=== PATIENT | male | born 1960 | race Caucasian/White ===

== ENCOUNTER → 2017-07-24 16:02 | Outpatient (CLI) | payer OTHER, SELFPAY ==
--- NOTE | 2017-07-24 16:33 | MRI_ITS ---
STUDY: MRI BRAIN WITH AND WITHOUT CONTRAST REASON FOR EXAM: Male, 57 years old. MS, follow-up. TECHNIQUE: Standardized multiplanar fat and water weighted pulse sequences were obtained. 9 ml of Gadavist contrast material was administered intravenously for the contrast portion of the examination. COMPARISON: 14 October 2011 FINDINGS: Normal size of the ventricles and extra-axial spaces for the patient's age. Previously seen prominent right posterior centrum semiovale ovale white matter lesion is decreased in size previously measuring 2 cm in diameter and now measuring approximately 1.1 cm in diameter. There is a new white matter lesion within the central right centrum semiovale measuring 0.8 x 1.1 cm as seen on series 7 image 18. The right posterior occipital periventricular white matter lesion is similar in size measuring 1.6 x 0.7 cm. Postcontrast imaging demonstrates no evidence of enhancing lesion. Small right frontal periventricular white matter lesion is also noted. Normal bilateral basal ganglia. Normal thalami. There is no extra-axial fluid accumulation. Normal flow voids within the major intracranial circulation suggesting patency by spin echo criteria. Normal venous enhancement. There is no enhancing intra-axial or extra-axial abnormality. Normal sella turcica, pituitary gland, infundibular stalk, optic chiasm and hypothalamus. Normal tectal plate and pineal gland. Normal midbrain, simeon and medulla. Normal cerebellum. Normal basal cisterns. Normal bilateral temporal bones. Normal bilateral internal auditory canals. No demonstrated orbital abnormality, within the constraints of a routine brain study. Normal visualized paranasal sinuses. Normal calvarium and skull base. Normal visualized soft tissue structures. Normal visualized upper cervical spine. MRI/Brain W/WO Contrast IMPRESSION: 1. Compared to 2011 there is a new right mid centrum semiovale ovale white matter lesions with decreased size of right posterior periventricular lesion. Stable apparent size of the right posterior occipital region lesion with no evidence of active enhancement. Otherwise no evidence of acute intracranial bleed, mass or ischemia. Electronically Signed: Enoc Youngblood DO at 20:31 EDT , Service support ,
== END ==
PROVIDERS: Family Provider Family Medicine; PCP Family Medicine; Visit Provider Internal Medicine
DX: G35 Multiple sclerosis (principal)
CPT/HCPCS: 70553; A9585

== ENCOUNTER 2017-10-06 18:17 | Emergency (ER) | payer OTHER, SELFPAY ==
--- NOTE | 2017-10-06 18:17 | DT_ITS ---
This patient was seen during an EMR downtime October 01, 2017 - October 08, 2017. This patient may have a combination of paper and electronic documentation or all paper documentation. All documentation is viewable within the e-chart portion of [facility] for each patient visit.
[2017-10-09 06:36] LABS: Bacteria 0 SEEN /hpf (None Seen); Mucous, Urine 0 SEEN /hpf (<or=2+); Squamous Epithelial Cells - UA 0 SEEN /hpf (0-5); White Blood Cells 0 SEEN /hpf (0-5)
[2017-10-09 06:59] LABS: Color, Urine Yellow (Yellow); Glucose, Dipstick NEGATIVE (Normal); Ketone-Dipstick Negative (Negative); Leukocyte Esterase-Dipstick Negative /ul (Negative); Nitrite-Dipstick Negative (Negative); Occult Blood-Urine 250 /ul (Negative); Protein-Dipstick 15 mg/dl (Negative); Red Blood Cells-Urine 0-5 SEEN /hpf (0-5); Specific Gravity, Urine 1.005 (1.002-1.030); Urine Bilirubin Dipstick Negative (Negative); Urine Clarity Clear (Clear); Urine Urobilinogen Normal (Normal); Urine pH 6.5 (5.0 - 8.0)
[2017-10-09 19:50] LABS: BUN 19 mg/dL (7-18); BUN/Creat Ratio 18.6 RATIO (10-20); Creatinine, Serum 1.02 mg/dL (0.70-1.30); EST Glomerular Filtration Rate 81 mL/min (>60); Est Glom Filt Rate - Afr Amer 98 mL/min (>60); Glucose 99 mg/dL (74-106)
[2017-10-09 19:51] LABS: Albumin, Serum 4.1 g/dL (3.2-5.0); Globulin 3.3 g/dL (2.2-4.2); Protein, Total 7.4 g/dL (6.4-8.2)
[2017-10-09 19:52] LABS: AST(SGOT) 22 U/L (15-37); Alanine Aminotransfer ALT/SGPT 27 U/L (16-61); Alkaline Phosphatase 88 U/L (45-117); Anion Gap 8 (5-15); Bilirubin, Direct 0.08 mg/dL (0.00-0.30); CPK Total, Creatine Kinase 175 U/L (39-308); Calcium,Total 8.6 mg/dL (8.5-10.1); Chloride 104 mmol/L (98-107); Potassium 3.7 mmol/L (3.5-5.1); Sodium Level 140 mmol/L (136-145)
[2017-10-09 21:02] LABS: Hematocrit 41.3 % (40-54); Hemoglobin 14.4 g/dl (13.0-16.5); Mean Corp Hgb Conc 34.9 g/gl (32-36); Mean Corpuscular Hgb 30.8 pg (27.0-32.0); Mean Corpuscular Volume 88.2 fL (80-94); Mean Platelet Vol. 10.3 fl (6.2-12.0); Neutrophil % 58.9 % (47-70); POSITIVE COUNT NO; POSITIVE DIFFERENTIAL NO; POSITIVE MORPHOLOGY NO; Platelet Count 179 K/mm3 (150-450); RBC Distribution Width CV 39.7 % (11.6-14.6); RBC Distribution Width SD 12.4 fl (35.1-43.9); Red Blood Count 4.68 M/mm3 (4.6-6.2); White Blood Count 6.7 K/mm3 (4.4-11.0)
[2017-10-09 21:03] LABS: Absolute Lymphocyte Count 1.78 X10^3/ul (0.83-4.51); Basophil# 0.05 X10^3/uL; Basophil% 0.7 % (0-1); Eosinophil# 0.36 X10^3/uL; Eosinophils% 5.4 % (0-5); Lymphocyte # 1.78 X10^3/ul (4.0); Lymphocyte % 26.5 % (19-41); Monocyte# 0.53 X10^3/uL; Monocyte% 7.9 % (0-10); Neutrophil # 3.96 X10^3/uL (2.7-7.7)
== END 2017-10-06 20:23 | disposition home or self-care (01) ==
LOC: ED 10-07 15:27
PROVIDERS: Emergency Provider Emergency Medicine; Family Provider Family Medicine; PCP Family Medicine
DX: R31.9 Hematuria, unspecified (principal); M62.82 Rhabdomyolysis
CPT/HCPCS: 36415; 80048; 80076; 81001; 82550; 85025; 96360; 96361; 99283; J7030; A4216

== ENCOUNTER → 2017-10-24 09:45 | Outpatient (CLI) | payer OTHER, SELFPAY ==
[2017-10-24 12:19] LABS: Anion Gap 9 (5-15); BUN 16 mg/dL (7-18); BUN/Creat Ratio 17.2 RATIO (10-20); Calcium,Total 9.1 mg/dL (8.5-10.1); Chloride 105 mmol/L (98-107); Creatinine, Serum 0.93 mg/dL (0.70-1.30); EST Glomerular Filtration Rate 90 mL/min (>60); Est Glom Filt Rate - Afr Amer 109 mL/min (>60); Glucose 102 mg/dL (74-106); Potassium 4.2 mmol/L (3.5-5.1); Sodium Level 141 mmol/L (136-145)
== END ==
PROVIDERS: Family Provider Family Medicine; PCP Family Medicine; Visit Provider Family Medicine
DX: E11.9 Type 2 diabetes mellitus without complications (principal)
CPT/HCPCS: 36415; 80048

== ENCOUNTER 2017-12-14 10:26 | Emergency (ER) | payer OTHER, SELFPAY ==
--- NOTE | 2017-12-14 10:38 | ED.RN ---
pt brought into triage room. this rn began to ask pt information. pt statesi was here awhile back when computers were down. this rn states ok and continues to search pt in computer. pt then starts yelling at this rn stating the physicians are not in my network so insurance did not pat my bill. this is bullshit. i want you to find me a dr in network to see me this am. this nurse explained that the physicians currently working in the ed department would be the ones to assess him. pt then becomes very angry calling this rn stupid and stating that this is fucking ridiculous. this rn offered a recharger or for the application architect manager to come discuss with pt. pt then screams at rn you are a fucking idiot i don't want anything. police and security aware as well as application architect manager
== END 2017-12-14 11:20 | disposition left against medical advice (07) ==
LOC: ED 11:12
PROVIDERS: Emergency Provider Emergency Medicine; Family Provider Family Medicine; PCP Family Medicine
DX: R69 Illness, unspecified (principal); Z53.21 Procedure and treatment not carried out due to patient leaving prior to being seen by health care provider

== ENCOUNTER → 2017-12-14 15:53 | Outpatient (CLI) | payer OTHER, SELFPAY | PROVIDERS: Family Provider Family Medicine; PCP Family Medicine; Visit Provider Family Medicine | DX: S42.035A Nondisplaced fracture of lateral end of left clavicle, initial encounter for closed fracture (principal); V19.9XXA Pedal cyclist (driver) (passenger) injured in unspecified traffic accident, initial encounter; Y93.9 Activity, unspecified; Y92.9 Unspecified place or not applicable | CPT/HCPCS: 73000 ==

== ENCOUNTER 2018-02-02 07:42 | Emergency (ER) | payer OTHER, SELFPAY ==
[2018-02-02 07:43] VITALS: BP 170/90; PULSE 66; RESP 16; TEMP 36.7; O2SAT 98; BMI 30.9
--- NOTE | 2018-02-02 07:57 | CT_ITS ---
STUDY: CT ABDOMEN AND PELVIS WITHOUT CONTRAST REASON FOR EXAM: Male, 57 years old. Back pain, dark urine with history of rhabdo. RADIATION DOSAGE (If Supplied By Facility): CTDIvol = ( 14.68 ) mGy, DLP = ( 788.33 ) mGycm TECHNIQUE: Transaxial images were obtained from the dome of the diaphragm to the symphysis pubis without oral contrast, and without intravenous contrast. Sagittal and coronal images were reconstructed. Individualized dose optimization techniques were used for this CT. COMPARISON: None. FINDINGS: Left lower lobe focal granulomas present. The visualized portions of the heart are within normal limits. Normal liver. Normal gallbladder and extrahepatic biliary system. Normal spleen. Normal pancreas. Normal bilateral adrenal glands. There is demonstrated mild right renal enlargement, perinephric stranding with moderate hydronephrosis. There is a demonstrated proximal ureteral stone is seen on series 2 image 93 measuring 6 mm. Normal left kidney. Normal visualized stomach. Normal small intestine. Normal colon. The appendix is visualized and appears normal. Normal abdominal aorta. Normal inferior vena cava. Normal retroperitoneum. Normal urinary bladder. There are prostatic calcifications. There is a bilateral inguinal hernia containing adipose tissue. Normal osseous structures. CT/Abdomen/Pelvis without Cont IMPRESSION: 1. Proximal ureteral 6 mm stone with moderate hydronephrosis and mild obstructive nephropathy. Otherwise no evidence of acute intra-abdominal process. Electronically Signed: Enoc Youngblood DO at 8:42 EDT , Service support ,
--- NOTE | 2018-02-02 08:00 | ED.VISSUMM ---
- ER Visit Summary Date of Service: 02/02/18 Chief Complaint: [] Dark urine, right flank pain, history of rhabdomyolysis, kidney stones hypertension diabetes History of Present Illness: The patient is a 57 M [] that history, patient reports yesterday he cycled 18 miles which is not unusual for him he noticed he drinks very little water and has had dark urine since, he has had a history of rhabdomyolysis, he presents for evaluation he also complains of right flank pain prior history of kidney stones. He also has hypertension diabetes he is on metformin hydrochlorothiazide. In general his health has been very good he indicates he believes he just simply did not drink enough water with his cycling activities and this caused the dark urine, he has been drinking as much water as he can since he noticed the dark urine and it has not gone away and he presents for evaluation, prior history of kidney stones that resolved spontaneously was not seen by urology his blood sugars normally run 130 Review of systems otherwise negative he has no other complaints Physical Examination: [] Pressure is 170/80 he is resting comforting the bed head neck chest unremarkable lungs clear heart tones normal the abdomen soft nontender no rebound guarding organomegaly he does have a vague pain to the right flank that radiates to his right middle quadrant but there is no rebound guarding organomegaly he states he is concerned he may have developed a kidney stone with all the above or this may be related to his cycling activity, his upper lower extremities unremarkable without cyanosis clubbing or edema, his skin is normal neurologically is awake alert moving all 4 answering questions appropriately Test Results: [] Emergency Department Course and Treatment: [] Given all of his complains, evaluations pursued screening labs CT IV fluids The patient's labs are generally unremarkable his CK is around 200, please see those reports, his CT flank shows a 6 mm kidney stone right please see that report on reevaluation he is resting in the bed feels better I explained all the test results to him he is comfortable discharge home, he understands he did see urology, Dr. Downs , he will avoid exertional activity make sure he hydrates himself, I have cautioned him about the concept of rhabdomyolysis metformin interactions acidosis etc. he will talk to his physicians about the metformin his blood sugar, and return for any change in symptoms and again he is feeling better and is comfortable with discharge home understands the management plan and agrees, he will obtain the complete fluid bolus prior to discharge Treatment Plan: [] Disposition: [] Home stable Impression: [] Right flank pain related to right sided ureteral stone see report, concern for rhabdomyolysis, diabetes This note was generated with [employer] dictation software. It may contain incorrect words, spelling, and punctuation that were not noted in review of the chart prior to signing ED Disposition - Plan for ED Patient: Chief Complaint: General Illness Referrals: Jayla Rajput MD [Primary Care Provider] -
[2018-02-02 08:08] LABS: Mucous, Urine 0 SEEN /hpf (<or=2+); Squamous Epithelial Cells - UA 0 SEEN /hpf (0-5)
[2018-02-02 08:12] LABS: Color, Urine Yellow (Yellow); Glucose, Dipstick Normal (Normal); Ketone-Dipstick Negative (Negative); Leukocyte Esterase-Dipstick Negative /ul (Negative); Nitrite-Dipstick Negative (Negative); Occult Blood-Urine 250 /ul (Negative); Protein-Dipstick 15 mg/dl (Negative); Urine Bilirubin Dipstick Negative (Negative); Urine Clarity Clear (Clear); Urine Urobilinogen Normal (Normal)
[2018-02-02] MEDS: Ondansetron 4 MG/2 ML Vial IV (08:16)
[2018-02-02] MEDS: 0.9% Normal Saline 1,000 ML 1000 ML IV ×2 (08:16→08:57)
[2018-02-02 08:29] LABS: Absolute Lymphocyte Count 2.17 X10^3/ul (0.83-4.51); Absolute Neutrophil Count 4.3 X10^3/uL (2.0-7.7); Basophil# 0.04 X10^3/uL; Basophil% 0.6 % (0-1); Eosinophil# 0.23 X10^3/uL; Eosinophils% 3.3 % (0-5); Hematocrit 40.8 % (40-54); Hemoglobin 14.3 g/dl (13.0-16.5); Lymphocyte # 2.17 X10^3/ul (4.0); Lymphocyte % 30.7 % (19-41); Mean Corpuscular Hgb 30.3 pg (27.0-32.0); Mean Corpuscular Volume 86.4 fL (80-94); Mean Platelet Vol. 9.9 fl (6.2-12.0); Monocyte# 0.34 X10^3/uL; Monocyte% 4.8 % (0-10); Neutrophil # 4.26 X10^3/uL (2.7-7.7); Neutrophil % 60.2 % (47-70); Platelet Count 158 K/mm3 (150-450); RBC Distribution Width CV 12.7 % (11.6-14.6); RBC Distribution Width SD 40.3 fl (35.1-43.9); Red Blood Count 4.72 M/mm3 (4.6-6.2); White Blood Count 7.1 K/mm3 (4.4-11.0)
[2018-02-02 08:30] LABS: POSITIVE COUNT NO; POSITIVE DIFFERENTIAL NO; POSITIVE MORPHOLOGY NO
[2018-02-02 08:37] LABS: AST(SGOT) 19 U/L (15-37); Alanine Aminotransfer ALT/SGPT 27 U/L (16-61); Albumin, Serum 3.9 g/dL (3.2-5.0); Alkaline Phosphatase 81 U/L (45-117); Anion Gap 10 (5-15); BUN 19 mg/dL (7-18); Bilirubin, Direct 0.14 mg/dL (0.00-0.30); Calcium,Total 9.1 mg/dL (8.5-10.1); Chloride 100 mmol/L (98-107); EST Glomerular Filtration Rate 82 mL/min (>60); Est Glom Filt Rate - Afr Amer 100 mL/min (>60); Estimated Creatinine Clearance 94.33 ml/min; Globulin 3.5 g/dL (2.2-4.2); Glucose 108 mg/dL (74-106); Lipase 197 U/L (73-393); Protein, Total 7.4 g/dL (6.4-8.2); Sodium Level 135 mmol/L (136-145)
[2018-02-02 08:42] LABS: CPK Total, Creatine Kinase 215 U/L (39-308)
[2018-02-02 08:56] LABS: Bacteria 1+ /hpf (None Seen); Red Blood Cells-Urine 0-5 SEEN /hpf (0-5); Triple Phosphate Crystals Ur 1+ /hpf (<or=1+); Uric Acid Crystals Ur 1+ /hpf (<or=1+); White Blood Cells 0-5 SEEN /hpf (0-5)
[2018-02-02] MEDS: proMETHazine 25 MG/ML Syringe 12.5 MG IV (08:57)
--- NOTE | 2018-02-02 09:38 | ED.DEP ---
ED Disposition - Plan for ED Patient: Chief Complaint: General Illness Instructions: ED Rhabdomyolysis, ED Stone Renal W Colic Prescriptions: Hydrocodone Bitart/Apap 5-325 [[place] 5MG-325MG] 1 tab PO Q4H PRN PRN 2 Days #10 tab PRN Reason: Pain Tamsulosin HCl [Flomax] 0.4 mg PO DAILY #7 cap Naproxen [Naprosyn] 500 mg PO BID #14 tab Referrals: Jayla Rajput MD [Primary Care Provider] - Rodri Moore MD [STAFF PHYSICIAN] -
--- NOTE | 2018-02-02 09:41 | DCINST.ED_ITS ---
ED Disposition - Plan for ED Patient: Chief Complaint: General Illness Instructions: ED Rhabdomyolysis, ED Stone Renal W Colic Prescriptions: Hydrocodone Bitart/Apap 5-325 [[place] 5MG-325MG] 1 tab PO Q4H PRN PRN 2 Days #10 tab PRN Reason: Pain Tamsulosin HCl [Flomax] 0.4 mg PO DAILY #7 cap Naproxen [Naprosyn] 500 mg PO BID #14 tab Referrals: Jayla Rajput MD [Primary Care Provider] - Rodri Moore MD [STAFF PHYSICIAN] -
[2018-02-02 09:59] VITALS: BP 164/87; PULSE 60; RESP 18; O2SAT 97
== END 2018-02-02 10:00 | disposition home or self-care (01) ==
PROVIDERS: Emergency Provider Emergency Medicine; Family Provider Family Medicine; PCP Family Medicine
DX: N20.1 Calculus of ureter (principal); E11.9 Type 2 diabetes mellitus without complications; I10 Essential (primary) hypertension; Z87.442 Personal history of urinary calculi; Z79.84 Long term (current) use of oral hypoglycemic drugs; Z79.899 Other long term (current) drug therapy; Z87.39 Personal history of other diseases of the musculoskeletal system and connective tissue
CPT/HCPCS: 74176; 80048; 80076; 81001; 82550; 83690; 85025; 96361; 96374; 96375; 99283; J7030; J2405

== ENCOUNTER → 2018-04-29 09:48 | Outpatient (CLI) | payer OTHER, SELFPAY ==
[2018-04-29 12:57] LABS: Microalbumin,Random Urine 6.7 mg/L (NO RANGE EST.); Microalbumin:Creatinine Ratio 7.7 mg/g CRE (<30 mg/g CRE)
[2018-04-29 13:02] LABS: AST(SGOT) 21 U/L (15-37); Alanine Aminotransfer ALT/SGPT 33 U/L (16-61); Albumin, Serum 4.3 g/dL (3.2-5.0); Alkaline Phosphatase 68 U/L (45-117); Anion Gap 12 (5-15); BUN 16 mg/dL (7-18); BUN/Creat Ratio 16.9 RATIO (10-20); Bilirubin, Direct 0.17 mg/dL (0.00-0.30); Calcium,Total 9.2 mg/dL (8.5-10.1); Chloride 100 mmol/L (98-107); Cholesterol 233 mg/dL (200); Creatinine, Serum 0.95 mg/dL (0.70-1.30); EST Glomerular Filtration Rate 88 mL/min (>60); Est Glom Filt Rate - Afr Amer 106 mL/min (>60); Globulin 3.2 g/dL (2.2-4.2); Glucose 99 mg/dL (74-106); High Density Lipoprotein 37 mg/dL; Potassium 3.9 mmol/L (3.5-5.1); Protein, Total 7.5 g/dL (6.4-8.2); Sodium Level 139 mmol/L (136-145); Triglycerides 498 mg/dL
== END ==
PROVIDERS: Family Provider Family Medicine; PCP Family Medicine; Visit Provider Family Medicine
DX: E11.9 Type 2 diabetes mellitus without complications (principal)
CPT/HCPCS: 36415; 80048; 80061; 80076; 82043; 82570

== ENCOUNTER → 2018-10-22 10:26 | Outpatient (CLI) | payer OTHER, SELFPAY ==
[2018-10-22 12:56] LABS: Hemoglobin A1c 5.2 % (4.2-6.3)
[2018-10-22 12:59] LABS: AST(SGOT) 16 U/L (15-37); Alanine Aminotransfer ALT/SGPT 24 U/L (16-61); Anion Gap 5 (5-15); BUN 19 mg/dL (7-18); BUN/Creat Ratio 20.2 RATIO (10-20); Calcium,Total 9.6 mg/dL (8.5-10.1); Chloride 102 mmol/L (98-107); Cholesterol 216 mg/dL (200); Creatinine, Serum 0.94 mg/dL (0.70-1.30); EST Glomerular Filtration Rate 88 mL/min (>60); Est Glom Filt Rate - Afr Amer 106 mL/min (>60); Glucose 104 mg/dL (74-106); High Density Lipoprotein 38 mg/dL; Potassium 3.9 mmol/L (3.5-5.1); Sodium Level 136 mmol/L (136-145); Triglycerides 327 mg/dL; Very Low Density Lipoprotein 65 mg/dL (5-40)
== END ==
PROVIDERS: Family Provider Family Medicine; PCP Family Medicine; Visit Provider Family Medicine
DX: E78.5 Hyperlipidemia, unspecified (principal); E11.9 Type 2 diabetes mellitus without complications
CPT/HCPCS: 36415; 80048; 80061; 83036; 84450; 84460

== ENCOUNTER → 2019-02-07 10:29 | Outpatient (CLI) | payer OTHER, SELFPAY ==
--- NOTE | 2019-02-07 10:49 | EKG12_ITS ---
Test Reason : PREOP Blood Pressure : / mmHG Vent. Rate : 061 BPM Atrial Rate : 061 BPM P-R Int : 186 ms QRS Dur : 126 ms QT Int : 422 ms P-R-T Axes : 055 025 047 degrees QTc Int : 424 ms Normal sinus rhythm Non-specific intra-ventricular conduction block Inferior infarct , age undetermined Abnormal ECG Confirmed by CHERRY MACHUCA, SARAH BETH ([id number]), content editor HIEN GARIBAY ([id number]) on 02/12/2019 9:38:48 A M Referred By: Octaviano Mosher Confirmed By:JOSE CAREY MD
[2019-02-07 11:34] LABS: Hematocrit 42.6 % (40-54); Hemoglobin 14.9 g/dL (13.0-16.5); Mean Corpuscular Hgb 30.2 pg (27.0-32.0); Mean Corpuscular Volume 86.4 fL (80-94); Mean Platelet Vol. 10.4 fl (6.2-12.0); Platelet Count 167 K/mm3 (150-450); RBC Distribution Width CV 12.5 % (11.6-14.6); RBC Distribution Width SD 39.4 fl (35.1-43.9); Red Blood Count 4.93 M/mm3 (4.6-6.2)
[2019-02-07 11:57] LABS: Anion Gap 9 (5-15); BUN 20 mg/dL (7-18); BUN/Creat Ratio 18.9 RATIO (10-20); Calcium,Total 8.7 mg/dL (8.5-10.1); Chloride 109 mmol/L (98-107); Creatinine, Serum 1.06 mg/dL (0.70-1.30); EST Glomerular Filtration Rate 77 mL/min (>60); Est Glom Filt Rate - Afr Amer 93 mL/min (>60); Glucose 101 mg/dL (74-106); Sodium Level 144 mmol/L (136-145)
== END ==
PROVIDERS: Family Provider Family Medicine; PCP Family Medicine; Referring Provider Orthopaedic Surgery; Visit Provider Orthopaedic Surgery
DX: Z01.818 Encounter for other preprocedural examination (principal); Z01.810 Encounter for preprocedural cardiovascular examination
CPT/HCPCS: 36415; 80048; 85027; 93005

== ENCOUNTER → 2019-04-15 09:39 | Outpatient (CLI) | payer OTHER, SELFPAY ==
[2019-04-15 12:47] LABS: Anion Gap 8 (5-15); BUN 17 mg/dL (7-18); BUN/Creat Ratio 14.9 RATIO (10-20); Calcium,Total 9.5 mg/dL (8.5-10.1); Chloride 105 mmol/L (98-107); Creatinine, Serum 1.14 mg/dL (0.70-1.30); EST Glomerular Filtration Rate 70 mL/min (>60); Est Glom Filt Rate - Afr Amer 85 mL/min (>60); Glucose 102 mg/dL (74-106); Potassium 4.3 mmol/L (3.5-5.1); Sodium Level 139 mmol/L (136-145)
== END ==
PROVIDERS: Family Provider Family Medicine; PCP Family Medicine; Referring Provider Family Medicine; Visit Provider Family Medicine
DX: E11.9 Type 2 diabetes mellitus without complications (principal)
CPT/HCPCS: 36415; 80048

== ENCOUNTER → 2019-10-21 10:16 | Outpatient (CLI) | payer OTHER, SELFPAY ==
[2019-10-21 13:05] LABS: Anion Gap 8 (5-15); BUN 18 mg/dL (7-18); BUN/Creat Ratio 20.4 RATIO (10-20); Calcium,Total 9.4 mg/dL (8.5-10.1); Chloride 105 mmol/L (98-107); Creatinine, Serum 0.88 mg/dL (0.70-1.30); EST Glomerular Filtration Rate 94 mL/min (>60); Est Glom Filt Rate - Afr Amer 114 mL/min (>60); Glucose 105 mg/dL (74-106); Potassium 3.8 mmol/L (3.5-5.1); Sodium Level 139 mmol/L (136-145)
[2019-10-21 13:13] LABS: Hemoglobin A1c 5.1 % (3.8-5.6)
== END ==
PROVIDERS: PCP Family Medicine; Referring Provider Family Medicine; Visit Provider Family Medicine
DX: E11.9 Type 2 diabetes mellitus without complications (principal)
CPT/HCPCS: 36415; 80048; 83036

== ENCOUNTER → 2020-04-07 10:23 | Outpatient (CLI) | payer OTHER, SELFPAY ==
[2020-04-07 12:24] LABS: Absolute Lymphocyte Count 2.36 X10^3/uL (0.83-4.51); Absolute Neutrophil Count 3.1 X10^3/uL (2.0-7.7); Basophil# 0.09 X10^3/uL; Basophil% 1.4 % (0-1); Eosinophil# 0.34 X10^3/uL; Eosinophils% 5.3 % (0-5); Hematocrit 46.1 % (40-54); Hemoglobin 16.1 g/dL (13.0-16.5); Lymphocyte # 2.36 X10^3/ul (4.0); Lymphocyte % 36.9 % (19-41); Mean Corp Hgb Conc 34.9 g/dL (32-36); Mean Corpuscular Hgb 30.1 pg (27.0-32.0); Mean Corpuscular Volume 86.3 fL (80-94); Mean Platelet Vol. 10.5 fl (6.2-12.0); Monocyte# 0.42 X10^3/uL; Monocyte% 6.6 % (0-10); NRBC Flagged by Analyzer 0 % (0-5); Neutrophil # 3.13 X10^3/uL (2.7-7.7); Platelet Count 193 K/mm3 (150-450); RBC Distribution Width CV 12.4 % (11.6-14.6); RBC Distribution Width SD 38.8 fl (35.1-43.9); Red Blood Count 5.34 M/mm3 (4.6-6.2); White Blood Count 6.4 K/mm3 (4.4-11.0)
[2020-04-07 12:42] LABS: ALB/GLOB Ratio 1.2 RATIO (0.9-2.4); AST(SGOT) 22 U/L (15-37); Alanine Aminotransfer ALT/SGPT 50 U/L (16-61); Albumin, Serum 4.3 g/dL (3.2-5.0); Alkaline Phosphatase 71 U/L (45-117); Anion Gap 6 (5-15); BUN 19 mg/dL (7-18); BUN/Creat Ratio 19.2 RATIO (10-20); Calcium,Total 9.3 mg/dL (8.5-10.1); Chloride 105 mmol/L (98-107); Creatinine, Serum 0.99 mg/dL (0.70-1.30); EST Glomerular Filtration Rate 82 mL/min (>60); Est Glom Filt Rate - Afr Amer 100 mL/min (>60); Globulin 3.7 g/dL (2.2-4.2); Glucose 105 mg/dL (74-106); Potassium 3.6 mmol/L (3.5-5.1); Sodium Level 138 mmol/L (136-145)
[2020-04-10 06:07] LABS: HEPATITIS B SURFACE AG Negative (Negative); Hepatitis A AB, Total Negative (Negative); Hepatitis A IgM Antibody Negative (Negative); Hepatitis B Core AB IgM Negative (Negative); Hepatitis B Core Ab Total Negative (Negative); Hepatitis C Ab <0.1 s/co ratio (0.0-0.9); Immunoglobulin A 284 mg/dL (90-386); Immunoglobulin G 970 mg/dL (603-1613); QNTFERON TB Mitogen Value > 10.00 IU/mL (.); QNTFERON TB Nil Value 0.08 IU/mL (.); QNTFERON TB1+ Ag Value 0.06 IU/mL (.); QNTFERON TB2+ Ag Value 0.06 IU/mL (.)
[2020-04-10 15:38] LABS: Hep B Surface Antibodies Non Reactive (.); Immunoglobulin M 66 mg/dL (20-172); QNTIFERON TB Positive Criteria Negative (Negative)
== END ==
PROVIDERS: PCP Family Medicine; Referring Provider Family Medicine
DX: G35 Multiple sclerosis (principal)
CPT/HCPCS: 36415; 80053; 82784; 85025; 86480; 86704; 86705; 86706; 86708; 86709; 86803; 87340

== ENCOUNTER → 2020-09-22 08:51 | Outpatient (CLI) | payer OTHER, SELFPAY ==
[2020-09-22 09:56] LABS: Absolute Neutrophil Count 2.8 X10^3/uL (2.0-7.7); Basophil# 0.08 X10^3/uL; Basophil% 1.4 % (0-1); Eosinophil# 0.32 X10^3/uL; Eosinophils% 5.5 % (0-5); Hematocrit 44.9 % (40-54); Hemoglobin 15.5 g/dL (13.0-16.5); Lymphocyte % 36.3 % (19-41); Mean Corp Hgb Conc 34.5 g/dL (32-36); Mean Corpuscular Hgb 30.8 pg (27.0-32.0); Mean Corpuscular Volume 89.1 fL (80-94); Mean Platelet Vol. 10.5 fl (6.2-12.0); Monocyte# 0.42 X10^3/uL; Monocyte% 7.3 % (0-10); NRBC Flagged by Analyzer 0 % (0-5); Neutrophil # 2.83 X10^3/uL (2.7-7.7); Neutrophil % 48.8 % (47-70); Platelet Count 178 K/mm3 (150-450); RBC Distribution Width CV 12.4 % (11.6-14.6); RBC Distribution Width SD 40.6 fl (35.1-43.9); Red Blood Count 5.04 M/mm3 (4.6-6.2); White Blood Count 5.8 K/mm3 (4.4-11.0)
[2020-09-22 10:17] LABS: ALB/GLOB Ratio 1.2 RATIO (0.9-2.4); AST(SGOT) 26 U/L (15-37); Alanine Aminotransfer ALT/SGPT 43 U/L (16-61); Albumin, Serum 4.1 g/dL (3.2-5.0); Alkaline Phosphatase 80 U/L (45-117); Anion Gap 5 (5-15); BUN 17 mg/dL (7-18); BUN/Creat Ratio 18.1 RATIO (10-20); Calcium,Total 9.1 mg/dL (8.5-10.1); Chloride 108 mmol/L (98-107); Creatinine, Serum 0.94 mg/dL (0.70-1.30); EST Glomerular Filtration Rate 88 mL/min (>60); Est Glom Filt Rate - Afr Amer 106 mL/min (>60); Globulin 3.4 g/dL (2.2-4.2); Glucose 117 mg/dL (74-106); Protein, Total 7.5 g/dL (6.4-8.2); Sodium Level 140 mmol/L (136-145)
[2020-09-23 05:07] LABS: Immunoglobulin A 256 mg/dL (90-386); Immunoglobulin G 771 mg/dL (603-1613)
[2020-09-23 16:47] LABS: Immunoglobulin M 46 mg/dL (20-172)
== END ==
PROVIDERS: PCP Family Medicine; Referring Provider Family Medicine
DX: Z79.899 Other long term (current) drug therapy (principal)
CPT/HCPCS: 36415; 80053; 82784; 85025

== ENCOUNTER → 2020-12-09 09:56 | Outpatient (CLI) | payer OTHER, SELFPAY ==
--- NOTE | 2020-12-09 10:02 | MRI_ITS ---
STUDY: MRI BRAIN WITH AND WITHOUT CONTRAST REASON FOR EXAM: Male, 60 years old. MS f/u TECHNIQUE: Standardized multiplanar fat and water weighted pulse sequences were obtained. IV 20cc dotarem was administered for the contrast portion of the examination. COMPARISON: None. FINDINGS: Normal size of the ventricles and extra-axial spaces for the patient''s age. There is no change in the hyperintensities of the periventricular and pericallosal white matter consistent with known pneumonia and disease (multiple sclerosis). No contrast enhancing plaque. There is no evidence for recent intracranial ischemia or other cause of cytotoxic edema on diffusion weighted imaging (DWI). Normal bilateral basal ganglia. Normal thalami. There is no extra-axial fluid accumulation. Normal flow voids within the major intracranial circulation suggesting patency by spin echo criteria. Normal venous enhancement. There is no enhancing intra-axial or extra-axial abnormality. Normal sella turcica, pituitary gland, infundibular stalk, optic chiasm and hypothalamus. Normal tectal plate and pineal gland. Normal midbrain, simeon and medulla. Normal cerebellum. Normal basal cisterns. Normal bilateral temporal bones. Normal bilateral internal auditory canals. No demonstrated orbital abnormality, within the constraints of a routine brain study. Small mucous retention cyst of the left maxillary sinus consistent with chronic sinusitis. Normal calvarium and skull base. Normal visualized soft tissue structures. Normal visualized upper cervical spine. MRI/Brain W/WO Contrast IMPRESSION: No change from 07/24/2017. Electronically Signed: Phi Alexander MD at 13:30 EDT Tel , Service support ,
[2020-12-09 10:41] LABS: Absolute Lymphocyte Count 1.94 X10^3/uL (0.83-4.51); Absolute Neutrophil Count 2.7 X10^3/uL (2.0-7.7); Basophil# 0.08 X10^3/uL; Basophil% 1.5 % (0-1); Eosinophil# 0.25 X10^3/uL; Eosinophils% 4.6 % (0-5); Hematocrit 44.4 % (40-54); Hemoglobin 15.5 g/dL (13.0-16.5); Lymphocyte # 1.94 X10^3/ul (0.83-4.51); Lymphocyte % 35.8 % (19-41); Mean Corp Hgb Conc 34.9 g/dL (32-36); Mean Corpuscular Hgb 30.6 pg (27.0-32.0); Mean Corpuscular Volume 87.7 fL (80-94); Mean Platelet Vol. 10.2 fl (6.2-12.0); Monocyte# 0.43 X10^3/uL; Monocyte% 7.9 % (0-10); NRBC Flagged by Analyzer 0 % (0-5); Neutrophil # 2.69 X10^3/uL (2.7-7.7); Neutrophil % 49.6 % (47-70); Platelet Count 196 K/mm3 (150-450); RBC Distribution Width CV 12.2 % (11.6-14.6); RBC Distribution Width SD 39.2 fl (35.1-43.9); Red Blood Count 5.06 M/mm3 (4.6-6.2); White Blood Count 5.4 K/mm3 (4.4-11.0)
[2020-12-09 10:55] LABS: ALB/GLOB Ratio 1.3 RATIO (0.9-2.4); AST(SGOT) 24 U/L (15-37); Alanine Aminotransfer ALT/SGPT 36 U/L (16-61); Albumin, Serum 4.3 g/dL (3.2-5.0); Alkaline Phosphatase 75 U/L (45-117); Anion Gap 3 (5-15); BUN 19 mg/dL (7-18); BUN/Creat Ratio 20.8 RATIO (10-20); Chloride 104 mmol/L (98-107); Creatinine, Serum 0.91 mg/dL (0.70-1.30); EST Glomerular Filtration Rate 90 mL/min (>60); Est Glom Filt Rate - Afr Amer 109 mL/min (>60); Globulin 3.4 g/dL (2.2-4.2); Glucose 102 mg/dL (74-106); Potassium 4.4 mmol/L (3.5-5.1); Protein, Total 7.7 g/dL (6.4-8.2); Sodium Level 138 mmol/L (136-145)
[2020-12-10 08:08] LABS: Immunoglobulin A 247 mg/dL (90-386); Immunoglobulin G 817 mg/dL (603-1613)
[2020-12-10 11:50] LABS: Immunoglobulin M 39 mg/dL (20-172)
== END ==
PROVIDERS: PCP Family Medicine
DX: G35 Multiple sclerosis (principal); Z79.899 Other long term (current) drug therapy
CPT/HCPCS: 36415; 70553; 80053; 82784; 85025; A9575

== ENCOUNTER → 2021-08-23 | Outpatient (CLI) | payer OTHER, SELFPAY ==
[2021-08-23 12:09] LABS: Absolute Lymphocyte Count 2.52 X10^3/uL (0.83-4.51); Absolute Neutrophil Count 2.7 X10^3/uL (2.0-7.7); Basophil# 0.08 X10^3/uL; Basophil% 1.3 % (0-1); Eosinophil# 0.34 X10^3/uL; Eosinophils% 5.5 % (0-5); Hematocrit 43.7 % (40-54); Hemoglobin 15.4 g/dL (13.0-16.5); Lymphocyte # 2.52 X10^3/ul (0.83-4.51); Mean Corp Hgb Conc 35.2 g/dL (32-36); Mean Corpuscular Hgb 30.2 pg (27.0-32.0); Mean Corpuscular Volume 85.7 fL (80-94); Mean Platelet Vol. 10.2 fl (6.2-12.0); Monocyte# 0.44 X10^3/uL; Monocyte% 7.2 % (0-10); NRBC Flagged by Analyzer 0 % (0-5); Neutrophil # 2.73 X10^3/uL (2.7-7.7); Neutrophil % 44.3 % (47-70); Platelet Count 215 K/mm3 (150-450); RBC Distribution Width CV 12.5 % (11.6-14.6); RBC Distribution Width SD 38.8 fl (35.1-43.9); White Blood Count 6.2 K/mm3 (4.4-11.0)
[2021-08-23 12:23] LABS: ALB/GLOB Ratio 1.3 RATIO (0.9-2.4); AST(SGOT) 21 U/L (15-37); Alanine Aminotransfer ALT/SGPT 43 U/L (16-61); Albumin, Serum 4.4 g/dL (3.2-5.0); Alkaline Phosphatase 77 U/L (45-117); Anion Gap 7 (5-15); BUN 16 mg/dL (7-18); BUN/Creat Ratio 16.6 RATIO (10-20); Calcium,Total 9.4 mg/dL (8.5-10.1); Chloride 108 mmol/L (98-107); Creatinine, Serum 0.96 mg/dL (0.70-1.30); EST Glomerular Filtration Rate 85 mL/min (>60); Est Glom Filt Rate - Afr Amer 103 mL/min (>60); Globulin 3.4 g/dL (2.2-4.2); Glucose 110 mg/dL (74-106); Potassium 4.1 mmol/L (3.5-5.1); Protein, Total 7.8 g/dL (6.4-8.2); Sodium Level 139 mmol/L (136-145)
[2021-08-24 05:07] LABS: Immunoglobulin A 273 mg/dL (90-386); Immunoglobulin G 906 mg/dL (603-1613)
[2021-08-24 10:41] LABS: Immunoglobulin M 34 mg/dL (20-172)
== END | disposition home or self-care (01) ==
LOC: MFPLAB 10:44
PROVIDERS: PCP Family Medicine; Referring Provider Family Medicine
DX: Z79.899 Other long term (current) drug therapy (principal)
CPT/HCPCS: 36415; 80053; 82784; 85025

== ENCOUNTER → 2021-12-26 | Outpatient (CLI) | payer OTHER, SELFPAY ==
[2021-12-26 15:06] LABS: Absolute Lymphocyte Count 2.23 X10^3/uL (0.83-4.51); Absolute Neutrophil Count 4.8 X10^3/uL (2.0-7.7); Basophil# 0.09 X10^3/uL; Basophil% 1.1 % (0-1); Eosinophil# 0.31 X10^3/uL; Eosinophils% 3.8 % (0-5); Hematocrit 41.6 % (40-54); Hemoglobin 14.5 g/dL (13.0-16.5); Lymphocyte # 2.23 X10^3/ul (0.83-4.51); Lymphocyte % 27.5 % (19-41); Mean Corp Hgb Conc 34.9 g/dL (32-36); Mean Corpuscular Hgb 30.3 pg (27.0-32.0); Mean Platelet Vol. 10.5 fl (6.2-12.0); Monocyte# 0.64 X10^3/uL; Monocyte% 7.9 % (0-10); NRBC Flagged by Analyzer 0 % (0-5); Neutrophil # 4.78 X10^3/uL (2.7-7.7); Neutrophil % 58.8 % (47-70); Platelet Count 202 K/mm3 (150-450); RBC Distribution Width CV 12.3 % (11.6-14.6); RBC Distribution Width SD 39.3 fl (35.1-43.9); Red Blood Count 4.78 M/mm3 (4.6-6.2); White Blood Count 8.1 K/mm3 (4.4-11.0)
[2021-12-26 15:40] LABS: ALB/GLOB Ratio 1.4 RATIO (0.9-2.4); AST(SGOT) 30 U/L (15-37); Alanine Aminotransfer ALT/SGPT 45 U/L (16-61); Albumin, Serum 4.2 g/dL (3.2-5.0); Alkaline Phosphatase 72 U/L (45-117); Anion Gap 4 (5-15); BUN 18 mg/dL (7-18); BUN/Creat Ratio 18.8 RATIO (10-20); Calcium,Total 9.3 mg/dL (8.5-10.1); Chloride 109 mmol/L (98-107); Creatinine, Serum 0.96 mg/dL (0.70-1.30); EST Glomerular Filtration Rate 85 mL/min (>60); Est Glom Filt Rate - Afr Amer 103 mL/min (>60); Glucose 93 mg/dL (74-106); Potassium 3.9 mmol/L (3.5-5.1); Protein, Total 7.2 g/dL (6.4-8.2); Sodium Level 142 mmol/L (136-145)
[2021-12-30 06:07] LABS: Immunoglobulin A 217 mg/dL (90-386); Immunoglobulin G 782 mg/dL (603-1613); Immunoglobulin M 30 mg/dL (20-172)
[2022-01-01 14:17] LABS: Immunoglobulin D Quant 1.49 mg/dL (<14.11)
== END | disposition home or self-care (01) ==
LOC: MFPLAB 13:46
PROVIDERS: Internal Medicine; PCP Family Medicine; Visit Provider Family Medicine
DX: Z79.899 Other long term (current) drug therapy (principal)
CPT/HCPCS: 36415; 80053; 82784; 85025; 86334

== ENCOUNTER → 2022-08-28 | Outpatient (CLI) | payer OTHER, SELFPAY ==
[2022-08-28 12:18] LABS: Absolute Lymphocyte Count 2.01 X10^3/uL (0.83-4.51); Absolute Neutrophil Count 2.9 X10^3/uL (2.0-7.7); Basophil# 0.09 X10^3/uL; Basophil% 1.6 % (0-1); Eosinophil# 0.27 X10^3/uL; Eosinophils% 4.7 % (0-5); Hematocrit 45.3 % (40-54); Hemoglobin 15.7 g/dL (13.0-16.5); Lymphocyte # 2.01 X10^3/ul (0.83-4.51); Lymphocyte % 35.3 % (19-41); Mean Corp Hgb Conc 34.7 g/dL (32-36); Mean Corpuscular Hgb 29.8 pg (27.0-32.0); Mean Corpuscular Volume 86.1 fL (80-94); Mean Platelet Vol. 10.3 fl (6.2-12.0); Monocyte# 0.37 X10^3/uL; Monocyte% 6.5 % (0-10); NRBC Flagged by Analyzer 0 % (0-5); Neutrophil % 50.8 % (47-70); Platelet Count 213 K/mm3 (150-450); RBC Distribution Width CV 12.3 % (11.6-14.6); RBC Distribution Width SD 38.6 fl (35.1-43.9); Red Blood Count 5.26 M/mm3 (4.6-6.2); White Blood Count 5.7 K/mm3 (4.4-11.0)
[2022-08-28 13:07] LABS: ALB/GLOB Ratio 1.2 RATIO (0.9-2.4); AST(SGOT) 22 U/L (15-37); Alanine Aminotransfer ALT/SGPT 33 U/L (16-61); Albumin, Serum 4.3 g/dL (3.2-5.0); Alkaline Phosphatase 71 U/L (45-117); Anion Gap 7 (5-15); BUN 18 mg/dL (7-18); BUN/Creat Ratio 18.6 RATIO (10-20); Calcium,Total 9.8 mg/dL (8.5-10.1); Chloride 103 mmol/L (98-107); Cholesterol 204 mg/dL (200); Creatinine, Serum 0.97 mg/dL (0.70-1.30); EST Glomerular Filtration Rate 84 mL/min (>60); Est Glom Filt Rate - Afr Amer 102 mL/min (>60); Globulin 3.5 g/dL (2.2-4.2); Glucose 114 mg/dL (74-106); High Density Lipoprotein 33 mg/dL; Potassium 3.9 mmol/L (3.5-5.1); Protein, Total 7.8 g/dL (6.4-8.2); Sodium Level 137 mmol/L (136-145); Triglycerides 440 mg/dL
[2022-08-29 05:07] LABS: Immunoglobulin A 235 mg/dL (90-386); Immunoglobulin G 808 mg/dL (603-1613); Immunoglobulin M 36 mg/dL (20-172)
== END | disposition home or self-care (01) ==
LOC: MFPLAB 10:27
PROVIDERS: PCP Family Medicine; Visit Provider Family Medicine
DX: Z79.899 Other long term (current) drug therapy (principal)
CPT/HCPCS: 36415; 80053; 80061; 82784; 84153; 85025; G0103

== ENCOUNTER → 2022-12-25 | Outpatient (CLI) | payer OTHER, SELFPAY ==
--- NOTE | 2022-12-25 10:00 | CT_ITS ---
STUDY: CT ABDOMEN AND PELVIS WITHOUT CONTRAST REASON FOR EXAM: Male, 62 years old. STONE PROTOCOL RADIATION DOSAGE (If Supplied By Facility): CTDIvol = ( 14.98 ) mGy, DLP = ( 804.79 ) mGycm TECHNIQUE: Transaxial images were obtained from the dome of the diaphragm to the symphysis pubis without oral contrast, and without intravenous contrast. Sagittal and coronal images were reconstructed. Individualized dose optimization techniques were used for this CT. COMPARISON: Comparison is made with prior study February 02, 2018. FINDINGS: The visualized lung bases are unremarkable. Coronary artery calcification. Normal liver. Normal gallbladder and extrahepatic biliary system. Normal spleen. Normal pancreas. Normal bilateral adrenal glands. Mild degree of right hydronephrosis and right hydroureter due to a 8 mm calculus in the midportion of the right ureter. 6 mm nonobstructive calculus in the posterior lower pole calyx of the left kidney. Normal visualized stomach. Normal small intestine. There are scattered colonic diverticula consistent with diverticulosis. The appendix is visualized and appears normal. There is scattered atherosclerotic calcification of the abdominal aorta, without a demonstrated aneurysm. Normal inferior vena cava. Normal retroperitoneum. Normal urinary bladder. There are prostatic calcifications. Small bilateral inguinal hernias containing fat. There are mild degenerative changes of the visualized lumbar spine. CT/Abdomen/Pelvis without Cont IMPRESSION: Mild right hydronephrosis and hydroureter due to a 8 mm calculus in the midportion of the right ureter. Nonobstructive calculus in the lower pole calyx of the left kidney. Electronically Signed: Antonio Chavez MD at 10:22 EDT ,
== END | disposition home or self-care (01) ==
LOC: CT 09:50
PROVIDERS: PCP Family Medicine; Referring Provider Family Medicine; Visit Provider Family Medicine
DX: R31.9 Hematuria, unspecified (principal)
CPT/HCPCS: 74176

== ENCOUNTER → 2023-01-09 | Outpatient (CLI) | payer OTHER, SELFPAY ==
--- NOTE | 2023-01-09 12:30 | RAD_ITS ---
EXAM: XR ABDOMEN, 1 VIEW CLINICAL INDICATION: KIDNEY STONE TECHNIQUE: Frontal supine view of the abdomen/pelvis. COMPARISON: No relevant prior studies available. FINDINGS: LOWER THORAX: No acute pathology. GASTROINTESTINAL TRACT: Unremarkable. Non-obstructive. No bowel or stomach distention. ORGANS: Unremarkable as visualized. No organomegaly. No abnormal calcifications. BONES/JOINTS: No acute pathology. SOFT TISSUES: No acute pathology. RAD/Abdomen Single View IMPRESSION: Non-obstructive bowel gas pattern. Electronically Signed: Mich Vásquez MD at 18:13 EDT ,
[2023-01-18 13:29] LABS: Source Not Provided
== END | disposition home or self-care (01) ==
PROVIDERS: PCP Family Medicine; Referring Provider Urology; Visit Provider Urology
DX: N20.1 Calculus of ureter (principal); Z87.442 Personal history of urinary calculi
CPT/HCPCS: 74018; 82360

== ENCOUNTER → 2023-04-19 | Outpatient (CLI) | payer OTHER, SELFPAY ==
[2023-04-19 12:47] LABS: Absolute Lymphocyte Count 1.68 X10^3/uL (0.83-4.51); Absolute Neutrophil Count 2.6 X10^3/uL (2.0-7.7); Basophil# 0.08 X10^3/uL; Basophil% 1.6 % (0-1); Eosinophil# 0.16 X10^3/uL; Eosinophils% 3.2 % (0-5); Hematocrit 45.3 % (40-54); Hemoglobin 15.5 g/dL (13.0-16.5); Lymphocyte # 1.68 X10^3/ul (0.83-4.51); Lymphocyte % 33.8 % (19-41); Mean Corp Hgb Conc 34.2 g/dL (32-36); Mean Corpuscular Hgb 29.9 pg (27.0-32.0); Mean Corpuscular Volume 87.5 fL (80-94); Mean Platelet Vol. 10.3 fl (6.2-12.0); Monocyte# 0.36 X10^3/uL; Monocyte% 7.2 % (0-10); NRBC Flagged by Analyzer 0 % (0-5); Neutrophil # 2.64 X10^3/uL (2.7-7.7); Neutrophil % 53.2 % (47-70); Platelet Count 209 K/mm3 (150-450); RBC Distribution Width CV 12.3 % (11.6-14.6); RBC Distribution Width SD 39.2 fl (35.1-43.9); Red Blood Count 5.18 M/mm3 (4.6-6.2)
[2023-04-19 13:23] LABS: ALB/GLOB Ratio 1.5 RATIO (0.9-2.4); AST(SGOT) 30 U/L (15-37); Alanine Aminotransfer ALT/SGPT 39 U/L (16-61); Albumin, Serum 4.5 g/dL (3.2-5.0); Alkaline Phosphatase 70 U/L (45-117); Anion Gap 4 (5-15); BUN 18 mg/dL (7-18); BUN/Creat Ratio 16.8 RATIO (10-20); Calcium,Total 9.1 mg/dL (8.5-10.1); Chloride 111 mmol/L (98-107); Creatinine, Serum 1.07 mg/dL (0.70-1.30); EST Glomerular Filtration Rate 75 mL/min (>60); Est Glom Filt Rate - Afr Amer 90 mL/min (>60); Globulin 3.1 g/dL (2.2-4.2); Glucose 115 mg/dL (74-106); Potassium 4.2 mmol/L (3.5-5.1); Protein, Total 7.6 g/dL (6.4-8.2); Sodium Level 141 mmol/L (136-145)
[2023-04-25 05:07] LABS: Immunoglobulin A 248 mg/dL (61-437); Immunoglobulin E 21 IU/mL (6-495); Immunoglobulin G 809 mg/dL (603-1613); Immunoglobulin M 32 mg/dL (20-172)
== END | disposition home or self-care (01) ==
LOC: MFPLAB 10:39
PROVIDERS: PCP Family Medicine; Visit Provider Internal Medicine
DX: Z79.899 Other long term (current) drug therapy (principal)
CPT/HCPCS: 36415; 80053; 82784; 82785; 85025

== ENCOUNTER → 2023-09-04 | Outpatient (CLI) | payer OTHER, SELFPAY ==
[2023-09-04 12:41] LABS: Absolute Lymphocyte Count 2.03 X10^3/uL (0.83-4.51); Absolute Neutrophil Count 2.3 X10^3/uL (2.0-7.7); Basophil# 0.07 X10^3/uL; Basophil% 1.4 % (0-1); Eosinophil# 0.24 X10^3/uL; Eosinophils% 4.7 % (0-5); Hematocrit 44.3 % (40-54); Hemoglobin 15.3 g/dL (13.0-16.5); Lymphocyte # 2.03 X10^3/ul (0.83-4.51); Lymphocyte % 39.9 % (19-41); Mean Corp Hgb Conc 34.5 g/dL (32-36); Mean Corpuscular Hgb 29.7 pg (27.0-32.0); Mean Platelet Vol. 10.3 fl (6.2-12.0); Monocyte# 0.42 X10^3/uL; Monocyte% 8.3 % (0-10); NRBC Flagged by Analyzer 0 % (0-5); Neutrophil % 45.1 % (47-70); Platelet Count 223 K/mm3 (150-450); RBC Distribution Width CV 12.1 % (11.6-14.6); RBC Distribution Width SD 38.2 fl (35.1-43.9); Red Blood Count 5.15 M/mm3 (4.6-6.2); White Blood Count 5.1 K/mm3 (4.4-11.0)
[2023-09-04 13:02] LABS: Protein, Urine (Random) 8.9 mg/dL (<11.9); Protein:Creat Ratio 67 mg/g CRE (0-200)
[2023-09-04 13:07] LABS: Hemoglobin A1c 5.4 % (3.8-5.6)
[2023-09-04 13:10] LABS: ALB/GLOB Ratio 1.3 RATIO (0.9-2.4); AST(SGOT) 24 U/L (15-37); Alanine Aminotransfer ALT/SGPT 36 U/L (16-61); Albumin, Serum 4.3 g/dL (3.2-5.0); Alkaline Phosphatase 72 U/L (45-117); Anion Gap 6 (5-15); BUN 15 mg/dL (7-18); BUN/Creat Ratio 15.4 RATIO (10-20); Calcium,Total 9.4 mg/dL (8.5-10.1); Chloride 105 mmol/L (98-107); Cholesterol 190 mg/dL (200); Creatinine, Serum 0.98 mg/dL (0.70-1.30); EST Glomerular Filtration Rate 83 mL/min (>60); Est Glom Filt Rate - Afr Amer 100 mL/min (>60); Globulin 3.2 g/dL (2.2-4.2); Glucose 114 mg/dL (74-106); High Density Lipoprotein 36 mg/dL; PSA,Total - Annual Screen 1.23 ng/mL (0.00-4.00); Potassium 3.9 mmol/L (3.5-5.1); Protein, Total 7.5 g/dL (6.4-8.2); Sodium Level 137 mmol/L (136-145); Triglycerides 284 mg/dL; Very Low Density Lipoprotein 57 mg/dL (5-40)
[2023-09-09 16:07] LABS: Immunoglobulin A 215 mg/dL (61-437); Immunoglobulin E 19 IU/mL (6-495); Immunoglobulin G 871 mg/dL (603-1613); Immunoglobulin M 29 mg/dL (20-172)
== END | disposition home or self-care (01) ==
LOC: MFPLAB 10:16
PROVIDERS: PCP Family Medicine; Visit Provider Family Medicine
DX: E11.59 Type 2 diabetes mellitus with other circulatory complications (principal); E11.69 Type 2 diabetes mellitus with other specified complication; Z12.5 Encounter for screening for malignant neoplasm of prostate; Z79.899 Other long term (current) drug therapy
CPT/HCPCS: 36415; 80053; 80061; 82570; 82784; 82785; 83036; 84153; 84156; 85025; G0103

== ENCOUNTER → 2024-02-19 | Outpatient (CLI) | payer OTHER, SELFPAY ==
[2024-02-19 12:24] LABS: Hematocrit 45.4 % (40-54); Hemoglobin 15.7 g/dL (13.0-16.5); Mean Corp Hgb Conc 34.6 g/dL (32-36); Mean Corpuscular Hgb 29.7 pg (27.0-32.0); Mean Corpuscular Volume 85.8 fL (80-94); Mean Platelet Vol. 10.5 fl (6.2-12.0); Platelet Count 205 K/mm3 (150-450); RBC Distribution Width CV 12.5 % (11.6-14.6); RBC Distribution Width SD 38.9 fl (35.1-43.9); Red Blood Count 5.29 M/mm3 (4.6-6.2); White Blood Count 7.1 K/mm3 (4.4-11.0)
[2024-02-19 12:33] LABS: ALB/GLOB Ratio 1.2 RATIO (0.9-2.4); AST(SGOT) 27 U/L (15-37); Alanine Aminotransfer ALT/SGPT 35 U/L (16-61); Albumin, Serum 4.3 g/dL (3.2-5.0); Alkaline Phosphatase 76 U/L (45-117); Anion Gap 5 (5-15); BUN 16 mg/dL (7-18); BUN/Creat Ratio 14.2 RATIO (10-20); Calcium,Total 9.6 mg/dL (8.5-10.1); Chloride 105 mmol/L (98-107); Creatinine, Serum 1.13 mg/dL (0.70-1.30); EST Glomerular Filtration Rate 70 mL/min (>60); Est Glom Filt Rate - Afr Amer 85 mL/min (>60); Globulin 3.5 g/dL (2.2-4.2); Glucose 115 mg/dL (74-106); Potassium 4.1 mmol/L (3.5-5.1); Protein, Total 7.8 g/dL (6.4-8.2); Sodium Level 138 mmol/L (136-145)
[2024-02-19 12:36] LABS: Cholesterol 218 mg/dL (200); High Density Lipoprotein 40 mg/dL; Triglycerides 293 mg/dL; Very Low Density Lipoprotein 59 mg/dL (5-40)
[2024-02-19 12:43] LABS: Protein, Urine (Random) 10.3 mg/dL (<11.9); Protein:Creat Ratio 56 mg/g CRE (0-200)
[2024-02-20 08:13] LABS: Immunoglobulin M 26 mg/dL (20-172)
[2024-02-25 01:06] LABS: Immunoglobulin A 219 mg/dL (61-437); Immunoglobulin E 20 IU/mL (6-495); Immunoglobulin G 821 mg/dL (603-1613)
== END | disposition home or self-care (01) ==
PROVIDERS: PCP Family Medicine; Referring Provider Nurse Practitioner Gerontology; Visit Provider Nurse Practitioner Gerontology
DX: Z79.899 Other long term (current) drug therapy (principal)
CPT/HCPCS: 36415; 80053; 80061; 82570; 82784; 82785; 84156; 85027

== ENCOUNTER → 2024-03-03 | Outpatient (CLI) | payer OTHER, SELFPAY ==
[2024-03-03 12:41] LABS: Absolute Lymphocyte Count 2.65 X10^3/uL (0.83-4.51); Absolute Neutrophil Count 3.3 X10^3/uL (2.0-7.7); Basophil# 0.12 X10^3/uL; Basophil% 1.7 % (0-1); Eosinophil# 0.36 X10^3/uL; Eosinophils% 5.2 % (0-5); Hematocrit 45.5 % (40-54); Hemoglobin 16.2 g/dL (13.0-16.5); Lymphocyte # 2.65 X10^3/ul (0.83-4.51); Lymphocyte % 38.2 % (19-41); Mean Corp Hgb Conc 35.6 g/dL (32-36); Mean Corpuscular Hgb 30.5 pg (27.0-32.0); Mean Corpuscular Volume 85.7 fL (80-94); Mean Platelet Vol. 10.3 fl (6.2-12.0); Monocyte% 7.2 % (0-10); NRBC Flagged by Analyzer 0 % (0-5); Neutrophil # 3.25 X10^3/uL (2.7-7.7); Neutrophil % 46.8 % (47-70); Platelet Count 217 K/mm3 (150-450); RBC Distribution Width CV 12.7 % (11.6-14.6); RBC Distribution Width SD 39.3 fl (35.1-43.9); Red Blood Count 5.31 M/mm3 (4.6-6.2); White Blood Count 6.9 K/mm3 (4.4-11.0)
== END | disposition home or self-care (01) ==
LOC: MFPLAB 09:50
PROVIDERS: PCP Family Medicine; Visit Provider Nurse Practitioner Gerontology
DX: Z79.899 Other long term (current) drug therapy (principal)
CPT/HCPCS: 36415; 85025

== ENCOUNTER → 2024-09-05 | Outpatient (CLI) | payer OTHER, SELFPAY ==
[2024-09-05 16:57] LABS: PSA,Total - Annual Screen 1.15 ng/mL (0.02-4.00)
== END | disposition home or self-care (01) ==
LOC: MFPLAB 10:31
DX: Z12.5 Encounter for screening for malignant neoplasm of prostate (principal)
CPT/HCPCS: 36415; 84153; G0103

== ENCOUNTER → 2024-10-06 | Outpatient (CLI) | payer OTHER, SELFPAY ==
[2024-10-06 15:21] LABS: Absolute Lymphocyte Count 1.91 X10^3/uL (0.83-4.51); Absolute Neutrophil Count 5.9 X10^3/uL (2.0-7.7); Basophil% 1.2 % (0-1); Eosinophil# 0.09 X10^3/uL; Eosinophils% 1.1 % (0-5); Hematocrit 45.5 % (40-54); Lymphocyte # 1.91 X10^3/ul (0.83-4.51); Lymphocyte % 22.5 % (19-41); Mean Corp Hgb Conc 35.2 g/dL (32-36); Mean Corpuscular Hgb 30.5 pg (27.0-32.0); Mean Corpuscular Volume 86.8 fL (80-94); Mean Platelet Vol. 10.1 fl (6.2-12.0); Monocyte# 0.38 X10^3/uL; Monocyte% 4.5 % (0-10); NRBC Flagged by Analyzer 0 % (0-5); Neutrophil # 5.94 X10^3/uL (2.7-7.7); Platelet Count 217 K/mm3 (150-450); RBC Distribution Width CV 12.3 % (11.6-14.6); Red Blood Count 5.24 M/mm3 (4.6-6.2); White Blood Count 8.5 K/mm3 (4.4-11.0)
[2024-10-06 15:56] LABS: ALB/GLOB Ratio 1.9 RATIO (0.9-2.4); AST(SGOT) 25 U/L (<=37); Alanine Aminotransfer ALT/SGPT 20 U/L (<=46); Albumin, Serum 4.8 g/dL (3.4-4.8); Alkaline Phosphatase 68 U/L (40-129); Anion Gap 14 (5-15); BUN 18 mg/dL (4-19); Carbon Dioxide 22.8 mmol/L (21.0-32.0); Chloride 101 mmol/L (98-108); Creatinine, Serum 1.19 mg/dL (0.70-1.20); EST Glomerular Filtration Rate 69 (>60); Globulin 2.6 g/dL (2.2-4.2); Glucose 117 mg/dL (70-99); Potassium 4.3 mmol/L (3.3-5.1); Protein, Total 7.4 g/dL (5.9-8.4); Sodium Level 138 mmol/L (133-145)
[2024-10-08 05:07] LABS: Immunoglobulin G 792 mg/dL (603-1613)
== END | disposition home or self-care (01) ==
LOC: MFPLAB 13:45
PROVIDERS: Visit Provider Nurse Practitioner Gerontology
DX: G35 Multiple sclerosis (principal); Z79.899 Other long term (current) drug therapy
CPT/HCPCS: 36415; 80053; 82784; 85025

== ENCOUNTER 2024-10-26 18:21 | Emergency (ER) | payer OTHER, SELFPAY ==
[2024-10-26 18:22] VITALS: BP 170/90; PULSE 57; RESP 16; TEMP 35.7; O2SAT 98; BMI 26.2
--- NOTE | 2024-10-26 18:47 | EX.ED.GENINJ ---
HPI <REYMUNDO Wolfe - Last Filed: 10/26/24 19:31> History of Present Illness Chief Complaint: Laceration Narrative Narrative: 64-year-old maleis at a local cabin camping and used a serrated kitchen knife to cut food when it lacerated his left thumb. Bleeding is controlled with pressure. He thinks it might need a couple stitches. No weakness numbness or tingling. Last tetanus unknown. PFSH <REYMUNDO Wolfe - Last Filed: 10/26/24 19:31> [facility] Medical History (Updated 10/26/24 @ 19:[address] Leonides Dominguez, DO) Multiple sclerosis Home Medications ?Medication ?Instructions ?Recorded ?Last Taken ?Type citalopram 10 mg tablet 10 mg PO DAILY 02/02/18 Unknown History glatiramer 40 mg/mL subcutaneous 40 mg subcut QWEEK 02/02/18 Unknown History syringe (Copaxone) hydrochlorothiazide 25 mg tablet 25 mg PO DAILY 02/02/18 Unknown History metformin 500 mg 24 hr 500 mg PO BID 02/02/18 Unknown History tablet,extended release (gastric retention) naproxen 500 mg tablet 500 mg PO BID #14 tabs 02/02/18 Unknown Rx tamsulosin 0.4 mg capsule 0.4 mg PO DAILY #7 caps 02/02/18 Unknown Rx Allergy/AdvReac Type Severity Reaction Status Date / Time Penicillins Allergy Rash Verified 10/26/24 18:22 Social History (System 07/23/17 @ 09:30 by Pito Zhang) Smoking Status: Never smoker ROS <REYMUNDO Wolfe - Last Filed: 10/26/24 19:31> ROS ED ROS Narrative Neuro: Negative for motor/sensory dysfunction. Skin: Positive for laceration. Musc: Negative for joint pain. EXAM <REYMUNDO Wolfe - Last Filed: 10/26/24 19:31> Physical Exam Narrative Exam Narrative: CONST: Patient sitting in no acute distress. EYES: Normal inspection. SKIN: 1 cm superficial flap laceration on pad of left thumb with slow active bleeding. No joint involvement. EXTREMITIES: Full range of motion of left hand and digits. 2+ radial pulse and brisk cap refill. Normal motor and sensory function in median radial and ulnar distributions. NEURO: Alert and answering questions appropriately. PSYCH: Normal affect. Const Vital Signs: 10/26/24 18:22 10/26/24 19:18 Temperature 96.3 F L 97.5 F L Temperature Source Temporal Pulse Rate 57 L 58 L Respiratory Rate 16 18 Blood Pressure 170/90 H 148/78 H Blood Pressure Mean 116 101 Pulse Ox 98 93 Oxygen Delivery Method Room Air <Dr. Leonides Dominguez, - Last Filed: 10/26/24 19:19> Physical Exam Const Vital Signs: 10/26/24 18:22 10/26/24 19:18 Temperature 96.3 F L 97.5 F L Temperature Source Temporal Pulse Rate 57 L 58 L Respiratory Rate 16 18 Blood Pressure 170/90 H 148/78 H Blood Pressure Mean 116 101 Pulse Ox 98 93 Oxygen Delivery Method Room Air [facility] <REYMUNDO Wolfe - Last Filed: 10/26/24 19:31> [facility] Narrative Medical decision making narrative: 64-year-old male presents with a 1 cm laceration on his left thumb from a kitchen knife. It is a superficial flap laceration with slow active bleeding. He has full range of motion and is neurovascularly intact. Is not deep and does not require x-rays. See procedure note?I placed 3 simple interrupted sutures. He refused a tetanus update. He was given wound care instructions and discharged in stable condition. <Dr. Leonides Dominguez, DO - Last Filed: 10/26/24 19:19> [facility] Treatment and Re-Evaluation Narrative: I have personally performed a face to face assessment of the patient and have reviewed the CORRINE Note. I performed a substantive portion of the visit including all aspects of the following. My maloney findings include: History: Patient presents with left thumb laceration that occurred today. Patient was using a knife to cut potatoes when it slipped and cut his left thumb. Patient is right-hand dominant. Patient states the bleeding stopped after several minutes of pressure. Patient denies any paresthesias or weakness. Patient is unsure of his last tetanus. Exam: Vital signs are stable except for an elevated blood pressure 170/90. Patient is afebrile. Patient is in no acute distress. Skin is warm and dry. There is a 1 cm curvilinear laceration over the palmar aspect of the distal phalanx of the left thumb. There is minimal bleeding. There is no bony crepitance or step-off. There is good range of motion of the MP and IP joints of the left thumb. Sensation was intact to light touch in all digits. Capillary refill was less than 2 seconds in all digits. Medical Decision Making: Patient refused tetanus booster. The wound was cleaned and irrigated with copious amounts of normal saline. The wound was closed by the CORRINE under my supervision. Patient tolerated procedure well. Patient was instructed to keep the wound clean and dry. Patient was instructed to follow-up with his primary care physician in 5 to 7 days. Patient was instructed to return if worse in any way. Patient understood and was agreeable with the plan. All questions were answered. Discharge Plan Triage Chief Complaint: Laceration ED Midlevel Provider: Madeleine Nichols ED Provider: Leonides Dominguez Dx/Rx/DC Orders Clinical Impression: Laceration of left thumb, Hypertension Instructions: ED Laceration Extremity Prescriptions: No Action citalopram 10 MG tablet 10 mg PO DAILY Patient Comments: TK 1 T PO QD hydrochlorothiazide 25 MG tablet 25 mg PO DAILY metformin 500 MG tablet,ER delon.retention 24 hr 500 mg PO BID glatiramer [Copaxone] 40 MG/ML syringe 40 mg subcut QWEEK Patient Comments: INJECT 1 ML SUBCUTANEOUSLY THREE TIMES WEEKLY Rx Instructions: three times a week tamsulosin 0.4 MG capsule 0.4 mg PO DAILY Qty: 7 0RF naproxen 500 MG tablet 500 mg PO BID Qty: 14 0RF Primary Care Provider: Mihir Lyon NP Referrals: Mihir Lyon NP, [employer] SET UP OPERATOR-C [Primary Care Provider] - Activity Restrictions/Additional Instructions: Clean with soap and water and pat dry. Stitches need removed in 7 days. Please be seen immediately if you develop signs of infection like significant redness, swelling, pus, increased pain or fever. Print Language: Greek Disposition Disposition: Home, Self Care Discharge Date/Time: 10/26/24 19:20
--- OUTSIDE RECORDS SUMMARY | 2024-10-26 19:14 | XMS RPT_ITS | CCD ---
Author Organization [facility] Care Team Providers Care Loan Review Officer Name Role Phone Kodyorrow COLLEGE ARCHIVIST-C, Mihir Primary Care Provider Kodyorrow COLLEGE ARCHIVIST-C, Mihir Attending Provider [phone] McMorrow COLLEGE ARCHIVIST-C, Mihir Referring Provider NATHANK COLLEGE ARCHIVIST-C, FILIBERTO Attending Provider FILIBERTO RUIZ Attending Unavailable Kodyorrow COLLEGE ARCHIVISTMihir Primary Care Unavailable Jayla Rajput Primary Care Unavailable FILIBERTO RUIZ Referring Unavailable FILIBERTO RUIZ Attending Unavailable Kodyorrow COLLEGE ARCHIVISTMihir Primary Care Unavailable Provider, Ed Physician Attending Unavailab Jayla Way Primary Care Unavailable FILIBERTO RUIZ Attending Unavailable Kodyorrow Mihir NAM Referring Unavailable Kodyorrow Mihir NAM Attending Unavailable Kodyorrow Mihir NAM Primary Care Unavailable Allergies Allergy Classification Reported Allergen(s) Allergy Type Date of Onset Reaction(s) Facility (8 sources) Penicillins; Translations: [Penicillins] Allergy to substance 02-02-2018 [facility] Medications Current Medications Medication Drug Class(es) Dates Sig (Normalized) Sig (Original) citalopram 10 mg oral tablet (7 sources) Serotonin Reuptake Inhibitor Start: 8 take 1 tablet by mouth once daily Citalopram 10 MG tablet Active 10 mg PO DAILY February 02, 2018 12:00am 1 ml glatiramer acetate 40 mg/ml prefilled syringe (7 sources) Start: 8 Glatiramer (Copaxone) 40 MG/ML syringe Active 40 mg SC EVERY WEEK February 02, 2018 12:00am three times a week hydroCHLOROthiazide 25 mg oral tablet (7 sources) Thiazide Diuretic Start: 8 take 1 tablet by mouth once daily Hydrochlorothiazide 25 MG tablet Active 25 mg PO DAILY February 02, 2018 12:00am modified 24 hr metFORMIN hydrochloride 500 mg extended release oral tablet (7 sources) Biguanide Start: 8 take 1 tablet by mouth twice daily Metformin 500 MG tablet,ER delon.retention 24 hr Active 500 mg PO TWICE A DAY February 02, 2018 12:00am naproxen 500 mg oral tablet (7 sources) Nonsteroidal Anti-inflammator y Drug Start: 8 take 1 tablet by mouth twice daily Naproxen 500 MG tablet Active 500 mg PO TWICE A DAY February 02, 2018 12:00am tamsulosin hydrochloride 0.4 mg oral capsule (7 sources) alpha-Adrenergic Catalina Start: 8 take 1 capsule by mouth once daily Tamsulosin 0.4 MG capsule Active 0.4 mg PO DAILY February 02, 2018 12:00am Completed/Discontinued Medications Medication Drug Class(es) Dates Sig (Normalized) Sig (Original) acetaminophen 325 mg / HYDROcodone bitartrate 5 mg oral tablet (7 sources) Opioid Agonist Start: 02-02-2018 End: 02-04-2018 Hydrocodone-Acetami nophen 1 TABLET tablet Discontinued 1 {tbl} PO EVERY 4 HOURS NEEDED as needed for Pain 10 February 02, 2018 12:00am February 03, 2018 12:00am February 04, 2018 12:12am Start: 02-02-2018 End: 02-04-2018 take 1 tablet by mouth every four hours as needed Hydrocodone-Acetaminophen Discontinued 1 TABLET PO EVERY 4 HOURS NEEDED 10 February 01, 2018 11:00pm February 03, 2018 11:12pm Problems Active Problems Problem Classification Problem Date Documented Date Episodic/Chronic Esophageal disorders (7 sources) Gastroesophageal reflux disease; Translations: [Gastro-esophageal reflux disease without esophagitis] 04-01-2013 Chronic Essential hypertension (7 sources) Hypertensive disorder; Translations: [Essential (primary) hypertension] 04-01-2013 Chronic Multiple sclerosis (1 source) Multiple sclerosis; Translations: [Multiple sclerosis] Onset: 10-09-2024 Chronic Other nervous system disorders (7 sources) Numbness; Translations: [Anesthesia of skin] 04-01-2013 Episodic Other screening for suspected conditions (not mental disorders or infectious disease) (1 source) Encounter for screening for malignant neoplasm of prostate; Translations: [Encounter for screening for malignant neoplasm of prostate] Onset: 09-10-2024 Episodic Past or Other Problems Problem Classification Problem Date Documented Da te Episodic/Chronic Other aftercare (1 source) Other chcf (current) drug therapy; Translations: [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, [address] Absolute lymphocyte countOrd ered By: FILIBERTO RUIZ on 10-06-2024 Lymphocytes Auto (Unsp spec) [#/Vol] 1.91 10*3/uL 0.83-4.51 [facility] Absolute neutrophil countOrd ered By: FILIBERTO RUIZ on 10-06-2024 Neutrophils (Bld) [#/Vol] 5.9 10*3/uL 2.0-7.7 [facility] Anion gap in Serum or Plasma Ordered By: FILIBERTO RUIZ on 10-06-2024 Anion gap [Moles/Vol] 14 mmol/L 5-15 [facility] Automated lymphocyte count a s percentage of total leukocytesOrdered By: FILIBERTO RUIZ on 10-06-2024 Lymphocytes/100 WBC Auto (Unsp spec) 22.5 % 19-41 [facility] BUN/creatinine ratioOrdered By: FILIBERTO RUIZ on 10-06-2024 Urea nitrogen/Creatinine [Mass ratio] 15.0 mg/mg 10-20 [facility] Basophil percentageOrdered B y: FILIBERTO RUIZ on 10-06-2024 Basophils/100 WBC (Bld) 1.2 % High 0-1 [facility] Bilirubin, totalOrdered By: FILIBERTO RUIZ on 10-06-2024 Bilirubin [Mass/Vol] 1.00 mg/dL 0.00-1.30 [facility] CBC W/Diff, Automatedon 06-0 9-2025 Absolute Lymph 1.91 X10 3/uL Normal 0.83-4.51 [facility] Comment on above: Performed By: #### L 100.0100, L500.4050, L3200.1300 #### [facility] [address] [place], [address] Absolute Neut 5.9 X10 3/uL Normal 2.0-7.7 [facility] Comment on above: Performed By: #### L 100.0100, L500.4050, L3200.1300 #### [facility] [address] [place], [address] Basophils/100 WBC (Bld) 1.2 % High 0-1 [facility] Comment on above: Performed By: #### L 100.0100, L500.4050, L3200.1300 #### [facility] [address] [place], [address] Eosinophils/100 WBC (Bld) 1.1 % Normal 0-5 [facility] Comment on above: Performed By: #### L 100.0100, L500.4050, L3200.1300 #### [facility] [address] [place], [address] Erythrocyte distribution width (RBC) [Ratio] 12.3 % Normal 11.6-14.6 [facility] Comment on above: Performed By: #### L 100.0100, L500.4050, L3200.1300 #### [facility] [address] [place], [address] Hematocrit (Bld) [Volume fraction] 45.5 % Normal 40-54 [facility] Comment on above: Performed By: #### L 100.0100, L500.4050, L3200.1300 #### [facility] [address] [place], [address] Hemoglobin (Bld) [Mass/Vol] 16.0 g/dL Normal 13.0-16.5 [facility] Comment on above: Performed By: #### L 100.0100, L500.4050, L3200.1300 #### [facility] [address] [place], [address] IG% 0.700 Normal 0.0-0.9 [facility] Comment on above: Result Comment: IG% - Immature Granulocytes (promyelocytes, myelocytes and metamyelocytes) > 1% indicates that a LEFT SHIFT is Present. Performed By: #### L 100.0100, L500.4050, L3200.1300 #### [facility] [address] [place], [address] Lymphocytes/100 WBC (Bld) 22.5 % Normal 19-41 [facility] Comment on above: Performed By: #### L 100.0100, L500.4050, L3200.1300 #### [facility] [address] [place], [address] MCH (RBC) [Entitic mass] 30.5 pg Normal 27.0-32.0 [facility] Comment on above: Performed By: #### L 100.0100, L500.4050, L3200.1300 #### [facility] [address] [place], [address] MCHC (RBC) [Mass/Vol] 35.2 g/dL Normal 32-36 [facility] Comment on above: Performed By: #### L 100.0100, L500.4050, L3200.1300 #### [facility] [address] [place], [address] MCV (RBC) [Entitic vol] 86.8 fL Normal 80-94 [facility] Comment on above: Performed By: #### L 100.0100, L500.4050, L3200.1300 #### [facility] [address] [place], [address] Monocytes/100 WBC (Bld) 4.5 % Normal 0-10 [facility] Comment on above: Performed By: #### L 100.0100, L500.4050, L3200.1300 #### [facility] [address] [place], [address] Neutrophils/100 WBC (Bld) 70.0 % Normal 47-70 [facility] Comment on above: Performed By: #### L 100.0100, L500.4050, L3200.1300 #### [facility] [address] [place], [address] Nucleated RBC (Bld) [#/Vol] 0 10*3/uL Normal 0-5 [facility] Comment on above: Performed By: #### L 100.0100, L500.4050, L3200.1300 #### [facility] [address] [place], [address] Platelet mean volume (Bld) [Entitic vol] 10.1 fL Normal 6.2-12.0 [facility] Comment on above: Performed By: #### L 100.0100, L500.4050, L3200.1300 #### [facility] [address] [place], [address] Platelets (Bld) [#/Vol] 217 10*3/uL Normal 150-450 [facility] Comment on above: Performed By: #### L 100.0100, L500.4050, L3200.1300 #### [facility] [address] [place], [address] RBC (Bld) [#/Vol] 5.24 10*6/uL Normal 4.6-6.2 [facility] Comment on above: Performed By: #### L 100.0100, L500.4050, L3200.1300 #### [facility] [address] [place], [address] RDW SD 39.0 fl Normal 35.1-43.9 [facility] Comment on above: Performed By: #### L 100.0100, L500.4050, L3200.1300 #### [facility] [address] [place], [address] WBC (Bld) [#/Vol] 8.5 10*3/uL Normal 4.4-11.0 [facility] Comment on above: Performed By: #### L 100.0100, L500.4050, L3200.1300 #### [facility] [address] [place], [address] Carbon dioxide, total [Moles /volume] in Central venous bloodOrdered By: FILIBERTO RUIZ on 10-06-2024 CO2 [Moles/Vol] 22.8 mmol/L 21.0-32.0 [facility] Chloride assayOrdered By: LYNN RUIZ on 10-06-2024 Chloride [Moles/Vol] 101 mmol/L 98-108 [facility] Comprehensive Metabolic Prof ilon 10-06-2024 Albumin [Mass/Vol] 4.8 g/dL Normal 3.4-4.8 [facility] Comment on above: Performed By: #### L 100.0100, L500.4050, L3200.1300 #### [facility] [address] [place], [address] Albumin/Globulin [Mass ratio] 1.9 {ratio} Normal 0.9-2.4 [facility] Comment on above: Performed By: #### L 100.0100, L500.4050, L3200.1300 #### [facility] [address] [place], [address] ALK PHOS 68 U/L Normal 40-129 [facility] Comment on above: Performed By: #### L 100.0100, L500.4050, L3200.1300 #### [facility] [address] [place], [address] ALT [Catalytic activity/Vol] 20 U/L Normal <=46 [facility] Comment on above: Performed By: #### L 100.0100, L500.4050, L3200.1300 #### [facility] [address] [place], [address] AST [Catalytic activity/Vol] 25 U/L Normal <=37 [facility] Comment on above: Performed By: #### L 100.0100, L500.4050, L3200.1300 #### [facility] [address] [place], [address] Bilirubin [Mass/Vol] 1.00 mg/dL Normal 0.00-1.30 [facility] Comment on above: Performed By: #### L 100.0100, L500.4050, L3200.1300 #### [facility] [address] [place], [address] BUN/CRE 15.0 RATIO Normal 10-20 [facility] Comment on above: Performed By: #### L 100.0100, L500.4050, L3200.1300 #### [facility] [address] [place], [address] Calcium [Mass/Vol] 10.0 mg/dL Normal 7.6-11.0 [facility] Comment on above: Performed By: #### L 100.0100, L500.4050, L3200.1300 #### [facility] [address] [place], [address] Chloride [Moles/Vol] 101 mmol/L Normal 98-108 [facility] Comment on above: Performed By: #### L 100.0100, L500.4050, L3200.1300 #### [facility] [address] [place], [address] CO2 [Moles/Vol] 22.8 mmol/L Normal 21.0-32.0 [facility] Comment on above: Performed By: #### L 100.0100, L500.4050, L3200.1300 #### [facility] [address] [place], [address] Creatinine [Mass/Vol] 1.19 mg/dL Normal 0.70-1.20 [facility] Comment on above: Performed By: #### L 100.0100, L500.4050, L3200.1300 #### [facility] [address] [place], [address] GAP 14 Normal 5-15 [facility] Comment on above: Performed By: #### L 100.0100, L500.4050, L3200.1300 #### [facility] [address] [place], [address] GFR/1.73 sq M.predicted among non-blacks MDRD (S/P/Bld) [Vol rate/Area] 69 mL/min/{1.73_m2} Normal >60 [facility] Comment on above: Result Comment: mL/m in/1.73m2 CKD-EPI Creatinine Equation (2020) Performed By: #### L 100.0100, L500.4050, L3200.1300 #### [facility] [address] [place], [address] Globulin (S) [Mass/Vol] 2.6 g/dL Normal 2.2-4.2 [facility] Comment on above: Performed By: #### L 100.0100, L500.4050, L3200.1300 #### [facility] [address] [place], [address] Glucose [Mass/Vol] 117 mg/dL High 70-99 [facility] Comment on above: Performed By: #### L 100.0100, L500.4050, L3200.1300 #### [facility] [address] [place], [address] Potassium [Moles/Vol] 4.3 mmol/L Normal 3.3-5.1 [facility] Comment on above: Performed By: #### L 100.0100, L500.4050, L3200.1300 #### [facility] [address] [place], [address] Sodium [Moles/Vol] 138 mmol/L Normal 133-145 [facility] Comment on above: Performed By: #### L 100.0100, L500.4050, L3200.1300 #### [facility] [address] [place], [address] T PROT 7.4 g/dL Normal 5.9-8.4 [facility] Comment on above: Performed By: #### L 100.0100, L500.4050, L3200.1300 #### [facility] [address] [place], [address] Urea nitrogen [Mass/Vol] 18 mg/dL Normal 4-19 [facility] Comment on above: Performed By: #### L 100.0100, L500.4050, L3200.1300 #### [facility] [address] [place], [address] Eosinophil percentageOrdered By: FILIBERTO RUIZ on 10-06-2024 Eosinophils/100 WBC (Bld) 1.1 % 0-5 [facility] Erythrocyte distribution wid th ratioOrdered By: FILIBERTO RUIZ on 10-06-2024 Erythrocyte distribution width (RBC) [Ratio] 12.3 % 11.6-14.6 [facility] Erythrocyte distribution wid th standard deviationOrdered By: FILIBERTO RUIZ on 10-06-2024 Erythrocyte distribution width (RBC) [Ratio] 39.0 fl 35.1-43.9 [facility] Glomerular filtration rate ( GFR) estimation/1.73 sq m using serum, plasma, or whole bOrdered By: FILIBERTO RUIZ on 10-06-2024 GFR/1.73 sq M.predicted among non-blacks MDRD (S/P/Bld) [Vol rate/Area] 69 mL/min/{1.73_m2} >60 [facility] Comment on above: mL/min/1.73m2 CKD-EP I Creatinine Equation (2020) Hematocrit Auto (Bld) [Volum e fraction]Ordered By: FILIBERTO RUIZ on 10-06-2024 Hematocrit (Bld) [Volume fraction] 45.5 % 40-54 [facility] Hemoglobin measurementOrdere d By: FILIBERTO RUIZ on 10-06-2024 Hemoglobin (Bld) [Mass/Vol] 16.0 g/dL 13.0-16.5 [facility] Immature granulocytes/100 WB C Auto (Bld)Ordered By: FILIBERTO RUIZ on 10-06-2024 Immature granulocytes/100 WBC (Bld) 0.700 % 0.0-0.9 [facility] Comment on above: IG% - Immature Granu locytes (promyelocytes, myelocytes and metamyelocytes) > 1% indicates that a LEFT SHIFT is Present. Laboratory - Chemistry and C hemistry - challengeOrdered By: FILIBERTO RUIZ on 10-06-2024 AST [Catalytic activity/Vol] 25 U/L <38 [facility] MCV (mean corpuscular volume ) determinationOrdered By: FILIBERTO RUIZ on 10-06-2024 MCV (RBC) [Entitic vol] 86.8 fL 80-94 [facility] Mean corpuscular hemoglobin (MCH) determinationOrdered By: FILIBERTO RUIZ on 10-06-2024 MCH (RBC) [Entitic mass] 30.5 pg 27.0-32.0 [facility] Mean corpuscular hemoglobin concentration (MCHC) determinationOrdered By: FILIBERTO RUIZ 10-06-2024 MCHC (RBC) [Mass/Vol] 35.2 g/dL 32-36 [facility] Mean platelet volume determi nationOrdered By: FILIBERTO RUIZ on 10-06-2024 Platelet mean volume (Bld) [Entitic vol] 10.1 fL 6.2-12.0 [facility] Monocyte percentageOrdered B y: FILIBERTO RUIZ on 10-06-2024 Monocytes/100 WBC (Bld) 4.5 % 0-10 [facility] Neutrophil percentageOrdered By: FILIBERTO RUIZ on 10-06-2024 Neutrophils/100 WBC (Bld) 70.0 % 47-70 [facility] Nucleated red blood cell per centageOrdered By: FILIBERTO RUIZ on 10-06-2024 Nucleated RBC/100 WBC (Bld) [Ratio] 0 % 0-5 [facility] Platelet countOrdered By: LYNN RUIZ on 10-06-2024 Platelets (Bld) [#/Vol] 217 10*3/uL 150-450 [facility] Potassium measurement (mass/ volume)Ordered By: FILIBERTO RUIZ on 10-06-2024 Potassium (Unsp spec) [Mass/Vol] 4.3 mmol/L 3.3-5.1 [facility] RBC Auto (Bld) [#/Vol]Ordere d By: FILIBERTO RUIZ on 10-06-2024 RBC (Bld) [#/Vol] 5.24 10*6/uL 4.6-6.2 [facility] Serum creatinine measurement (mass/volume)Ordered By: FILIBERTO RUIZ on 10-06-2024 Creatinine [Mass/Vol] 1.19 mg/dL 0.70-1.20 [facility] Serum globulin measurementOr dered By: FILIBERTO RUIZ on 10-06-2024 Globulin (S) [Mass/Vol] 2.6 g/dL 2.2-4.2 [facility] Serum glucose measurement (m ass/volume)Ordered By: FILIBERTO RUIZ on 10-06-2024 Glucose [Mass/Vol] 117 mg/dL High 70-99 [facility] Serum or plasma IgG measurem ent (mass/volume)Ordered By: FILIBERTO RUIZ on 10-06-2024 IgG [Mass/Vol] 792 mg/dL 603-1613 [facility] Comment on above: Performed at: [facility] [address] [id number] Director: Ben Wray PhD, Phone: [phone] Serum or plasma alanine anderson otransferase (ALT) measurementOrdered By: FILIBERTO RUIZ on 10-06-2024 ALT [Catalytic activity/Vol] 20 U/L <47 [facility] Serum or plasma albumin segundo urement (mass/volume)Ordered By: FILIBERTO RUIZ on 10-06-2024 Albumin [Mass/Vol] 4.8 g/dL 3.4-4.8 [facility] Serum or plasma albumin/glob ulin mass ratioOrdered By: FILIBERTO RUIZ on 10-06-2024 Albumin/Globulin [Mass ratio] 1.9 {ratio} 0.9-2.4 [facility] Serum or plasma alkaline skylar sphatase measurementOrdered By: FILIBERTO RUIZ on 10-06-2024 ALP [Catalytic activity/Vol] 68 U/L 40-129 [facility] Serum or plasma calcium segundo urement (mass/volume)Ordered By: FILIBERTO RUIZ on 10-06-2024 Calcium [Mass/Vol] 10.0 mg/dL 7.6-11.0 [facility] Serum or plasma urea nitroge n measurement (mass/volume)Ordered By: FILIBERTO RUIZ on 10-06-2024 Urea nitrogen [Mass/Vol] 18 mg/dL 4-19 [facility] Sodium levelOrdered By: FANNY RUIZ on 10-06-2024 Sodium [Moles/Vol] 138 mmol/L 133-145 [facility] Total proteinOrdered By: ARCHIE RUIZ on 10-06-2024 Protein [Mass/Vol] 7.4 g/dL 5.9-8.4 [facility] White blood cell (WBC) count Ordered By: FILIBERTO RUIZ on 10-06-2024 WBC (Bld) [#/Vol] 8.5 10*3/uL 4.4-11.0 [facility] PSA,Total - Annual Screenon 09-05-2024 PSA,TOT SCREEN 1.15 ng/mL Normal 0.02-4.00 [facility] Comment on above: Order Comment: Order Date: 09/05/24Order Info: [id number] - PSA Result Comment: This test was performed using the [facility] [employer] tPSA method. Measured values of a patient??sample can vary depending on the testing procedure used. PSA values determined on patient samples by different testing procedures cannot be used interchangeably. If there is a change in PSA assays while monitoring therapy, sequential testing should be performed to confirm baseline values. Performed By: #### L 3200.1400, L100.0500, L3200.1300, L3200.1500, L3200.1600, L500.4050 #### [facility] [address] [place], [address] CBC W/Diff, Automatedon 11-0 4-2024 Absolute Lymph 2.65 X10 3/uL Normal 0.83-4.51 [facility] Comment on above: Performed By: #### L 100.0100 #### [facility] [address] [place], [address] Absolute Neut 3.3 X10 3/uL Normal 2.0-7.7 [facility] Comment on above: Performed By: #### L 100.0100 #### [facility] [facility] [address] [place], [address] Basophils/100 WBC (Bld) 1.7 % High 0-1 [facility] Comment on above: Performed By: #### L 100.0100 #### [facility] [address] [place], [address] Eosinophils/100 WBC (Bld) 5.2 % High 0-5 [facility] Comment on above: Performed By: #### L 100.0100 #### [facility] [address] [place], [address] Erythrocyte distribution width (RBC) [Ratio] 12.7 % Normal 11.6-14.6 [facility] Comment on above: Performed By: #### L 100.0100 #### [facility] [address] [place], [address] Hematocrit (Bld) [Volume fraction] 45.5 % Normal 40-54 [facility] Comment on above: Performed By: #### L 100.0100 #### [facility] [address] [place], [address] Hemoglobin (Bld) [Mass/Vol] 16.2 g/dL Normal 13.0-16.5 [facility] Comment on above: Performed By: #### L 100.0100 #### [facility] [address] [place], [address] IG% 0.900 Normal 0.0-0.9 [facility] Comment on above: Result Comment: IG% - Immature Granulocytes (promyelocytes, myelocytes and metamyelocytes) > 1% indicates that a LEFT SHIFT is Present. Performed By: #### L 100.0100 #### [facility] [address] [place], [address] Lymphocytes/100 WBC (Bld) 38.2 % Normal 19-41 [facility] Comment on above: Performed By: #### L 100.0100 #### [facility] [address] [place], [address] MCH (RBC) [Entitic mass] 30.5 pg Normal 27.0-32.0 [facility] Comment on above: Performed By: #### L 100.0100 #### [facility] [address] [place], [address] MCHC (RBC) [Mass/Vol] 35.6 g/dL Normal 32-36 [facility] Comment on above: Performed By: #### L 100.0100 #### [facility] [address] [place], [address] MCV (RBC) [Entitic vol] 85.7 fL Normal 80-94 [facility] Comment on above: Performed By: #### L 100.0100 #### [facility] [address] [place], [address] Monocytes/100 WBC (Bld) 7.2 % Normal 0-10 [facility] Comment on above: Performed By: #### L 100.0100 #### [facility] [address] [place], [address] Neutrophils/100 WBC (Bld) 46.8 % Low 47-70 [facility] Comment on above: Performed By: #### L 100.0100 #### [facility] [address] [place], [address] Nucleated RBC (Bld) [#/Vol] 0 10*3/uL Normal 0-5 [facility] Comment on above: Performed By: #### L 100.0100 #### [facility] [address] [place], [address] Platelet mean volume (Bld) [Entitic vol] 10.3 fL Normal 6.2-12.0 [facility] Comment on above: Performed By: #### L 100.0100 #### [facility] [address] [place], [address] Platelets (Bld) [#/Vol] 217 10*3/uL Normal 150-450 [facility] Comment on above: Performed By: #### L 100.0100 #### [facility] [address] [place], [address] RBC (Bld) [#/Vol] 5.31 10*6/uL Normal 4.6-6.2 [facility] Comment on above: Performed By: #### L 100.0100 #### [facility] [address] [place], [address] RDW SD 39.3 fl Normal 35.1-43.9 [facility] Comment on above: Performed By: #### L 100.0100 #### [facility] [address] [place], [address] WBC (Bld) [#/Vol] 6.9 10*3/uL Normal 4.4-11.0 [facility] Comment on above: Performed By: #### L 100.0100 #### [facility] [address] [place], [address] Immunoglobulin Aon 4 IMMUNOGLOB A QN 219 mg/dL Normal 61-437 [facility] Comment on above: Order Comment: N Performed By: #### L 3200.1400, L100.0500, L3200.1300, L3200.1500, L3200.1600, L500.4050 #### [facility] [address] [place], [address] Immunoglobulin Maged 4 IMMUNOGLOB E QN 20 IU/mL Normal 6-495 [facility] Comment on above: Order Comment: N Performed By: #### L 3200.1400, L100.0500, L3200.1300, L3200.1500, L3200.1600, L500.4050 #### [facility] [address] [place], [place], [address] (871) Immunoglobulin Montrell 4 IMMUNOGLOB G QN 821 mg/dL Normal 603-1613 [facility] Comment on above: Order Comment: N Performed By: #### L 3200.1400, L100.0500, L3200.1300, L3200.1500, L3200.1600, L500.4050 #### [facility] [address] [place], [place], [id number] (162) Immunoglobulin Mon 4 IMMUNOGLOB M QN 26 mg/dL Normal 20-172 [facility] Comment on above: Order Comment: N Result Comment: Resu lt confirmed on concentration. Performed at: - [facility] [id number] [employer]: Ben Wray PhD, Phone: [phone] Performed By: #### L 3200.1400, L100.0500, L3200.1300, L3200.1500, L3200.1600, L500.4050 #### [facility] [address] [place], [place], [id number] CBC-Complete Blood Cnt No Di ffon 02-19-2024 Erythrocyte distribution width (RBC) [Ratio] 12.5 % Normal 11.6-14.6 [facility] Comment on above: Performed By: #### L 3200.1400, L100.0500, L3200.1300, L3200.1500, L3200.1600, L500.4050 #### [facility] [address] [place], [address] Hematocrit (Bld) [Volume fraction] 45.4 % Normal 40-54 [facility] Comment on above: Performed By: #### L 3200.1400, L100.0500, L3200.1300, L3200.1500, L3200.1600, L500.4050 #### [facility] [address] [place], [address] Hemoglobin (Bld) [Mass/Vol] 15.7 g/dL Normal 13.0-16.5 [facility] Comment on above: Performed By: #### L 3200.1400, L100.0500, L3200.1300, L3200.1500, L3200.1600, L500.4050 #### [facility] [address] [place], [address] MCH (RBC) [Entitic mass] 29.7 pg Normal 27.0-32.0 [facility] Comment on above: Performed By: #### L 3200.1400, L100.0500, L3200.1300, L3200.1500, L3200.1600, L500.4050 #### [facility] [address] [place], [address] MCHC (RBC) [Mass/Vol] 34.6 g/dL Normal 32-36 [facility] Comment on above: Performed By: #### L 3200.1400, L100.0500, L3200.1300, L3200.1500, L3200.1600, L500.4050 #### [facility] [address] [place], [address] MCV (RBC) [Entitic vol] 85.8 fL Normal 80-94 [facility] Comment on above: Performed By: #### L 3200.1400, L100.0500, L3200.1300, L3200.1500, L3200.1600, L500.4050 #### [facility] [address] [place], [address] Platelet mean volume (Bld) [Entitic vol] 10.5 fL Normal 6.2-12.0 [facility] Comment on above: Performed By: #### L 3200.1400, L100.0500, L3200.1300, L3200.1500, L3200.1600, L500.4050 #### [facility] [address] [place], [address] Platelets (Bld) [#/Vol] 205 10*3/uL Normal 150-450 [facility] Comment on above: Performed By: #### L 3200.1400, L100.0500, L3200.1300, L3200.1500, L3200.1600, L500.4050 #### [facility] [address] [place], [address] RBC (Bld) [#/Vol] 5.29 10*6/uL Normal 4.6-6.2 [facility] Comment on above: Performed By: #### L 3200.1400, L100.0500, L3200.1300, L3200.1500, L3200.1600, L500.4050 #### [facility] [address] [place], [address] RDW SD 38.9 fl Normal 35.1-43.9 [facility] Comment on above: Performed By: #### L 3200.1400, L100.0500, L3200.1300, L3200.1500, L3200.1600, L500.4050 #### [facility] [address] [place], [address] WBC (Bld) [#/Vol] 7.1 10*3/uL Normal 4.4-11.0 [facility] Comment on above: Performed By: #### L 3200.1400, L100.0500, L3200.1300, L3200.1500, L3200.1600, L500.4050 #### [facility] [address] [place], [address] Comprehensive Metabolic Prof ilon 02-19-2024 Albumin [Mass/Vol] 4.3 g/dL Normal 3.2-5.0 [facility] Comment on above: Performed By: #### L 3200.1400, L100.0500, L3200.1300, L3200.1500, L3200.1600, L500.4050 #### [facility] [address] [place], [address] Albumin/Globulin [Mass ratio] 1.2 {ratio} Normal 0.9-2.4 [facility] Comment on above: Performed By: #### L 3200.1400, L100.0500, L3200.1300, L3200.1500, L3200.1600, L500.4050 #### [facility] [address] [place], [address] ALK P 76 U/L Normal 45-117 [facility] Comment on above: Performed By: #### L 3200.1400, L100.0500, L3200.1300, L3200.1500, L3200.1600, L500.4050 #### [facility] [address] [place], [address] ALT [Catalytic activity/Vol] 35 U/L Normal 16-61 [facility] Comment on above: Performed By: #### L 3200.1400, L100.0500, L3200.1300, L3200.1500, L3200.1600, L500.4050 #### [facility] [address] [place], [address] AST [Catalytic activity/Vol] 27 U/L Normal 15-37 [facility] Comment on above: Performed By: #### L 3200.1400, L100.0500, L3200.1300, L3200.1500, L3200.1600, L500.4050 #### [facility] [address] [place], [address] Bilirubin [Mass/Vol] 0.90 mg/dL Normal 0.20-1.00 [facility] Comment on above: Result Comment: For patients on eltrombopag therapy, use of Dimension [place] TBIL is not recommended. Performed By: #### L 3200.1400, L100.0500, L3200.1300, L3200.1500, L3200.1600, L500.4050 #### [facility] [address] [place], [address] BUN/CRE 14.2 RATIO Normal 10-20 [facility] Comment on above: Performed By: #### L 3200.1400, L100.0500, L3200.1300, L3200.1500, L3200.1600, L500.4050 #### [facility] [address] [place], [address] CA,Total 9.6 mg/dL Normal 8.5-10.1 [facility] Comment on above: Performed By: #### L 3200.1400, L100.0500, L3200.1300, L3200.1500, L3200.1600, L500.4050 #### [facility] [address] [place], [address] Chloride [Moles/Vol] 105 mmol/L Normal 98-107 [facility] Comment on above: Performed By: #### L 3200.1400, L100.0500, L3200.1300, L3200.1500, L3200.1600, L500.4050 #### [facility] [address] [place], [address] CO2 [Moles/Vol] 29.0 mmol/L Normal 21.0-32.0 [facility] Comment on above: Performed By: #### L 3200.1400, L100.0500, L3200.1300, L3200.1500, L3200.1600, L500.4050 #### [facility] [address] [place], [address] Creatinine [Mass/Vol] 1.13 mg/dL Normal 0.70-1.30 [facility] Comment on above: Result Comment: The validity of the calculated GFR GFRAA in patients over 70 years has not been determined. Clinical correlation is essential. Performed By: #### L 3200.1400, L100.0500, L3200.1300, L3200.1500, L3200.1600, L500.4050 #### [facility] [address] [place], [address] EST GFR - AA 85 mL/min Normal >60 [facility] Comment on above: Result Comment: Afri can English GFR Calc Performed By: #### L 3200.1400, L100.0500, L3200.1300, L3200.1500, L3200.1600, L500.4050 #### [facility] [address] [place], [place], [id number] GAP 5 Normal 5-15 [facility] Comment on above: Performed By: #### L 3200.1400, L100.0500, L3200.1300, L3200.1500, L3200.1600, L500.4050 #### [facility] [address] [place], [place], [id number] [phone] GFR/1.73 sq M.predicted among non-blacks MDRD (S/P/Bld) [Vol rate/Area] 70 mL/min/{1.73_m2} Normal >60 [facility] Comment on above: Result Comment: Non- GFR Calc Performed By: #### L 3200.1400, L100.0500, L3200.1300, L3200.1500, L3200.1600, L500.4050 #### [facility] [address] [place], [address] Globulin (S) [Mass/Vol] 3.5 g/dL Normal 2.2-4.2 [facility] Comment on above: Performed By: #### L 3200.1400, L100.0500, L3200.1300, L3200.1500, L3200.1600, L500.4050 #### [facility] [address] [place], [address] Glucose [Mass/Vol] 115 mg/dL High 74-106 [facility] Comment on above: Result Comment: Fast ing Glucose result from 100 to 125 mg/dL suggests IMPAIRED HOMEOSTASIS per A.D.A. criteria. Performed By: #### L 3200.1400, L100.0500, L3200.1300, L3200.1500, L3200.1600, L500.4050 #### [facility] [address] [place], [address] Potassium [Moles/Vol] 4.1 mmol/L Normal 3.5-5.1 [facility] Comment on above: Performed By: #### L 3200.1400, L100.0500, L3200.1300, L3200.1500, L3200.1600, L500.4050 #### [facility] [address] [place], [address] Sodium [Moles/Vol] 138 mmol/L Normal 136-145 [facility] Comment on above: Performed By: #### L 3200.1400, L100.0500, L3200.1300, L3200.1500, L3200.1600, L500.4050 #### [facility] [address] [place], [address] T PROT 7.8 g/dL Normal 6.4-8.2 [facility] Comment on above: Performed By: #### L 3200.1400, L100.0500, L3200.1300, L3200.1500, L3200.1600, L500.4050 #### [facility] [address] [place], [address] Urea nitrogen [Mass/Vol] 16 mg/dL Normal 7-18 [facility] Comment on above: Performed By: #### L 3200.1400, L100.0500, L3200.1300, L3200.1500, L3200.1600, L500.4050 #### [facility] [address] [place], [address] Lipid Profileon 02-19-2024 Cholesterol [Mass/Vol] 218 mg/dL High 200 [facility] Comment on above: Order Comment: Order Date: 09/04/23 Order Info: [id number] - LIPID Result Comment: <200 mg/dL Desirable 200-240 mg/dL Borderline >240 mg/dL High Risk Performed By: #### L 500.4100 #### [facility] [address] [place], [address] Cholesterol in HDL [Mass/Vol] 40 mg/dL Normal [facility] Comment on above: Order Comment: Order Date: 09/04/23 Order Info: [id number] - LIPID Result Comment: The drugs N-Acetylcysteine and Metamizole may falsely depress this assay. Reference Range HDL <40 mg/dL Low HDL Cholesterol HDL >or= 60 mg/dL High HDL Cholesterol Performed By: #### L 500.4100 #### [facility] [address] [place], [address] Cholesterol in LDL [Mass/Vol] 119 mg/dL Normal 0-130 [facility] Comment on above: Order Comment: Order Date: 09/04/23 Order Info: [id number] - LIPID Performed By: #### L 500.4100 #### [facility] [address] [place], [address] Cholesterol in VLDL [Mass/Vol] 59 mg/dL High 5-40 [facility] Comment on above: Order Comment: Order Date: 09/04/23 Order Info: [id number] - LIPID Performed By: #### L 500.4100 #### [facility] [address] [place], [address] Triglyceride [Mass/Vol] 293 mg/dL High [facility] Comment on above: Order Comment: Order Date: 09/04/23 Order Info: [id number] - LIPID Result Comment: The drugs N-Acetylcysteine and Metamizole may falsely depress this assay. Serum Triglycerides Reference Interval Normal <150 mg/dL Borderline high 150 - 199 mg/dL High 200 - 499 mg/dL Very High > or = 500 mg/dL Performed By: #### L 500.4100 #### [facility] [address] [place], [address] Protein+Creatinine Ratio,Uri neon 02-19-2024 PROT:CRE RATIO 56 mg/g CRE Normal 0-200 [facility] Comment on above: Performed By: #### L 3200.1400, L100.0500, L3200.1300, L3200.1500, L3200.1600, L500.4050 #### [facility] [address] [place], [address] Protein (U) [Mass/Vol] 10.3 mg/dL Normal <11.9 [facility] Comment on above: Performed By: #### L 3200.1400, L100.0500, L3200.1300, L3200.1500, L3200.1600, L500.4050 #### [facility] [address] [place], [address] UR CREAT 184.00 mg/dL Normal NO RANGE EST. [facility] Comment on above: Performed By: #### L 3200.1400, L100.0500, L3200.1300, L3200.1500, L3200.1600, L500.4050 #### [facility] [address] [place], [address] Absolute lymphocyte countOrd ered By: Asad Hastings on 04-19-2023 Lymphocytes Auto (Unsp spec) [#/Vol] 1.68 10*3/uL 0.83-4.51 [facility] Basophil percentageOrdered B y: Asad Hastings on 04-19-2023 Basophils/100 WBC (Bld) 1.6 % 0-1 [facility] Bilirubin [Mass/Vol] 0.90 mg/dL 0.20-1.00 [facility] Comment on above: For patients on eltr ombopag therapy, use of Dimension [place] TBIL is not recommended. Chloride [Moles/Vol] 111 mmol/L 98-107 [facility] Eosinophils/100 WBC (Bld) 3.2 % 0-5 [facility] Glucose [Mass/Vol] 115 mg/dL 74-106 [facility] Comment on above: Fasting Glucose resu lt from 100 to 125 mg/dL suggests IMPAIRED HOMEOSTASIS per A.D.A. criteria. Neutrophils (Bld) [#/Vol] 2.6 10*3/uL 2.0-7.7 [facility] Neutrophils/100 WBC (Bld) 53.2 % 47-70 [facility] Potassium [Moles/Vol] 4.2 mmol/L 3.5-5.1 [facility] Protein [Mass/Vol] 7.6 g/dL 6.4-8.2 [facility] Sodium [Moles/Vol] 141 mmol/L 136-145 [facility] WBC (Bld) [#/Vol] 5.0 10*3/uL 4.4-11.0 [facility] Blood erythrocytes count (nu mber/volume)Ordered By: Asad Hastings on 04-19-2023 RBC (Bld) [#/Vol] 5.18 10*6/uL 4.6-6.2 [facility] Blood hemoglobin measurement (mass/volume)Ordered By: Asad Hastings on 04-19-2023 Hemoglobin (Bld) [Mass/Vol] 15.5 g/dL 13.0-16.5 [facility] Blood lymphocytes/100 leukoc ytesOrdered By: Asad Hastings on 04-19-2023 Lymphocytes/100 WBC (Bld) 33.8 % 19-41 [facility] Blood monocytes/100 leukocyt esOrdered By: Asad Hastings on 04-19-2023 Monocytes/100 WBC (Bld) 7.2 % 0-10 [facility] Blood platelet mean volumeOr dered By: Asad Hastings on 04-19-2023 Platelet mean volume (Bld) [Entitic vol] 10.3 fL 6.2-12.0 [facility] Determination of erythrocyte mean corpuscular volume (MCV)Ordered By: Asad Hastings on 04-19-2023 MCV (RBC) [Entitic vol] 87.5 fL 80-94 [facility] Hematocrit Auto (Bld) [Volum e fraction]Ordered By: Asad Hastings on 04-19-2023 Hematocrit (Bld) [Volume fraction] 45.3 % 40-54 [facility] - Chemistry and C hemistry - challengeOrdered By: [facility] on 04-19-2023 ALP [Catalytic activity/Vol] 70 U/L 45-117 [facility] ALT [Catalytic activity/Vol] 39 U/L 16-61 [facility] CO2 [Moles/Vol] 26.0 mmol/L 21.0-32.0 [facility] Globulin (S) [Mass/Vol] 3.1 g/dL 2.2-4.2 [facility] Urea nitrogen/Creatinine [Mass ratio] 16.8 mg/mg 10-20 [facility] - Hematology and Cell countsOrdered By: Asad Hastings on 04-19-2023 Erythrocyte distribution width (RBC) [Entitic vol] 39.2 fL 35.1-43.9 [facility] Erythrocyte distribution width (RBC) [Ratio] 12.3 % 11.6-14.6 [facility] Immature granulocytes/100 WBC (Bld) 1.000 % 0.0-0.9 [facility] Comment on above: IG% - Immature Granu locytes (promyelocytes, myelocytes and metamyelocytes) > 1% indicates that a LEFT SHIFT is Present. MCH (RBC) [Entitic mass] 29.9 pg 27.0-32.0 [facility] Nucleated RBC/100 WBC (Bld) [Ratio] 0 % 0-5 [facility] Auto (RBC) [Mass/Vol]Or dered By: Asad Hastings on 04-19-2023 MCHC (RBC) [Mass/Vol] 34.2 g/dL 32-36 [facility] No Panel InformationOrdered By: Asad Hastings on 04-19-2023 Estimated GFR (MDRD) Amer 90 mL/min >60 [facility] Comment on above: GFR Calc Estimated GFR (MDRD) Non-Af Amer 75 mL/min >60 [facility] Comment on above: Non- GFR Calc Immunoglobulin E 21 IU/mL 6-495 [facility] Comment on above: Performed at: [facility] [employer] [id number] Director: Ben Wray PhD, Phone: [phone] at: - [facility] [address] [id number] Director: Wei Rogers MD, Phone: [phone] Platelets bldOrdered By: Frida Hastings on 04-19-2023 Platelets (Bld) [#/Vol] 209 10*3/uL 150-450 [facility] Serum or plasma IgA measurem ent (mass/volume)Ordered By: Asad Hastings on 04-19-2023 IgA [Mass/Vol] 248 mg/dL 61-437 [facility] Serum or plasma IgG measurem ent (mass/volume)Ordered By: Asad Hastings on 04-19-2023 IgG [Mass/Vol] 809 mg/dL [id number] [facility] Serum or plasma IgM measurem ent (mass/volume)Ordered By: Asad Hastings on 04-19-2023 IgM [Mass/Vol] 32 mg/dL 20-172 [facility] Serum or plasma albumin segundo urement (mass/volume)Ordered By: Asad Hastings on 04-19-2023 Albumin [Mass/Vol] 4.5 g/dL 3.2-5.0 [facility] Serum or plasma albumin/glob ulin mass ratioOrdered By: Asad Hastings on 04-19-2023 Albumin/Globulin [Mass ratio] 1.5 {ratio} 0.9-2.4 [facility] Serum or plasma calcium segundo urement (mass/volume)Ordered By: Asad Hastings on 04-19-2023 Calcium [Mass/Vol] 9.1 mg/dL 8.5-10.1 [facility] Serum or plasma creatinine m easurement (mass/volume)Ordered By: Asad Hastings on 04-19-2023 Creatinine [Mass/Vol] 1.07 mg/dL 0.70-1.30 [facility] Comment on above: The validity of the calculated GFR & GFRAA in patients over 70 years has not been determined. Clinical correlation is essential. Serum or plasma urea nitroge n measurement (mass/volume)Ordered By: Asad Hastings on 04-19-2023 Urea nitrogen [Mass/Vol] 18 mg/dL 7-18 [facility] Thin prep Papanicolaou smear with manual screeningOrdered By: [facility] on 04-19-2023 Thin prep Papanicolaou smear with manual screening 30 U/L 15-37 [facility] Thin prep Papanicolaou smear with manual screening 4 5-15 [facility] Color of specimen determinat ionOrdered By: Rodri Moore on 01-09-2023 Color (Unsp spec) Barnes [facility] Laboratory - Miscellaneous t estsOrdered By: Rodri Moore on 01-09-2023 Service comment (Unsp spec) [Interp] See comment [facility] Comment on above: Physician questions regarding Calculi Analysis [facility]Ki[facility] HospitalCorp at: [phone]. Calculi report will follow via computer, mail or courierdelivery. Measurement of weight of sto neOrdered By: Rodri Moore on 01-09-2023 Weight (Stone) 155 mg [facility] No Panel InformationOrdered By: Rodri Moore on 01-09-2023 Stone Analysis (T) See comment [facility] Comment on above: Percentage (Represen ts the % composition) Stone Calcium Oxalate Monohydrate 10 % [facility] Stone Calcium Phosphate 90 % [facility] Origin of StoneOrdered By: Nathanael Moore on 01-09-2023 Origin Nom (Stone) Not Provided [facility] Size of stoneOrdered By: Momo Moore on 01-09-2023 Size (Stone) [Entitic vol] 9x6 mm [facility] Comment on above: Single piece receive d Thin prep Papanicolaou smear with manual screeningOrdered By: Rodri Moore on 01-09-2023 Thin prep Papanicolaou smear with manual screening See comment [facility] Comment on above: Photograph will foll ow under a separate cover Absolute lymphocyte counton 12-26-2021 Lymphocytes Auto (Unsp spec) [#/Vol] 2.23 10*3/uL 0.83-4.51 [facility] Work Phone: Basophil percentageon 2021 Basophils/100 WBC (Bld) 1.1 % 0-1 [facility] Work Phone: [phone] Bilirubin [Mass/Vol] 0.80 mg/dL 0.20-1.00 [facility] Work Phone: [phone] Comment on above: For patients on eltr ombopag therapy, use of Dim[place] TBIL is not recommended. Chloride [Moles/Vol] 109 mmol/L 98-107 [facility] Work Phone: [phone] Eosinophils/100 WBC (Bld) 3.8 % 0-5 [facility] Work Phone: Glucose [Mass/Vol] 93 mg/dL 74-106 [facility] Work Phone: [phone] Neutrophils (Bld) [#/Vol] 4.8 10*3/uL 2.0-7.7 [facility] Work Phone: Neutrophils/100 WBC (Bld) 58.8 % 47-70 [facility] Work Phone: Potassium [Moles/Vol] 3.9 mmol/L 3.5-5.1 [facility] Work Phone: Protein [Mass/Vol] 7.2 g/dL 6.4-8.2 [facility] Work Phone: Sodium [Moles/Vol] 142 mmol/L 136-145 [facility] Work Phone: WBC (Bld) [#/Vol] 8.1 10*3/uL 4.4-11.0 [facility] Work Phone: Blood erythrocytes count (nu mber/volume)on 12-26-2021 RBC (Bld) [#/Vol] 4.78 10*6/uL 4.6-6.2 [facility] Phone: Blood hemoglobin measurement (mass/volume)on 12-26-2021 Hemoglobin (Bld) [Mass/Vol] 14.5 g/dL 13.0-16.5 [facility] Work Phone: Blood lymphocytes/100 leukoc yteson 12-26-2021 Lymphocytes/100 WBC (Bld) 27.5 % 19-41 [facility] Work Phone: Blood monocytes/100 leukocyt eson 12-26-2021 Monocytes/100 WBC (Bld) 7.9 % 0-10 [facility] Work Phone: Blood platelet mean volumeon 12-26-2021 Platelet mean volume (Bld) [Entitic vol] 10.5 fL 6.2-12.0 [facility] Work Phone: Determination of erythrocyte mean corpuscular volume (MCV)on 12-26-2021 MCV (RBC) [Entitic vol] 87.0 fL 80-94 [facility] Work Phone: Hematocrit Auto (Bld) [Volum e fraction]on 12-26-2021 Hematocrit (Bld) [Volume fraction] 41.6 % 40-54 [facility] Work Phone: Laboratory - Chemistry and C hemistry - challengeon 12-26-2021 ALP [Catalytic activity/Vol] 72 U/L 45-117 [facility] Work Phone: ALT [Catalytic activity/Vol] 45 U/L 16-61 [facility] Work Phone: CO2 [Moles/Vol] 29.0 mmol/L 21.0-32.0 [facility] Work Phone: Globulin (S) [Mass/Vol] 3.0 g/dL 2.2-4.2 [facility] Work Phone: Urea nitrogen/Creatinine [Mass ratio] 18.8 mg/mg 10-20 [facility] Work Phone: Laboratory - Hematology and Cell countson 12-26-2021 Erythrocyte distribution width (RBC) [Entitic vol] 39.3 fL 35.1-43.9 [facility] Work Phone: Erythrocyte distribution width (RBC) [Ratio] 12.3 % 11.6-14.6 [facility] Work Phone: Immature granulocytes/100 WBC (Bld) 0.900 % 0.0-0.9 [facility] Work Phone: Comment on above: IG% - Immature Granu locytes (promyelocytes, myelocytes and metamyelocytes) > 1% indicates that a LEFT SHIFT is Present. MCH (RBC) [Entitic mass] 30.3 pg 27.0-32.0 [facility] Work Phone: Nucleated RBC/100 WBC (Bld) [Ratio] 0 % 0-5 [facility] Work Phone: MCHC Auto (RBC) [Mass/Vol]on 12-26-2021 MCHC (RBC) [Mass/Vol] 34.9 g/dL 32-36 [facility] Work Phone: No Panel Informationon 12-26 Estimated GFR (MDRD) Amer 103 mL/min >60 [facility] Work Phone: Comment on above: GFR Calc Estimated GFR (MDRD) Non-Af Amer 85 mL/min >60 [facility] Work Phone: Comment on above: Non- GFR Calc Platelets bldon 12-26-2021 Platelets (Bld) [#/Vol] 202 10*3/uL 150-450 [facility] Work Phone: Serum or plasma albumin segundo urement (mass/volume)on 12-26-2021 Albumin [Mass/Vol] 4.2 g/dL 3.2-5.0 [facility] Work Phone: Serum or plasma albumin/glob ulin mass ratioon 12-26-2021 Albumin/Globulin [Mass ratio] 1.4 {ratio} 0.9-2.4 [facility] Work Phone: Serum or plasma calcium segundo urement (mass/volume)on 12-26-2021 Calcium [Mass/Vol] 9.3 mg/dL 8.5-10.1 [facility] Work Phone: Serum or plasma creatinine m easurement (mass/volume)on 12-26-2021 Creatinine [Mass/Vol] 0.96 mg/dL 0.70-1.30 [facility] Work Phone: Comment on above: The validity of the calculated GFR & GFRAA in patients over 70 years has not been determined. Clinical correlation is essential. Serum or plasma urea nitroge n measurement (mass/volume)on 12-26-2021 Urea nitrogen [Mass/Vol] 18 mg/dL 7-18 [facility] Work Phone: Thin prep Papanicolaou smear with manual screeningon 12-26-2021 Thin prep Papanicolaou smear with manual screening 30 U/L 15-37 [facility] Work Phone: Thin prep Papanicolaou smear with manual screening 4 5-15 [facility] Work Phone: Absolute lymphocyte counton 08-23-2021 Lymphocytes Auto (Unsp spec) [#/Vol] 2.52 10*3/uL 0.83-4.51 [facility] Work Phone: Basophil percentageon 2021 Basophils/100 WBC (Bld) 1.3 % 0-1 [facility] Work Phone: Bilirubin [Mass/Vol] 0.90 mg/dL 0.20-1.00 [facility] Work Phone: Comment on above: For patients on eltr ombopag therapy, use of [place] TBIL is not recommended. Chloride [Moles/Vol] 108 mmol/L 98-107 [facility] Work Phone: Eosinophils/100 WBC (Bld) 5.5 % 0-5 [facility] Work Phone: Glucose [Mass/Vol] 110 mg/dL 74-106 [facility] Work Phone: [phone] Comment on above: Fasting Glucose resu lt from 100 to 125 mg/dL suggests IMPAIRED HOMEOSTASIS per A.D.A. criteria. Neutrophils (Bld) [#/Vol] 2.7 10*3/uL 2.0-7.7 [facility] Work Phone: Neutrophils/100 WBC (Bld) 44.3 % 47-70 [facility] Work Phone: Potassium [Moles/Vol] 4.1 mmol/L 3.5-5.1 [facility] Work Phone: Protein [Mass/Vol] 7.8 g/dL 6.4-8.2 [facility] Work Phone: Sodium [Moles/Vol] 139 mmol/L 136-145 [facility] Work Phone: WBC (Bld) [#/Vol] 6.2 10*3/uL 4.4-11.0 [facility] Work Phone: Blood erythrocytes count (nu mber/volume)on 08-23-2021 RBC (Bld) [#/Vol] 5.10 10*6/uL 4.6-6.2 [facility] Work Phone: Blood hemoglobin measurement (mass/volume)on 08-23-2021 Hemoglobin (Bld) [Mass/Vol] 15.4 g/dL 13.0-16.5 [facility] Work Phone: Blood lymphocytes/100 leukoc yteson 08-23-2021 Lymphocytes/100 WBC (Bld) 41.0 % 19-41 [facility] Work Phone: Blood monocytes/100 leukocyt eson 08-23-2021 Monocytes/100 WBC (Bld) 7.2 % 0-10 [facility] Work Phone: Blood platelet mean volumeon 08-23-2021 Platelet mean volume (Bld) [Entitic vol] 10.2 fL 6.2-12.0 [facility] Work Phone: Determination of erythrocyte mean corpuscular volume (MCV)on 08-23-2021 MCV (RBC) [Entitic vol] 85.7 fL 80-94 [facility] Work Phone: Hematocrit Auto (Bld) [Volum e fraction]on 08-23-2021 Hematocrit (Bld) [Volume fraction] 43.7 % 40-54 [facility] Work Phone: Laboratory - Chemistry and C hemistry - challengeon 08-23-2021 ALP [Catalytic activity/Vol] 77 U/L 45-117 [facility] Work Phone: ALT [Catalytic activity/Vol] 43 U/L 16-61 [facility] Work Phone: CO2 [Moles/Vol] 24.0 mmol/L 21.0-32.0 [facility] Work Phone: Globulin (S) [Mass/Vol] 3.4 g/dL 2.2-4.2 [facility] Work Phone: Urea nitrogen/Creatinine [Mass ratio] 16.6 mg/mg 10-20 [facility] Work Phone: Laboratory - Hematology and Cell countson 08-23-2021 Erythrocyte distribution width (RBC) [Entitic vol] 38.8 fL 35.1-43.9 [facility] Work Phone: Erythrocyte distribution width (RBC) [Ratio] 12.5 % 11.6-14.6 [facility] Work Phone: Immature granulocytes/100 WBC (Bld) 0.700 % 0.0-0.9 [facility] Work Phone: Comment on above: IG% - Immature Granu locytes (promyelocytes, myelocytes and metamyelocytes) > 1% indicates that a LEFT SHIFT is Present. MCH (RBC) [Entitic mass] 30.2 pg 27.0-32.0 [facility] Work Phone: Nucleated RBC/100 WBC (Bld) [Ratio] 0 % 0-5 [facility] Work Phone: MCHC Auto (RBC) [Mass/Vol]on 08-23-2021 MCHC (RBC) [Mass/Vol] 35.2 g/dL 32-36 [facility] Work Phone: No Panel Informationon 08-23 Estimated GFR (MDRD) Amer 103 mL/min >60 [facility] Work Phone: Comment on above: GFR Calc Estimated GFR (MDRD) Non-Af Amer 85 mL/min >60 [facility] Work Phone: Comment on above: Non- GFR Calc Platelets bldon 08-23-2021 Platelets (Bld) [#/Vol] 215 10*3/uL 150-450 [facility] Work Phone: Serum or plasma IgA measurem ent (mass/volume)on 08-23-2021 IgA [Mass/Vol] 273 mg/dL [facility] Work Phone: Serum or plasma IgG measurem ent (mass/volume)on 08-23-2021 IgG [Mass/Vol] 906 mg/dL [facility] Work Phone: Serum or plasma IgM measurem ent (mass/volume)on 08-23-2021 IgM [Mass/Vol] 34 mg/dL [facility] Work Phone: Comment on above: Performed at: [address], [place], [place] [id number] Director: Ben Wray PhD, Phone: [phone] Serum or plasma albumin segundo urement (mass/volume)on 08-23-2021 Albumin [Mass/Vol] 4.4 g/dL 3.2-5.0 [facility] Work Phone: Serum or plasma albumin/glob ulin mass ratioon 08-23-2021 Albumin/Globulin [Mass ratio] 1.3 {ratio} 0.9-2.4 [facility] Work Phone: Serum or plasma calcium segundo urement (mass/volume)on 08-23-2021 Calcium [Mass/Vol] 9.4 mg/dL 8.5-10.1 [facility] Work Phone: Serum or plasma creatinine m easurement (mass/volume)on 08-23-2021 Creatinine [Mass/Vol] 0.96 mg/dL 0.70-1.30 [facility] Work Phone: Comment on above: The validity of the calculated GFR & GFRAA in patients over 70 years has not been determined. Clinical correlation is essential. Serum or plasma urea nitroge n measurement (mass/volume)on 08-23-2021 Urea nitrogen [Mass/Vol] 16 mg/dL 7-18 [facility] Work Phone: Thin prep Papanicolaou smear with manual screeningon 08-23-2021 Thin prep Papanicolaou smear with manual screening 21 U/L 15-37 [facility] Work Phone: Thin prep Papanicolaou smear with manual screening 7 5-15 [facility] Work Phone: Encounters Encounter Date Encounter Type Care Provider Facility Start: 10-26-2024 ambulatory [facility] COLLEGE ARCHIVIST Facil ity:[facility] Start: 10-06-2024 End: 10-06-2024 [facility] COLLEGE ARCHIVIST-C Work Phone: [facility] Work Phone: Start: 10-06-2024 End: 10-06-2024 Patient encounter procedure FILIBERTO RUIZ COLLEGE ARCHIVIST-C -Laboratory [facility] Start: 10-06-2024 End: 10-06-2024 ambulatory FILIBERTO RUIZ Facility:[facility] Start: 09-05-2024 End: 09-05-2024 ambulatory Mihir Lyon COLLEGE ARCHIVIST-C Work Phone: [facility] Work Phone: Start: 09-05-2024 End: 09-05-2024 Patient encounter procedure Mihir Lyon COLLEGE ARCHIVIST-C -Laboratory, [facility] Start: 09-05-2024 End: 09-05-2024 ambulatory Mihir Lyno COLLEGE ARCHIVIST Facility:[facility] Start: 03-03-2024 End: 03-03-2024 ambulatory Jayla S Jolliff Facility:[facility] Start: 02-19-2024 End: 02-19-2024 ambulatory [facility] S Jolliff Facility:[facility] Start: 04-19-2023 End: 04-19-2023 ambulatory [facility] Work Phone: Start: 04-19-2023 End: 04-19-2023 [facility] Start: 01-09-2023 End: 01-09-2023 ambulatory [facility] Work Phone: Start: 01-09-2023 End: 01-09-2023 Patient encounter procedure [facility]-Laboratory Work Phone: Start: 12-25-2022 End: 12-25-2022 ambulatory [facility] Work Phone: Start: 12-25-2022 End: 12-25-2022 Patient encounter procedure [facility] Scan, [facility] Work Phone: Start: 12-26-2021 End: 12-26-2021 ambulatory [facility] Work Phone: Start: 12-26-2021 End: 12-26-2021 Patient encounter [facility] Start: 08-23-2021 End: 08-23-2021 Patient encounter procedure [facility]-Laboratory, [facility] Procedures Date Procedure Procedure Detail Performing Clinician Start: 09-05-2024 Prostate specific an tigen measurement Mihir McMorrow COLLEGE ARCHIVIST-C Work Phone: Comment on above: This test was perfor med using the [employer] tPSA method. Measured values of a patient sample can vary depending on the testing procedure used. PSA values determined on patient samples by different testing procedures cannot be used interchangeably. If there is a change in PSA assays while monitoring therapy, sequential testing should be performed to confirm baseline values. Start: 01-09-2023 Diagnostic radiograp hy of abdomen Start: 12-25-2022 CT of abdomen and pe lvis without contrast Plan of Treatment Date Care Activity Detail Author Start: 12-26-2021 Serum immunofixation [facility] Work Phone: Calculus analysis [facility] IgA [Mass/volume] in Serum or Plasma [facility] Work Phone: IgD [Mass/volume] in Serum [facility] Work Phone: IgG [Mass/volume] in Serum or Plasma [facility] Work Phone: IgM [Mass/volume] in Serum or Plasma [facility] Work Phone: Measurement of weight of calculus [facility] Origin of [facility] Specimen color determination [facility] Payers Date Payer Category Payer Self-pay [id number] 2024 Unknown [id number] Self-pay SELF PAY INSURANCE [id number] Unknown [id number] Unknown [id number] [id number] [id number] Unknown [id number] [id number] [id number] Unknown [id number] [id number] [id number] Unknown [id number] [id number] [id number] Unknown [id number] [id number] [id number] Social History Date Type Detail Facility Start: 02-02-2018 End: 02-02-2018 Tobacco smoking status NHIS Unknown if ever smoked [facility] Start: 09-22-2020 Occasional [facility] Start: 09-22-2020 Non-smoker [facility] Start: 1960 Sex Assigned At Male [facility] Start: 02-02-2018 Tobacco smoking stat us NHIS Never smoked tobacco (finding) [facility] Evaluation note Note Date & Type Note Facility Evaluation note No assessment information availa ble [facility] Work Phone: Reason for referral (narrative) Note Date & Type Note Facility Reason for referral (narrative) No reason for referral information available [facility] Work Phone: Advance Directives No Advanced Directives Records Found Advance Directive Response Recorded Date/ Time Living Will No February 02 7:45am Power of Radiation Protection Technician No February 02 7:45am Advance Directive Response Recorded Date/ Time Living Will No February 02 8 6:45am Power of Radiation Protection Technician No February 02 018 6:45am Chief Complaint and Reason for Visit Chief Complaint STAT HEMATURIA Summary Purpose Family History No Family History Records Found Additional Source Comments Goals (unrecognized section and content) Goals may be documented in a n alternate sectionGoals may be documented in an alternate sectionGoals may be documented in an alternate sectionGoals may be documented in an alternate sectionGoals may be documented in an alternate sectionGoals may be documented in an alternate sectionGoals may be documented in an alternate section Care Teams (unrecognized sec tion and content) Team Status: Active Member Role Status Dates Dr. Jayla Rajput MD Family Provider Active Dr. Jayla Rajput MD Primary Care Provider Active Team Status: Inactive Member Role Status Dates Dr. Jayla Rajput MD Primary Care Prov ider, Attending Provider, Referring Provider Active Team Status: Inactive Member Role Status Dates Dr. Jayla Rajput MD Primary Care Provider Active Dr. Rodri Moore MD Attending Provider, Referr ing Provider Active Team Status: Inactive Member Role Status Dates Dr. Jayla Rajput MD Primary Care Provider Active Dr. Carlo Hastings MD Attending Provider Active Team Status: Active Member Role Status Dates Dr. Jayla Rajput MD Family Provider Active Mihir Lyon COLLEGE ARCHIVIST, [employer]LEGE ARCHIVIST-C Primary Care Provider Active Team Status: Inactive Member Role Status Dates Mihir Lyon COLLEGE ARCHIVIST, COLLEGE ARCHIVIST-C Primary Care Provider Active Start: September 05, 2024 End: September 05, 2024 Mihir Lyon COLLEGE ARCHIVIST, COLLEGE ARCHIVIST-C Attending Provider Active Start: September 05, 2024 End: September 05, 2024 Mihir Lyon COLLEGE ARCHIVIST, COLLEGE ARCHIVIST-C Referring Provider Active Start: September 05, 2024 End: September 05, 2024 Team Status: Inactive Member Role Status Dates Mihir Lyon COLLEGE ARCHIVIST, COLLEGE ARCHIVIST-C Primary Care Provider Active Start: October 06, 2024 End: October 06, 2024 FILIBERTO RUIZ NP-C Attending Provider Active Sta rt: October 06, 2024 End: October 06, 2024 (unrecognized sect ion and content) No Status Records Found INFORMATION SOURCE (unrecogn ized section and content) DATE CREATED AUTHOR 10/26/2024 [facility] FOR RECORDS PERTAINING TO PATIENTS WHO ARE OR HAVE BEEN ENROLLED IN A CHEMICAL DEPENDENCY/SUBSTANCEABUSE PROGRAM, SOME INFORMATION MAY BE OMITTED. This clinical summary was aggregated from multiple sources. Caution should be exercised in using it in the provision of clinical care. This summary normalizes information from multiple sources, and as a consequence, information in this document may materially change the coding, format and clinical context of patient data. In addition, data may be omitted in some cases. CLINICAL DECISIONS SHOULD BE BASED ON THE PRIMARY CLINICAL RECORDS. [employer] provides no warranty or guarantee of the accuracy or completeness of information in this document.
--- NOTE | 2024-10-26 19:15 | CM.ED ---
Social Work Date of referral: 10/26/24 Reason for referral: Advanced Care Directives (ACD's) not on file. Referred by: Social Work Identification Patient provided consent to Social Work visit. [employer] asked patient to bring in a copy of his ACD's either at next visit or the next time patient is near the hospital and can drop off which patient stated he would do. No other needs identified at this time. Nata Reyes, DIGITAL DEVELOPER, MARINE FARMER
[2024-10-26 19:18] VITALS: BP 148/78; PULSE 58; RESP 18; TEMP 36.4; O2SAT 93
== END 2024-10-26 19:20 | disposition home or self-care (01) ==
LOC: ED 19:12
PROVIDERS: Emergency Provider Emergency Medicine; Visit Provider Emergency Medicine
DX: S61.012A Laceration without foreign body of left thumb without damage to nail, initial encounter (principal); G35 Multiple sclerosis; I10 Essential (primary) hypertension; X58.XXXA Exposure to other specified factors, initial encounter
CPT/HCPCS: 12001; 99284

== ENCOUNTER → 2024-12-30 | Outpatient (CLI) | payer OTHER, SELFPAY ==
--- NOTE | 2024-12-30 12:49 | MRI_ITS ---
PROCEDURE: SPINE CERVICAL W/WO CONTRAST 12/30/2024 REASON FOR EXAM: MS TECHNIQUE: Procedure Code: [id number] Modality: MR Procedure: SPINE CERVICAL W/WO CONTRAST Multiplanar and multisequence images were obtained with intravenous gadolinium- based contrast administration. CONTRAST: Jamia scan VOLUME: 20 mL FINDINGS: Normal cervical vertebral body height and alignment. There is no Chiari deformity. No demyelination seen on sagittal T2 weighted images. Please note that axial volumetric images are not as accurate in assessing demyelination as fast spin echo T2 weighted images. However the sagittal T2 weighted images and inversion recovery images demonstrate no definite demyelination, compression or syrinx. The neural foramina is patent. There are no areas of pathologic enhancement. Minimal annular bulging at C5-6 and C6-7. MRI/Spine Cervical W/WO Contrast IMPRESSION: No visible demyelination or pathologic enhancement Reading Location: [facility] [id number]
--- NOTE | 2024-12-30 13:00 | MRI_ITS ---
PROCEDURE: BRAIN W/WO CONTRAST 12/30/2024 REASON FOR EXAM: MS TECHNIQUE: Procedure Code: [id number] Modality: MR Procedure: BRAIN W/WO CONTRAST Multiplanar and multisequence images were obtained. CONTRAST: Clariscan VOLUME: 20 mL COMPARISON: MRI brain with and without contrast, 12/09/2020. FINDINGS: There are multiple ovoid foci of abnormal periventricular white matter signal in the right cerebral hemisphere. These are nonspecific but are consistent with demyelinating disease. There is no evidence of involvement of the brainstem, visualized portion of the cervical spinal cord or the optic nerves. There is no significant change compared with the prior exam. There are no foci of abnormal intracranial contrast enhancement. There is a normal sulcal pattern and gyral configuration. There is no evidence of acute intracranial hemorrhage or infarction. The blood-white differentiation is well preserved. There is no evidence of restricted diffusion. The ventricles and basilar cisterns are normal. There are normal flow voids demonstrated in the recognized intracranial vessels. The cerebellum and brainstem are unremarkable. The cerebellar pontine angles are normal. The craniovertebral junction is normal. The sella and suprasellar regions are normal. The orbits and retro-orbital regions are unremarkable. There is left carlie bullosa. There is nasal septal deviation to the right. There is mucosal thickening of the ethmoidal air cells and frontal sinuses, bilaterally. There is a mucous retention cyst in the left maxillary sinus. The mastoid air cells are clear. There is normal bone marrow signal in the skull base and calvarium. MRI/Brain W/WO Contrast IMPRESSION: 1. Findings consistent with multiple sclerosis, not significantly changed. 2. There are no foci of abnormal intracranial contrast enhancement. 3. Other findings as noted. Reading Location: [id number]
--- OUTSIDE RECORDS SUMMARY | 2024-12-30 21:49 | XMS RPT_ITS | CCD ---
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 Leonides Dominguez DO Emergency Provider [phone] FILIBERTO RUIZ Attending Unavailable FILIBERTO RUIZ Referring Unavailable Jayla Rajput Primary Care Unavailable FILIBERTO RUIZ Attending Unavailable McMorrow [employer], Mihir Primary Care Unavailable Leonides Dominguez Attending Unavailable McMorrow [employer], Mihir Primary Care Unavailable McMorrow [employer]ER, Mihir Attending Unavailable Kodyorrow [employer]ERMihir Referring Unavailable McMorrow [employer], Mihir Primary Care Unavailable FILIBERTO RUIZ Attending Unavailable Jayla Rajput Primary Care Unavailable Allergies Allergy Classification Reported Allergen(s) Allergy Type Date of Onset Reaction(s) Facility (9 sources) Penicillins; Translations: [Penicillins] Allergy to substance 02-02-2018 [facility] Medications Current Medications Medication Drug Class(es) Dates Sig (Normalized) Sig (Original) citalopram 10 mg oral tablet (8 sources) Serotonin Reuptake Inhibitor Start: 8 take 1 tablet by mouth once daily Citalopram 10 MG tablet Active 10 mg PO DAILY February 02, 2018 12:00am 1 ml glatiramer acetate 40 mg/ml prefilled syringe (8 sources) Start: 8 Glatiramer (Copaxone) 40 MG/ML syringe Active 40 mg SC EVERY WEEK February 02, 2018 12:00am three times a week hydroCHLOROthiazide 25 mg oral tablet (8 sources) Thiazide Diuretic Start: 8 take 1 tablet by mouth once daily Hydrochlorothiazide 25 MG tablet Active 25 mg PO DAILY February 02, 2018 12:00am modified 24 hr metFORMIN hydrochloride 500 mg extended release oral tablet (8 sources) Biguanide Start: 8 take 1 tablet by mouth twice daily Metformin 500 MG tablet,ER delon.retention 24 hr Active 500 mg PO TWICE A DAY February 02, 2018 12:00am naproxen 500 mg oral tablet (8 sources) Nonsteroidal Anti-inflammator y Drug Start: 8 take 1 tablet by mouth twice daily Naproxen 500 MG tablet Active 500 mg PO TWICE A DAY 14 February 02, 2018 12:00am tamsulosin hydrochloride 0.4 mg oral capsule (8 sources) alpha-Adrenergic Catalina Start: 8 take 1 capsule by mouth once daily Tamsulosin 0.4 MG capsule Active 0.4 mg PO DAILY 7 0 February 02, 2018 12:00am Completed/Discontinued Medications Medication Drug Class(es) Dates Sig (Normalized) Sig (Original) acetaminophen 325 mg / HYDROcodone bitartrate 5 mg oral tablet (8 sources) Opioid Agonist Start: 02-02-2018 End: 02-04-2018 Hydrocodone-Acetami nophen 1 TABLET tablet Discontinued 1 {tbl} PO EVERY 4 HOURS NEEDED as needed for Pain 10 2 February 02, 2018 12:00am February 03, 2018 12:00am February 04, 2018 12:12am Pain, unspecified Start: 02-02-2018 End: 02-04-2018 take 1 tablet by mouth every four hours as needed Hydrocodone-Acetaminophen Discontinued 1 TABLET PO EVERY 4 HOURS NEEDED 10 February 01, 2018 11:00pm February 03, 2018 11:12pm Problems Active Problems Problem Classification Problem Date Documented Date Episodic/Chronic Esophageal disorders (8 sources) Gastroesophageal reflux disease; Translations: [Gastro-esophageal reflux disease without esophagitis] 04-01-2013 Chronic Essential hypertension (8 sources) Hypertensive disorder; Translations: [Essential (primary) hypertension] 04-01-2013 Chronic Multiple sclerosis (1 source) Multiple sclerosis; Translations: [Multiple sclerosis] Onset: 10-09-2024 Chronic Open wounds of extremities (2 sources) Laceration of left thumb; Translations: [Laceration without foreign body of left thumb without damage to nail, initial encounter] Onset: 10-29-2024 10-26-2024 Episodic Other nervous system disorders (8 sources) Numbness; Translations: [Anesthesia of skin] 04-01-2013 Episodic Other screening for suspected conditions (not mental disorders or infectious disease) (1 source) Encounter for screening for malignant neoplasm of prostate; Translations: [Encounter for screening for malignant neoplasm of prostate] Onset: 09-10-2024 Episodic Past or Other Problems Problem Classification Problem Date Documented Da te Episodic/Chronic Other aftercare (1 source) 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; Translations: [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] Onset: 03-24-2024 Episodic Results Test Name Value Interpretation Reference Range Facility Emergency Department Summary on 10-26-2024 Emergency Department Summary [facility] Medical Records Department [address] [place] [address] Emergency Department Summary 10/26/24 MR#: [id number] Acct: [id number] Name: ART WRIGHT Rep #: [id number] : 1960 64 From: Madeleine DWYER PCP: Mihir Lyon NP [employer] Status:DEP ER Location: ED HPI History of Present Illness Chief Complaint: Laceration Narrative Narrative: 64-year-old maleis at a local cabin camping and used a serrated kitchen knife to cut food when it lacerated his left thumb. Bleeding is controlled with pressure. He thinks it might need a couple stitches. No weakness numbness or tingling. Last tetanus unknown. [facility] Medical History (Updated 10/26/24 @ 19:[address] Leonides Dominguez, DO) Multiple sclerosis Home Medications ???Medication ???Instructions ???Recorded ???Last Taken ???Type citalopram 10 mg tablet 10 mg PO DAILY 02/02/18 Unknown Hi story glatiramer 40 mg/mL subcutaneous 40 mg subcut QWEEK 02/02/18 Unknow n History syringe (Copaxone) hydrochlorothiazide 25 mg tablet 25 mg PO DAILY 02/02/18 Unknown Hi story metformin 500 mg 24 hr 500 mg PO BID 02/02/18 Unknown His tory tablet,extended release (gastric retention) naproxen 500 mg tablet 500 mg PO BID #14 tabs 02/02/18 Un known Rx tamsulosin 0.4 mg capsule 0.4 mg PO DAILY #7 caps 02/02/18 U nknown Rx Allergy/AdvReac Type Severity Reaction Status Date / Time Penicillins Allergy Rash Verified 10/26/24 18:22 Social History (System 07/23/17 @ 09:30 by Pito Zhang) Smoking Status: Never smoker ROS ROS ED ROS Narrative Neuro: Negative for motor/sensory dysfunction. Skin: Positive for laceration. Musc: Negative for joint pain. EXAM Physical Exam Narrative Exam Narrative: CONST: Patient sitting in no acute distress. EYES: Normal inspection. SKIN: 1 cm superficial flap laceration on pad of left thumb with slow active bleeding. No joint involvement. EXTREMITIES: Full range of motion of left hand and digits. 2+ radial pulse and brisk cap refill. Normal motor and sensory function in median radial and ulnar distributions. NEURO: Alert and answering questions appropriately. PSYCH: Normal affect. Const Vital Signs: 10/26/24 18:22 10/26/24 19:18 Temperature 96.3 F L 97.5 F L Temperature Source Temporal Pulse Rate 57 L 58 L Respiratory Rate 16 18 Blood Pressure 170/90 H 148/78 H Blood Pressure Mean 116 101 Pulse Ox 98 93 Oxygen Delivery Method Room Air Physical Exam Const Vital Signs: 10/26/24 18:22 10/26/24 19:18 Temperature 96.3 F L 97.5 F L Temperature Source Temporal Pulse Rate 57 L 58 L Respiratory Rate 16 18 Blood Pressure 170/90 H 148/78 H Blood Pressure Mean 116 101 Pulse Ox 98 93 Oxygen Delivery Method Room Air MDM MDM MDM Narrative Medical decision making narrative: 64-year-old male presents with a 1 cm laceration on his left thumb from a kitchen knife. It is a superficial flap laceration with slow active bleeding. He has full range of motion and is neurovascularly intact. Is not deep and does not require x-rays. See procedure note???I placed 3 simple interrupted sutures. He refused a tetanus update. He was given wound care instructions and discharged in stable condition. [facility] Treatment and Re-Evaluation Narrative: I have personally performed a face to face assessment of the patient and have reviewed the CORRINE Note. I performed a substantive portion of the visit including all aspects of the following. My maloney findings include: History: Patient presents with left thumb laceration that occurred today. Patient was using a knife to cut potatoes when it slipped and cut his left thumb. Patient is right-hand dominant. Patient states the bleeding stopped after several minutes of pressure. Patient denies any paresthesias or weakness. Patient is unsure of his last tetanus. Exam: Vital signs are stable except for an elevated blood pressure 170/90. Patient is afebrile. Patient is in no acute distress. Skin is warm and dry. There is a 1 cm curvilinear laceration over the palmar aspect of the distal phalanx of the left thumb. There is minimal bleeding. There is no bony crepitance or step-off. There is good range of motion of the MP and IP joints of the left thumb. Sensation was intact to light touch in all digits. Capillary refill was less than 2 seconds in all digits. Medical Decision Making: Patient refused tetanus booster. The wound was cleaned and irrigated with copious amounts of normal saline. The wound was closed by the CORRINE under my supervision. Patient tolerated procedure well. Patient was instructed to keep the wound clean and dry. Patient was instructed to follow-up with his primary care physician in 5 to 7 days. Patient was instruc (more content not included)... Normal [facility] Immunoglobulin Montrell 5 IMMUNOGLOB G QN 792 mg/dL Normal 603-1613 [facility] Comment on above: Result Comment: Perf ormed at: CB - [facility] [address] [id number] Per Diem Interpreter: Ben Wray PhD, Phone: [phone] Performed By: #### L 3200.1400, L100.0500, L3200.1300, L3200.1500, L3200.1600, L500.4050 #### [facility] [address] [place] [address]. [place], [address] Absolute lymphocyte countOrd ered By: FILIBERTO RUIZ on 10-06-2024 Lymphocytes Auto (Unsp spec) [#/Vol] 1.91 10*3/uL 0.83-4.51 [facility] Absolute neutrophil countOrd ered By: FILIBERTO RUIZ on 10-06-2024 Neutrophils (Bld) [#/Vol] 5.9 10*3/uL 2.0-7.7 [facility] Anion gap in Serum or Plasma Ordered By: FILIBERTO RUIZ on 10-06-2024 Anion gap [Moles/Vol] 14 mmol/L 5-15 [facility] Automated lymphocyte count a s percentage of total leukocytesOrdered By: FILIBERTO RUIZ on 10-06-2024 Lymphocytes/100 WBC Auto (Unsp spec) 22.5 % 19- [facility] BUN/creatinine ratioOrdered By: FILIBERTO EVANSMinerva on 10-06-2024 Urea nitrogen/Creatinine [Mass ratio] 15.0 mg/mg 10-20 [facility] Basophil percentageOrdered B y: FILIBERTO JOSEPH on 10-06-2024 Basophils/100 WBC (Bld) 1.2 % High 0-1 [facility] Bilirubin, totalOrdered By: FILIBERTO JOSEPH on 10-06-2024 Bilirubin [Mass/Vol] 1.00 mg/dL 0.00-1.30 [facility] CBC W/Diff, Automatedon Absolute Lymph 1.91 X10 3/uL Normal 0.83-4.51 [facility] Comment on above: Performed By: #### L 100.0100, L500.4050, L3200.1300 #### [facility] [address] [place], [address] Absolute Neut 5.9 X10 3/uL Normal 2.0-7.7 [facility] Comment on above: Performed By: #### L 100.0100, L500.4050, L3200.1300 #### [facility] [address] [place], [address] Basophils/100 WBC (Bld) 1.2 % High 0-1 [facility] Comment on above: Performed By: #### L 100.0100, L500.4050, L3200.1300 #### [facility] [address] [place], [address] Eosinophils/100 WBC (Bld) 1.1 % Normal 0-5 [facility] Comment on above: Performed By: #### L 100.0100, L500.4050, L3200.1300 #### [facility] [address] [place], [address] Erythrocyte distribution width (RBC) [Ratio] 12.3 % Normal 11.6-14.6 [facility] Comment on above: Performed By: #### L 100.0100, L500.4050, L3200.1300 #### [facility] [address], [address] Hematocrit (Bld) [Volume fraction] 45.5 % Normal 40-54 [facility] Comment on above: Performed By: #### L 100.0100, L500.4050, L3200.1300 #### [facility] [address] [place], [address] Hemoglobin (Bld) [Mass/Vol] 16.0 g/dL Normal 13.0-16.5 [facility] Comment on above: Performed By: #### L 100.0100, L500.4050, L3200.1300 #### [facility] [address] [place], [address] IG% 0.700 Normal 0.0-0.9 [facility] Comment on above: Result Comment: IG% - Immature Granulocytes (promyelocytes, myelocytes and metamyelocytes) > 1% indicates that a LEFT SHIFT is Present. Performed By: #### L 100.0100, L500.4050, L3200.1300 #### [facility] [address] [place], [address] Lymphocytes/100 WBC (Bld) 22.5 % Normal 19-41 [facility] Comment on above: Performed By: #### L 100.0100, L500.4050, L3200.1300 #### [facility] [address] [place], [address] MCH (RBC) [Entitic mass] 30.5 pg Normal 27.0-32.0 [facility] Comment on above: Performed By: #### L 100.0100, L500.4050, L3200.1300 #### [facility] [address] [place], [address] MCHC (RBC) [Mass/Vol] 35.2 g/dL Normal 32-36 [facility] Comment on above: Performed By: #### L 100.0100, L500.4050, L3200.1300 #### [facility] [address] [place], [address] MCV (RBC) [Entitic vol] 86.8 fL Normal 80-94 [facility] Comment on above: Performed By: #### L 100.0100, L500.4050, L3200.1300 #### [facility] [address] [place], [address] Monocytes/100 WBC (Bld) 4.5 % Normal 0-10 [facility] Comment on above: Performed By: #### L 100.0100, L500.4050, L3200.1300 #### [facility] [address] [place], [address] Neutrophils/100 WBC (Bld) 70.0 % Normal 47-70 [facility] Comment on above: Performed By: #### L 100.0100, L500.4050, L3200.1300 #### [facility] [address] [place], [address] Nucleated RBC (Bld) [#/Vol] 0 10*3/uL Normal 0-5 [facility] Comment on above: Performed By: #### L 100.0100, L500.4050, L3200.1300 #### [facility] [address] [place], [address] Platelet mean volume (Bld) [Entitic vol] 10.1 fL Normal 6.2-12.0 [facility] Comment on above: Performed By: #### L 100.0100, L500.4050, L3200.1300 #### [facility] [address] [place], [address] Platelets (Bld) [#/Vol] 217 10*3/uL Normal 150-450 [facility] Comment on above: Performed By: #### L 100.0100, L500.4050, L3200.1300 #### [facility] [address] [place], [address] RBC (Bld) [#/Vol] 5.24 10*6/uL Normal 4.6-6.2 [facility] Comment on above: Performed By: #### L 100.0100, L500.4050, L3200.1300 #### [facility] [address] [place], [address] RDW SD 39.0 fl Normal 35.1-43.9 [facility] Comment on above: Performed By: #### L 100.0100, L500.4050, L3200.1300 #### [facility] [address] [place], [address] WBC (Bld) [#/Vol] 8.5 10*3/uL Normal 4.4-11.0 [facility] Comment on above: Performed By: #### L 100.0100, L500.4050, L3200.1300 #### [facility] [address] [place], [address] Carbon dioxide, total [Moles /volume] in Central venous bloodOrdered By: FILIBERTO RUIZ on 10-06-2024 CO2 [Moles/Vol] 22.8 mmol/L 21.0-32.0 [facility] Chloride assayOrdered By: LYNN RUIZ on 10-06-2024 Chloride [Moles/Vol] 101 mmol/L 98-108 [facility] Comprehensive Metabolic Prof ilon 10-06-2024 Albumin [Mass/Vol] 4.8 g/dL Normal 3.4-4.8 [facility] Comment on above: Performed By: #### L 3200.1400, L100.0500, L3200.1300, L3200.1500, L3200.1600, L500.4050 #### [facility] [address] [place], [address] Albumin/Globulin [Mass ratio] 1.9 {ratio} Normal 0.9-2.4 [facility] Comment on above: Performed By: #### L 3200.1400, L100.0500, L3200.1300, L3200.1500, L3200.1600, L500.4050 #### [facility] [address] [place], [address] ALK PHOS 68 U/L Normal 40-129 [facility] Comment on above: Performed By: #### L 3200.1400, L100.0500, L3200.1300, L3200.1500, L3200.1600, L500.4050 #### [facility] [address] [place], [address] ALT [Catalytic activity/Vol] 20 U/L Normal <=46 [facility] Comment on above: Performed By: #### L 3200.1400, L100.0500, L3200.1300, L3200.1500, L3200.1600, L500.4050 #### [facility] [address] [place], [address] AST [Catalytic activity/Vol] 25 U/L Normal <=37 [facility] Comment on above: Performed By: #### L 3200.1400, L100.0500, L3200.1300, L3200.1500, L3200.1600, L500.4050 #### [facility] [address] [place], [address] Bilirubin [Mass/Vol] 1.00 mg/dL Normal 0.00-1.30 [facility] Comment on above: Performed By: #### L 3200.1400, L100.0500, L3200.1300, L3200.1500, L3200.1600, L500.4050 #### [facility] [address] [place], [address] BUN/CRE 15.0 RATIO Normal 10-20 [facility] Comment on above: Performed By: #### L 3200.1400, L100.0500, L3200.1300, L3200.1500, L3200.1600, L500.4050 #### [facility] [address] [place], [address] Calcium [Mass/Vol] 10.0 mg/dL Normal 7.6-11.0 [facility] Comment on above: Performed By: #### L 3200.1400, L100.0500, L3200.1300, L3200.1500, L3200.1600, L500.4050 #### [facility] [address] [place], [address] Chloride [Moles/Vol] 101 mmol/L Normal 98-108 [facility] Comment on above: Performed By: #### L 3200.1400, L100.0500, L3200.1300, L3200.1500, L3200.1600, L500.4050 #### [facility] [address] [place], [address] CO2 [Moles/Vol] 22.8 mmol/L Normal 21.0-32.0 [facility] Comment on above: Performed By: #### L 3200.1400, L100.0500, L3200.1300, L3200.1500, L3200.1600, L500.4050 #### [facility] [address] [place], [address] Creatinine [Mass/Vol] 1.19 mg/dL Normal 0.70-1.20 [facility] Comment on above: Performed By: #### L 3200.1400, L100.0500, L3200.1300, L3200.1500, L3200.1600, L500.4050 #### [facility] [address] [place], [address] GAP 14 Normal 5-15 [facility] Comment on above: Performed By: #### L 3200.1400, L100.0500, L3200.1300, L3200.1500, L3200.1600, L500.4050 #### [facility] [address] [place], [address] GFR/1.73 sq M.predicted among non-blacks MDRD (S/P/Bld) [Vol rate/Area] 69 mL/min/{1.73_m2} Normal >60 [facility] Comment on above: Result Comment: mL/m in/1.73m2 CKD-EPI Creatinine Equation (2020) Performed By: #### L 3200.1400, L100.0500, L3200.1300, L3200.1500, L3200.1600, L500.4050 #### [facility] [address] [place], [address] Globulin (S) [Mass/Vol] 2.6 g/dL Normal 2.2-4.2 [facility] Comment on above: Performed By: #### L 3200.1400, L100.0500, L3200.1300, L3200.1500, L3200.1600, L500.4050 #### [facility] [address] [place], [address] Glucose [Mass/Vol] 117 mg/dL High 70-99 [facility] Comment on above: Performed By: #### L 3200.1400, L100.0500, L3200.1300, L3200.1500, L3200.1600, L500.4050 #### [facility] [address] [place], [address] Potassium [Moles/Vol] 4.3 mmol/L Normal 3.3-5.1 [facility] Comment on above: Performed By: #### L 3200.1400, L100.0500, L3200.1300, L3200.1500, L3200.1600, L500.4050 #### [facility] [address] [place], [address] Sodium [Moles/Vol] 138 mmol/L Normal 133-145 [facility] Comment on above: Performed By: #### L 3200.1400, L100.0500, L3200.1300, L3200.1500, L3200.1600, L500.4050 #### [facility] [address] [place], [address] T PROT 7.4 g/dL Normal 5.9-8.4 [facility] Comment on above: Performed By: #### L 3200.1400, L100.0500, L3200.1300, L3200.1500, L3200.1600, L500.4050 #### [facility] [address] [place], [address] Urea nitrogen [Mass/Vol] 18 mg/dL Normal 4-19 [facility] Comment on above: Performed By: #### L 3200.1400, L100.0500, L3200.1300, L3200.1500, L3200.1600, L500.4050 #### [facility] [address] [place], [address] Eosinophil percentageOrdered By: FILIBERTO RUIZ on 10-06-2024 Eosinophils/100 WBC (Bld) 1.1 % 0-5 [facility] Erythrocyte distribution wid th ratioOrdered By: FILIBERTO RUIZ on 10-06-2024 Erythrocyte distribution width (RBC) [Ratio] 12.3 % 11.6-14.6 [facility] Erythrocyte distribution wid th standard deviationOrdered By: FILIBERTO RUIZ on 10-06-2024 Erythrocyte distribution width (RBC) [Ratio] 39.0 fl 35.1-43.9 [facility] Glomerular filtration rate ( GFR) estimation/1.73 sq m using serum, plasma, or whole bOrdered By: FILIBERTO RUIZ on 10-06-2024 GFR/1.73 sq M.predicted among non-blacks MDRD (S/P/Bld) [Vol rate/Area] 69 mL/min/{1.73_m2} >60 [facility] Comment on above: mL/min/1.73m2 CKD-EP I Creatinine Equation (2020) Hematocrit Auto (Bld) [Volum e fraction]Ordered By: FILIBERTO RUIZ on 10-06-2024 Hematocrit (Bld) [Volume fraction] 45.5 % 40-54 [facility] Hemoglobin measurementOrdere d By: FILIBERTO RUIZ on 10-06-2024 Hemoglobin (Bld) [Mass/Vol] 16.0 g/dL 13.0-16.5 [facility] Immature granulocytes/100 WB C Auto (Bld)Ordered By: FILIBERTO RUIZ on 10-06-2024 Immature granulocytes/100 WBC (Bld) 0.700 % 0.0-0.9 [facility] Comment on above: IG% - Immature Granu locytes (promyelocytes, myelocytes and metamyelocytes) > 1% indicates that a LEFT SHIFT is Present. Laboratory - Chemistry and C hemistry - challengeOrdered By: FILIBERTO RUIZ on 10-06-2024 AST [Catalytic activity/Vol] 25 U/L <38 [facility] MCV (mean corpuscular volume ) determinationOrdered By: FILIBERTO RUIZ on 10-06-2024 MCV (RBC) [Entitic vol] 86.8 fL 80-94 [facility] Mean corpuscular hemoglobin (MCH) determinationOrdered By: FILIBERTO RUIZ on 10-06-2024 MCH (RBC) [Entitic mass] 30.5 pg 27.0-32.0 [facility] Mean corpuscular hemoglobin concentration (MCHC) determinationOrdered By: FILIBERTO RUIZ on 10-06-2024 MCHC (RBC) [Mass/Vol] 35.2 g/dL 32-36 [facility] Mean platelet volume determi nationOrdered By: FILIBERTO RUIZ on 10-06-2024 Platelet mean volume (Bld) [Entitic vol] 10.1 fL 6.2-12.0 [facility] Monocyte percentageOrdered B y: FILIBERTO RUIZ on 10-06-2024 Monocytes/100 WBC (Bld) 4.5 % 0-10 [facility] Neutrophil percentageOrdered By: FILIBERTO RUIZ on 10-06-2024 Neutrophils/100 WBC (Bld) 70.0 % 47-70 [facility] Nucleated red blood cell per centageOrdered By: FILIBERTO RUIZ on 10-06-2024 Nucleated RBC/100 WBC (Bld) [Ratio] 0 % 0-5 [facility] Platelet countOrdered By: LYNN RUIZ on 10-06-2024 Platelets (Bld) [#/Vol] 217 10*3/uL 150-450 [facility] Potassium measurement (mass/ volume)Ordered By: FILIBERTO RUIZ on 10-06-2024 Potassium (Unsp spec) [Mass/Vol] 4.3 mmol/L 3.3-5.1 [facility] RBC Auto (Bld) [#/Vol]Ordere d By: FILIBERTO RUIZ on 10-06-2024 RBC (Bld) [#/Vol] 5.24 10*6/uL 4.6-6.2 [facility] Serum creatinine measurement (mass/volume)Ordered By: FILIBERTO RUIZ on 10-06-2024 Creatinine [Mass/Vol] 1.19 mg/dL 0.70-1.20 [facility] Serum globulin measurementOr dered By: FILIBERTO RUIZ on 10-06-2024 Globulin (S) [Mass/Vol] 2.6 g/dL 2.2-4.2 [facility] Serum glucose measurement (m ass/volume)Ordered By: FILIBERTO RUIZ on 10-06-2024 Glucose [Mass/Vol] 117 mg/dL High 70-99 [facility] Serum or plasma IgG measurem ent (mass/volume)Ordered By: FILIBERTO RUIZ on 10-06-2024 IgG [Mass/Vol] 792 mg/dL 603-1613 [facility] Comment on above: Performed at: [address] [id number] Director: Ben Wray PhD, Phone: [phone] Serum or plasma alanine anderson otransferase (ALT) measurementOrdered By: FILIBERTO RUIZ on 10-06-2024 ALT [Catalytic activity/Vol] 20 U/L <47 [facility] Serum or plasma albumin segundo urement (mass/volume)Ordered By: FILIBERTO JOSEPH on 10-06-2024 Albumin [Mass/Vol] 4.8 g/dL 3.4-4.8 [facility] Serum or plasma albumin/glob ulin mass ratioOrdered By: FILIBERTOKESHAV RUIZ on 10-06-2024 Albumin/Globulin [Mass ratio] 1.9 {ratio} 0.9-2.4 [facility] Serum or plasma alkaline skylar sphatase measurementOrdered By: FILIBERTOKESHAV RUIZ on 10-06-2024 ALP [Catalytic activity/Vol] 68 U/L 40-129 [facility] Serum or plasma calcium segundo urement (mass/volume)Ordered By: FILIBERTO RUIZ on 10-06-2024 Calcium [Mass/Vol] 10.0 mg/dL 7.6-11.0 [facility] Serum or plasma urea nitroge n measurement (mass/volume)Ordered By: FILIBERTO RUIZ on 10-06-2024 Urea nitrogen [Mass/Vol] 18 mg/dL 4-19 [facility] Sodium levelOrdered By: FANNY RUIZ on 10-06-2024 Sodium [Moles/Vol] 138 mmol/L 133-145 [facility] Total proteinOrdered By: ARCHIE RUIZ on 10-06-2024 Protein [Mass/Vol] 7.4 g/dL 5.9-8.4 [facility] White blood cell (WBC) count Ordered By: FILIBERTOKESHAV RUIZ on 10-06-2024 WBC (Bld) [#/Vol] 8.5 10*3/uL 4.4-11.0 [facility] PSA,Total - Annual Screenon 09-05-2024 PSA,TOT SCREEN 1.15 ng/mL Normal 0.02-4.00 [facility] Comment on above: Order Comment: Order Date: [...] 3200.1400, L100.0500, L3200.1300, L3200.1500, L3200.1600, L500.4050 #### [facility] [address] [place], [address] CBC W/Diff, Automatedon 11-0 -2023 Absolute Lymph 2.65 X10 3/uL Normal 0.83-4.51 [facility] Comment on above: Performed By: #### L 100.0100 #### [facility] [address] [place], [address] Absolute Neut 3.3 X10 3/uL Normal 2.0-7.7 [facility] Comment on above: Performed By: #### L 100.0100 #### [facility] [address] [place], [address] Basophils/100 WBC (Bld) 1.7 % High 0-1 [facility] Comment on above: Performed By: #### L 100.0100 #### [facility] [address] [place], [address] Eosinophils/100 WBC (Bld) 5.2 % High 0-5 [facility] Comment on above: Performed By: #### L 100.0100 #### [facility] [address] [place], [address] Erythrocyte distribution width (RBC) [Ratio] 12.7 % Normal 11.6-14.6 [facility] Comment on above: Performed By: #### L 100.0100 #### [facility] [address] [place], [address] Hematocrit (Bld) [Volume fraction] 45.5 % Normal 40-54 [facility] Comment on above: Performed By: #### L 100.0100 #### [facility] [address] [place], [address] Hemoglobin (Bld) [Mass/Vol] 16.2 g/dL Normal 13.0-16.5 [facility] Comment on above: Performed By: #### L 100.0100 #### [facility] [address] [place], [address] IG% 0.900 Normal 0.0-0.9 [facility] Comment on above: Result Comment: IG% - Immature Granulocytes (promyelocytes, myelocytes and metamyelocytes) > 1% indicates that a LEFT SHIFT is Present. Performed By: #### L 100.0100 #### [facility] [address] [place], [address] Lymphocytes/100 WBC (Bld) 38.2 % Normal 19-41 [facility] Comment on above: Performed By: #### L 100.0100 #### [facility] [address] [place], [address] MCH (RBC) [Entitic mass] 30.5 pg Normal 27.0-32.0 [facility] Comment on above: Performed By: #### L 100.0100 #### [facility] [address] [place], [address] MCHC (RBC) [Mass/Vol] 35.6 g/dL Normal 32-36 [facility] Comment on above: Performed By: #### L 100.0100 #### [facility] [address] [place], [address] MCV (RBC) [Entitic vol] 85.7 fL Normal 80-94 [facility] Comment on above: Performed By: #### L 100.0100 #### [facility] [address] [place], [address] Monocytes/100 WBC (Bld) 7.2 % Normal 0-10 [facility] Comment on above: Performed By: #### L 100.0100 #### [facility] [address] [place], [address] Neutrophils/100 WBC (Bld) 46.8 % Low 47-70 [facility] Comment on above: Performed By: #### L 100.0100 #### [facility] [address] [place], [address] Nucleated RBC (Bld) [#/Vol] 0 10*3/uL Normal 0-5 [facility] Comment on above: Performed By: #### L 100.0100 #### [facility] [address] [place], [address] Platelet mean volume (Bld) [Entitic vol] 10.3 fL Normal 6.2-12.0 [facility] Comment on above: Performed By: #### L 100.0100 #### [facility] [address] [place], [address] Platelets (Bld) [#/Vol] 217 10*3/uL Normal 150-450 [facility] Comment on above: Performed By: #### L 100.0100 #### [facility] [address] [place], [address] RBC (Bld) [#/Vol] 5.31 10*6/uL Normal 4.6-6.2 [facility] Comment on above: Performed By: #### L 100.0100 #### [facility] [address] [place], [address] RDW SD 39.3 fl Normal 35.1-43.9 [facility] Comment on above: Performed By: #### L 100.0100 #### [facility] [address] [place], [address] WBC (Bld) [#/Vol] 6.9 10*3/uL Normal 4.4-11.0 [facility] Comment on above: Performed By: #### L 100.0100 #### [facility] [address] [place], [address] Immunoglobulin Aon 4 IMMUNOGLOB A QN 219 mg/dL Normal 61-437 [facility] Comment on above: Order Comment: N Performed By: #### L 3200.1400, L100.0500, L3200.1300, L3200.1500, L3200.1600, L500.4050 #### [facility] [address] [place], [address] Immunoglobulin Maged 4 IMMUNOGLOB E QN 20 IU/mL Normal 6-495 [facility] Comment on above: Order Comment: N Performed By: #### L 3200.1400, L100.0500, L3200.1300, L3200.1500, L3200.1600, L500.4050 #### [facility] [address] [place], [address] Immunoglobulin Montrell 4 IMMUNOGLOB G QN 821 mg/dL Normal 603-1613 [facility] Comment on above: Order Comment: N Performed By: #### L 3200.1400, L100.0500, L3200.1300, L3200.1500, L3200.1600, L500.4050 #### [facility] [address] [place], [address] Immunoglobulin Mon 4 IMMUNOGLOB M QN 26 mg/dL Normal 20-172 [facility] Comment on above: Order Comment: N Result Comment: Resu lt confirmed on concentration. Performed at: - [facility] [address] [id number] Per Diem Interpreter: Ben Wray PhD, Phone: [phone] Performed By: #### L 3200.1400, L100.0500, L3200.1300, L3200.1500, L3200.1600, L500.4050 #### [facility] [address] [place], [address] CBC-Complete Blood Cnt No Di ffon 02-19-2024 Erythrocyte distribution width (RBC) [Ratio] 12.5 % Normal 11.6-14.6 [facility] Comment on above: Performed By: #### L 3200.1400, L100.0500, L3200.1300, L3200.1500, L3200.1600, L500.4050 #### [facility] [address] [place], [address] Hematocrit (Bld) [Volume fraction] 45.4 % Normal 40-54 [facility] Comment on above: Performed By: #### L 3200.1400, L100.0500, L3200.1300, L3200.1500, L3200.1600, L500.4050 #### [facility] [address] [place], [address] Hemoglobin (Bld) [Mass/Vol] 15.7 g/dL Normal 13.0-16.5 [facility] Comment on above: Performed By: #### L 3200.1400, L100.0500, L3200.1300, L3200.1500, L3200.1600, L500.4050 #### [facility] [address] [place], [address] MCH (RBC) [Entitic mass] 29.7 pg Normal 27.0-32.0 [facility] Comment on above: Performed By: #### L 3200.1400, L100.0500, L3200.1300, L3200.1500, L3200.1600, L500.4050 #### [facility] [address] [place], [address] MCHC (RBC) [Mass/Vol] 34.6 g/dL Normal 32-36 [facility] Comment on above: Performed By: #### L 3200.1400, L100.0500, L3200.1300, L3200.1500, L3200.1600, L500.4050 #### [facility] [address] [place], [address] MCV (RBC) [Entitic vol] 85.8 fL Normal 80-94 [facility] Comment on above: Performed By: #### L 3200.1400, L100.0500, L3200.1300, L3200.1500, L3200.1600, L500.4050 #### [facility] [address] [place], [address] Platelet mean volume (Bld) [Entitic vol] 10.5 fL Normal 6.2-12.0 [facility] Comment on above: Performed By: #### L 3200.1400, L100.0500, L3200.1300, L3200.1500, L3200.1600, L500.4050 #### [facility] [address] [place], [address] Platelets (Bld) [#/Vol] 205 10*3/uL Normal 150-450 [facility] Comment on above: Performed By: #### L 3200.1400, L100.0500, L3200.1300, L3200.1500, L3200.1600, L500.4050 #### [facility] [address] [place], [address] RBC (Bld) [#/Vol] 5.29 10*6/uL Normal 4.6-6.2 [facility] Comment on above: Performed By: #### L 3200.1400, L100.0500, L3200.1300, L3200.1500, L3200.1600, L500.4050 #### [facility] [address] [place], [address] RDW SD 38.9 fl Normal 35.1-43.9 [facility] Comment on above: Performed By: #### L 3200.1400, L100.0500, L3200.1300, L3200.1500, L3200.1600, L500.4050 #### [facility] [address] [place], [address] WBC (Bld) [#/Vol] 7.1 10*3/uL Normal 4.4-11.0 [facility] Comment on above: Performed By: #### L 3200.1400, L100.0500, L3200.1300, L3200.1500, L3200.1600, L500.4050 #### [facility] [address] [place], [address] Comprehensive Metabolic Prof ilon 02-19-2024 Albumin [Mass/Vol] 4.3 g/dL Normal 3.2-5.0 [facility] Comment on above: Performed By: #### L 3200.1400, L100.0500, L3200.1300, L3200.1500, L3200.1600, L500.4050 #### [facility] [address] [place], [address] Albumin/Globulin [Mass ratio] 1.2 {ratio} Normal 0.9-2.4 [facility] Comment on above: Performed By: #### L 3200.1400, L100.0500, L3200.1300, L3200.1500, L3200.1600, L500.4050 #### [facility] [address] [place], [address] ALK P 76 U/L Normal 45-117 [facility] Comment on above: Performed By: #### L 3200.1400, L100.0500, L3200.1300, L3200.1500, L3200.1600, L500.4050 #### [facility] [address] [place], [address] ALT [Catalytic activity/Vol] 35 U/L Normal 16-61 [facility] Comment on above: Performed By: #### L 3200.1400, L100.0500, L3200.1300, L3200.1500, L3200.1600, L500.4050 #### [facility] [address] [place], [address] AST [Catalytic activity/Vol] 27 U/L Normal 15-37 [facility] Comment on above: Performed By: #### L 3200.1400, L100.0500, L3200.1300, L3200.1500, L3200.1600, L500.4050 #### [facility] [address] [place], [address] Bilirubin [Mass/Vol] 0.90 mg/dL Normal 0.20-1.00 [facility] Comment on above: Result Comment: For patients on eltrombopag therapy, use of Dimension [place] TBIL is not recommended. Performed By: #### L 3200.1400, L100.0500, L3200.1300, L3200.1500, L3200.1600, L500.4050 #### [facility] [address] [place], [address] BUN/CRE 14.2 RATIO Normal 10-20 [facility] Comment on above: Performed By: #### L 3200.1400, L100.0500, L3200.1300, L3200.1500, L3200.1600, L500.4050 #### [facility] [address] [place], [address] CA,Total 9.6 mg/dL Normal 8.5-10.1 [facility] Comment on above: Performed By: #### L 3200.1400, L100.0500, L3200.1300, L3200.1500, L3200.1600, L500.4050 #### [facility] [address] [place], [address] Chloride [Moles/Vol] 105 mmol/L Normal 98-107 [facility] Comment on above: Performed By: #### L 3200.1400, L100.0500, L3200.1300, L3200.1500, L3200.1600, L500.4050 #### [facility] [address] [place], [address] CO2 [Moles/Vol] 29.0 mmol/L Normal 21.0-32.0 [facility] Comment on above: Performed By: #### L 3200.1400, L100.0500, L3200.1300, L3200.1500, L3200.1600, L500.4050 #### [facility] [address] [place], [place], [address] Creatinine [Mass/Vol] 1.13 mg/dL Normal 0.70-1.30 [facility] Comment on above: Result Comment: The validity of the calculated GFR GFRAA in patients over 70 years has not been determined. Clinical correlation is essential. Performed By: #### L 3200.1400, L100.0500, L3200.1300, L3200.1500, L3200.1600, L500.4050 #### [facility] [address] [place], [address] EST GFR - AA 85 mL/min Normal >60 [facility] Comment on above: Result Comment: Afri can [place] GFR Calc Performed By: #### L 3200.1400, L100.0500, L3200.1300, L3200.1500, L3200.1600, L500.4050 #### [facility] [address] [place], [address] GAP 5 Normal 5-15 [facility] Comment on above: Performed By: #### L 3200.1400, L100.0500, L3200.1300, L3200.1500, L3200.1600, L500.4050 #### [facility] [address] [place], [address] GFR/1.73 sq M.predicted among non-blacks MDRD (S/P/Bld) [Vol rate/Area] 70 mL/min/{1.73_m2} Normal >60 [facility] Comment on above: Result Comment: Non- GFR Calc Performed By: #### L 3200.1400, L100.0500, L3200.1300, L3200.1500, L3200.1600, L500.4050 #### [facility] [address] [place], [address] Globulin (S) [Mass/Vol] 3.5 g/dL Normal 2.2-4.2 [facility] Comment on above: Performed By: #### L 3200.1400, L100.0500, L3200.1300, L3200.1500, L3200.1600, L500.4050 #### [facility] [address] [place], [address] Glucose [Mass/Vol] 115 mg/dL High 74-106 [facility] Comment on above: Result Comment: Fast ing Glucose result from 100 to 125 mg/dL suggests IMPAIRED HOMEOSTASIS per A.D.A. criteria. Performed By: #### L 3200.1400, L100.0500, L3200.1300, L3200.1500, L3200.1600, L500.4050 #### [facility] [address] [place], [address] Potassium [Moles/Vol] 4.1 mmol/L Normal 3.5-5.1 [facility] Comment on above: Performed By: #### L 3200.1400, L100.0500, L3200.1300, L3200.1500, L3200.1600, L500.4050 #### [facility] [address] [place], [address] Sodium [Moles/Vol] 138 mmol/L Normal 136-145 [facility] Comment on above: Performed By: #### L 3200.1400, L100.0500, L3200.1300, L3200.1500, L3200.1600, L500.4050 #### [facility] [address] [place], [address] T PROT 7.8 g/dL Normal 6.4-8.2 [facility] Comment on above: Performed By: #### L 3200.1400, L100.0500, L3200.1300, L3200.1500, L3200.1600, L500.4050 #### [facility] [address] [place], [address] Urea nitrogen [Mass/Vol] 16 mg/dL Normal 7-18 [facility] Comment on above: Performed By: #### L 3200.1400, L100.0500, L3200.1300, L3200.1500, L3200.1600, L500.4050 #### [facility] [address] [place], [address] Lipid Profileon 02-19-2024 Cholesterol [Mass/Vol] 218 mg/dL High 200 [facility] Comment on above: Order Comment: Order Date: 09/04/23Order Info: [id number] - LIPID Result Comment: <200 mg/dL Desirable 200-240 mg/dL Borderline >240 mg/dL High Risk Performed By: #### L 3200.1400, L100.0500, L3200.1300, L3200.1500, L3200.1600, L500.4050 #### [facility] [address] [place], [address] Cholesterol in HDL [Mass/Vol] 40 mg/dL Normal [facility] Comment on above: Order Comment: Order Date: 09/04/23Order Info: [id number] - LIPID Result Comment: The drugs N-Acetylcysteine and Metamizole may falsely depress this assay. Reference Range HDL <40 mg/dL Low HDL Cholesterol HDL >or= 60 mg/dL High HDL Cholesterol Performed By: #### L 3200.1400, L100.0500, L3200.1300, L3200.1500, L3200.1600, L500.4050 #### [facility] [address] [place], [address] Cholesterol in LDL [Mass/Vol] 119 mg/dL Normal 0-130 [facility] Comment on above: Order Comment: Order Date: 09/04/23Order Info: [id number] - LIPID Performed By: #### L 3200.1400, L100.0500, L3200.1300, L3200.1500, L3200.1600, L500.4050 #### [facility] [address] [place], [address] Cholesterol in VLDL [Mass/Vol] 59 mg/dL High 5-40 [facility] Comment on above: Order Comment: Order Date: 09/04/23Order Info: [id number] - LIPID Performed By: #### L 3200.1400, L100.0500, L3200.1300, L3200.1500, L3200.1600, L500.4050 #### [facility] [address] [place], [address] Triglyceride [Mass/Vol] 293 mg/dL High [facility] Comment on above: Order Comment: Order Date: 09/04/23Order Info: [id number] - LIPID Result Comment: The drugs N-Acetylcysteine and Metamizole may falsely depress this assay. Serum Triglycerides Reference Interval Normal <150 mg/dL Borderline high 150 - 199 mg/dL High 200 - 499 mg/dL Very High > or = 500 mg/dL Performed By: #### L 3200.1400, L100.0500, L3200.1300, L3200.1500, L3200.1600, L500.4050 #### [facility] [address] [place], [address] Protein+Creatinine Ratio,Uri neon 02-19-2024 PROT:CRE RATIO 56 mg/g CRE Normal 0-200 [facility] Comment on above: Performed By: #### L 501.0900 #### [facility] [address] [place], [address] Protein (U) [Mass/Vol] 10.3 mg/dL Normal <11.9 [facility] Comment on above: Performed By: #### L 501.0900 #### [facility] [address] [place], [address] UR CREAT 184.00 mg/dL Normal NO RANGE EST. [facility] Comment on above: Performed By: #### L 501.0900 #### [facility] [address] [place], [address] Absolute lymphocyte countOrd ered By: Asad Hastings on 04-19-2023 Lymphocytes Auto (Unsp spec) [#/Vol] 1.68 10*3/uL 0.83-4.51 [facility] Basophil percentageOrdered B y: Asad Hastings on 04-19-2023 Basophils/100 WBC (Bld) 1.6 % 0-1 [facility] Bilirubin [Mass/Vol] 0.90 mg/dL 0.20-1.00 [facility] Comment on above: For patients on eltr ombopag therapy, use of Dimension [place] TBIL is not recommended. Chloride [Moles/Vol] 111 mmol/L 98-107 [facility] Eosinophils/100 WBC (Bld) 3.2 % 0-5 [facility] Glucose [Mass/Vol] 115 mg/dL 74-106 [facility] Comment on above: Fasting Glucose resu lt from 100 to 125 mg/dL suggests IMPAIRED HOMEOSTASIS per A.D.A. criteria. Neutrophils (Bld) [#/Vol] 2.6 10*3/uL 2.0-7.7 [facility] Neutrophils/100 WBC (Bld) 53.2 % 47-70 [facility] Potassium [Moles/Vol] 4.2 mmol/L 3.5-5.1 [facility] Protein [Mass/Vol] 7.6 g/dL 6.4-8.2 [facility] Sodium [Moles/Vol] 141 mmol/L 136-145 [facility] WBC (Bld) [#/Vol] 5.0 10*3/uL 4.4-11.0 [facility] Blood erythrocytes count (nu mber/volume)Ordered By: Asad Hastings on 04-19-2023 RBC (Bld) [#/Vol] 5.18 10*6/uL 4.6-6.2 [facility] Blood hemoglobin measurement (mass/volume)Ordered By: Asad Hastings on 04-19-2023 Hemoglobin (Bld) [Mass/Vol] 15.5 g/dL 13.0-16.5 [facility] Blood lymphocytes/100 leukoc ytesOrdered By: Asad Hastings on 04-19-2023 Lymphocytes/100 WBC (Bld) 33.8 % 19-41 [facility] Blood monocytes/100 leukocyt esOrdered By: Asad Hastings on 04-19-2023 Monocytes/100 WBC (Bld) 7.2 % 0-10 [facility] Blood platelet mean volumeOr dered By: Asad Hastings on 04-19-2023 Platelet mean volume (Bld) [Entitic vol] 10.3 fL 6.2-12.0 [facility] Determination of erythrocyte mean corpuscular volume (MCV)Ordered By: Asad Hastings on 04-19-2023 MCV (RBC) [Entitic vol] 87.5 fL 80-94 [facility] Hematocrit Auto (Bld) [Volum e fraction]Ordered By: [facility] on 04-19-2023 Hematocrit (Bld) [Volume fraction] 45.3 % 40-54 [facility] - Chemistry and C hemistry - challengeOrdered By: [facility] on 04-19-2023 ALP [Catalytic activity/Vol] 70 U/L 45-117 [facility] ALT [Catalytic activity/Vol] 39 U/L 16-61 [facility] CO2 [Moles/Vol] 26.0 mmol/L 21.0-32.0 [facility] Globulin (S) [Mass/Vol] 3.1 g/dL 2.2-4.2 [facility] Urea nitrogen/Creatinine [Mass ratio] 16.8 mg/mg 10-20 [facility] - Hematology and Cell countsOrdered By: [facility] on 04-19-2023 Erythrocyte distribution width (RBC) [Entitic vol] 39.2 fL 35.1-43.9 [facility] Erythrocyte distribution width (RBC) [Ratio] 12.3 % 11.6-14.6 [facility] Immature granulocytes/100 WBC (Bld) 1.000 % 0.0-0.9 [facility] Comment on above: IG% - Immature Granu locytes (promyelocytes, myelocytes and metamyelocytes) > 1% indicates that a LEFT SHIFT is Present. MCH (RBC) [Entitic mass] 29.9 pg 27.0-32.0 [facility] Nucleated RBC/100 WBC (Bld) [Ratio] 0 % 0-5 [facility] Auto (RBC) [Mass/Vol]Or dered By: Asad Hastings on 04-19-2023 MCHC (RBC) [Mass/Vol] 34.2 g/dL 32-36 [facility] No Panel InformationOrdered By: Asad Hastings on 04-19-2023 Estimated GFR (MDRD) Amer 90 mL/min >60 [facility] Comment on above: GFR Calc Estimated GFR (MDRD) Non-Af Amer 75 mL/min >60 [facility] Comment on above: Non- GFR Calc Immunoglobulin E 21 IU/mL 6-495 [facility] Comment on above: Performed at: Unified Office [address] [id number] Director: Ben Wray PhD, Phone: [phone] at: [facility] Lab[address] [id number] Director: Wei Rogers MD, Phone: [phone] Platelets bldOrdered By: Frida Hastings on 04-19-2023 Platelets (Bld) [#/Vol] 209 10*3/uL 150-450 [facility] Serum or plasma IgA measurem ent (mass/volume)Ordered By: Asad Hastings on 04-19-2023 IgA [Mass/Vol] 248 mg/dL 61-437 [facility] Serum or plasma IgG measurem ent (mass/volume)Ordered By: Asad Hastings on 04-19-2023 IgG [Mass/Vol] 809 mg/dL [phone] [facility] Serum or plasma IgM measurem ent (mass/volume)Ordered By: Asad Hastings on 04-19-2023 IgM [Mass/Vol] 32 mg/dL 20-172 [facility] Serum or plasma albumin segundo urement (mass/volume)Ordered By: Asad Hastings on 04-19-2023 Albumin [Mass/Vol] 4.5 g/dL 3.2-5.0 [facility] Serum or plasma albumin/glob ulin mass ratioOrdered By: Asad Hastings on 04-19-2023 Albumin/Globulin [Mass ratio] 1.5 {ratio} 0.9-2.4 [facility] Serum or plasma calcium segundo urement (mass/volume)Ordered By: Asad Hastings on 04-19-2023 Calcium [Mass/Vol] 9.1 mg/dL 8.5-10.1 [facility] Serum or plasma creatinine m easurement (mass/volume)Ordered By: Asad Hastings on 04-19-2023 Creatinine [Mass/Vol] 1.07 mg/dL 0.70-1.30 [facility] Comment on above: The validity of the calculated GFR & GFRAA in patients over 70 years has not been determined. Clinical correlation is essential. Serum or plasma urea nitroge n measurement (mass/volume)Ordered By: Asad Hastings on 04-19-2023 Urea nitrogen [Mass/Vol] 18 mg/dL 7-18 [facility] Thin prep Papanicolaou smear with manual screeningOrdered By: Asad Hastings on 04-19-2023 Thin prep Papanicolaou smear with manual screening 30 U/L 15-37 [facility] Thin prep Papanicolaou smear with manual screening 4 5-15 [facility] Color of specimen determinat ionOrdered By: Rodri Moore on 01-09-2023 Color (Unsp spec) Barnes [facility] Laboratory - Miscellaneous t estsOrdered By: Rodri Moore on 01-09-2023 Service comment (Unsp spec) [Interp] See comment [facility] Comment on above: Physician questions regarding Calculi Analysis contactLabCorp at: [phone]. Calculi report will follow via computer, mail or courierdelivery. Measurement of weight of sto neOrdered By: Rodri Moore on 01-09-2023 Weight (Stone) 155 mg [facility] No Panel InformationOrdered By: Rodri Moore on 01-09-2023 Stone Analysis (T) See comment [facility] Comment on above: Percentage (Represen ts the % composition) Stone Calcium Oxalate Monohydrate 10 % [facility] Stone Calcium Phosphate 90 % [facility] Origin of StoneOrdered By: Nathanael Moore on 01-09-2023 Origin Nom (Stone) Not Provided [facility] Size of stoneOrdered By: Momo Moore on 01-09-2023 Size (Stone) [Entitic vol] 9x6 mm [facility] Comment on above: Single piece receive d Thin prep Papanicolaou smear with manual screeningOrdered By: Rodri Moore on 01-09-2023 Thin prep Papanicolaou smear with manual screening See comment [facility] Comment on above: Photograph will foll ow under a separate cover Absolute lymphocyte counton 12-26-2021 Lymphocytes Auto (Unsp spec) [#/Vol] 2.23 10*3/uL 0.83-4.51 [facility] Work Phone: [phone] Basophil percentageon 2021 Basophils/100 WBC (Bld) 1.1 % 0-1 [facility] Work Phone: [phone] Bilirubin [Mass/Vol] 0.80 mg/dL 0.20-1.00 [facility] Work Phone: [phone] Comment on above: For patients on eltr ombopag therapy, use of Dimension [place] TBIL is not recommended. Chloride [Moles/Vol] 109 mmol/L 98-107 [facility] Work Phone: [phone] Eosinophils/100 WBC (Bld) 3.8 % 0-5 [facility] Work Phone: [phone] Glucose [Mass/Vol] 93 mg/dL 74-106 [facility] Work Phone: Neutrophils (Bld) [#/Vol] 4.8 10*3/uL 2.0-7.7 [facility] Work Phone: Neutrophils/100 WBC (Bld) 58.8 % 47-70 [facility] Work Phone: [phone] Potassium [Moles/Vol] 3.9 mmol/L 3.5-5.1 [facility] Work Phone: [phone] Protein [Mass/Vol] 7.2 g/dL 6.4-8.2 [facility] Work Phone: Sodium [Moles/Vol] 142 mmol/L 136-145 [facility] Work Phone: WBC (Bld) [#/Vol] 8.1 10*3/uL 4.4-11.0 [facility] Work Phone: Blood erythrocytes count (nu mber/volume)on 12-26-2021 RBC (Bld) [#/Vol] 4.78 10*6/uL 4.6-6.2 [facility] Work Phone: Blood hemoglobin measurement (mass/volume)on 12-26-2021 Hemoglobin (Bld) [Mass/Vol] 14.5 g/dL 13.0-16.5 [facility] Work Phone: Blood lymphocytes/100 leukoc yteson 12-26-2021 Lymphocytes/100 WBC (Bld) 27.5 % 19-41 [facility] Work Phone: Blood monocytes/100 leukocyt eson 12-26-2021 Monocytes/100 WBC (Bld) 7.9 % 0-10 [facility] Work Phone: Blood platelet mean volumeon 12-26-2021 Platelet mean volume (Bld) [Entitic vol] 10.5 fL 6.2-12.0 [facility] Work Phone: Determination of erythrocyte mean corpuscular volume (MCV)on 12-26-2021 MCV (RBC) [Entitic vol] 87.0 fL 80-94 [facility] Work Phone: Hematocrit Auto (Bld) [Volum e fraction]on 12-26-2021 Hematocrit (Bld) [Volume fraction] 41.6 % 40-54 [facility] Work Phone: Laboratory - Chemistry and C hemistry - challengeon 12-26-2021 ALP [Catalytic activity/Vol] 72 U/L 45-117 [facility] Work Phone: ALT [Catalytic activity/Vol] 45 U/L 16-61 [facility] Work Phone: CO2 [Moles/Vol] 29.0 mmol/L 21.0-32.0 [facility] Work Phone: Globulin (S) [Mass/Vol] 3.0 g/dL 2.2-4.2 [facility] Work Phone: Urea nitrogen/Creatinine [Mass ratio] 18.8 mg/mg 10-20 [facility] Work Phone: Laboratory - Hematology and Cell countson 12-26-2021 Erythrocyte distribution width (RBC) [Entitic vol] 39.3 fL 35.1-43.9 [facility] Work Phone: Erythrocyte distribution width (RBC) [Ratio] 12.3 % 11.6-14.6 [facility] Work Phone: Immature granulocytes/100 WBC (Bld) 0.900 % 0.0-0.9 [facility] Work Phone: Comment on above: IG% - Immature Granu locytes (promyelocytes, myelocytes and metamyelocytes) > 1% indicates that a LEFT SHIFT is Present. MCH (RBC) [Entitic mass] 30.3 pg 27.0-32.0 [facility] Work Phone: Nucleated RBC/100 WBC (Bld) [Ratio] 0 % 0-5 [facility] Work Phone: MCHC Auto (RBC) [Mass/Vol]on 12-26-2021 MCHC (RBC) [Mass/Vol] 34.9 g/dL 32-36 [facility] Work Phone: No Panel Informationon 12-26 Estimated GFR (MDRD) Amer 103 mL/min >60 [facility] Work Phone: Comment on above: GFR Calc Estimated GFR (MDRD) Non-Af Amer 85 mL/min >60 [facility] Work Phone: Comment on above: Non- GFR Calc Platelets bldon 12-26-2021 Platelets (Bld) [#/Vol] 202 10*3/uL 150-450 [facility] Work Phone: Serum or plasma albumin segundo urement (mass/volume)on 12-26-2021 Albumin [Mass/Vol] 4.2 g/dL 3.2-5.0 [facility] Work Phone: Serum or plasma albumin/glob ulin mass ratioon 12-26-2021 Albumin/Globulin [Mass ratio] 1.4 {ratio} 0.9-2.4 [facility] Work Phone: Serum or plasma calcium segundo urement (mass/volume)on 12-26-2021 Calcium [Mass/Vol] 9.3 mg/dL 8.5-10.1 [facility] Work Phone: Serum or plasma creatinine m easurement (mass/volume)on 12-26-2021 Creatinine [Mass/Vol] 0.96 mg/dL 0.70-1.30 [facility] Work Phone: Comment on above: The validity of the calculated GFR & GFRAA in patients over 70 years has not been determined. Clinical correlation is essential. Serum or plasma urea nitroge n measurement (mass/volume)on 12-26-2021 Urea nitrogen [Mass/Vol] 18 mg/dL 7-18 [facility] Work Phone: Thin prep Papanicolaou smear with manual screeningon 12-26-2021 Thin prep Papanicolaou smear with manual screening 30 U/L 15-37 [facility] Work Phone: Thin prep Papanicolaou smear with manual screening 4 5-15 [facility] Work Phone: Absolute lymphocyte counton 08-23-2021 Lymphocytes Auto (Unsp spec) [#/Vol] 2.52 10*3/uL 0.83-4.51 [facility] Work Phone: Basophil percentageon 04-26- 2022 Basophils/100 WBC (Bld) 1.3 % 0-1 [facility] Work Phone: Bilirubin [Mass/Vol] 0.90 mg/dL 0.20-1.00 [facility] Work Phone: [phone] Comment on above: For patients on eltr ombopag therapy, use of Dimension [place] TBIL is not recommended. Chloride [Moles/Vol] 108 mmol/L 98-107 [facility] Work Phone: Eosinophils/100 WBC (Bld) 5.5 % 0-5 [facility] Work Phone: Glucose [Mass/Vol] 110 mg/dL 74-106 [facility] Work Phone: Comment on above: Fasting Glucose resu lt from 100 to 125 mg/dL suggests IMPAIRED HOMEOSTASIS per A.D.A. criteria. Neutrophils (Bld) [#/Vol] 2.7 10*3/uL 2.0-7.7 [facility] Work Phone: Neutrophils/100 WBC (Bld) 44.3 % 47-70 [facility] Work Phone: Potassium [Moles/Vol] 4.1 mmol/L 3.5-5.1 [facility] Work Phone: Protein [Mass/Vol] 7.8 g/dL 6.4-8.2 [facility] Work Phone: Sodium [Moles/Vol] 139 mmol/L 136-145 [facility] Work Phone: WBC (Bld) [#/Vol] 6.2 10*3/uL 4.4-11.0 [facility] Work Phone: Blood erythrocytes count (nu mber/volume)on 08-23-2021 RBC (Bld) [#/Vol] 5.10 10*6/uL 4.6-6.2 [facility] Work Phone: Blood hemoglobin measurement (mass/volume)on 08-23-2021 Hemoglobin (Bld) [Mass/Vol] 15.4 g/dL 13.0-16.5 [facility] Work Phone: Blood lymphocytes/100 leukoc yteson 08-23-2021 Lymphocytes/100 WBC (Bld) 41.0 % 19-41 [facility] Work Phone: Blood monocytes/100 leukocyt eson 08-23-2021 Monocytes/100 WBC (Bld) 7.2 % 0-10 [facility] Work Phone: Blood platelet mean volumeon 08-23-2021 Platelet mean volume (Bld) [Entitic vol] 10.2 fL 6.2-12.0 [facility] Work Phone: Determination of erythrocyte mean corpuscular volume (MCV)on 08-23-2021 MCV (RBC) [Entitic vol] 85.7 fL 80-94 [facility] Work Phone: Hematocrit Auto (Bld) [Volum e fraction]on 08-23-2021 Hematocrit (Bld) [Volume fraction] 43.7 % 40-54 [facility] Work Phone: Laboratory - Chemistry and C hemistry - challengeon 08-23-2021 ALP [Catalytic activity/Vol] 77 U/L 45-117 [facility] Work Phone: ALT [Catalytic activity/Vol] 43 U/L 16-61 [facility] Work Phone: CO2 [Moles/Vol] 24.0 mmol/L 21.0-32.0 [facility] Work Phone: Globulin (S) [Mass/Vol] 3.4 g/dL 2.2-4.2 [facility] Work Phone: Urea nitrogen/Creatinine [Mass ratio] 16.6 mg/mg 10-20 [facility] Work Phone: Laboratory - Hematology and Cell countson 08-23-2021 Erythrocyte distribution width (RBC) [Entitic vol] 38.8 fL 35.1-43.9 [facility] Work Phone: Erythrocyte distribution width (RBC) [Ratio] 12.5 % 11.6-14.6 [facility] Work Phone: Immature granulocytes/100 WBC (Bld) 0.700 % 0.0-0.9 [facility] Work Phone: Comment on above: IG% - Immature Granu locytes (promyelocytes, myelocytes and metamyelocytes) > 1% indicates that a LEFT SHIFT is Present. MCH (RBC) [Entitic mass] 30.2 pg 27.0-32.0 [facility] Work Phone: Nucleated RBC/100 WBC (Bld) [Ratio] 0 % 0-5 [facility] Work Phone: MCHC Auto (RBC) [Mass/Vol]on 08-23-2021 MCHC (RBC) [Mass/Vol] 35.2 g/dL 32-36 [facility] Work Phone: No Panel Informationon 08-23 Estimated GFR (MDRD) Amer 103 mL/min >60 [facility] Work Phone: Comment on above: GFR Calc Estimated GFR (MDRD) Non-Af Amer 85 mL/min >60 [facility] Work Phone: Comment on above: Non- GFR Calc Platelets bldon 08-23-2021 Platelets (Bld) [#/Vol] 215 10*3/uL 150-450 [facility] Work Phone: Serum or plasma IgA measurem ent (mass/volume)on 08-23-2021 IgA [Mass/Vol] 273 mg/dL [facility] Work Phone: Serum or plasma IgG measurem ent (mass/volume)on 08-23-2021 IgG [Mass/Vol] 906 mg/dL [facility] Work Phone: Serum or plasma IgM measurem ent (mass/volume)on 08-23-2021 IgM [Mass/Vol] 34 mg/dL [facility] Work Phone: Comment on above: Performed at: [address] [id number] Director: Ben Wray PhD, Phone: [phone] Serum or plasma albumin segundo urement (mass/volume)on 08-23-2021 Albumin [Mass/Vol] 4.4 g/dL 3.2-5.0 [facility] Work Phone: Serum or plasma albumin/glob ulin mass ratioon 08-23-2021 Albumin/Globulin [Mass ratio] 1.3 {ratio} 0.9-2.4 [facility] Work Phone: Serum or plasma calcium segundo urement (mass/volume)on 08-23-2021 Calcium [Mass/Vol] 9.4 mg/dL 8.5-10.1 [facility] Work Phone: Serum or plasma creatinine m easurement (mass/volume)on 08-23-2021 Creatinine [Mass/Vol] 0.96 mg/dL 0.70-1.30 [facility] Work Phone: Comment on above: The validity of the calculated GFR & GFRAA in patients over 70 years has not been determined. Clinical correlation is essential. Serum or plasma urea nitroge n measurement (mass/volume)on 08-23-2021 Urea nitrogen [Mass/Vol] 16 mg/dL 7-18 [facility] Work Phone: Thin prep Papanicolaou smear with manual screeningon 08-23-2021 Thin prep Papanicolaou smear with manual screening 21 U/L 15-37 [facility] Work Phone: Thin prep Papanicolaou smear with manual screening 7 5-15 [facility] Work Phone: Vital Signs Date Time Vital Sign Value Performing Clinician Aishai nichole 10-26-2024 19:18-0400 Body temperature 97.5 [degF] [facility] [employer] Work Phone: [facility] 10-26-2024 19:18-0400 Diastolic blood pressure 78 mm[Hg] Mihir [facility] [employer] Work Phone: [facility] 10-26-2024 19:18-0400 Heart rate 58 /min Mihir [facility] [employer] Work Phone: [facility] 10-26-2024 19:18-0400 Respiratory rate 18 /min Mihir [facility] [employer] Work Phone: [facility] 10-26-2024 19:18-0400 SaO2% (BldA) [Mass fraction] 93 % Mihir [facility] [employer] Work Phone: [facility] 10-26-2024 19:18-0400 Systolic blood pressure 148 mm[Hg] Mihir [facility] [employer] Work Phone: [facility] 10-26-2024 18:22-0400 Body height 185.42 cm Mihir [facility] [employer] Work Phone: [facility] 10-26-2024 18:22-0400 Body mass index (BMI) [Ratio] 26.2 kg/m2 Mihir [facility] [employer] Work Phone: [facility] 10-26-2024 18:22-0400 Body weight 89.94 kg Mihir [facility] [employer] Work Phone: [facility] Encounters Encounter Date Encounter Type Care Provider Facility Start: 10-26-2024 End: 10-26-2024 [facility] department [facility] [employer] Work Phone: -Emergency Department Work Phone: Start: 10-06-2024 End: 10-06-2024 [facility] [employer] Work Phone: [facility] Work Phone: Start: 10-06-2024 End: 10-06-2024 Patient encounter procedure FILIBERTO RUIZ [employer] -Laboratory [facility] Start: 10-06-2024 End: 10-06-2024 ambulatory FILIBERTO RUIZ Facility:[facility] Start: 09-05-2024 End: 09-05-2024 ambulatory Mihir Lyon [employer] Work Phone: [facility] Work Phone: Start: 09-05-2024 End: 09-05-2024 Patient encounter procedure Mihir Lyon [employer] -[facility] Start: 09-05-2024 End: 09-05-2024 ambulatory Mihir Lyon [employer] Facility:[facility] Start: 03-03-2024 End: 03-03-2024 [facility] Start: 02-19-2024 End: 02-19-2024 ambulatory [facility] Facility:[facility] Start: 04-19-2023 End: 04-19-2023 ambulatory [facility] Work Phone: Start: 04-19-2023 End: 04-19-2023 Patient encounter procedure [facility] Start: 01-09-2023 End: 01-09-2023 ambulatory [facility] Work Phone: Start: 01-09-2023 End: 01-09-2023 Patient encounter procedure [facility]-Laboratory Work Phone: Start: 12-25-2022 End: 12-25-2022 ambulatory [facility] Work Phone: Start: 12-25-2022 End: 12-25-2022 Patient encounter procedure [facility]-Cat Scan, [facility] Work Phone: Start: 12-26-2021 End: 12-26-2021 ambulatory [facility] Work Phone: Start: 12-26-2021 End: 12-26-2021 Patient encounter procedure [facility] Start: 08-23-2021 End: 08-23-2021 [facility] Procedures Date Procedure Procedure Detail Performing Clinician Start: 09-05-2024 Prostate specific an tigen measurement Mihir [facility] [employer] Work Phone: Comment on above: This test [...] Treatment Date Care Activity Detail Author Start: 10-26-2024 [facility] Start: 12-26-2021 Serum immunofixation [facility] Work Phone: Calculus analysis [facility] IgA [Mass/volume] in Serum or Plasma [facility] Work Phone: IgD [Mass/volume] in Serum [facility] Work Phone: IgG [Mass/volume] in Serum or Plasma [facility] Work Phone: IgM [Mass/volume] in Serum or Plasma [facility] Work Phone: Measurement of weigh t of calculus [facility] Origin of Stone [facility] Patient Education ED Laceration Extremity [facility] Work Phone: Specimen color determination [facility] Payers Date Payer Category Payer Self-pay [id number] 2024 Unknown [id number] Self-pay [id number] Unknown [id number] Unknown 2070 [id number] Unknown [id number] Unknown [id number] [id number] [id number] Unknown [id number] [id number] [id number] Unknown [id number] [id number] [id number] Social History Date Type Detail Facility Start: 02-02-2018 End: 02-02-2018 Tobacco smoking status NHIS Unknown if ever smoked [facility] Start: 09-22-2020 Occasional [facility] Start: 09-22-2020 Non-smoker [facility] Start: 1960 Sex Assigned At Male [facility] Start: 02-02-2018 End: 10-26-2024 Tobacco smoking status NHIS Never smoked tobacco (finding) [facility] Evaluation note Note Date & Type Note Facility Evaluation note No assessment information availa ble [facility] Work Phone: Hospital Discharge instructions Note Date & Type Note Facility Hospital Discharge instructions Additional Instructions Clean with soap and water and pat dry. Stitches need removed in 7 days. Please be seen immediately if you develop signs of infection like significant redness, swelling, pus, increased pain or fever. [facility] Work Phone: Reason for referral (narrative) Note Date & Type Note Facility Reason for referral (narrative) No reason for referral information available [facility] Work Phone: Advance Directives No Advanced Directives Records Found Advance Directive Response Recorded Date/ Time Living Will No February 02 7:45am Power of Consultant Teacher No February 02 7:45am Advance Directive Response Recorded Date/ Time Living Will No February 02 6:45am Power of Consultant Teacher No February 02 018 6:45am Advance Directive Response Recorded Date/ Time Do you have a Healthcare Power of Consultant Teacher? Yes October 26, 2024 6:43pm Chief Complaint and Reason for Visit Chief Complaint STAT HEMATURIA Chief Complaint Admit Date LACERATION October 26, 2024 6:21 pm Summary Purpose Family History No Family History [...] Rajput MD Family Provider Active Mihir Lyon [employer], [employer] Primary Care Provider Active Team Status: Inactive Member Role Status Dates Mihir Lyon [employer], [employer] Primary Care Provider Active Start: September 05, 2024 End: September 05, 2024 Mihir Lyon NP, [employer] Attending Provider Active Start: September 05, 2024 End: September 05, 2024 Mihir Lyon [employer], [employer] Referring Provider Active Start: September 05, 2024 End: September 05, 2024 Team Status: Inactive Member Role Status Dates Mihir Lyon [employer], [employer] Primary Care Provider Active Start: October 06, 2024 End: October 06, 2024 FILIBERTO RUIZ NP-C Attending Provider Active Sta rt: October 06, 2024 End: October 06, 2024 Team Status: Active Member Role/Relationship Status Dates Mihir Lyon [employer], [employer] Primary Care Provider Active Team Status: Inactive Member Role/Relationship Status Dates Mihir Lyon [employer], [employer] Primary Care Provider Active Start: September 05, 2024 End: September 05, 2024 Mihir Lyon [employer], [employer] Attending Provider Active Start: September 05, 2024 End: September 05, 2024 Mihir Lyon [employer], [employer] Referring Provider Active Start: September 05, 2024 End: September 05, 2024 Team Status: Inactive Member Role/Relationship Status Dates Mihir [facility] [employer], [employer] Primary Care Provider Active Start: October 06, 2024 End: October 06, 2024 FILIBERTO RUIZ NP-Laina Attending Provider Active Sta rt: October 06, 2024 End: October 06, 2024 Team Status: Inactive Member Role/Relationship Status Dates Mihir [facility] [employer], [employer] Primary Care Provider Active Start: October 26, 2024 End: October 26, 2024 Dr. Leonides Dominguez , DO Emergency Provider Active Start: October 26, 2024 End: October 26, 2024 (unrecognized sect ion and content) No Status Records Found INFORMATION SOURCE (unrecogn ized section and content) DATE CREATED AUTHOR 10/31/2024 [facility] FOR RECORDS PERTAINING TO PATIENTS WHO ARE [...] BE BASED ON THE PRIMARY CLINICAL RECORDS. [employer] provides no warranty or guarantee of the accuracy or completeness of information in this document.
== END | disposition home or self-care (01) ==
LOC: OPMRI 12:24
PROVIDERS: Referring Provider Nurse Practitioner Gerontology; Visit Provider Nurse Practitioner Gerontology
DX: G35 Multiple sclerosis (principal)
CPT/HCPCS: 70553; 72156; A9575

== ENCOUNTER 2025-01-17 17:56 | Observation (INO) | payer OTHER, SELFPAY ==
[2025-01-17] VITALS (8 sets, daily range): BP systolic 152–179; BP diastolic 70–90; PULSE 58–90; RESP 16–19; TEMP 36.6–37.1; O2SAT 95–100; BMI 31.6; BMI 29.5
--- NOTE | 2025-01-17 18:18 | CT_ITS ---
PROCEDURE: STROKE CTA HEAD AND NECK W/CON; STROKE CT BRAIN/HEAD WITHOUT CONT 01/17/2025 REASON FOR EXAM: NEURO DEFICIT, ACUTE, STROKE SUSPECTED TECHNIQUE: Procedure Code: CTCTA.ST.HN; CTBR.ST Modality: CT Procedure: STROKE CTA HEAD AND NECK W/CON; STROKE BRAIN/HEAD WITHOUT CONT Multiplanar Sagittal and Coronal images were obtained. 3D post processing was performed. CONTRAST: Isovue 370 VOLUME: 92 mL One or more dose reduction techniques were used (e.g., Automated exposure control, adjustment of the mA and/or kV according to patient size, use of iterative reconstruction technique). RADIATION DOSE SUMMARY: DLP: 1646.22 mGycm COMPARISON: MRI brain and cervical spine 12/30/2024. FINDINGS: CTA HEAD: Patent intracranial arterial vasculature. No large vessel occlusion, flow- limiting stenosis, saccular aneurysm, or vascular malformation identified. origin of the left posterior cerebral artery, with no visible connection to the basilar artery, anatomic variant. Dural venous sinuses appear patent. CTA NECK: Left vertebral artery originates directly from the aortic arch. Bilateral cervical carotid and codominant vertebral arteries are patent, normal in course and caliber. No aneurysm or dissection. Mild atherosclerotic plaque at the carotid artery bifurcations, with no significant luminal narrowing on the right, and minimal left than 50% luminal narrowing of the proximal left ICA. NONCONTRAST CT HEAD: No acute intracranial hemorrhage, extra-axial collection, mass effect or evidence of acute infarct. Small patchy foci of hypoattenuation in the supratentorial periventricular white matter, more pronounced on the right, with a configuration compatible with demyelinating disease such as multiple sclerosis, which is better demonstrated on prior MRI. Grossly unremarkable orbits. Intact skull base and calvarium. Well-aerated paranasal sinuses and mastoid air cells. CT/STROKE Brain/Head without Cont IMPRESSION: 1. No evidence of acute intracranial pathology. 2. Widely patent intracranial and cervical arterial vasculature. 3. Small patchy foci of hypoattenuation in the supratentorial periventricular w eduar matter, related to known history of multiple sclerosis, better seen on prior MRI. Reading Location: [facility]
--- NOTE | 2025-01-17 18:18 | EKG12_ITS ---
Test Reason : DYSRHYTHMIA Blood Pressure : */* mmHG Vent. Rate : 60 BPM Atrial Rate : 60 BPM P-R Int : 186 ms QRS Dur : 124 ms QT Int : 410 ms P-R-T Axes : 61 35 39 degrees QTcB Int : 410 ms Normal sinus rhythm Possible Inferior infarct (cited on or before 07-Feb-2019) Abnormal ECG Confirmed by YOANDY MACHUCA, YOSEPH ([id number]), map editor NIRMAL MARK ([id number]) on 01/19/2025 8:28:56 AM Referred By: Confirmed By: YOSEPH PITT MD
--- NOTE | 2025-01-17 18:19 | CT_ITS ---
PROCEDURE: STROKE CTA HEAD AND NECK W/CON; STROKE CT BRAIN/HEAD WITHOUT CONT 01/17/2025 REASON FOR EXAM: NEURO DEFICIT, ACUTE, STROKE SUSPECTED TECHNIQUE: Procedure Code: CTCTA.ST.HN; CTBR.ST Modality: CT Procedure: STROKE CTA HEAD AND NECK W/CON; STROKE BRAIN/HEAD WITHOUT CONT Multiplanar Sagittal and Coronal images were obtained. 3D post processing was performed. CONTRAST: Isovue 370 VOLUME: 92 mL One or more dose reduction techniques were used (e.g., Automated exposure control, adjustment of the mA and/or kV according to patient size, use of iterative reconstruction technique). RADIATION DOSE SUMMARY: DLP: 1646.22 mGycm COMPARISON: MRI brain and cervical spine 12/30/2024. FINDINGS: CTA HEAD: Patent intracranial arterial vasculature. No large vessel occlusion, flow- limiting stenosis, saccular aneurysm, or vascular malformation identified. origin of the left posterior cerebral artery, with no visible connection to the basilar artery, anatomic variant. Dural venous sinuses appear patent. CTA NECK: Left vertebral artery originates directly from the aortic arch. Bilateral cervical carotid and codominant vertebral arteries are patent, normal in course and caliber. No aneurysm or dissection. Mild atherosclerotic plaque at the carotid artery bifurcations, with no significant luminal narrowing on the right, and minimal left than 50% luminal narrowing of the proximal left ICA. NONCONTRAST CT HEAD: No acute intracranial hemorrhage, extra-axial collection, mass effect or evidence of acute infarct. Small patchy foci of hypoattenuation in the supratentorial periventricular white matter, more pronounced on the right, with a configuration compatible with demyelinating disease such as multiple sclerosis, which is better demonstrated on prior MRI. Grossly unremarkable orbits. Intact skull base and calvarium. Well-aerated paranasal sinuses and mastoid air cells. CT/STROKE CTA Head AND Neck W/Con IMPRESSION: 1. No evidence of acute intracranial pathology. 2. Widely patent intracranial and cervical arterial vasculature. 3. Small patchy foci of hypoattenuation in the supratentorial periventricular w eduar matter, related to known history of multiple sclerosis, better seen on prior MRI. Reading Location: [facility]
[2025-01-17 18:27] LABS: Hematocrit 40.6 % (40-54); Hemoglobin 14.6 g/dL (13.0-16.5); Immature Granulocytes Count 0.060 X10^3/uL (0.0-0.0); Mean Corp Hgb Conc 36.0 g/dL (32-36); Mean Corpuscular Volume 88.1 fL (80-94); Mean Platelet Vol. 9.8 fl (6.2-12.0); NRBC Flagged by Analyzer 0 % (0-5); Platelet Count 226 K/mm3 (150-450); RBC Distribution Width CV 12.0 % (11.6-14.6); RBC Distribution Width SD 38.7 fl (35.1-43.9); Red Blood Count 4.61 M/mm3 (4.6-6.2); White Blood Count 7.8 K/mm3 (4.4-11.0)
[2025-01-17 18:31] LABS: Prothrombin Time (Protime)PT. 13.6 SECONDS (11.7-14.9)
[2025-01-17 18:32] LABS: Partial Thromboplast Time 22.8 Seconds (24.1-36.2)
[2025-01-17 18:40] LABS: Anion Gap 13 (5-15); BUN 20 mg/dL (4-19); BUN/Creat Ratio 18.5 RATIO (10-20); Calcium,Total 9.3 mg/dL (7.6-11.0); Carbon Dioxide 25.9 mmol/L (21.0-32.0); Chloride 98 mmol/L (98-108); Estimated Creatinine Clearance 93.39 ml/min (50-250); Glucose 145 mg/dL (70-99); Potassium 4.2 mmol/L (3.3-5.1); Troponin T High Sensitivity 9 ng/L (<=22)
--- OUTSIDE RECORDS SUMMARY | 2025-01-17 18:54 | XMS RPT_ITS | CCD ---
Author Organization [facility] Care Team Providers Care Terrazzo Finisher Name Role Phone McMorrow [employer], Mihir Primary Care Provider [phone] McMorrow [employer], Mihir Attending Provider [phone] McMorrow [employer], Mihir Referring Provider JUNK [employer], FILIBERTO Attending Provider Dr. Leonides Dominguez DO Emergency Provider FILIBERTO RUIZ Attending Unavailable Jayla Rajput Primary Care Unavailable McMorrow [employer], Mihir Primary Care Unavailable McMorrow [employer], Mihir Attending Unavailable McMorrow [employer], Mihir Referring Unavailable JUNK, FILIBERTO Attending Unavailable McMorrow [employer], Mihir Primary Care Unavailable JUNK, FILIBERTO Attending Unavailable NATHANK, FILIBERTO Referring Unavailable McMorrow [employer], Mihir Primary Care Unavailable Leonides Dominguez Attending Unavailable McMorrow [employer], Mihir Primary Care Unavailable JUNK, FILIBERTO Attending Unavailable JUNK, FILIBERTO Referring Unavailable Jayla Rajput Primary Care Unavailable Allergies Allergy Classification Reported Allergen(s) Allergy Type Date of Onset Reaction(s) Facility (9 sources) Penicillins; Translations: [Penicillins] Allergy to substance 02-02-2018 [facility] Medications Current Medications Medication Drug Class(es) [...] source) Multiple sclerosis; Translations: [Multiple sclerosis] Onset: 01-16-2025 Chronic Open wounds of extremities (2 sources) Laceration of left thumb; Translations: [Laceration without foreign body of left thumb without damage to nail, initial encounter] Onset: 10-29-2024 10-26-2024 Episodic Other nervous system disorders (8 sources) Numbness; Translations: [Anesthesia of skin] 04-01-2013 Episodic Past or Other Problems Problem Classification Problem Date Documented Da te Episodic/Chronic Other aftercare (1 source) Other care home (current) drug therapy; Translations: [Other care home (current) drug therapy] Onset: 03-24-2024 Episodic Other screening for suspected conditions (not mental disorders or infectious disease) (1 source) Encounter for screening for malignant neoplasm of prostate; Translations: [Encounter for screening for malignant neoplasm of prostate] Onset: 09-10-2024 Episodic Results Test Name Value Interpretation Reference Range Facility Brain W/WO Contraston 2024 Brain W/WO Contrast [facility] Imaging Services [address] [place], [place] [id number] Brain W/WO Contrast MR#: [id number] Acct: [id number] Name: ART WRIGHT Rep #: [id number] : 1960 M 64 From: Titi Amezcua MD PCP: Mihir Lyon NP [employer] Status: REG CLI Study: Brain W/WO Contrast Date of Exam: 12/30/24 Exam# [id number] Ordering Dr: FILIBERTO RUIZ [employer] PROCEDURE: BRAIN W/WO CONTRAST 12/30/2024 REASON FOR EXAM: MS TECHNIQUE: Procedure Code: MRIBRWW Modality: MR Procedure: BRAIN W/WO CONTRAST Multiplanar and multisequence images were obtained. CONTRAST: Clariscan VOLUME: 20 mL COMPARISON: MRI brain with and without contrast, 12/09/2020. FINDINGS: There are multiple ovoid foci of abnormal periventricular white matter signal in the right cerebral hemisphere. These are nonspecific but are consistent with demyelinating disease. There is no evidence of involvement of the brainstem, visualized portion of the cervical spinal cord or the optic nerves. There is no significant change compared with the prior exam. There are no foci of abnormal intracranial contrast enhancement. There is a normal sulcal pattern and gyral configuration. There is no evidence of acute intracranial hemorrhage or infarction. The blood-white differentiation is well preserved. There is no evidence of restricted diffusion. The ventricles and basilar cisterns are normal. There are normal flow voids demonstrated in the recognized intracranial vessels. The cerebellum and brainstem are unremarkable. The cerebellar pontine angles are normal. The craniovertebral junction is normal. The sella and suprasellar regions are normal. The orbits and retro-orbital regions are unremarkable. There is left carlie bullosa. There is nasal septal deviation to the right. There is mucosal thickening of the ethmoidal air cells and frontal sinuses, bilaterally. There is a mucous retention cyst in the left maxillary sinus. The mastoid air cells are clear. There is normal bone marrow signal in the skull base and calvarium. MRI/Brain W/WO Contrast IMPRESSION: 1. Findings consistent with multiple sclerosis, not significantly changed. 2. There are no foci of abnormal intracranial contrast enhancement. 3. Other findings as noted. Reading Location: [id number] CC: Mihir NAM NP-Laina Lyon; FILIBERTO RUIZ Jewish [employer] Professor: Signed Normal [facility] Spine Cervical W/WO Contrast on 12-30-2024 Spine Cervical W/WO Contrast [facility] Imaging Services [address] [place] [id number] Spine Cervical W/WO Contrast MR#: [id number] Acct: [id number] Name: ART WRIGHT Rep #: [id number] : 1960 M 64 From: Geovani Mackenzie MD PCP: Mihir Lyon NP Status: REG CLI Study: Spine Cervical W/WO Contrast Date of Exam: Exam# [id number] Ordering Dr: FILIBERTO RUIZ PROCEDURE: SPINE CERVICAL W/WO CONTRAST 12/30/2024 REASON FOR EXAM: MS TECHNIQUE: Procedure Code: MRISPCWW Modality: MR Procedure: SPINE CERVICAL W/WO CONTRAST Multiplanar and multisequence images were obtained with intravenous gadolinium-based contrast administration. CONTRAST: Jamia scan VOLUME: 20 mL FINDINGS: Normal cervical vertebral body height and alignment. There is no Chiari deformity. No demyelination seen on sagittal T2 weighted images. Please note that axial volumetric images are not as accurate in assessing demyelination as fast spin echo T2 weighted images. However the sagittal T2 weighted images and inversion recovery images demonstrate no definite demyelination, compression or syrinx. The neural foramina is patent. There are no areas of pathologic enhancement. Minimal annular bulging at C5-6 and C6-7. MRI/Spine Cervical W/WO Contrast IMPRESSION: No visible demyelination or pathologic enhancement Reading Location: [id number] CC: Mihir RUIZ [employer] Professor: Signed Normal [facility] Emergency Department Summary on 10-26-2024 Emergency Department Summary [facility] Medical Records Department [address] [facility] [place] [address] Emergency Department Summary 10/26/24 MR#: [id number] Acct: [id number] Name: ART WRIGHT Rep #: [id number] : 1960 64 From: Madeleine DWYER PCP: Mihir Lyon NP Status:DEP ER Location: ED HPI History of Present Illness Chief Complaint: Laceration Narrative Narrative: 64-year-old maleis at a local cabin camping and used a serrated kitchen knife to cut food when it lacerated his left thumb. Bleeding is controlled with pressure. He thinks it might need a couple stitches. No weakness numbness or tingling. Last tetanus unknown. [facility] Medical History (Updated 10/26/24 @ 19:19 by [...] care instructions and discharged in stable condition. [facility] Treatment and Re-Evaluation Narrative: I have personally [...] was instruc (more content not included)... Normal [facility] Immunoglobulin Montrell 5 IMMUNOGLOB G QN 792 mg/dL Normal 603-[address] [facility] Comment on above: Result Comment: Perf ormed at: - [facility] [address] [id number] Ping Pong Table Assembler: Ben Wray PhD, Phone: [phone] Performed By: #### L [id number] #### [facility] Laboratory [address] [place] [address]. [place], [address] Absolute lymphocyte countOrd ered By: FILIBERTO RUIZ on 10-06-2024 Lymphocytes Auto (Unsp spec) [#/Vol] 1.91 10*3/uL 0.83-4.[address] [facility] Absolute neutrophil countOrd ered By: FILIBERTO RUIZ on 10-06-2024 Neutrophils (Bld) [#/Vol] 5.9 10*3/uL 2.0-7.[address] [facility] Anion gap in Serum or Plasma Ordered By: FILIBERTO RUIZ on 10-06-2024 Anion gap [Moles/Vol] 14 mmol/L 5-15 [facility] Automated lymphocyte count a s percentage of total leukocytesOrdered By: FILIBERTO RUIZ on 10-06-2024 Lymphocytes/100 WBC Auto (Unsp spec) 22.5 % 19-[address] [facility] BUN/creatinine ratioOrdered By: FILIBERTO RUIZ on 10-06-2024 Urea nitrogen/Creatinine [Mass ratio] 15.0 mg/mg 10-[address] [facility] Basophil percentageOrdered B y: FILIBERTO RUIZ on 10-06-2024 Basophils/100 WBC (Bld) 1.2 % High 0-1 [facility] Bilirubin, totalOrdered By: FILIBERTO RUIZ on 10-06-2024 Bilirubin [Mass/Vol] 1.00 mg/dL 0.00-1.30 [facility] CBC W/Diff, Automatedon Absolute Lymph 1.91 X10 3/uL Normal 0.83-4.[address] [facility] Comment on above: Performed By: #### L 501.0900 #### [facility] Laboratory [address] [place], [address] Absolute Neut 5.9 X10 3/uL Normal 2.0-7.[address] [facility] Comment on above: Performed By: #### L 501.0900 #### [facility] [address] [place], [address] Basophils/100 WBC (Bld) 1.2 % High 0-1 [facility] Comment on above: Performed By: #### L 501.0900 #### [facility] [address] [place], [address] Eosinophils/100 WBC (Bld) 1.1 % Normal 0-[address] [facility] Comment on above: Performed By: #### L 501.0900 #### [facility] [address] [place], [address] Erythrocyte distribution width (RBC) [Ratio] 12.3 % Normal 11.6-14.[address] [facility] Comment on above: Performed By: #### L 501.0900 #### [facility] [address] [place], [address] Hematocrit (Bld) [Volume fraction] 45.5 % Normal 40-[address] [facility] Comment on above: Performed By: #### L 501.0900 #### [facility] [address] [place], [address] Hemoglobin (Bld) [Mass/Vol] 16.0 g/dL Normal 13.0-16.[address] [facility] Comment on above: Performed By: #### L 501.0900 #### [facility] [address] [place], [address] IG% 0.700 Normal 0.0-0.[address] [facility] Comment on above: Result Comment: IG% - Immature Granulocytes (promyelocytes, myelocytes and metamyelocytes) > 1% indicates that a LEFT SHIFT is Present. Performed By: #### L 501.0900 #### [facility] [address] [place], [address] Lymphocytes/100 WBC (Bld) 22.5 % Normal 19-[address] [facility] Comment on above: Performed By: #### L 501.0900 #### [facility] [address] [place], [address] MCH (RBC) [Entitic mass] 30.5 pg Normal 27.0-32.[address] [facility] Comment on above: Performed By: #### L 501.0900 #### [facility] [address] [place], [address] MCHC (RBC) [Mass/Vol] 35.2 g/dL Normal 32-36 [facility] Comment on above: Performed By: #### L 501.0900 #### [facility] [address] [place], [address] MCV (RBC) [Entitic vol] 86.8 fL Normal 80-94 [facility] Comment on above: Performed By: #### L 501.0900 #### [facility] [address] [place], [address] Monocytes/100 WBC (Bld) 4.5 % Normal 0-10 [facility] Comment on above: Performed By: #### L 501.0900 #### [facility] [address] [place], [address] Neutrophils/100 WBC (Bld) 70.0 % Normal 47-[address] [facility] Comment on above: Performed By: #### L 501.0900 #### [facility] [address] [place], [address] Nucleated RBC (Bld) [#/Vol] 0 10*3/uL Normal 0-[address] [facility] Comment on above: Performed By: #### L 501.0900 #### [facility] [address] [place], [address] Platelet mean volume (Bld) [Entitic vol] 10.1 fL Normal 6.2-12.[address] [facility] Comment on above: Performed By: #### L 501.0900 #### [facility] [address] [place], [address] Platelets (Bld) [#/Vol] 217 10*3/uL Normal 150-[address] [facility] Comment on above: Performed By: #### L 501.0900 #### [facility] [address] [place], [address] RBC (Bld) [#/Vol] 5.24 10*6/uL Normal 4.6-6.2 [facility] Comment on above: Performed By: #### L 501.0900 #### [facility] [address] [place], [address] RDW SD 39.0 fl Normal 35.1-43.[address] [facility] Comment on above: Performed By: #### L 501.0900 #### [facility] [address] [place], [address] WBC (Bld) [#/Vol] 8.5 10*3/uL Normal 4.4-11.0 [facility] Comment on above: Performed By: #### L 501.0900 #### [facility] [address] [place], [address] Carbon dioxide, total [Moles /volume] in Central venous bloodOrdered By: FILIBERTO RUIZ on 10-06-2024 CO2 [Moles/Vol] 22.8 mmol/L 21.0-32.[address] [facility] Chloride assayOrdered By: LYNN RUIZ on 10-06-2024 Chloride [Moles/Vol] 101 mmol/L 98-108 [facility] Comprehensive Metabolic Prof ilon 10-06-2024 Albumin [Mass/Vol] 4.8 g/dL Normal 3.4-4.8 [facility] Comment on above: Performed By: #### L 501.0900 #### [facility] [address] [place], [address] Albumin/Globulin [Mass ratio] 1.9 {ratio} Normal 0.9-2.[address] [facility] Comment on above: Performed By: #### L 501.0900 #### [facility] [address] [place], [address] ALK PHOS 68 U/L Normal 40-[address] [facility] Comment on above: Performed By: #### L 501.0900 #### [facility] [address] [place], [address] ALT [Catalytic activity/Vol] 20 U/L Normal <=[address] [facility] Comment on above: Performed By: #### L 501.0900 #### [facility] [address] [place], [address] AST [Catalytic activity/Vol] 25 U/L Normal <=[address] [facility] Comment on above: Performed By: #### L 501.0900 #### [facility] [address] [place], [address] Bilirubin [Mass/Vol] 1.00 mg/dL Normal 0.00-1.30 [facility] Comment on above: Performed By: #### L 501.0900 #### [facility] [address] [place], [address] BUN/CRE 15.0 RATIO Normal 10-[address] [facility] Comment on above: Performed By: #### L 501.0900 #### [facility] [address] [place], [address] Calcium [Mass/Vol] 10.0 mg/dL Normal 7.6-11.0 [facility] Comment on above: Performed By: #### L 501.0900 #### [facility] [address] [place], [address] Chloride [Moles/Vol] 101 mmol/L Normal 98-108 [facility] Comment on above: Performed By: #### L 501.0900 #### [facility] [address] [place], [address] CO2 [Moles/Vol] 22.8 mmol/L Normal 21.0-32.[address] [facility] Comment on above: Performed By: #### L 501.0900 #### [facility] [address] [place], [address] Creatinine [Mass/Vol] 1.19 mg/dL Normal 0.70-1.20 [facility] Comment on above: Performed By: #### L 501.0900 #### [facility] [address] [place], [address] GAP 14 Normal 5-[address] [facility] Comment on above: Performed By: #### L 501.0900 #### [facility] [address] [place], [address] GFR/1.73 sq M.predicted among non-blacks MDRD (S/P/Bld) [Vol rate/Area] 69 mL/min/{1.73_m2} Normal >60 [facility] Comment on above: Result Comment: mL/m in/1.73m2 CKD-EPI Creatinine Equation (2020) Performed By: #### L 501.0900 #### [facility] [address] [place], [address] Globulin (S) [Mass/Vol] 2.6 g/dL Normal 2.2-4.2 [facility] Comment on above: Performed By: #### L 501.0900 #### [facility] [address] [place], [address] Glucose [Mass/Vol] 117 mg/dL High 70-99 [facility] Comment on above: Performed By: #### L 501.0900 #### [facility] [address] [place], [address] Potassium [Moles/Vol] 4.3 mmol/L Normal 3.3-5.1 [facility] Comment on above: Performed By: #### L 501.0900 #### [facility] [address] [place], [address] Sodium [Moles/Vol] 138 mmol/L Normal 133-145 [facility] Comment on above: Performed By: #### L 501.0900 #### [facility] [address] [place], [address] T PROT 7.4 g/dL Normal 5.9-8.[address] [facility] Comment on above: Performed By: #### L 501.0900 #### [facility] [address] [place], [address] Urea nitrogen [Mass/Vol] 18 mg/dL Normal 4-[address] [facility] Comment on above: Performed By: #### L 501.0930 #### [facility] [address] [place], [address] Eosinophil percentageOrdered By: FILIBERTO RUIZ on 10-06-2024 Eosinophils/100 WBC (Bld) 1.1 % 0-[address] [facility] Erythrocyte distribution wid th ratioOrdered By: FILIBERTO RUIZ on 10-06-2024 Erythrocyte distribution width (RBC) [Ratio] 12.3 % 11.6-14.[address] [facility] Erythrocyte distribution wid th standard deviationOrdered By: FILIBERTO RUIZ on 10-06-2024 Erythrocyte distribution width (RBC) [Ratio] 39.0 fl 35.1-43.[address] [facility] Glomerular filtration rate ( GFR) estimation/1.73 sq m using serum, plasma, or whole bOrdered By: FILIBERTO RUIZ on 10-06-2024 GFR/1.73 sq M.predicted among non-blacks MDRD (S/P/Bld) [Vol rate/Area] 69 mL/min/{1.73_m2} >60 [facility] Comment on above: mL/min/1.73m2 CKD-EP I Creatinine Equation (2020) Hematocrit Auto (Bld) [Volum e fraction]Ordered By: FILIBERTO RUIZ on 10-06-2024 Hematocrit (Bld) [Volume fraction] 45.5 % 40-[address] [facility] Hemoglobin measurementOrdere d By: FILIBERTO RUIZ on 10-06-2024 Hemoglobin (Bld) [Mass/Vol] 16.0 g/dL 13.0-16.[address] [facility] Immature granulocytes/100 WB C Auto (Bld)Ordered By: FILIBERTO RUIZ on 10-06-2024 Immature granulocytes/100 WBC (Bld) 0.700 % 0.0-0.[address] [facility] Comment on above: IG% - Immature Granu locytes (promyelocytes, myelocytes and metamyelocytes) > 1% indicates that a LEFT SHIFT is Present. Laboratory - Chemistry and C hemistry - challengeOrdered By: FILIBERTO RUIZ on 10-06-2024 AST [Catalytic activity/Vol] 25 U/L <[address] [facility] MCV (mean corpuscular volume ) determinationOrdered By: FILIBERTO RUIZ on 10-06-2024 MCV (RBC) [Entitic vol] 86.8 fL 80-94 [facility] Mean corpuscular hemoglobin (MCH) determinationOrdered By: FILIBERTO RUIZ on 10-06-2024 MCH (RBC) [Entitic mass] 30.5 pg 27.0-32.[address] [facility] Mean corpuscular hemoglobin concentration (MCHC) determinationOrdered By: FILIBERTO RUIZ on 10-06-2024 MCHC (RBC) [Mass/Vol] 35.2 g/dL 32-36 [facility] Mean platelet volume determi nationOrdered By: FILIBERTO RUIZ on 10-06-2024 Platelet mean volume (Bld) [Entitic vol] 10.1 fL 6.2-12.[address] [facility] Monocyte percentageOrdered B y: FILIBERTO RUIZ on 10-06-2024 Monocytes/100 WBC (Bld) 4.5 % 0-10 [facility] Neutrophil percentageOrdered By: FILIBERTO RUIZ on 10-06-2024 Neutrophils/100 WBC (Bld) 70.0 % 47-[address] [facility] Nucleated red blood cell per centageOrdered By: FILIBERTO RUIZ on 10-06-2024 Nucleated RBC/100 WBC (Bld) [Ratio] 0 % 0-[address] [facility] Platelet countOrdered By: LYNN RUIZ on 10-06-2024 Platelets (Bld) [#/Vol] 217 10*3/uL 150-[address] [facility] Potassium measurement (mass/ volume)Ordered By: FILIBERTO RUIZ on 10-06-2024 Potassium (Unsp spec) [Mass/Vol] 4.3 mmol/L 3.3-5.[address] [facility] RBC Auto (Bld) [#/Vol]Ordere d By: FILIBERTO RUIZ on 10-06-2024 RBC (Bld) [#/Vol] 5.24 10*6/uL 4.6-6.2 [facility] Serum creatinine measurement (mass/volume)Ordered By: FILIBERTO RUIZ on 10-06-2024 Creatinine [Mass/Vol] 1.19 mg/dL 0.70-1.20 [facility] Serum globulin measurementOr dered By: FILIBERTO RUIZ on 10-06-2024 Globulin (S) [Mass/Vol] 2.6 g/dL 2.2-4.2 [facility] Serum glucose measurement (m ass/volume)Ordered By: FILIBERTO RUIZ on 10-06-2024 Glucose [Mass/Vol] 117 mg/dL High 70-99 [facility] Serum or plasma IgG measurem ent (mass/volume)Ordered By: FILIBERTO RUIZ on 10-06-2024 IgG [Mass/Vol] 792 mg/dL 603-[address] [facility] Comment on above: Performed at: [place] [id number] Director: Ben Wray PhD, Phone: [phone] Serum or plasma alanine anderson otransferase (ALT) measurementOrdered By: FILIBERTO RUIZ on 10-06-2024 ALT [Catalytic activity/Vol] 20 U/L <[address] [facility] Serum or plasma albumin segundo urement (mass/volume)Ordered By: FILIBERTO RUIZ on 10-06-2024 Albumin [Mass/Vol] 4.8 g/dL 3.4-4.8 [facility] Serum or plasma albumin/glob ulin mass ratioOrdered By: FILIBERTO RUIZ on 10-06-2024 Albumin/Globulin [Mass ratio] 1.9 {ratio} 0.9-2.[address] [facility] Serum or plasma alkaline skylar sphatase measurementOrdered By: FILIBERTO RUIZ on 10-06-2024 ALP [Catalytic activity/Vol] 68 U/L 40-[address] [facility] Serum or plasma calcium segundo urement (mass/volume)Ordered By: FILIBERTO RUIZ on 10-06-2024 Calcium [Mass/Vol] 10.0 mg/dL 7.6-11.0 [facility] Serum or plasma urea nitroge n measurement (mass/volume)Ordered By: FILIBERTO RUIZ on 10-06-2024 Urea nitrogen [Mass/Vol] 18 mg/dL 4-[address] [facility] Sodium levelOrdered By: FANNY RUIZ on 10-06-2024 Sodium [Moles/Vol] 138 mmol/L 133-145 [facility] Total proteinOrdered By: ARCHIE RUIZ on 10-06-2024 Protein [Mass/Vol] 7.4 g/dL 5.9-8.4 [facility] White blood cell (WBC) count Ordered By: FILIBERTO JOSEPH on 10-06-2024 WBC (Bld) [#/Vol] 8.5 10*3/uL 4.4-11.0 [facility] PSA,Total - Annual Screenon 09-05-2024 PSA,TOT SCREEN 1.15 ng/mL Normal 0.02-4.[address] [facility] Comment on above: Order Comment: Order Date: 09/05/24 Order Info: [id number] - PSA Result Comment: This [...] confirm baseline values. Performed By: #### L 501.9910 #### [facility] [address] [place], [address] CBC W/Diff, Automatedon 11-0 -2023 Absolute Lymph 2.65 X10 3/uL Normal 0.83-4.[address] [facility] Comment on above: Performed By: #### L 501.0900 #### [facility] [facility] [address] [place], [address] Absolute Neut 3.3 X10 3/uL Normal 2.0-7.[address] [facility] Comment on above: Performed By: #### L 501.0900 #### [facility] [address] [place], [address] Basophils/100 WBC (Bld) 1.7 % High 0-1 [facility] Comment on above: Performed By: #### L 501.0900 #### [facility] [address] [place], [address] Eosinophils/100 WBC (Bld) 5.2 % High 0-[address] [facility] Comment on above: Performed By: #### L 501.0900 #### [facility] [address] [place], [address] Erythrocyte distribution width (RBC) [Ratio] 12.7 % Normal 11.6-14.[address] [facility] Comment on above: Performed By: #### L 501.0900 #### [facility] [address] [place], [address] Hematocrit (Bld) [Volume fraction] 45.5 % Normal 40-[address] [facility] Comment on above: Performed By: #### L 501.0900 #### [facility] [address] [place], [address] Hemoglobin (Bld) [Mass/Vol] 16.2 g/dL Normal 13.0-16.[address] [facility] Comment on above: Performed By: #### L 501.0900 #### [facility] [address] [place], [address] IG% 0.900 Normal 0.0-0.[address] [facility] Comment on above: Result Comment: IG% - Immature Granulocytes (promyelocytes, myelocytes and metamyelocytes) > 1% indicates that a LEFT SHIFT is Present. Performed By: #### L 501.0900 #### [facility] [address] [place], [address] Lymphocytes/100 WBC (Bld) 38.2 % Normal 19-[address] [facility] Comment on above: Performed By: #### L 501.0900 #### [facility] [address] [place], [address] MCH (RBC) [Entitic mass] 30.5 pg Normal 27.0-32.[address] [facility] Comment on above: Performed By: #### L 501.0900 #### [facility] [address] [place], [address] MCHC (RBC) [Mass/Vol] 35.6 g/dL Normal 32-36 [facility] Comment on above: Performed By: #### L 501.0900 #### [facility] [address] [place], [address] MCV (RBC) [Entitic vol] 85.7 fL Normal 80-94 [facility] Comment on above: Performed By: #### L 501.0900 #### [facility] [address] [place], [address] Monocytes/100 WBC (Bld) 7.2 % Normal 0-10 [facility] Comment on above: Performed By: #### L 501.0900 #### [facility] [address] [place], [address] Neutrophils/100 WBC (Bld) 46.8 % Low 47-[address] [facility] Comment on above: Performed By: #### L 501.0900 #### [facility] [address] [place], [address] Nucleated RBC (Bld) [#/Vol] 0 10*3/uL Normal 0-[address] [facility] Comment on above: Performed By: #### L 501.0900 #### [facility] [address] [place], [address] Platelet mean volume (Bld) [Entitic vol] 10.3 fL Normal 6.2-12.[address] [facility] Comment on above: Performed By: #### L 501.0900 #### [facility] [address] [place], [address] Platelets (Bld) [#/Vol] 217 10*3/uL Normal 150-[address] [facility] Comment on above: Performed By: #### L 501.0900 #### [facility] [address] [place], [address] RBC (Bld) [#/Vol] 5.31 10*6/uL Normal 4.6-6.2 [facility] Comment on above: Performed By: #### L 501.0900 #### [facility] [address] [place], [address] RDW SD 39.3 fl Normal 35.1-43.[address] [facility] Comment on above: Performed By: #### L 501.0900 #### [facility] [address] [place], [address] WBC (Bld) [#/Vol] 6.9 10*3/uL Normal 4.4-11.0 [facility] Comment on above: Performed By: #### L 501.0900 #### [facility] [address] [place], [address] Immunoglobulin Aon 4 IMMUNOGLOB A QN 219 mg/dL Normal 61-[address] [facility] Comment on above: Order Comment: N Performed By: #### L 3200.1400, L100.0500, L3200.1300, L3200.1500, L3200.1600, L500.4050 #### [facility] [address] [place], [address] Immunoglobulin Maged 4 IMMUNOGLOB E QN 20 IU/mL Normal 6-[address] [facility] Comment on above: Order Comment: N Performed By: #### L 3200.1400, L100.0500, L3200.1300, L3200.1500, L3200.1600, L500.4050 #### [facility] [address] [place], [address] Immunoglobulin Montrell 4 IMMUNOGLOB G QN 821 mg/dL Normal 603-[address] [facility] Comment on above: Order Comment: N Performed By: #### L 3200.1400, L100.0500, L3200.1300, L3200.1500, L3200.1600, L500.4050 #### [facility] [address] [place], [address] Immunoglobulin Mon 4 IMMUNOGLOB M QN 26 mg/dL Normal 20-[address] [facility] Comment on above: Order Comment: N Result Comment: Resu lt confirmed on concentration. Performed at: - [facility], [place], [place] [id number] Ping Pong Table Assembler: Ben Wray PhD, Phone: [phone] Performed By: #### L 3200.1400, L100.0500, L3200.1300, L3200.1500, L3200.1600, L500.4050 #### [facility] [address] [place], [address] CBC-Complete Blood Cnt No Di ffon 02-19-2024 Erythrocyte distribution width (RBC) [Ratio] 12.5 % Normal 11.6-14.[address] [facility] Comment on above: Performed By: #### L 3200.1400, L100.0500, L3200.1300, L3200.1500, L3200.1600, L500.4050 #### [facility] [address] [place], [address] Hematocrit (Bld) [Volume fraction] 45.4 % Normal 40-[address] [facility] Comment on above: Performed By: #### L 3200.1400, L100.0500, L3200.1300, L3200.1500, L3200.1600, L500.4050 #### [facility] [address] [place], [address] Hemoglobin (Bld) [Mass/Vol] 15.7 g/dL Normal 13.0-16.[address] [facility] Comment on above: Performed By: #### L 3200.1400, L100.0500, L3200.1300, L3200.1500, L3200.1600, L500.4050 #### [facility] [address] [place], [address] MCH (RBC) [Entitic mass] 29.7 pg Normal 27.0-32.[address] [facility] Comment on above: Performed By: #### L 3200.1400, L100.0500, L3200.1300, L3200.1500, L3200.1600, L500.4050 #### [facility] [address] [place], [address] MCHC (RBC) [Mass/Vol] 34.6 g/dL Normal 32-36 [facility] Comment on above: Performed By: #### L 3200.1400, L100.0500, L3200.1300, L3200.1500, L3200.1600, L500.4050 #### [facility] [address] [place], [address] MCV (RBC) [Entitic vol] 85.8 fL Normal 80-94 [facility] Comment on above: Performed By: #### L 3200.1400, L100.0500, L3200.1300, L3200.1500, L3200.1600, L500.4050 #### [facility] [address] [place], [address] Platelet mean volume (Bld) [Entitic vol] 10.5 fL Normal 6.2-12.[address] [facility] Comment on above: Performed By: #### L 3200.1400, L100.0500, L3200.1300, L3200.1500, L3200.1600, L500.4050 #### [facility] [address] [place], [address] Platelets (Bld) [#/Vol] 205 10*3/uL Normal 150-[address] [facility] Comment on above: Performed By: #### L 3200.1400, L100.0500, L3200.1300, L3200.1500, L3200.1600, L500.4050 #### [facility] [address] [place], [address] RBC (Bld) [#/Vol] 5.29 10*6/uL Normal 4.6-6.2 [facility] Comment on above: Performed By: #### L 3200.1400, L100.0500, L3200.1300, L3200.1500, L3200.1600, L500.4050 #### [facility] [address] [place], [address] RDW SD 38.9 fl Normal 35.1-43.[address] [facility] Comment on above: Performed By: #### L 3200.1400, L100.0500, L3200.1300, L3200.1500, L3200.1600, L500.4050 #### [facility] [address] [place], [address] WBC (Bld) [#/Vol] 7.1 10*3/uL Normal 4.4-11.0 [facility] Comment on above: Performed By: #### L 3200.1400, L100.0500, L3200.1300, L3200.1500, L3200.1600, L500.4050 #### [facility] [address] [place], [address] Comprehensive Metabolic [facility] 02-19-2024 Albumin [Mass/Vol] 4.3 g/dL Normal 3.2-5.0 [facility] Comment on above: Performed By: #### L 3200.1400, L100.0500, L3200.1300, L3200.1500, L3200.1600, L500.4050 #### [facility] [address] [place], [address] Albumin/Globulin [Mass ratio] 1.2 {ratio} Normal 0.9-2.[address] [facility] Comment on above: Performed By: #### L 3200.1400, L100.0500, L3200.1300, L3200.1500, L3200.1600, L500.4050 #### [facility] [address] [place], [address] ALK P 76 U/L Normal 45-[address] [facility] Comment on above: Performed By: #### L 3200.1400, L100.0500, L3200.1300, L3200.1500, L3200.1600, L500.4050 #### [facility] [address] [place], [address] ALT [Catalytic activity/Vol] 35 U/L Normal 16-[address] [facility] Comment on above: Performed By: #### L 3200.1400, L100.0500, L3200.1300, L3200.1500, L3200.1600, L500.4050 #### [facility] [address] [place], [address] AST [Catalytic activity/Vol] 27 U/L Normal 15-[address] [facility] Comment on above: Performed By: #### L 3200.1400, L100.0500, L3200.1300, L3200.1500, L3200.1600, L500.4050 #### [facility] [address] [place], [address] Bilirubin [Mass/Vol] 0.90 mg/dL Normal 0.20-1.00 [facility] Comment on above: Result Comment: For patients on eltrombopag therapy, use of Dimension Aragon TBIL is not recommended. Performed By: #### L 3200.1400, L100.0500, L3200.1300, L3200.1500, L3200.1600, L500.4050 #### [facility] [address] [place], [address] BUN/CRE 14.2 RATIO Normal 10-[address] [facility] Comment on above: Performed By: #### L 3200.1400, L100.0500, L3200.1300, L3200.1500, L3200.1600, L500.4050 #### [facility] [address] [place], [address] CA,Total 9.6 mg/dL Normal 8.5-10.[address] [facility] Comment on above: Performed By: #### L 3200.1400, L100.0500, L3200.1300, L3200.1500, L3200.1600, L500.4050 #### [facility] [address] [place], [address] Chloride [Moles/Vol] 105 mmol/L Normal 98-107 [facility] Comment on above: Performed By: #### L 3200.1400, L100.0500, L3200.1300, L3200.1500, L3200.1600, L500.4050 #### [facility] [address] [place], [address] CO2 [Moles/Vol] 29.0 mmol/L Normal 21.0-32.[address] [facility] Comment on above: Performed By: #### L 3200.1400, L100.0500, L3200.1300, L3200.1500, L3200.1600, L500.4050 #### [facility] [address] [place], [address] Creatinine [Mass/Vol] 1.13 mg/dL Normal 0.70-1.30 [facility] Comment on above: Result Comment: The validity of the calculated GFR GFRAA in patients over 70 years has not been determined. Clinical correlation is essential. Performed By: #### L 3200.1400, L100.0500, L3200.1300, L3200.1500, L3200.1600, L500.4050 #### [facility] [address] [place], [address] EST GFR - AA 85 mL/min Normal >[address] [facility] Comment on above: Result Comment: Afri can Green[place] GFR Calc Performed By: #### L 3200.1400, L100.0500, L3200.1300, L3200.1500, L3200.1600, L500.4050 #### [facility] [address] [place], [address] GAP 5 Normal 5-[address] [facility] Comment on above: Performed By: #### L 3200.1400, L100.0500, L3200.1300, L3200.1500, L3200.1600, L500.4050 #### [facility] [address] [place], [address] GFR/1.73 sq M.predicted among non-blacks MDRD (S/P/Bld) [Vol rate/Area] 70 mL/min/{1.73_m2} Normal >60 [facility] Comment on above: Result Comment: Non- GFR Calc Performed By: #### L 3200.1400, L100.0500, L3200.1300, L3200.1500, L3200.1600, L500.4050 #### [facility] [address] [place], [address] Globulin (S) [Mass/Vol] 3.5 g/dL Normal 2.2-4.2 [facility] Comment on above: Performed By: #### L 3200.1400, L100.0500, L3200.1300, L3200.1500, L3200.1600, L500.4050 #### [facility] [address] [place], [address] Glucose [Mass/Vol] 115 mg/dL High 74-106 [facility] Comment on above: Result Comment: Fast ing Glucose result from 100 to 125 mg/dL suggests IMPAIRED HOMEOSTASIS per A.D.A. criteria. Performed By: #### L 3200.1400, L100.0500, L3200.1300, L3200.1500, L3200.1600, L500.4050 #### [facility] [address] [place], [address] Potassium [Moles/Vol] 4.1 mmol/L Normal 3.5-5.1 [facility] Comment on above: Performed By: #### L 3200.1400, L100.0500, L3200.1300, L3200.1500, L3200.1600, L500.4050 #### [facility] [address] [place], [address] Sodium [Moles/Vol] 138 mmol/L Normal 136-145 [facility] Comment on above: Performed By: #### L 3200.1400, L100.0500, L3200.1300, L3200.1500, L3200.1600, L500.4050 #### [facility] [address] [place], [address] T PROT 7.8 g/dL Normal 6.4-8.[address] [facility] Comment on above: Performed By: #### L 3200.1400, L100.0500, L3200.1300, L3200.1500, L3200.1600, L500.4050 #### [facility] [address] [place], [address] Urea nitrogen [Mass/Vol] 16 mg/dL Normal 7-[address] [facility] Comment on above: Performed By: #### L 3200.1400, L100.0500, L3200.1300, L3200.1500, L3200.1600, L500.4050 #### [facility] [address] [place], [address] Lipid Profileon 02-19-2024 Cholesterol [Mass/Vol] 218 mg/dL High 200 [facility] Comment on above: Order Comment: Order Date: 09/04/23 Order Info: [id number] - LIPID Result Comment: <200 mg/dL Desirable 200-240 mg/dL Borderline >240 mg/dL High Risk Performed By: #### L 500.4100 #### [facility] [address] [place], [address] Cholesterol in HDL [Mass/Vol] 40 mg/dL Normal [facility] Comment on above: Order Comment: Order Date: 09/04/23 Order Info: [id number] - LIPID Result Comment: The drugs N-Acetylcysteine and Metamizole may falsely depress this assay. Reference Range HDL <40 mg/dL Low HDL Cholesterol HDL >or= 60 mg/dL High HDL Cholesterol Performed By: #### L 500.4100 #### [facility] [address] [place], [address] Cholesterol in LDL [Mass/Vol] 119 mg/dL Normal 0-[address] [facility] Comment on above: Order Comment: Order Date: 09/04/23 Order Info: [id number] - LIPID Performed By: #### L 500.4100 #### [facility] [address] [place], [address] Cholesterol in VLDL [Mass/Vol] 59 mg/dL High 5-[address] [facility] Comment on above: Order Comment: Order Date: 09/04/23 Order Info: [id number] - LIPID Performed By: #### L 500.4100 #### [facility] [address] [place], [address] Triglyceride [Mass/Vol] 293 mg/dL High [facility] Comment on above: Order Comment: Order Date: 09/04/23 Order Info: [id number] - LIPID Result Comment: The drugs N-Acetylcysteine and Metamizole may falsely depress this assay. Serum Triglycerides Reference Interval Normal <150 mg/dL Borderline high 150 - 199 mg/dL High 200 - 499 mg/dL Very High > or = 500 mg/dL Performed By: #### L 500.4100 #### [facility] [address] [place], [address] Protein+Creatinine Ratio,Uri neon 02-19-2024 PROT:CRE RATIO 56 mg/g CRE Normal 0-[address] [facility] Comment on above: Performed By: #### L 501.0900 #### [facility] [address] [place], [address] Protein (U) [Mass/Vol] 10.3 mg/dL Normal <11.9 [facility] Comment on above: Performed By: #### L 501.0900 #### [facility] [address] [place], [address] UR CREAT 184.00 mg/dL Normal NO RANGE EST. [facility] Comment on above: Performed By: #### L 501.0900 #### [facility] [address] [place], [address] Absolute lymphocyte countOrd ered By: Asad Hastings on 04-19-2023 Lymphocytes Auto (Unsp spec) [#/Vol] 1.68 10*3/uL 0.83-4.[address] [facility] Basophil percentageOrdered B y: Asad Hastings on 04-19-2023 Basophils/100 WBC (Bld) 1.6 % 0-1 [facility] Bilirubin [Mass/Vol] 0.90 mg/dL 0.20-1.00 [facility] Comment on above: For patients on eltr ombopag therapy, use of Dimension Aragon TBIL is not recommended. Chloride [Moles/Vol] 111 mmol/L 98-107 [facility] Eosinophils/100 WBC (Bld) 3.2 % 0-[address] [facility] Glucose [Mass/Vol] 115 mg/dL 74-106 [facility] Comment on above: Fasting Glucose resu lt from 100 to 125 mg/dL suggests IMPAIRED HOMEOSTASIS per A.D.A. criteria. Neutrophils (Bld) [#/Vol] 2.6 10*3/uL 2.0-7.[address] [facility] Neutrophils/100 WBC (Bld) 53.2 % 47-[address] [facility] Potassium [Moles/Vol] 4.2 mmol/L 3.5-5.1 [facility] Protein [Mass/Vol] 7.6 g/dL 6.4-8.2 [facility] Sodium [Moles/Vol] 141 mmol/L 136-145 [facility] WBC (Bld) [#/Vol] 5.0 10*3/uL 4.4-11.0 [facility] Blood erythrocytes count (nu mber/volume)Ordered By: Asad Hastings on 04-19-2023 RBC (Bld) [#/Vol] 5.18 10*6/uL 4.6-6.2 [facility] Blood hemoglobin measurement (mass/volume)Ordered By: Asad Hastings on 04-19-2023 Hemoglobin (Bld) [Mass/Vol] 15.5 g/dL 13.0-16.[address] [facility] Blood lymphocytes/100 leukoc ytesOrdered By: Asad Hastings on 04-19-2023 Lymphocytes/100 WBC (Bld) 33.8 % 19-[address] [facility] Blood monocytes/100 leukocyt esOrdered By: Asad Hastings on 04-19-2023 Monocytes/100 WBC (Bld) 7.2 % 0-10 [facility] Blood platelet mean volumeOr dered By: Asad Hastings on 04-19-2023 Platelet mean volume (Bld) [Entitic vol] 10.3 fL 6.2-12.[address] [facility] Determination of erythrocyte mean corpuscular volume (MCV)Ordered By: Asad Hastings on 04-19-2023 MCV (RBC) [Entitic vol] 87.5 fL 80-94 [facility] Hematocrit Auto (Bld) [Volum e fraction]Ordered By: [facility]formerly [facility] Hastings on 04-19-2023 Hematocrit (Bld) [Volume fraction] 45.3 % 40-[address] [facility] - Chemistry and C hemistry - challengeOrdered By: [facility] on 04-19-2023 ALP [Catalytic activity/Vol] 70 U/L 45-[address] [facility] ALT [Catalytic activity/Vol] 39 U/L 16-[address] [facility] CO2 [Moles/Vol] 26.0 mmol/L 21.0-32.[address] [facility] Globulin (S) [Mass/Vol] 3.1 g/dL 2.2-4.2 [facility] Urea nitrogen/Creatinine [Mass ratio] 16.8 mg/mg 10-[address] [facility] - Hematology and Cell countsOrdered By: Asad Hastings on 04-19-2023 Erythrocyte distribution width (RBC) [Entitic vol] 39.2 fL 35.1-43.9 [facility] Erythrocyte distribution width (RBC) [Ratio] 12.3 % 11.6-14.[address] [facility] Immature granulocytes/100 WBC (Bld) 1.000 % 0.0-0.[address] [facility] Comment on above: IG% - Immature Granu locytes (promyelocytes, myelocytes and metamyelocytes) > 1% indicates that a LEFT SHIFT is Present. MCH (RBC) [Entitic mass] 29.9 pg 27.0-32.[address] [facility] Nucleated RBC/100 WBC (Bld) [Ratio] 0 % 0-[address] [facility] MCHC Auto (RBC) [Mass/Vol]Or dered By: Asad Hastings on 04-19-2023 MCHC (RBC) [Mass/Vol] 34.2 g/dL 32-36 [facility] No Panel InformationOrdered By: Asad Hastings on 04-19-2023 Estimated GFR (MDRD) Amer 90 mL/min >[address] [facility] Comment on above: GFR Calc Estimated GFR (MDRD) Non-Af Amer 75 mL/min >[address] [facility] Comment on above: Non- GFR Calc Immunoglobulin E 21 IU/mL 6-[address] [facility] Comment on above: Performed at: [address] [id number] Director: Ben Wray PhD, Phone: [phone] at: [facility] [id number] Director: Wei Rogers MD, Phone: [phone] Platelets bldOrdered By: Frida Hastings on 04-19-2023 Platelets (Bld) [#/Vol] 209 10*3/uL 150-[address] [facility] Serum or plasma IgA measurem ent (mass/volume)Ordered By: Asad Hastings on 04-19-2023 IgA [Mass/Vol] 248 mg/dL 61-[address] [facility] Serum or plasma IgG measurem ent (mass/volume)Ordered By: Asad Hastings on 04-19-2023 IgG [Mass/Vol] 809 mg/dL 603-[address] [facility] Serum or plasma IgM measurem ent (mass/volume)Ordered By: Asad Hastings on 04-19-2023 IgM [Mass/Vol] 32 mg/dL 20-[address] [facility] Serum or plasma albumin segundo urement (mass/volume)Ordered By: Asad Hastings on 04-19-2023 Albumin [Mass/Vol] 4.5 g/dL 3.2-5.0 [facility] Serum or plasma albumin/glob ulin mass ratioOrdered By: Asad Hastings on 04-19-2023 Albumin/Globulin [Mass ratio] 1.5 {ratio} 0.9-2.[address] [facility] Serum or plasma calcium segundo urement (mass/volume)Ordered By: Asad Hastings on 04-19-2023 Calcium [Mass/Vol] 9.1 mg/dL 8.5-10.1 [facility] Serum or plasma creatinine m easurement (mass/volume)Ordered By: Asad Hastings on 04-19-2023 Creatinine [Mass/Vol] 1.07 mg/dL 0.70-1.30 [facility] Comment on above: The validity of the calculated GFR & GFRAA in patients over 70 years has not been determined. Clinical correlation is essential. Serum or plasma urea nitroge n measurement (mass/volume)Ordered By: Asad Hastings on 04-19-2023 Urea nitrogen [Mass/Vol] 18 mg/dL 7-[address] [facility] Thin prep Papanicolaou smear with manual screeningOrdered By: Asad Hastings on 04-19-2023 Thin prep Papanicolaou smear with manual screening 30 U/L 15-37 [facility] [facility] Thin prep Papanicolaou smear with manual screening 4 5-[address] [facility] Color of specimen determinat ionOrdered By: Rodri Moore on 01-09-2023 Color (Unsp spec) [facility] Laboratory - Miscellaneous t estsOrdered By: Rodri Moore on 01-09-2023 Service comment (Unsp spec) [Interp] See comment [facility] Comment on above: Physician questions regarding Calculi Analysis [facility] at: [phone]. Calculi report will follow via computer, mail or courierdelivery. Measurement of weight of sto neOrdered By: Rodri Moore on 01-09-2023 Weight (Stone) [address] [facility] No Panel InformationOrdered By: Rodri Moore on 01-09-2023 Stone Analysis (T) See comment [facility] Comment on above: Percentage (Represen ts the % composition) Stone Calcium Oxalate Monohydrate 10 % [facility] Stone Calcium Phosphate 90 % [facility] Origin of StoneOrdered By: Nathanael Moore on 01-09-2023 Origin Nom (Stone) Not Provided [facility] Size of stoneOrdered By: Momo Moore on 01-09-2023 Size (Stone) [Entitic vol] 9x[address] [facility] Comment on above: Single piece receive d Thin prep Papanicolaou smear with manual screeningOrdered By: Rodri Moore on 01-09-2023 Thin prep Papanicolaou smear with manual screening See comment [facility] Comment on above: Photograph will foll ow under a separate cover Absolute lymphocyte counton 12-26-2021 Lymphocytes Auto (Unsp spec) [#/Vol] 2.23 10*3/uL 0.83-4.[address] [facility] Work Phone: [phone] Basophil percentageon 2021 Basophils/100 WBC (Bld) 1.1 % 0-1 [facility] Work Phone: [phone] Bilirubin [Mass/Vol] 0.80 mg/dL 0.20-1.00 [facility] Work Phone: [phone] Comment on above: For patients on eltr ombopag therapy, use of Dimension Aragon TBIL is not recommended. Chloride [Moles/Vol] 109 mmol/L 98-107 [facility] Work Phone: [phone] Eosinophils/100 WBC (Bld) 3.8 % 0-[address] [facility] Work Phone: [phone] Glucose [Mass/Vol] 93 mg/dL 74-106 [facility] Work Phone: Neutrophils (Bld) [#/Vol] 4.8 10*3/uL 2.0-7.[address] [facility] Work Phone: Neutrophils/100 WBC (Bld) 58.8 % 47-[address] [facility] Work Phone: Potassium [Moles/Vol] 3.9 mmol/L 3.5-5.1 [facility] Work Phone: [phone] Protein [Mass/Vol] 7.2 g/dL 6.4-8.2 [facility]: Sodium [Moles/Vol] 142 mmol/L 136-145 [facility] Work Phone: WBC (Bld) [#/Vol] 8.1 10*3/uL 4.4-11.0 [facility] Work Phone: Blood erythrocytes count (nu mber/volume)on 12-26-2021 RBC (Bld) [#/Vol] 4.78 10*6/uL 4.6-6.2 [facility]: Blood hemoglobin measurement (mass/volume)on 12-26-2021 Hemoglobin (Bld) [Mass/Vol] 14.5 g/dL 13.0-16.[address] [facility] Work Phone: Blood lymphocytes/100 leukoc yteson 12-26-2021 Lymphocytes/100 WBC (Bld) 27.5 % 19-[address] [facility] Work Phone: Blood monocytes/100 leukocyt eson 12-26-2021 Monocytes/100 WBC (Bld) 7.9 % 0-10 [facility] Work Phone: Blood platelet mean volumeon 12-26-2021 Platelet mean volume (Bld) [Entitic vol] 10.5 fL 6.2-12.[address] [facility] Work Phone: [phone] Determination of erythrocyte mean corpuscular volume (MCV)on 12-26-2021 MCV (RBC) [Entitic vol] 87.0 fL 80-94 [facility] Work Phone: Hematocrit Auto (Bld) [Volum e fraction]on 12-26-2021 Hematocrit (Bld) [Volume fraction] 41.6 % 40-[address] [facility] Work Phone: Laboratory - Chemistry and C hemistry - challengeon 12-26-2021 ALP [Catalytic activity/Vol] 72 U/L 45-[address] [facility] Work Phone: [phone] ALT [Catalytic activity/Vol] 45 U/L 16-[address] [facility] Work Phone: [phone] CO2 [Moles/Vol] 29.0 mmol/L 21.0-32.[address] [facility] Work Phone: [phone] Globulin (S) [Mass/Vol] 3.0 g/dL 2.2-4.2 [facility] Work Phone: [phone] Urea nitrogen/Creatinine [Mass ratio] 18.8 mg/mg 10-[address] [facility] Work Phone: [phone] Laboratory - Hematology and Cell countson 12-26-2021 Erythrocyte distribution width (RBC) [Entitic vol] 39.3 fL 35.1-43.9 [facility] Work Phone: [phone] Erythrocyte distribution width (RBC) [Ratio] 12.3 % 11.6-14.[address] [facility] Work Phone: [phone] Immature granulocytes/100 WBC (Bld) 0.900 % 0.0-0.[address] [facility] Work Phone: Comment on above: IG% - Immature Granu locytes (promyelocytes, myelocytes and metamyelocytes) > 1% indicates that a LEFT SHIFT is Present. MCH (RBC) [Entitic mass] 30.3 pg 27.0-32.[address] [facility] Work Phone: [phone] Nucleated RBC/100 WBC (Bld) [Ratio] 0 % 0-[address] [facility] Work Phone: [phone] MCHC Auto (RBC) [Mass/Vol]on 12-26-2021 MCHC (RBC) [Mass/Vol] 34.9 g/dL 32-36 [facility] Work Phone: No Panel Informationon 12-26 Estimated GFR (MDRD) Amer 103 mL/min >[address] [facility] Work Phone: Comment on above: GFR Calc Estimated GFR (MDRD) Non-Af Amer 85 mL/min >[address] [facility] Work Phone: Comment on above: Non- GFR Calc Platelets bldon 12-26-2021 Platelets (Bld) [#/Vol] 202 10*3/uL 150-[address] [facility] Work Phone: Serum or plasma albumin segundo urement (mass/volume)on 12-26-2021 Albumin [Mass/Vol] 4.2 g/dL 3.2-5.0 [facility] Work Phone: Serum or plasma albumin/glob ulin mass ratioon 12-26-2021 Albumin/Globulin [Mass ratio] 1.4 {ratio} 0.9-2.[address] [facility] Work Phone: Serum or plasma calcium segundo urement (mass/volume)on 12-26-2021 Calcium [Mass/Vol] 9.3 mg/dL 8.5-10.1 [facility] Work Phone: Serum or plasma creatinine m easurement (mass/volume)on 12-26-2021 Creatinine [Mass/Vol] 0.96 mg/dL 0.70-1.30 [facility] Work Phone: Comment on above: The validity of the calculated GFR & GFRAA in patients over 70 years has not been determined. Clinical correlation is essential. Serum or plasma urea nitroge n measurement (mass/volume)on 12-26-2021 Urea nitrogen [Mass/Vol] 18 mg/dL 7-[address] [facility] Work Phone: Thin prep Papanicolaou smear with manual screeningon 12-26-2021 Thin prep Papanicolaou smear with manual screening 30 U/L 15-[address] [facility] Work Phone: Thin prep Papanicolaou smear with manual screening 4 5-[address] [facility] Work Phone: [phone] Absolute lymphocyte counton 08-23-2021 Lymphocytes Auto (Unsp spec) [#/Vol] 2.52 10*3/uL 0.83-4.[address] [facility] Work Phone: [phone] Basophil percentageon 2021 Basophils/100 WBC (Bld) 1.3 % 0-1 [facility] Work Phone: [phone] Bilirubin [Mass/Vol] 0.90 mg/dL 0.20-1.00 [facility] Work Phone: Comment on above: For patients on eltr ombopag therapy, use of Dimension Aragon TBIL is not recommended. Chloride [Moles/Vol] 108 mmol/L 98-107 [facility] Work Phone: [phone] Eosinophils/100 WBC (Bld) 5.5 % 0-[address] [facility] Work Phone: Glucose [Mass/Vol] 110 mg/dL 74-106 [facility] Work Phone: [phone] Comment on above: Fasting Glucose resu lt from 100 to 125 mg/dL suggests IMPAIRED HOMEOSTASIS per A.D.A. criteria. Neutrophils (Bld) [#/Vol] 2.7 10*3/uL 2.0-7.[address] [facility] Work Phone: [phone] Neutrophils/100 WBC (Bld) 44.3 % 47-[address] [facility] Work Phone: [phone] Potassium [Moles/Vol] 4.1 mmol/L 3.5-5.1 [facility] Work Phone: [phone] Protein [Mass/Vol] 7.8 g/dL 6.4-8.2 [facility] Work Phone: [phone] Sodium [Moles/Vol] 139 mmol/L 136-145 [facility] Work Phone: [phone] WBC (Bld) [#/Vol] 6.2 10*3/uL 4.4-11.0 [facility] Work Phone: Blood erythrocytes count (nu mber/volume)on 08-23-2021 RBC (Bld) [#/Vol] 5.10 10*6/uL 4.6-6.2 [facility] Work Phone: Blood hemoglobin measurement (mass/volume)on 08-23-2021 Hemoglobin (Bld) [Mass/Vol] 15.4 g/dL 13.0-16.[address] [facility] Work Phone: Blood lymphocytes/100 leukoc yteson 08-23-2021 Lymphocytes/100 WBC (Bld) 41.0 % 19-[address] [facility] Work Phone: Blood monocytes/100 leukocyt eson 08-23-2021 Monocytes/100 WBC (Bld) 7.2 % 0-10 [facility] Work Phone: Blood platelet mean volumeon 08-23-2021 Platelet mean volume (Bld) [Entitic vol] 10.2 fL 6.2-12.[address] [facility] Work Phone: Determination of erythrocyte mean corpuscular volume (MCV)on 08-23-2021 MCV (RBC) [Entitic vol] 85.7 fL 80-94 [facility] Work Phone: Hematocrit Auto (Bld) [Volum e fraction]on 08-23-2021 Hematocrit (Bld) [Volume fraction] 43.7 % 40-[address] [facility] Work Phone: Laboratory - Chemistry and C hemistry - challengeon 08-23-2021 ALP [Catalytic activity/Vol] 77 U/L 45-[address] [facility] Work Phone: ALT [Catalytic activity/Vol] 43 U/L 16-[address] [facility] Work Phone: CO2 [Moles/Vol] 24.0 mmol/L 21.0-32.[address] [facility] Work Phone: Globulin (S) [Mass/Vol] 3.4 g/dL 2.2-4.2 [facility] Work Phone: Urea nitrogen/Creatinine [Mass ratio] 16.6 mg/mg 10-[address] [facility] Work Phone: Laboratory - Hematology and Cell countson 08-23-2021 Erythrocyte distribution width (RBC) [Entitic vol] 38.8 fL 35.1-43.9 [facility] Work Phone: Erythrocyte distribution width (RBC) [Ratio] 12.5 % 11.6-14.[address] [facility] Work Phone: Immature granulocytes/100 WBC (Bld) 0.700 % 0.0-0.[address] [facility] Work Phone: Comment on above: IG% - Immature Granu locytes (promyelocytes, myelocytes and metamyelocytes) > 1% indicates that a LEFT SHIFT is Present. MCH (RBC) [Entitic mass] 30.2 pg 27.0-32.[address] [facility] Work Phone: Nucleated RBC/100 WBC (Bld) [Ratio] 0 % 0-[address] [facility] Work Phone: MCHC Auto (RBC) [Mass/Vol]on 08-23-2021 MCHC (RBC) [Mass/Vol] 35.2 g/dL 32-36 [facility] Work Phone: No Panel Informationon 08-23 Estimated GFR (MDRD) Amer 103 mL/min >[address] [facility] Work Phone: Comment on above: GFR Calc Estimated GFR (MDRD) Non-Af Amer 85 mL/min >[address] [facility] Work Phone: Comment on above: Non- GFR Calc Platelets bldon 08-23-2021 Platelets (Bld) [#/Vol] 215 10*3/uL 150-[address] [facility] Work Phone: Serum or plasma IgA measurem ent (mass/volume)on 08-23-2021 IgA [Mass/Vol] 273 mg/dL [facility] Work Phone: Serum or plasma IgG measurem ent (mass/volume)on 08-23-2021 IgG [Mass/Vol] 906 mg/dL [facility] Work Phone: Serum or plasma IgM measurem ent (mass/volume)on 08-23-2021 IgM [Mass/Vol] 34 mg/dL [facility] Work Phone: Comment on above: Performed at: [address] [id number] Director: Ben Wray PhD, Phone: [phone] Serum or plasma albumin segundo urement (mass/volume)on 08-23-2021 Albumin [Mass/Vol] 4.4 g/dL 3.2-5.0 [facility] Work Phone: Serum or plasma albumin/glob ulin mass ratioon 08-23-2021 Albumin/Globulin [Mass ratio] 1.3 {ratio} 0.9-2.[address] [facility] Work Phone: Serum or plasma calcium segundo urement (mass/volume)on 08-23-2021 Calcium [Mass/Vol] 9.4 mg/dL 8.5-10.1 [facility] Work Phone: Serum or plasma creatinine m easurement (mass/volume)on 08-23-2021 Creatinine [Mass/Vol] 0.96 mg/dL 0.70-1.30 [facility] Work Phone: Comment on above: The validity of the calculated GFR & GFRAA in patients over 70 years has not been determined. Clinical correlation is essential. Serum or plasma urea nitroge n measurement (mass/volume)on 08-23-2021 Urea nitrogen [Mass/Vol] 16 mg/dL 7-[address] [facility] Work Phone: Thin prep Papanicolaou smear with manual screeningon 08-23-2021 Thin prep Papanicolaou smear with manual screening 21 U/L 15-[address] [facility] Work Phone: Thin prep Papanicolaou smear with manual screening 7 5-[address] [facility] Work Phone: Vital Signs Date Time Vital Sign Value Performing Clinician Homar varela 10-26-2024 19:18-0400 Body temperature 97.5 [degF] Mihir Kodyorrow [employer] Work Phone: [facility] 10-26-2024 19:18-0400 Diastolic blood pressure 78 mm[Hg] [facility] [employer] Work Phone: [facility] 10-26-2024 19:18-0400 Heart rate 58 /min [facility] [employer] Work Phone: [facility] 10-26-2024 19:18-0400 Respiratory rate 18 /min Mihir [facility] [employer] Work Phone: [facility] 10-26-2024 19:18-0400 SaO2% (BldA) [Mass fraction] 93 % Mihir [facility] [employer] Work Phone: [facility] 10-26-2024 19:18-0400 Systolic blood pressure 148 mm[Hg] Mihir [facility] [employer] Work Phone: [facility] 10-26-2024 18:22-0400 Body height 185.42 cm [facility] [employer] Work Phone: [facility] 10-26-2024 18:22-0400 Body mass index (BMI) [Ratio] 26.2 kg/m2 [facility] [employer] Work Phone: [facility] 10-26-2024 18:22-0400 Body weight 89.94 kg Mihir [facility] [employer] Work Phone: [facility] Encounters Encounter Date Encounter Type Care Provider Facility Start: 12-30-2024 End: 12-30-2024 [facility] FILIBERTO RUIZ Facility:[facility] Start: 10-26-2024 End: 10-26-2024 Emergency department patient visit Mihir Twonq [employer] Work Phone: -Emergency Department Work Phone: Start: 10-06-2024 End: 10-06-2024 ambulatory Mihir Bib [employer] Work Phone: [facility] Work Phone: Start: 10-06-2024 End: 10-06-2024 Patient encounter procedure FILIBERTO RUIZ [employer] -Laboratory [facility] Start: 10-06-2024 End: 10-06-2024 ambulatory FILIBERTO EVANSK Facility:[facility] Start: 09-05-2024 End: 09-05-2024 ambulatory Mihir Sonali [employer] Work Phone: [facility] Work Phone: Start: 09-05-2024 End: 09-05-2024 Patient encounter procedure Mihir Lyon [employer] -Laboratory, [facility] Start: 09-05-2024 End: 09-05-2024 ambulatory Mihir Sonali [employer] Facility:[facility] Start: 03-03-2024 End: 03-03-2024 [facility] Start: 02-19-2024 End: 02-19-[facility] Start: 04-19-2023 End: 04-19-[address] [facility] Work Phone: Start: 04-19-2023 End: 04-19-2023 [facility] Start: 01-09-2023 End: 01-09-[address] [facility] Work Phone: Start: 01-09-2023 End: 01-09-2023 Patient encounter procedure [facility]-Laboratory Work Phone: Start: 12-25-2022 End: 12-25-[address] [facility] Work Phone: Start: 12-25-2022 End: 12-25-2022 Patient encounter procedure [facility]-Cat Scan, [facility] Work Phone: Start: 12-26-2021 End: 12-26-[address] [facility] Work Phone: Start: 12-26-2021 End: 12-26-2021 Patient encounter procedure [facility]-Laboratory, [facility] Start: 08-23-2021 End: 08-23-2021 Patient encounter procedure [facility]-Laboratory, [facility] Procedures Date Procedure Procedure Detail Performing Clinician Start: 09-05-2024 Prostate specific an tigen measurement Mihir Kodyorrow [employer] Work Phone: Comment on above: This test [...] Date Care Activity Detail Author Start: 10-26-[address] [facility] Start: 12-26-2021 Serum immunofixation [facility] Work Phone: Calculus analysis [facility] IgA [Mass/volume] in Serum or Plasma [facility] Work Phone: IgD [Mass/volume] in Serum [facility] Work Phone: IgG [Mass/volume] in Serum or Plasma [facility] Work Phone: IgM [Mass/volume] in Serum or Plasma [facility] Work Phone: Measurement of weigh t of calculus [facility] Origin of Stone [facility] Patient Education ED Laceration Extremity [facility] Work Phone: Specimen color determination [facility] Payers Date Payer Category Payer Self-pay [id number] 2024 Unknown [id number] Self-pay [id number] Unknown [id number] Unknown [id number] [id number] [id number] Unknown [id number] [id number] [id number] Unknown [id number] 2.16.8 [id number] Unknown [id number] 2.16.8 [id number] Unknown [id number] 2.16.8 [id number] Unknown [id number] 2.16.8 [id number] Social History Date Type Detail Facility Start: 02-02-2018 End: 02-02-2018 Tobacco smoking status NHIS Unknown if ever smoked [facility] Start: 09-22-2020 Occasional [facility] Start: 09-22-2020 Non-smoker [facility] Start: 1960 Sex Assigned At Male [facility] Start: 02-02-2018 End: 10-26-2024 Tobacco smoking status NHIS Never smoked tobacco (finding) [facility] Evaluation note Note Date & Type Note Facility Evaluation note No assessment information availa ble [facility] Work Phone: Hospital Discharge instructions Note Date & Type Note Facility Hospital Discharge instructions Additional Instructions Clean with soap and water and pat dry. Stitches need removed in 7 days. Please be seen immediately if you develop signs of infection like significant redness, swelling, pus, increased pain or fever. [facility] Work Phone: Reason for referral (narrative) Note Date & Type Note Facility Reason for referral (narrative) No reason for referral information available [facility] Work Phone: Advance Directives No Advanced Directives Records Found Advance Directive Response Recorded Date/ Time Living Will No February 02 8 7:45am Power of Rug Inspector Helper No February 02 7:45am Advance Directive Response Recorded Date/ Time Living Will No February 02 6:45am Power of Rug Inspector Helper No February 02 6:45am Advance Directive Response Recorded Date/ Time Do you have a Healthcare Power of Rug Inspector Helper? Yes October 26, 2024 6:43pm Chief Complaint [...] Rajput MD Family Provider Active Mihir Lyon [employer] Primary Care Provider Active Team Status: Inactive Member Role Status Dates Mihir Lyon [employer], [employer] Primary Care Provider Active Start: September 05, 2024 End: September 05, 2024 Mihir Lyon [employer] Attending Provider Active Start: September 05, 2024 End: September 05, 2024 Mihir Lyon [employer], [employer] Referring Provider Active Start: September 05, 2024 End: September 05, 2024 Team Status: Inactive Member Role Status Dates Mihir Lyon [employer], [employer] Primary Care Provider Active Start: October 06, 2024 End: October 06, 2024 FILIBERTO RUIZ [employer] Attending Provider Active Sta rt: October 06, 2024 End: October 06, 2024 Team Status: Active Member Role/Relationship Status Dates Mihir Lyon [employer], [employer] Primary Care Provider Active Team Status: Inactive Member Role/Relationship Status Dates Mihir Lyon [employer], [employer] Primary Care Provider Active Start: September 05, 2024 End: September 05, 2024 Mihir Lyon [employer], [employer] Attending Provider Active Start: September 05, 2024 End: September 05, 2024 Mihir Lyon [employer], [employer] Referring Provider Active Start: September 05, 2024 End: September 05, 2024 Team Status: Inactive Member Role/Relationship Status Dates Mihir Lyon [employer], [employer] Primary Care Provider Active Start: October 06, 2024 End: October 06, 2024 FILIBERTO RUIZ [employer] Attending Provider Active Sta rt: October 06, 2024 End: October 06, 2024 Team Status: Inactive Member Role/Relationship Status Dates Mihir Lyon [employer], [employer] Primary Care Provider Active Start: October 26, 2024 End: October 26, 2024 Dr. Leonides Dominguez , DO Emergency Provider Active Start: October 26, 2024 End: October 26, 2024 (unrecognized sect ion and content) No Status Records Found INFORMATION SOURCE (unrecogn ized section and content) DATE CREATED AUTHOR 01/17/2025 [facility] FOR RECORDS PERTAINING TO PATIENTS WHO [...] BE BASED ON THE PRIMARY CLINICAL RECORDS. [employer] provides no warranty or guarantee of the accuracy or completeness of information in this document.
--- NOTE | 2025-01-17 20:49 | ED.RN ---
VERBAL ORDER FROM DR. BROWNING TO CANCEL [facility]
[2025-01-17 20:56] LABS: Troponin T High Sens 2 HR 9 ng/L (<=22)
--- NOTE | 2025-01-17 21:29 | EX.ED.DYSGE1 ---
HPI History of Present Illness Chief Complaint: General Illness Detail of Chief Complaint: Trouble speaking for 1 hour Informant: patient Onset/Context/Timing Onset: Today and Hours Context: Sudden Onset Timing: Intermittent Quality: Lasted for 1 hour Location: Trouble with speech Current Severity: Mild Maximum Severity: Severe Worsened by: Swallowing liquids, no drooling Relieved by: Nothing Associated Symptoms Associated Symptoms: Initial obstruction resolved with emesis Narrative Narrative: Patient had slurred speech and slow speech for 1 hour. Patient has no history of TIA or CVA. He does have a history of hypertension. He states he is compliant with his medication. He also has esophageal reflux. Denies headache, visual, ocular auditory symptoms. He denied trouble getting speaking his thoughts or understanding what was said to him. This occurred when he was out having dinner. This was witnessed by his . He denies chest pain, shortness of breath or difficulty breathing. Denies nausea or vomiting. Prior similar symptoms: No Recent Illness/Hospitalization: No [facility] Medical History (Updated 01/17/25 @ 23:13 by Ramona Valerio) Kidney stones BPH (benign prostatic hyperplasia) Former tobacco use Obesity CKD (chronic kidney disease), stage II Hyperlipemia HTN (hypertension) Multiple sclerosis Esophageal reflux Home Medications ?Medication ?Instructions ?Recorded ?Last Taken ?Type citalopram 10 mg tablet 10 mg PO DAILY 02/02/18 Unknown History metformin 500 mg 24 hr 500 mg PO BID 02/02/18 Unknown History tablet,extended release (gastric retention) cholecalciferol (vitamin D3) 50 4,000 unit PO DAILY 01/17/25 Unknown History mcg (2,000 unit) capsule (Vitamin D3) green tea extract 375 mg capsule mg PO DAILY supplement 01/17/25 Unknown History losartan 100 1 tab PO DAILY 01/17/25 Unknown History mg-hydrochlorothiazide 12.5 mg tablet ocrelizumab 30 mg/mL intravenous mg IV PRN MS 01/17/25 Unknown History solution (Ocrevus) omega 9-lmg-okl-fish oil 900 cap PO DAILY supplemen 01/17/25 Unknown History mg-1,400 mg capsule,delayed release (Fish Oil) vitamin B complex (Complex B-100 1 tab PO DAILY 01/17/25 Unknown History tablet,extended release) zinc 50 mg capsule 50 mg PO DAILY 01/17/25 Unknown History Allergy/AdvReac Type Severity Reaction Status Date / Time Penicillins Allergy Rash Verified 01/17/25 17:59 Family History Mother Thyroid disorder Hypertension Father Thyroid disorder Surgical History History of surgery on lower extremity S/P urethral surgery Social History household members: none housing: house Smoking Status: Former smoker how long ago did patient quit smoking: Quit ~ 11 yrs prior, smoked 1/2 ppd until quit. alcohol intake: current alcohol intake frequency: holidays/special occasions only substance use type: does not use ROS ROS ED Constitutional Constitutional ED: Denies chills, fever(s), subjective or sweats Eyes Eyes: Denies blurry vision, change in vision or diplopia ENT ENT ED: Denies ear pain, rhinorrhea or sore throat Cardiovascular Cardiovascular: Denies chest pain, palpitations or racing heartbeat Respiratory/Chest Respiratory/Chest: Denies cough, dyspnea or dyspnea on exertion Gastrointestinal Gastrointestinal: Denies abdominal pain, nausea or vomiting Genitourinary Genitourinary ED: Denies dysuria, hematuria or urinary frequency Musculoskeletal Musculoskeletal: Denies arthralgias or myalgias Integumentary Denies rash Neurologic Neurologic: Denies headache(s), paresthesias or weakness Psychiatric Psychiatric: Denies anxiety or depression Endocrine Endocrinology: Denies cold intolerance or heat intolerance Hematologic/Lymphatic Hematologic/Lymphatic: Reports systems reviewed and no addt'l complaints, except as documented EXAM Physical Exam Const Vital Signs: 01/17/25 17:57 01/17/25 18:00 01/17/25 18:48 Temperature 98 F Temperature Source Oral Pulse Rate 66 76 Respiratory Rate 16 19 H Respiratory Effort Normal Non-Labored Respiratory Pattern Normal Blood Pressure 179/87 H 168/80 H Blood Pressure Mean 117 109 Pulse Ox 98 98 Oxygen Delivery Method Room Air 01/17/25 19:18 01/17/25 19:30 01/17/25 20:00 Temperature Temperature Source Pulse Rate 80 77 88 Respiratory Rate 16 16 Respiratory Effort Respiratory Pattern Blood Pressure 159/82 H 152/80 H 156/70 H Blood Pressure Mean 107 104 98 Pulse Ox 98 98 100 Oxygen Delivery Method 01/17/25 21:00 01/17/25 22:10 01/17/25 22:10 Temperature 98.6 F Temperature Source Pulse Rate 90 90 Respiratory Rate 16 Respiratory Effort Respiratory Pattern Blood Pressure 156/79 H 156/79 H Blood Pressure Mean 104 104 Pulse Ox 100 100 100 Oxygen Delivery Method Room Air Positive well nourished and well developed Constitutional Narrative: BMI is 31.6. Blood pressure is elevated. Slightly higher than normal for him. General Appearance ED: well developed and NAD; Negative for pallor HEENT Reports moist mucous membranes HEENT Narrative: Head is atraumatic normocephalic. Ears normal. Posterior pharynx normal. Uvula midline. No deviation tongue or protrusion. Eyes PERRL and EOMs intact bilaterally General Eye ED: Negative for pale conjunctiva or scleral icterus Neck no lymphadenopathy, supple and no JVD Chest Wall inspection of chest normal and palpation of chest normal Resp normal respiratory effort and clear to auscultation bilaterally Cardio regular rate, regular rhythm, S1 normal heart sound, S2 normal heart sound and no murmurs GI normal to inspection, nondistended, normoactive bowel sounds, non-tender, non-distended and no masses; Negative for hepatosplenomegaly Auscultation: normoactive bowel sounds Palpation: soft Back/Spine no CVA tenderness Extremity normal to inspection General Extremety ED: Negative for edema or tenderness General Extremity: Negative for edema Neuro oriented x3, CN's II-XII intact bilaterally and no sensory deficits noted Neuro Narrative: There is no dysmetria. His NIH is 0. Sensorium / Orientation: alert Motor Exam: strength 5/5 throughout Skin no rashes or lesions noted and skin turgor normal General Skin Exam: elasticity normal; Negative for jaundice or pallor MDM MDM MDM Narrative Medical decision making narrative: With dysarthria that lasted 1 hour elevated blood pressure stroke order set was initiated. Differential diagnosis is TIA, stroke, intracranial bleed, tumor. History & Record Review Additional record(s) reviewed:: Prior ED visit (He was seen September 2024 for laceration of his left thumb. He was seen January 2018 for nonspecific abdominal pain.) Lab Data Attestation: I reviewed the patient's lab results. Lab results narrative: CBC is normal. BMP is unremarkable. Troponin is normal. Blood sugar slight elevated 145. CO2 anion gap are normal. Labs: Laboratory Results - last 24 hr 01/17/25 01/17/25 18:00 20:22 WBC 7.8 RBC 4.61 Hgb 14.6 Hct 40.6 MCV 88.1 MCH 31.7 MCHC 36.0 RDW Std Deviation 38.7 RDW Coeff of Alexandro 12.0 Plt Count 226 MPV 9.8 Immature Gran % (Auto) 0.800 Neut % (Auto) 65.1 Lymph % (Auto) 23.3 [place] % (Auto) 7.7 Eos % (Auto) 2.1 Baso % (Auto) 1.0 Absolute Neuts (auto) 5.1 Absolute Lymphs (auto) 1.82 Nucleated RBC % 0 PT 13.6 INR 1.0 APTT 22.8 L Sodium 137 Potassium 4.2 Chloride 98 Carbon Dioxide 25.9 Anion Gap 13 BUN 20 H Creatinine 1.06 Estim Creat Clear Calc 93.39 Est GFR (MDRD) Non-Af 79 BUN/Creatinine Ratio 18.5 Glucose 145 H Calcium 9.3 Magnesium 2.1 Troponin T High Sens 9 Troponin T Hi Sens 2 Hr 9 Radiography Diagnostic Testing: Clinical Impression(s) from Imaging Studies Brain CT 01/17/25 18:18 IMPRESSION: 1. No evidence of acute intracranial pathology. 2. Widely patent intracranial and cervical arterial vasculature. 3. Small patchy foci of hypoattenuation in the supratentorial periventricular white matter, related to known history of multiple sclerosis, better seen on prior MRI. Reading Location: [facility] Head/Neck CTA 01/17/25 18:19 IMPRESSION: 1. No evidence of acute intracranial pathology. 2. Widely patent intracranial and cervical arterial vasculature. 3. Small patchy foci of hypoattenuation in the supratentorial periventricular white matter, related to known history of multiple sclerosis, better seen on prior MRI. Reading Location: [facility] EKG Initial EKG: Attestation: I personally reviewed and interpreted this EKG as follows: Interpretation: Sinus Rhythm (Rate is 60. Parable is 186 ms. Cures duration is slightly prolonged at 124 ms. QT is 410 ms. [place] is normal. There is no acute ischemic changes.) Management Discussion w/another healthcare provider: Hospitalist (Spoke with Dr. Pond. Plan is PCU for stroke workup) Treatment and Re-Evaluation :: Stakeholder Manager was asked to contact hospitalist for TIA/stroke workup. Discharge Plan Dx/Rx/DC Orders Clinical Impression: Dysarthria, Hypertension, Nondiabetic hyperglycemia Disposition Disposition: Acute Care Hospital [facility] Discharge Date/Time: 01/17/25 22:39
--- NOTE | 2025-01-17 22:16 | PCM.HP.STD ---
HPI - General General Date of Admission: 01/17/25 Date of Service: 01/17/25 Chief Complaint: Slurred/slowed speech. HPI Narrative The patient is a 64 y/o M w/ PMHx: Former tobacco use, CKD stage II, Obesity, HTN, HLD, Multiple sclerosis who presents to the [facility] ED on 01/17/2025 with history of difficulty speaking lasting approximately 1 hour noted to be intermittent but sudden onset on day of presentation worsened by any oral intake attempts specifically liquids reporting that normally was the speech altered but it was slowed and slurred but did report that he was able to get his thoughts out and he was understanding what was said to him which occurred while he was having dinner with his friend. Workup in the ED included T98, heart rate 66, BP 179/87, respiratory rate 16, 98% on room air with most recent repeat vitals heart rate 90, BP 156/79, respiratory rate 16, 100% on room air, CBC with WC 7.8, Hgb 14.6, platelet 226 without marked shift, unremarkable coags besides PT 22.8, BMP with BUN/creatinine 20/1.06, GFR 79, glucose 145, troponin initial 9 with repeat delta 9, CT of the brain with no acute and cranial findings with a small patchy foci of hypoattenuation in the supratentorial periventricular white matter related to known history of multiple sclerosis that are seen on prior MRI, CTA of the head and neck with widely patent intracranial and cervical arterial vasculature, EKG with sinus rhythm with QT 410 with no acute evidence of ischemia. [facility] Medical History BPH (benign prostatic hyperplasia) Former tobacco use Obesity Esophageal reflux CKD (chronic kidney disease), stage II Hyperlipemia HTN (hypertension) Multiple sclerosis Home Medications ?Medication ?Instructions ?Recorded ?Last Taken ?Type citalopram 10 mg tablet 10 mg PO DAILY 02/02/18 Unknown History glatiramer 40 mg/mL subcutaneous 40 mg subcut QWEEK 02/02/18 Unknown History syringe (Copaxone) hydrochlorothiazide 25 mg tablet 25 mg PO DAILY 02/02/18 Unknown History metformin 500 mg 24 hr 500 mg PO BID 02/02/18 Unknown History tablet,extended release (gastric retention) naproxen 500 mg tablet 500 mg PO BID #14 tabs 02/02/18 Unknown Rx tamsulosin 0.4 mg capsule 0.4 mg PO DAILY #7 caps 02/02/18 Unknown Rx Allergy/AdvReac Type Severity Reaction Status Date / Time Penicillins Allergy Rash Verified 01/17/25 17:59 Family History Mother Thyroid disorder Hypertension Father Thyroid disorder Surgical History History of surgery on lower extremity S/P urethral surgery Social History household members: none housing: house Smoking Status: Former smoker how long ago did patient quit smoking: Quit ~ 11 yrs prior, smoked 1/2 ppd until quit. alcohol intake: current alcohol intake frequency: holidays/special occasions only substance use type: does not use ROS ROS Narrative Admission Review of Systems: CONSTITUTIONAL: No weight loss, fever, chills, + weakness or fatigue. HEENT: Eyes: No visual loss, blurred vision, double vision or yellow sclerae. Ears, Nose, Throat: No hearing loss, sneezing, congestion, runny nose or sore throat. SKIN: No rash or itching, lesions, wounds. CARDIOVASCULAR: No chest pain, chest pressure or chest discomfort, palpitations, edema, orthopnea, syncopal events. RESPIRATORY: No shortness of breath, cough or sputum, wheezing, hemoptysis. GASTROINTESTINAL: No anorexia, nausea, vomiting or diarrhea, abdominal pain, melena, BRBPR. GENITOURINARY: + History of BPH with obstructive pathology/frequency. No dysuria, urgency, retention. NEUROLOGICAL: + Transiently slurred/slowed speech. No headache, dizziness, syncope, paralysis, ataxia, numbness or tingling in the extremities, focal weakness, change in bowel or bladder control, seizure. MUSCULOSKELETAL: + muscle, back pain, joint pain or stiffness. HEMATOLOGIC: No anemia, bleeding or bruising. LYMPHATICS: No enlarged nodes. No history of splenectomy. PSYCHIATRIC: + History of anxiety and depression. ENDOCRINOLOGIC: No reports of sweating, cold or heat intolerance. No polyuria or polydipsia. ALLERGIES: No history of asthma, hives, eczema or rhinitis. Vital Signs Vital Signs Vital Signs: 01/17/25 17:57 01/17/25 18:00 01/17/25 18:48 Temperature 98 F Temperature Source Oral Pulse Rate 66 76 Respiratory Rate 16 19 H Respiratory Effort Normal Non-Labored Respiratory Pattern Normal Blood Pressure 179/87 H 168/80 H Blood Pressure Mean 117 109 Pulse Ox 98 98 Oxygen Delivery Method Room Air 01/17/25 19:18 01/17/25 19:30 01/17/25 20:00 Temperature Temperature Source Pulse Rate 80 77 88 Respiratory Rate 16 16 Respiratory Effort Respiratory Pattern Blood Pressure 159/82 H 152/80 H 156/70 H Blood Pressure Mean 107 104 98 Pulse Ox 98 98 100 Oxygen Delivery Method 01/17/25 21:00 01/17/25 22:10 01/17/25 22:10 Temperature 98.6 F Temperature Source Pulse Rate 90 90 Respiratory Rate 16 Respiratory Effort Respiratory Pattern Blood Pressure 156/79 H 156/79 H Blood Pressure Mean 104 104 Pulse Ox 100 100 100 Oxygen Delivery Method Room Air Weight Weight: 239 lb 6.752 oz Body Mass Index (BMI) 31.6 Physical Exam Narrative Physical Examination: General: Awake, alert, oriented x 3 and cooperative, seated upright in the ED bed in no apparent distress. Skin: Normal color, normal turgor, no icterus, no cyanosis. HEENT: AT/NC, EOMI, PERRLA, MMM, no carotid bruits or JVD noted. Lungs: CTA bilaterally, moderate effort, mild decrease BL bases, no rales, ronchi or wheezing. Heart: Regular rate and rhythm; no gallop, rub audible. Abdomen: Soft, obese, NTTP, ND, mildly hyperactive BS, no HSM. Extremities: No cyanosis, clubbing, or edema. Neurological: Patient awake, alert, oriented as noted, cognitive function intact; pupils equally reactive to light and accommodation, cranial nerves grossly normal, moving all 4 extremities, no focal deficits, strength preserved, speech appropriate, sensation intact, finger-nose and heel luong appropriate, equivocal Babinski. Psychiatric: Affect appears normal, talkative, no acute evidence of depressive or anxiety feelings but does have underlying history. Results Lab / Micro Data 01/17/25 18:00 01/17/25 18:00 Labs: Laboratory Results - last 24 hr 01/17/25 18:00: WBC 7.8, RBC 4.61, Hgb 14.6, Hct 40.6, MCV 88.1, MCH 31.7, MCHC 36.0, RDW Std Deviation 38.7, RDW Coeff of Alexandro 12.0, Plt Count 226, MPV 9.8, Immature Gran % (Auto) 0.800, Neut % (Auto) 65.1, Lymph % (Auto) 23.3, [place] % (Auto) 7.7, Eos % (Auto) 2.1, Baso % (Auto) 1.0, Absolute Neuts (auto) 5.1, Absolute Lymphs (auto) 1.82, Nucleated RBC % 0, PT 13.6, INR 1.0, APTT 22.8 L, Sodium 137, Potassium 4.2, Chloride 98, Carbon Dioxide 25.9, Anion Gap 13, BUN 20 H, Creatinine 1.06, Estim Creat Clear Calc 93.39, Est GFR (MDRD) Non-Af 79, BUN/Creatinine Ratio 18.5, Glucose 145 H, Calcium 9.3, Troponin T High Sens 9 01/17/25 20:22: Troponin T Hi Sens 2 Hr 9 Imaging Radiology Impression Brain CT 01/17/25 18:18 IMPRESSION: 1. No evidence of acute intracranial pathology. 2. Widely patent intracranial and cervical arterial vasculature. 3. Small patchy foci of hypoattenuation in the supratentorial periventricular white matter, related to known history of multiple sclerosis, better seen on prior MRI. Reading Location: [facility] Head/Neck CTA 01/17/25 18:19 IMPRESSION: 1. No evidence of acute intracranial pathology. 2. Widely patent intracranial and cervical arterial vasculature. 3. Small patchy foci of hypoattenuation in the supratentorial periventricular white matter, related to known history of multiple sclerosis, better seen on prior MRI. Reading Location: [facility] Assessment & Plan Assessment/Plan (1) TIA (transient ischemic attack): PLAN: Plan The patient is a 64 y/o M w/ PMHx: Former tobacco use, CKD stage II, Obesity, HTN, HLD, Multiple sclerosis who presents to the [facility] ED on 01/17/2025 with history of difficulty speaking lasting approximately 1 hour noted to be intermittent but sudden onset on day of presentation worsened by any oral intake attempts specifically liquids reporting that normally was the speech altered but it was slowed and slurred but did report that he was able to get his thoughts out and he was understanding what was said to him which occurred while he was having dinner with his friend. #1. Slurred speech/slurred speech of unclear etiology, transient, concerning for CVA/TIA complicated by underlying MS history: Will admit to PCU, will obtain MRI Brain with and without contrast given MS history, will obtain ECHO, PT/OT/Speech/Nutrition evaluation per protocol. Will allow permissive HTN, maintain on aspirin, maintain on fall and aspiration precautions. Mag, TSH, FLP, HgbA1c requested. Will maintain neurology consultation. #2. Chronic Kidney Disease Stage II per GFR trending: Admission BUN/Cr 20/1.06, GFR 79, baseline renal function 0.9-1.1, repeat BMP in AM. #3. Multiple sclerosis: Patient on injection Copaxone regimen, maintain on fall and aspiration precautions, PT/OT/ST/case management consulted for discharge planning as noted above. Also attempted to clarify steroid regimen which patient notes that he takes as needed metformin for hypoglycemia associated. He reports that his last A1c was 5.4% just 2 months previous to current presentation and is never been a diabetic. #4. Hypertension: Will maintain permissive hypertension given presentation as noted with as needed agents per stroke protocol. #5. Hyperlipidemia: Noted history, regimen not listed but clarified to be certain, FLP in AM. #6. Anxiety and depression: Will continue patient home citalopram regimen. #7. BPH with obstructive pathology: Will continue patient on Flomax regimen, monitor for retention. #8. Obesity: Weight loss and lifestyle changes encouraged. #9. Former tobacco use: Encouraged continued tobacco cessation. #10. DVT prophylaxis: Lovenox. #11. CODE status: Full Code. Charges/Coding Visit Charges Inpatient E&M: 69416 Init Hosp L2
--- OUTSIDE RECORDS SUMMARY | 2025-01-17 22:40 | XMS RPT_ITS | CCD ---
Author Organization [facility] Care Team Providers Care Credit Control Assistant Name Role Phone McMorrow SALES STOCK ASSOCIATE-C, Mihir Primary Care Provider Mc[place]orrow SALES STOCK ASSOCIATE-C, Mihir Attending Provider Mc[place]orrow SALES STOCK ASSOCIATE-C, Mihir Referring Provider JUNK SALES STOCK ASSOCIATE-C, FILIBERTO Attending Provider Dr. Leonides Dominguez DO Emergency Provider [phone] FILIBERTO RUIZ Attending Unavailable Jayla Rajput Primary Care Unavailable Mc[place]orrow SALES STOCK ASSOCIATE, Mihir Primary Care Unavailable McMorrow SALES STOCK ASSOCIATE, Mihir Attending Unavailable McMorrow SALES STOCK ASSOCIATE, Mihir Referring Unavailable JUNK, FILIBERTO Attending Unavailable McMorrow SALES STOCK ASSOCIATE, Mihir Primary Care Unavailable JUNK, FILIBERTO Attending Unavailable NATHANK, FILIBERTO Referring Unavailable McMorrow SALES STOCK ASSOCIATE, Mihir Primary Care Unavailable Leonides Dominguez Attending Unavailable McMorrow SALES STOCK ASSOCIATE, Mihir Primary Care Unavailable JUNK, FILIBERTO Attending Unavailable JUNK, FILIBERTO Referring Unavailable Jayla Rajput Primary Care Unavailable Allergies Allergy Classification Reported Allergen(s) Allergy Type Date of Onset Reaction(s) Facility (9 sources) Penicillins; Translations: [Penicillins] Allergy to substance 02-02-2018 [facility] Medications Current Medications Medication Drug Class(es) [...] te Episodic/Chronic Other aftercare (1 source) Other jail (current) drug therapy; Translations: [Other jail (current) drug therapy] Onset: 03-24-2024 Episodic Other screening for suspected conditions (not mental disorders or infectious disease) (1 source) Encounter for screening for malignant neoplasm of prostate; Translations: [Encounter for screening for malignant neoplasm of prostate] Onset: 09-10-2024 Episodic Results Test Name Value Interpretation Reference Range Facility Brain W/WO Contraston 2024 Brain W/WO Contrast [facility] Imaging Services [address] [place], [place] [address] Brain W/WO Contrast MR#: [id number] Acct: [id number] Name: ART WRIGHT Rep #: [id number] : 1960 M 64 From: Titi Amezcua MD PCP: Mihir Lyon NP SALES STOCK ASSOCIATE-C Status: REG CLI Study: Brain W/WO Contrast Date of Exam: 12/30/24 Exam# [id number] Ordering Dr: FILIBERTO RUIZ SALES STOCK ASSOCIATE-C PROCEDURE: BRAIN W/WO CONTRAST 12/30/2024 REASON FOR [...] 3. Other findings as noted. Reading Location: [id number] CC: Mihir NAM NP-Laina Lyon; FILIBERTO RUIZ Portfolio Architect: Signed Normal [facility] Spine Cervical W/WO Contrast on 12-30-2024 Spine Cervical W/WO Contrast [facility] Imaging Services [address] [place] [id number] Spine Cervical W/WO Contrast MR#: [id number] Acct: [id number] Name: ART WRIGHT Rep #: [id number] : 1960 M 64 From: Geovani Mackenzie MD PCP: Mihir Lyon NP Status: REG CLI Study: Spine Cervical W/WO Contrast Date of Exam: Exam# [id number] Ordering Dr: FILIBERTO RUIZ PROCEDURE: SPINE CERVICAL [...] visible demyelination or pathologic enhancement Reading Location: [id number] CC: Mihir RUIZ Portfolio Architect: Signed Normal [facility] Emergency Department Summary on 10-26-2024 Emergency Department Summary [facility] Medical Records Department [address] [facility] [place] [address] Emergency Department Summary 10/26/24 MR#: [id number] Acct: [id number] Name: ART WRIGHT Rep #: [id number] : 1960 64 From: Madeleine DWYER PCP: [...] weakness numbness or tingling. Last tetanus unknown. [facility] Medical History (Updated 10/26/24 @ 19:19 by [...] care instructions and discharged in stable condition. [facility] Treatment and Re-Evaluation Narrative: I have personally [...] was instruc (more content not included)... Normal [facility] Immunoglobulin [place] 5 IMMUNOGLOB G QN 792 mg/dL Normal 603-1613 [facility] Comment on above: Result Comment: Perf ormed at: - [facility] [address] [id number] [employer] Operator: Ben Wray PhD, Phone: [phone] Performed By: #### L 701.2431 #### [facility] [address] [place] [address]. [place], [address] Absolute lymphocyte countOrd ered By: FILIBERTO RUIZ on 10-06-2024 Lymphocytes Auto (Unsp spec) [#/Vol] 1.91 10*3/uL 0.83-4.51 [facility] Absolute neutrophil countOrd ered By: FILIBERTO RUIZ on 10-06-2024 Neutrophils (Bld) [#/Vol] 5.9 10*3/uL 2.0-7.7 [facility] Anion gap in Serum or Plasma Ordered By: FILIBERTO RUIZ on 10-06-2024 Anion gap [Moles/Vol] 14 mmol/L 5-15 [facility] Automated lymphocyte count a s percentage of total leukocytesOrdered By: FILIBERTO RUIZ on 10-06-2024 Lymphocytes/100 WBC Auto (Unsp spec) 22.5 % 19-41 [facility] BUN/creatinine ratioOrdered By: FILIBERTO RUIZ on 10-06-2024 Urea nitrogen/Creatinine [Mass ratio] 15.0 mg/mg 10-20 [facility] Basophil percentageOrdered B y: FILIBERTO RUIZ on 10-06-2024 Basophils/100 WBC (Bld) 1.2 % High 0-1 [facility] Bilirubin, totalOrdered By: FILIBERTO RUIZ on 10-06-2024 Bilirubin [Mass/Vol] 1.00 mg/dL 0.00-1.30 [facility] CBC W/Diff, Automatedon Absolute Lymph 1.91 X10 3/uL Normal 0.83-4.51 [facility] Comment on above: Performed By: #### L 501.0900 #### [facility] [address] [place], [address] Absolute Neut 5.9 X10 3/uL Normal 2.0-7.7 [facility] Comment on above: Performed By: #### L 501.0900 #### [facility] [address] [place], [address] Basophils/100 WBC (Bld) 1.2 % High 0-1 [facility] Comment on above: Performed By: #### L 501.0900 #### [facility] [address] [place], [address] Eosinophils/100 WBC (Bld) 1.1 % Normal 0-5 [facility] Comment on above: Performed By: #### L 501.0900 #### [facility] [address] [place], [address] Erythrocyte distribution width (RBC) [Ratio] 12.3 % Normal 11.6-14.6 [facility] Comment on above: Performed By: #### L 501.0900 #### [facility] [address] [place], [address] Hematocrit (Bld) [Volume fraction] 45.5 % Normal 40-54 [facility] Comment on above: Performed By: #### L 501.0900 #### [facility] [address] [place], [address] Hemoglobin (Bld) [Mass/Vol] 16.0 g/dL Normal 13.0-16.5 [facility] Comment on above: Performed By: #### L 501.0900 #### [facility] [address] [place], [address] IG% 0.700 Normal 0.0-0.9 [facility] Comment on above: Result Comment: IG% - Immature Granulocytes (promyelocytes, myelocytes and metamyelocytes) > 1% indicates that a LEFT SHIFT is Present. Performed By: #### L 501.0900 #### [facility] [address] [place], [address] Lymphocytes/100 WBC (Bld) 22.5 % Normal 19-41 [facility] Comment on above: Performed By: #### L 501.0900 #### [facility] [address] [place], [address] MCH (RBC) [Entitic mass] 30.5 pg Normal 27.0-32.0 [facility] Comment on above: Performed By: #### L 501.0900 #### [facility] [address] [place], [address] MCHC (RBC) [Mass/Vol] 35.2 g/dL Normal 32-36 [facility] Comment on above: Performed By: #### L 501.0900 #### [facility] [address] [place], [address] MCV (RBC) [Entitic vol] 86.8 fL Normal 80-94 [facility] Comment on above: Performed By: #### L 501.0900 #### [facility] [address] [place], [address] Monocytes/100 WBC (Bld) 4.5 % Normal 0-10 [facility] Comment on above: Performed By: #### L 501.0900 #### [facility] [address] [place], [address] Neutrophils/100 WBC (Bld) 70.0 % Normal 47-70 [facility] Comment on above: Performed By: #### L 501.0900 #### [facility] [address] [place], [address] Nucleated RBC (Bld) [#/Vol] 0 10*3/uL Normal 0-5 [facility] Comment on above: Performed By: #### L 501.0900 #### [facility] [address] [place], [address] Platelet mean volume (Bld) [Entitic vol] 10.1 fL Normal 6.2-12.0 [facility] Comment on above: Performed By: #### L 501.0900 #### [facility] [address] [place], [address] Platelets (Bld) [#/Vol] 217 10*3/uL Normal 150-450 [facility] Comment on above: Performed By: #### L 501.0900 #### [facility] [address] [place], [address] RBC (Bld) [#/Vol] 5.24 10*6/uL Normal 4.6-6.2 [facility] Comment on above: Performed By: #### L 501.0900 #### [facility] [address] [place], [address] RDW SD 39.0 fl Normal 35.1-43.9 [facility] Comment on above: Performed By: #### L 501.0900 #### [facility] [address] [place], [address] WBC (Bld) [#/Vol] 8.5 10*3/uL Normal 4.4-11.0 [facility] Comment on above: Performed By: #### L 501.0900 #### [facility] [address] [place], [address] Carbon dioxide, total [Moles /volume] in Central venous bloodOrdered By: FILIBERTO RUIZ on 10-06-2024 CO2 [Moles/Vol] 22.8 mmol/L 21.0-32.0 [facility] Chloride assayOrdered By: LYNN RUIZ on 10-06-2024 Chloride [Moles/Vol] 101 mmol/L 98-108 [facility] Comprehensive Metabolic Prof ilon 10-06-2024 Albumin [Mass/Vol] 4.8 g/dL Normal 3.4-4.8 [facility] Comment on above: Performed By: #### L 501.0900 #### [facility] [address] [place], [address] Albumin/Globulin [Mass ratio] 1.9 {ratio} Normal 0.9-2.4 [facility] Comment on above: Performed By: #### L 501.0900 #### [facility] [address] [place], [address] ALK PHOS 68 U/L Normal 40-129 [facility] Comment on above: Performed By: #### L 501.0900 #### [facility] [address] [place], [address] ALT [Catalytic activity/Vol] 20 U/L Normal <=46 [facility] Comment on above: Performed By: #### L 501.0900 #### [facility] [address] [place], [address] AST [Catalytic activity/Vol] 25 U/L Normal <=37 [facility] Comment on above: Performed By: #### L 501.0900 #### [facility] [address] [place], [address] Bilirubin [Mass/Vol] 1.00 mg/dL Normal 0.00-1.30 [facility] Comment on above: Performed By: #### L 501.0900 #### [facility] [address] [place], [address] BUN/CRE 15.0 RATIO Normal 10-20 [facility] Comment on above: Performed By: #### L 501.0900 #### [facility] [address] [place], [address] Calcium [Mass/Vol] 10.0 mg/dL Normal 7.6-11.0 [facility] Comment on above: Performed By: #### L 501.0900 #### [facility] [address] [place], [address] Chloride [Moles/Vol] 101 mmol/L Normal 98-108 [facility] Comment on above: Performed By: #### L 501.0900 #### [facility] [address] [place], [address] CO2 [Moles/Vol] 22.8 mmol/L Normal 21.0-32.0 [facility] Comment on above: Performed By: #### L 501.0900 #### [facility] [address] [place], [address] Creatinine [Mass/Vol] 1.19 mg/dL Normal 0.70-1.20 [facility] Comment on above: Performed By: #### L 501.0900 #### [facility] [address] [place], [address] GAP 14 Normal 5-15 [facility] Comment on above: Performed By: #### L 501.0900 #### [facility] [address] [place], [address] GFR/1.73 sq M.predicted among non-blacks MDRD (S/P/Bld) [Vol rate/Area] 69 mL/min/{1.73_m2} Normal >60 [facility] Comment on above: Result Comment: mL/m in/1.73m2 CKD-EPI Creatinine Equation (2020) Performed By: #### L 501.0900 #### [facility] [address] [place], [address] Globulin (S) [Mass/Vol] 2.6 g/dL Normal 2.2-4.2 [facility] Comment on above: Performed By: #### L 501.0900 #### [facility] [address] [place], [address] Glucose [Mass/Vol] 117 mg/dL High 70-99 [facility] Comment on above: Performed By: #### L 501.0900 #### [facility] [address] [place], [address] Potassium [Moles/Vol] 4.3 mmol/L Normal 3.3-5.1 [facility] Comment on above: Performed By: #### L 501.0900 #### [facility] [address] [place], [address] Sodium [Moles/Vol] 138 mmol/L Normal 133-145 [facility] Comment on above: Performed By: #### L 501.0900 #### [facility] [address] [place], [address] T PROT 7.4 g/dL Normal 5.9-8.4 [facility] Comment on above: Performed By: #### L 501.0900 #### [facility] [address] [place], [address] Urea nitrogen [Mass/Vol] 18 mg/dL Normal 4-19 [facility] Comment on above: Performed By: #### L 501.0936 #### [facility] [address] [place], [address] Eosinophil percentageOrdered By: FILIBERTO RUIZ on 10-06-2024 Eosinophils/100 WBC (Bld) 1.1 % 0-5 [facility] Erythrocyte distribution wid th ratioOrdered By: FILIBERTO RUIZ on 10-06-2024 Erythrocyte distribution width (RBC) [Ratio] 12.3 % 11.6-14.6 [facility] Erythrocyte distribution wid th standard deviationOrdered By: FILIBERTO RUIZ on 10-06-2024 Erythrocyte distribution width (RBC) [Ratio] 39.0 fl 35.1-43.9 [facility] Glomerular filtration rate ( GFR) estimation/1.73 sq m using serum, plasma, or whole bOrdered By: FILIBERTO RUIZ on 10-06-2024 GFR/1.73 sq M.predicted among non-blacks MDRD (S/P/Bld) [Vol rate/Area] 69 mL/min/{1.73_m2} >60 [facility] Comment on above: mL/min/1.73m2 CKD-EP I Creatinine Equation (2020) Hematocrit Auto (Bld) [Volum e fraction]Ordered By: FILIBERTO RUIZ on 10-06-2024 Hematocrit (Bld) [Volume fraction] 45.5 % 40-54 [facility] Hemoglobin measurementOrdere d By: FILIBERTO RUIZ on 10-06-2024 Hemoglobin (Bld) [Mass/Vol] 16.0 g/dL 13.0-16.5 [facility] Immature granulocytes/100 WB C Auto (Bld)Ordered By: FILIBERTO RUIZ on 10-06-2024 Immature granulocytes/100 WBC (Bld) 0.700 % 0.0-0.9 [facility] Comment on above: IG% - Immature Granu locytes (promyelocytes, myelocytes and metamyelocytes) > 1% indicates that a LEFT SHIFT is Present. Laboratory - Chemistry and C hemistry - challengeOrdered By: FILIBERTO RUIZ on 10-06-2024 AST [Catalytic activity/Vol] 25 U/L <38 [facility] MCV (mean corpuscular volume ) determinationOrdered By: FILIBERTO RUIZ on 10-06-2024 MCV (RBC) [Entitic vol] 86.8 fL 80-94 [facility] Mean corpuscular hemoglobin (MCH) determinationOrdered By: FILIBERTO RUIZ on 10-06-2024 MCH (RBC) [Entitic mass] 30.5 pg 27.0-32.0 [facility] Mean corpuscular hemoglobin concentration (MCHC) determinationOrdered By: FILIBERTO RUIZ on 10-06-2024 MCHC (RBC) [Mass/Vol] 35.2 g/dL 32-36 [facility] Mean platelet volume determi nationOrdered By: FILIBERTO RUIZ on 10-06-2024 Platelet mean volume (Bld) [Entitic vol] 10.1 fL 6.2-12.0 [facility] Monocyte percentageOrdered B y: FILIBERTO RUIZ on 10-06-2024 Monocytes/100 WBC (Bld) 4.5 % 0-10 [facility] Neutrophil percentageOrdered By: FILIBERTO RUIZ on 10-06-2024 Neutrophils/100 WBC (Bld) 70.0 % 47-70 [facility] Nucleated red blood cell per centageOrdered By: FILIBERTO RUIZ on 10-06-2024 Nucleated RBC/100 WBC (Bld) [Ratio] 0 % 0-5 [facility] Platelet countOrdered By: LYNN RUIZ on 10-06-2024 Platelets (Bld) [#/Vol] 217 10*3/uL 150-450 [facility] Potassium measurement (mass/ volume)Ordered By: FILIBERTO RUIZ on 10-06-2024 Potassium (Unsp spec) [Mass/Vol] 4.3 mmol/L 3.3-5.1 [facility] RBC Auto (Bld) [#/Vol]Ordere d By: FILIBERTO RUIZ on 10-06-2024 RBC (Bld) [#/Vol] 5.24 10*6/uL 4.6-6.2 [facility] Serum creatinine measurement (mass/volume)Ordered By: FILIBERTO RUIZ on 10-06-2024 Creatinine [Mass/Vol] 1.19 mg/dL 0.70-1.20 [facility] Serum globulin measurementOr dered By: FILIBERTO RUIZ on 10-06-2024 Globulin (S) [Mass/Vol] 2.6 g/dL 2.2-4.2 [facility] Serum glucose measurement (m ass/volume)Ordered By: FILIBRETO RUIZ on 10-06-2024 Glucose [Mass/Vol] 117 mg/dL High 70-99 [facility] Serum or plasma IgG measurem ent (mass/volume)Ordered By: FILIBERTO RUIZ on 10-06-2024 IgG [Mass/Vol] 792 mg/dL 603-1613 [facility] Comment on above: Performed at: [place] [id number] Director: Ben Wray PhD, Phone: [phone] Serum or plasma alanine anderson otransferase (ALT) measurementOrdered By: FILIBERTO RUIZ on 10-06-2024 ALT [Catalytic activity/Vol] 20 U/L <47 [facility] Serum or plasma albumin segundo urement (mass/volume)Ordered By: FILIBERTO RUIZ on 10-06-2024 Albumin [Mass/Vol] 4.8 g/dL 3.4-4.8 [facility] Serum or plasma albumin/glob ulin mass ratioOrdered By: FILIBERTO RUIZ on 10-06-2024 Albumin/Globulin [Mass ratio] 1.9 {ratio} 0.9-2.4 [facility] Serum or plasma alkaline skylar sphatase measurementOrdered By: FILIBERTO RIUZ on 10-06-2024 ALP [Catalytic activity/Vol] 68 U/L 40-129 [facility] Serum or plasma calcium segundo urement (mass/volume)Ordered By: FILIBERTO RUIZ on 10-06-2024 Calcium [Mass/Vol] 10.0 mg/dL 7.6-11.0 [facility] Serum or plasma urea nitroge n measurement (mass/volume)Ordered By: FILIBERTO RUIZ on 10-06-2024 Urea nitrogen [Mass/Vol] 18 mg/dL 4-19 [facility] Sodium levelOrdered By: FANNY RUIZ on 10-06-2024 Sodium [Moles/Vol] 138 mmol/L 133-145 [facility] Total proteinOrdered By: ARCHIE RUIZ on 10-06-2024 Protein [Mass/Vol] 7.4 g/dL 5.9-8.4 [facility] White blood cell (WBC) count Ordered By: FILIBERTO JOSEPH on 10-06-2024 WBC (Bld) [#/Vol] 8.5 10*3/uL 4.4-11.0 [facility] PSA,Total - Annual Screenon 09-05-2024 PSA,TOT SCREEN 1.15 ng/mL Normal 0.02-4.00 [facility] Comment on above: Order Comment: Order [...] values. Performed By: #### L 501.9910 #### [facility] [address] [place], [address] CBC W/Diff, Automatedon 11-0 -2023 Absolute Lymph 2.65 X10 3/uL Normal 0.83-4.51 [facility] Comment on above: Performed By: #### L 501.0900 #### [facility] [address] [place], [address] Absolute Neut 3.3 X10 3/uL Normal 2.0-7.7 [facility] Comment on above: Performed By: #### L 501.0900 #### [facility] [address] [place], [address] Basophils/100 WBC (Bld) 1.7 % High 0-1 [facility] Comment on above: Performed By: #### L 501.0900 #### [facility] [address] [place], [address] Eosinophils/100 WBC (Bld) 5.2 % High 0-5 [facility] Comment on above: Performed By: #### L 501.0900 #### [facility] [address] [place], [address] Erythrocyte distribution width (RBC) [Ratio] 12.7 % Normal 11.6-14.6 [facility] Comment on above: Performed By: #### L 501.0900 #### [facility] [address] [place], [address] Hematocrit (Bld) [Volume fraction] 45.5 % Normal 40-54 [facility] Comment on above: Performed By: #### L 501.0900 #### [facility] [address] [place], [address] Hemoglobin (Bld) [Mass/Vol] 16.2 g/dL Normal 13.0-16.5 [facility] Comment on above: Performed By: #### L 501.0900 #### [facility] [address] [place], [address] IG% 0.900 Normal 0.0-0.9 [facility] Comment on above: Result Comment: IG% - Immature Granulocytes (promyelocytes, myelocytes and metamyelocytes) > 1% indicates that a LEFT SHIFT is Present. Performed By: #### L 501.0900 #### [facility] [address] [place], [address] Lymphocytes/100 WBC (Bld) 38.2 % Normal 19-41 [facility] Comment on above: Performed By: #### L 501.0900 #### [facility] [address] [place], [address] MCH (RBC) [Entitic mass] 30.5 pg Normal 27.0-32.0 [facility] Comment on above: Performed By: #### L 501.0900 #### [facility] [address] [place], [address] MCHC (RBC) [Mass/Vol] 35.6 g/dL Normal 32-36 [facility] Comment on above: Performed By: #### L 501.0900 #### [facility] [address] [place], [address] MCV (RBC) [Entitic vol] 85.7 fL Normal 80-94 [facility] Comment on above: Performed By: #### L 501.0900 #### [facility] [address] [place], [address] Monocytes/100 WBC (Bld) 7.2 % Normal 0-10 [facility] Comment on above: Performed By: #### L 501.0900 #### [facility] [address] [place], [address] Neutrophils/100 WBC (Bld) 46.8 % Low 47-70 [facility] Comment on above: Performed By: #### L 501.0900 #### [facility] [address] [place], [address] Nucleated RBC (Bld) [#/Vol] 0 10*3/uL Normal 0-5 [facility] Comment on above: Performed By: #### L 501.0900 #### [facility] [address] [place], [address] Platelet mean volume (Bld) [Entitic vol] 10.3 fL Normal 6.2-12.0 [facility] Comment on above: Performed By: #### L 501.0900 #### [facility] [address] [place], [address] Platelets (Bld) [#/Vol] 217 10*3/uL Normal 150-450 [facility] Comment on above: Performed By: #### L 501.0900 #### [facility] [address] [place], [address] RBC (Bld) [#/Vol] 5.31 10*6/uL Normal 4.6-6.2 [facility] Comment on above: Performed By: #### L 501.0900 #### [facility] [address] [place], [address] RDW SD 39.3 fl Normal 35.1-43.9 [facility] Comment on above: Performed By: #### L 501.0900 #### [facility] [address] [place], [address] WBC (Bld) [#/Vol] 6.9 10*3/uL Normal 4.4-11.0 [facility] Comment on above: Performed By: #### L 501.0900 #### [facility] [address] [place], [address] Immunoglobulin Aon 4 IMMUNOGLOB A QN 219 mg/dL Normal 61-437 [facility] Comment on above: Order Comment: N Performed By: #### L 3200.1400, L100.0500, L3200.1300, L3200.1500, L3200.1600, L500.4050 #### [facility] [address] [place], [address] Immunoglobulin Maged 4 IMMUNOGLOB E QN 20 IU/mL Normal 6-495 [facility] Comment on above: Order Comment: N Performed By: #### L 3200.1400, L100.0500, L3200.1300, L3200.1500, L3200.1600, L500.4050 #### [facility] [address] [place], [address] Immunoglobulin [place] 4 IMMUNOGLOB G QN 821 mg/dL Normal 603-1613 [facility] Comment on above: Order Comment: N Performed By: #### L 3200.1400, L100.0500, L3200.1300, L3200.1500, L3200.1600, L500.4050 #### [facility] [address] [place], [address] Immunoglobulin Mon 4 IMMUNOGLOB M QN 26 mg/dL Normal 20-172 [facility] Comment on above: Order Comment: N Result Comment: Resu lt confirmed on concentration. Performed at: - [facility], [place], [place] [id number] [employer] Operator: Ben Wray PhD, Phone: [phone] Performed By: #### L 3200.1400, L100.0500, L3200.1300, L3200.1500, L3200.1600, L500.4050 #### [facility] [address] [place], [address] CBC-Complete Blood Cnt No Di ffon 02-19-2024 Erythrocyte distribution width (RBC) [Ratio] 12.5 % Normal 11.6-14.6 [facility] Comment on above: Performed By: #### L 3200.1400, L100.0500, L3200.1300, L3200.1500, L3200.1600, L500.4050 #### [facility] [address] [place], [address] Hematocrit (Bld) [Volume fraction] 45.4 % Normal 40-54 [facility] [facility] Comment on above: Performed By: #### L 3200.1400, L100.0500, L3200.1300, L3200.1500, L3200.1600, L500.4050 #### [facility] [address] [place], [address] Hemoglobin (Bld) [Mass/Vol] 15.7 g/dL Normal 13.0-16.5 [facility] Comment on above: Performed By: #### L 3200.1400, L100.0500, L3200.1300, L3200.1500, L3200.1600, L500.4050 #### [facility] [address] [place], [address] MCH (RBC) [Entitic mass] 29.7 pg Normal 27.0-32.0 [facility] Comment on above: Performed By: #### L 3200.1400, L100.0500, L3200.1300, L3200.1500, L3200.1600, L500.4050 #### [facility] [address] [place], [address] MCHC (RBC) [Mass/Vol] 34.6 g/dL Normal 32-36 [facility] Comment on above: Performed By: #### L 3200.1400, L100.0500, L3200.1300, L3200.1500, L3200.1600, L500.4050 #### [facility] [address] [place], [address] MCV (RBC) [Entitic vol] 85.8 fL Normal 80-94 [facility] Comment on above: Performed By: #### L 3200.1400, L100.0500, L3200.1300, L3200.1500, L3200.1600, L500.4050 #### [facility] [address] [place], [address] Platelet mean volume (Bld) [Entitic vol] 10.5 fL Normal 6.2-12.0 [facility] Comment on above: Performed By: #### L 3200.1400, L100.0500, L3200.1300, L3200.1500, L3200.1600, L500.4050 #### [facility] [address] [place], [address] Platelets (Bld) [#/Vol] 205 10*3/uL Normal 150-450 [facility] Comment on above: Performed By: #### L 3200.1400, L100.0500, L3200.1300, L3200.1500, L3200.1600, L500.4050 #### [facility] [address] [place], [address] RBC (Bld) [#/Vol] 5.29 10*6/uL Normal 4.6-6.2 [facility] Comment on above: Performed By: #### L 3200.1400, L100.0500, L3200.1300, L3200.1500, L3200.1600, L500.4050 #### [facility] [address] [place], [address] RDW SD 38.9 fl Normal 35.1-43.9 [facility] Comment on above: Performed By: #### L 3200.1400, L100.0500, L3200.1300, L3200.1500, L3200.1600, L500.4050 #### [facility] [address] [place], [address] WBC (Bld) [#/Vol] 7.1 10*3/uL Normal 4.4-11.0 [facility] Comment on above: Performed By: #### L 3200.1400, L100.0500, L3200.1300, L3200.1500, L3200.1600, L500.4050 #### [facility] [address] [place], [address] Comprehensive Metabolic [facility] 02-19-2024 Albumin [Mass/Vol] 4.3 g/dL Normal 3.2-5.0 [facility] Comment on above: Performed By: #### L 3200.1400, L100.0500, L3200.1300, L3200.1500, L3200.1600, L500.4050 #### [facility] [address] [place], [address] Albumin/Globulin [Mass ratio] 1.2 {ratio} Normal 0.9-2.4 [facility] Comment on above: Performed By: #### L 3200.1400, L100.0500, L3200.1300, L3200.1500, L3200.1600, L500.4050 #### [facility] [address] [place], [address] ALK P 76 U/L Normal 45-117 [facility] Comment on above: Performed By: #### L 3200.1400, L100.0500, L3200.1300, L3200.1500, L3200.1600, L500.4050 #### [facility] [address] [place], [address] ALT [Catalytic activity/Vol] 35 U/L Normal 16-61 [facility] Comment on above: Performed By: #### L 3200.1400, L100.0500, L3200.1300, L3200.1500, L3200.1600, L500.4050 #### [facility] [address] [place], [address] AST [Catalytic activity/Vol] 27 U/L Normal 15-37 [facility] Comment on above: Performed By: #### L 3200.1400, L100.0500, L3200.1300, L3200.1500, L3200.1600, L500.4050 #### [facility] [address] [place], [address] Bilirubin [Mass/Vol] 0.90 mg/dL Normal 0.20-1.00 [facility] Comment on above: Result Comment: For patients on eltrombopag therapy, use of Dim[place] TBIL is not recommended. Performed By: #### L 3200.1400, L100.0500, L3200.1300, L3200.1500, L3200.1600, L500.4050 #### [facility] [address] [place], [address] BUN/CRE 14.2 RATIO Normal 10-20 [facility] Comment on above: Performed By: #### L 3200.1400, L100.0500, L3200.1300, L3200.1500, L3200.1600, L500.4050 #### [facility] [address] [place], [address] CA,Total 9.6 mg/dL Normal 8.5-10.1 [facility] Comment on above: Performed By: #### L 3200.1400, L100.0500, L3200.1300, L3200.1500, L3200.1600, L500.4050 #### [facility] [address] [place], [address] Chloride [Moles/Vol] 105 mmol/L Normal 98-107 [facility] Comment on above: Performed By: #### L 3200.1400, L100.0500, L3200.1300, L3200.1500, L3200.1600, L500.4050 #### [facility] [address] [place], [address] CO2 [Moles/Vol] 29.0 mmol/L Normal 21.0-32.0 [facility] Comment on above: Performed By: #### L 3200.1400, L100.0500, L3200.1300, L3200.1500, L3200.1600, L500.4050 #### [facility] [address] [place], [address] Creatinine [Mass/Vol] 1.13 mg/dL Normal 0.70-1.30 [facility] Comment on above: Result Comment: The validity of the calculated GFR GFRAA in patients over 70 years has not been determined. Clinical correlation is essential. Performed By: #### L 3200.1400, L100.0500, L3200.1300, L3200.1500, L3200.1600, L500.4050 #### [facility] [address] [place], [address] EST GFR - AA 85 mL/min Normal >60 [facility] Comment on above: Result Comment: Afri can Omani GFR Calc Performed By: #### L 3200.1400, L100.0500, L3200.1300, L3200.1500, L3200.1600, L500.4050 #### [facility] [address] [place], [address] GAP 5 Normal 5-15 [facility] Comment on above: Performed By: #### L 3200.1400, L100.0500, L3200.1300, L3200.1500, L3200.1600, L500.4050 #### [facility] [address] [place], [address] GFR/1.73 sq M.predicted among non-blacks MDRD (S/P/Bld) [Vol rate/Area] 70 mL/min/{1.73_m2} Normal >60 [facility] Comment on above: Result Comment: Non- GFR Calc Performed By: #### L 3200.1400, L100.0500, L3200.1300, L3200.1500, L3200.1600, L500.4050 #### [facility] [address] [place], [address] Globulin (S) [Mass/Vol] 3.5 g/dL Normal 2.2-4.2 [facility] Comment on above: Performed By: #### L 3200.1400, L100.0500, L3200.1300, L3200.1500, L3200.1600, L500.4050 #### [facility] [address] [place], [address] Glucose [Mass/Vol] 115 mg/dL High 74-106 [facility] Comment on above: Result Comment: Fast ing Glucose result from 100 to 125 mg/dL suggests IMPAIRED HOMEOSTASIS per A.D.A. criteria. Performed By: #### L 3200.1400, L100.0500, L3200.1300, L3200.1500, L3200.1600, L500.4050 #### [facility] [address] [place], [address] Potassium [Moles/Vol] 4.1 mmol/L Normal 3.5-5.1 [facility] Comment on above: Performed By: #### L 3200.1400, L100.0500, L3200.1300, L3200.1500, L3200.1600, L500.4050 #### [facility] [address] [place], [address] Sodium [Moles/Vol] 138 mmol/L Normal 136-145 [facility] Comment on above: Performed By: #### L 3200.1400, L100.0500, L3200.1300, L3200.1500, L3200.1600, L500.4050 #### [facility] [address] [place], [address] T PROT 7.8 g/dL Normal 6.4-8.2 [facility] Comment on above: Performed By: #### L 3200.1400, L100.0500, L3200.1300, L3200.1500, L3200.1600, L500.4050 #### [facility] [address] [place], [address] Urea nitrogen [Mass/Vol] 16 mg/dL Normal 7-18 [facility] Comment on above: Performed By: #### L 3200.1400, L100.0500, L3200.1300, L3200.1500, L3200.1600, L500.4050 #### [facility] [address] [place], [address] Lipid Profileon 02-19-2024 Cholesterol [Mass/Vol] 218 mg/dL High 200 [facility] Comment on above: Order Comment: Order Date: 09/04/23 Order Info: [id number] - LIPID Result Comment: <200 mg/dL Desirable 200-240 mg/dL Borderline >240 mg/dL High Risk Performed By: #### L 500.4100 #### [facility] [address] [place], [address] Cholesterol in HDL [Mass/Vol] 40 mg/dL Normal [facility] Comment on above: Order Comment: Order Date: 09/04/23 Order Info: [id number] - LIPID Result Comment: The drugs N-Acetylcysteine and Metamizole may falsely depress this assay. Reference Range HDL <40 mg/dL Low HDL Cholesterol HDL >or= 60 mg/dL High HDL Cholesterol Performed By: #### L 500.4100 #### [facility] [address] [place], [address] Cholesterol in LDL [Mass/Vol] 119 mg/dL Normal 0-130 [facility] Comment on above: Order Comment: Order Date: 09/04/23 Order Info: [id number] - LIPID Performed By: #### L 500.4100 #### [facility] [address] [place], [address] Cholesterol in VLDL [Mass/Vol] 59 mg/dL High 5-40 [facility] Comment on above: Order Comment: Order Date: 09/04/23 Order Info: [id number] - LIPID Performed By: #### L 500.4100 #### [facility] [address] [place], [address] Triglyceride [Mass/Vol] 293 mg/dL High [facility] Comment on above: Order Comment: Order Date: 09/04/23 Order Info: [id number] - LIPID Result Comment: The drugs N-Acetylcysteine and Metamizole may falsely depress this assay. Serum Triglycerides Reference Interval Normal <150 mg/dL Borderline high 150 - 199 mg/dL High 200 - 499 mg/dL Very High > or = 500 mg/dL Performed By: #### L 500.4100 #### [facility] [address] [place], [address] Protein+Creatinine Ratio,Uri neon 02-19-2024 PROT:CRE RATIO 56 mg/g CRE Normal 0-200 [facility] Comment on above: Performed By: #### L 501.0900 #### [facility] [address] [place], [address] Protein (U) [Mass/Vol] 10.3 mg/dL Normal <11.9 [facility] Comment on above: Performed By: #### L 501.0900 #### [facility] [address] [place], [address] UR CREAT 184.00 mg/dL Normal NO RANGE EST. [facility] Comment on above: Performed By: #### L 501.0900 #### [facility] [address] [place], [address] Absolute lymphocyte countOrd ered By: Asad Hastings on 04-19-2023 Lymphocytes Auto (Unsp spec) [#/Vol] 1.68 10*3/uL 0.83-4.51 [facility] Basophil percentageOrdered B y: Asad Hastings on 04-19-2023 Basophils/100 WBC (Bld) 1.6 % 0-1 [facility] Bilirubin [Mass/Vol] 0.90 mg/dL 0.20-1.00 [facility] Comment on above: For patients on eltr ombopag therapy, use of [place] TBIL is not recommended. Chloride [Moles/Vol] 111 mmol/L 98-107 [facility] Eosinophils/100 WBC (Bld) 3.2 % 0-5 [facility] Glucose [Mass/Vol] 115 mg/dL 74-106 [facility] Comment on above: Fasting Glucose resu lt from 100 to 125 mg/dL suggests IMPAIRED HOMEOSTASIS per A.D.A. criteria. Neutrophils (Bld) [#/Vol] 2.6 10*3/uL 2.0-7.7 [facility] Neutrophils/100 WBC (Bld) 53.2 % 47-70 [facility] Potassium [Moles/Vol] 4.2 mmol/L 3.5-5.1 [facility] Protein [Mass/Vol] 7.6 g/dL 6.4-8.2 [facility] Sodium [Moles/Vol] 141 mmol/L 136-145 [facility] WBC (Bld) [#/Vol] 5.0 10*3/uL 4.4-11.0 [facility] Blood erythrocytes count (nu mber/volume)Ordered By: Asad Hastings on 04-19-2023 RBC (Bld) [#/Vol] 5.18 10*6/uL 4.6-6.2 [facility] Blood hemoglobin measurement (mass/volume)Ordered By: Asad Hastings on 04-19-2023 Hemoglobin (Bld) [Mass/Vol] 15.5 g/dL 13.0-16.5 [facility] Blood lymphocytes/100 leukoc ytesOrdered By: Asad Hastings on 04-19-2023 Lymphocytes/100 WBC (Bld) 33.8 % 19-41 [facility] Blood monocytes/100 leukocyt esOrdered By: Asad Hastings on 04-19-2023 Monocytes/100 WBC (Bld) 7.2 % 0-10 [facility] Blood platelet mean volumeOr dered By: Asad Hastings on 04-19-2023 Platelet mean volume (Bld) [Entitic vol] 10.3 fL 6.2-12.0 [facility] Determination of erythrocyte mean corpuscular volume (MCV)Ordered By: Asad Hastings on 04-19-2023 MCV (RBC) [Entitic vol] 87.5 fL 80-94 [facility] Hematocrit Auto (Bld) [Volum e fraction]Ordered By: [facility] on 04-19-2023 Hematocrit (Bld) [Volume fraction] 45.3 % 40-54 [facility] - Chemistry and C hemistry - challengeOrdered By: [facility] on 04-19-2023 ALP [Catalytic activity/Vol] 70 U/L 45-117 [facility] ALT [Catalytic activity/Vol] 39 U/L 16-61 [facility] CO2 [Moles/Vol] 26.0 mmol/L 21.0-32.0 [facility] Globulin (S) [Mass/Vol] 3.1 g/dL 2.2-4.2 [facility] Urea nitrogen/Creatinine [Mass ratio] 16.8 mg/mg 10-20 [facility] - Hematology and Cell countsOrdered By: Asad Hastings on 04-19-2023 Erythrocyte distribution width (RBC) [Entitic vol] 39.2 fL 35.1-43.9 [facility] Erythrocyte distribution width (RBC) [Ratio] 12.3 % 11.6-14.6 [facility] Immature granulocytes/100 WBC (Bld) 1.000 % 0.0-0.9 [facility] Comment on above: IG% - Immature Granu locytes (promyelocytes, myelocytes and metamyelocytes) > 1% indicates that a LEFT SHIFT is Present. MCH (RBC) [Entitic mass] 29.9 pg 27.0-32.0 [facility] Nucleated RBC/100 WBC (Bld) [Ratio] 0 % 0-5 [facility] MCHC Auto (RBC) [Mass/Vol]Or dered By: Asad Hastings on 04-19-2023 MCHC (RBC) [Mass/Vol] 34.2 g/dL 32-36 [facility] No Panel InformationOrdered By: Asad Hastings on 04-19-2023 Estimated GFR (MDRD) Amer 90 mL/min >60 [facility] Comment on above: GFR Calc Estimated GFR (MDRD) Non-Af Amer 75 mL/min >60 [facility] Comment on above: Non- GFR Calc Immunoglobulin E 21 IU/mL 6-495 [facility] Comment on above: Performed at: [address] [id number] Director: Ben Wray PhD, Phone: [phone] at: [facility] [id number] Director: Wei Rogers MD, Phone: [phone] Platelets bldOrdered By: Frida Hastings on 04-19-2023 Platelets (Bld) [#/Vol] 209 10*3/uL 150-450 [facility] Serum or plasma IgA measurem ent (mass/volume)Ordered By: Asad Hastings on 04-19-2023 IgA [Mass/Vol] 248 mg/dL 61-437 [facility] Serum or plasma IgG measurem ent (mass/volume)Ordered By: Asad Hastings on 04-19-2023 IgG [Mass/Vol] 809 mg/dL 603-1613 [facility] Serum or plasma IgM measurem ent (mass/volume)Ordered By: Asad Hastings on 04-19-2023 IgM [Mass/Vol] 32 mg/dL 20-172 [facility] Serum or plasma albumin segundo urement (mass/volume)Ordered By: Asad Hastings on 04-19-2023 Albumin [Mass/Vol] 4.5 g/dL 3.2-5.0 [facility] Serum or plasma albumin/glob ulin mass ratioOrdered By: Asad Hastings on 04-19-2023 Albumin/Globulin [Mass ratio] 1.5 {ratio} 0.9-2.4 [facility] Serum or plasma calcium segundo urement (mass/volume)Ordered By: Asad Hastings on 04-19-2023 Calcium [Mass/Vol] 9.1 mg/dL 8.5-10.1 [facility] Serum or plasma creatinine m easurement (mass/volume)Ordered By: Asad Hastings on 04-19-2023 Creatinine [Mass/Vol] 1.07 mg/dL 0.70-1.30 [facility] Comment on above: The validity of the calculated GFR & GFRAA in patients over 70 years has not been determined. Clinical correlation is essential. Serum or plasma urea nitroge n measurement (mass/volume)Ordered By: Asad Hastings on 04-19-2023 Urea nitrogen [Mass/Vol] 18 mg/dL 7-18 [facility] Thin prep Papanicolaou smear with manual screeningOrdered By: Asad Hastings on 04-19-2023 Thin prep Papanicolaou smear with manual screening 30 U/L 15-37 [facility] Thin prep Papanicolaou smear with manual screening 4 5-15 [facility] Color of specimen determinat ionOrdered By: Rodri Moore on 01-09-2023 Color (Unsp spec) [place] [facility] - Miscellaneous t estsOrdered By: Rodri Moore on 01-09-2023 Service comment (Unsp spec) [Interp] See comment [facility] Comment on above: Physician questions regarding Calculi Analysis [facility]King[facility]Corp at: [phone]. Calculi report will follow via computer, mail or courierdelivery. Measurement of weight of sto neOrdered By: Rodri Moore on 01-09-2023 Weight (Stone) 155 mg [facility] No Panel InformationOrdered By: Rodri Moore on 01-09-2023 Stone Analysis (T) See comment [facility] Comment on above: Percentage (Represen ts the % composition) Stone Calcium Oxalate Monohydrate 10 % [facility] Stone Calcium Phosphate 90 % [facility] Origin of StoneOrdered By: Nathanael Moore on 01-09-2023 Origin Nom (Stone) Not Provided [facility] Size of stoneOrdered By: Momo Moore on 01-09-2023 Size (Stone) [Entitic vol] 9x6 mm [facility] Comment on above: Single piece receive d Thin prep Papanicolaou smear with manual screeningOrdered By: Rodri Moore on 01-09-2023 Thin prep Papanicolaou smear with manual screening See comment [facility] Comment on above: Photograph will foll ow under a separate cover Absolute lymphocyte counton 12-26-2021 Lymphocytes Auto (Unsp spec) [#/Vol] 2.23 10*3/uL 0.83-4.51 [facility] Work Phone: [phone] Basophil percentageon 2021 Basophils/100 WBC (Bld) 1.1 % 0-1 [facility] Work Phone: [phone] Bilirubin [Mass/Vol] 0.80 mg/dL 0.20-1.00 [facility] Work Phone: [phone] Comment on above: For patients on eltr ombopag therapy, use of [place] TBIL is not recommended. Chloride [Moles/Vol] 109 mmol/L 98-107 [facility] Work Phone: [phone] Eosinophils/100 WBC (Bld) 3.8 % 0-5 [facility] Work Phone: [phone] Glucose [Mass/Vol] 93 mg/dL 74-106 [facility] Work Phone: Neutrophils (Bld) [#/Vol] 4.8 10*3/uL 2.0-7.7 [facility] Work Phone: Neutrophils/100 WBC (Bld) 58.8 % 47-70 [facility] Work Phone: Potassium [Moles/Vol] 3.9 mmol/L 3.5-5.1 [facility] Work Phone: [phone] Protein [Mass/Vol] 7.2 g/dL 6.4-8.2 [facility] Work Phone: Sodium [Moles/Vol] 142 mmol/L 136-145 [facility] Work Phone: WBC (Bld) [#/Vol] 8.1 10*3/uL 4.4-11.0 [facility] Work Phone: Blood erythrocytes count (nu mber/volume)on 12-26-2021 RBC (Bld) [#/Vol] 4.78 10*6/uL 4.6-6.2 [facility] Work Phone: [phone] Blood hemoglobin measurement (mass/volume)on 12-26-2021 Hemoglobin (Bld) [Mass/Vol] 14.5 g/dL 13.0-16.5 [facility] Work Phone: Blood lymphocytes/100 leukoc yteson 12-26-2021 Lymphocytes/100 WBC (Bld) 27.5 % 19-41 [facility] Work Phone: Blood monocytes/100 leukocyt eson 12-26-2021 Monocytes/100 WBC (Bld) 7.9 % 0-10 [facility] Work Phone: Blood platelet mean volumeon 12-26-2021 Platelet mean volume (Bld) [Entitic vol] 10.5 fL 6.2-12.0 [facility] Work Phone: Determination of erythrocyte mean corpuscular volume (MCV)on 12-26-2021 MCV (RBC) [Entitic vol] 87.0 fL 80-94 [facility] Work Phone: Hematocrit Auto (Bld) [Volum e fraction]on 12-26-2021 Hematocrit (Bld) [Volume fraction] 41.6 % 40-54 [facility] Work Phone: Laboratory - Chemistry and C hemistry - challengeon 12-26-2021 ALP [Catalytic activity/Vol] 72 U/L 45-117 [facility] Work Phone: [phone] ALT [Catalytic activity/Vol] 45 U/L 16-61 [facility] Work Phone: [phone] CO2 [Moles/Vol] 29.0 mmol/L 21.0-32.0 [facility] Work Phone: [phone] Globulin (S) [Mass/Vol] 3.0 g/dL 2.2-4.2 [facility] Work Phone: [phone] Urea nitrogen/Creatinine [Mass ratio] 18.8 mg/mg 10-20 [facility] Work Phone: [phone] Laboratory - Hematology and Cell countson 12-26-2021 Erythrocyte distribution width (RBC) [Entitic vol] 39.3 fL 35.1-43.9 [facility] Work Phone: [phone] Erythrocyte distribution width (RBC) [Ratio] 12.3 % 11.6-14.6 [facility] Work Phone: [phone] Immature granulocytes/100 WBC (Bld) 0.900 % 0.0-0.9 [facility] Work Phone: Comment on above: IG% - Immature Granu locytes (promyelocytes, myelocytes and metamyelocytes) > 1% indicates that a LEFT SHIFT is Present. MCH (RBC) [Entitic mass] 30.3 pg 27.0-32.0 [facility] Work Phone: [phone] Nucleated RBC/100 WBC (Bld) [Ratio] 0 % 0-5 [facility] Work Phone: [phone] MCHC Auto (RBC) [Mass/Vol]on 12-26-2021 MCHC (RBC) [Mass/Vol] 34.9 g/dL 32-36 [facility] Work Phone: No Panel Informationon 12-26 Estimated GFR (MDRD) Amer 103 mL/min >60 [facility] Work Phone: Comment on above: GFR Calc Estimated GFR (MDRD) Non-Af Amer 85 mL/min >60 [facility] Work Phone: Comment on above: Non- GFR Calc Platelets bldon 12-26-2021 Platelets (Bld) [#/Vol] 202 10*3/uL 150-450 [facility] Work Phone: Serum or plasma albumin segundo urement (mass/volume)on 12-26-2021 Albumin [Mass/Vol] 4.2 g/dL 3.2-5.0 [facility] Work Phone: Serum or plasma albumin/glob ulin mass ratioon 12-26-2021 Albumin/Globulin [Mass ratio] 1.4 {ratio} 0.9-2.4 [facility] Work Phone: Serum or plasma calcium segundo urement (mass/volume)on 12-26-2021 Calcium [Mass/Vol] 9.3 mg/dL 8.5-10.1 [facility] Work Phone: Serum or plasma creatinine m easurement (mass/volume)on 12-26-2021 Creatinine [Mass/Vol] 0.96 mg/dL 0.70-1.30 [facility] Work Phone: Comment on above: The validity of the calculated GFR & GFRAA in patients over 70 years has not been determined. Clinical correlation is essential. Serum or plasma urea nitroge n measurement (mass/volume)on 12-26-2021 Urea nitrogen [Mass/Vol] 18 mg/dL 7-18 [facility] Work Phone: Thin prep Papanicolaou smear with manual screeningon 12-26-2021 Thin prep Papanicolaou smear with manual screening 30 U/L 15-37 [facility] Work Phone: Thin prep Papanicolaou smear with manual screening 4 5-15 [facility] Work Phone: [phone] Absolute lymphocyte counton 08-23-2021 Lymphocytes Auto (Unsp spec) [#/Vol] 2.52 10*3/uL 0.83-4.51 [facility] Work Phone: [phone] Basophil percentageon 2021 Basophils/100 WBC (Bld) 1.3 % 0-1 [facility] Work Phone: [phone] Bilirubin [Mass/Vol] 0.90 mg/dL 0.20-1.00 [facility] Work Phone: Comment on above: For patients on eltr ombopag therapy, use of [place] TBIL is not recommended. Chloride [Moles/Vol] 108 mmol/L 98-107 [facility] Work Phone: [phone] Eosinophils/100 WBC (Bld) 5.5 % 0-5 [facility] Work Phone: Glucose [Mass/Vol] 110 mg/dL 74-106 [facility] Work Phone: [phone] Comment on above: Fasting Glucose resu lt from 100 to 125 mg/dL suggests IMPAIRED HOMEOSTASIS per A.D.A. criteria. Neutrophils (Bld) [#/Vol] 2.7 10*3/uL 2.0-7.7 [facility] Work Phone: [phone] Neutrophils/100 WBC (Bld) 44.3 % 47-70 [facility] Work Phone: [phone] Potassium [Moles/Vol] 4.1 mmol/L 3.5-5.1 [facility] Work Phone: [phone] Protein [Mass/Vol] 7.8 g/dL 6.4-8.2 [facility] Work Phone: [phone] Sodium [Moles/Vol] 139 mmol/L 136-145 [facility] Work Phone: [phone] WBC (Bld) [#/Vol] 6.2 10*3/uL 4.4-11.0 [facility] Work Phone: Blood erythrocytes count (nu mber/volume)on 08-23-2021 RBC (Bld) [#/Vol] 5.10 10*6/uL 4.6-6.2 [facility] Work Phone: Blood hemoglobin measurement (mass/volume)on 08-23-2021 Hemoglobin (Bld) [Mass/Vol] 15.4 g/dL 13.0-16.5 [facility] Work Phone: Blood lymphocytes/100 leukoc yteson 08-23-2021 Lymphocytes/100 WBC (Bld) 41.0 % 19-41 [facility] Work Phone: Blood monocytes/100 leukocyt eson 08-23-2021 Monocytes/100 WBC (Bld) 7.2 % 0-10 [facility] [facility] Work Phone: Blood platelet mean volumeon 08-23-2021 Platelet mean volume (Bld) [Entitic vol] 10.2 fL 6.2-12.0 [facility] Work Phone: Determination of erythrocyte mean corpuscular volume (MCV)on 08-23-2021 MCV (RBC) [Entitic vol] 85.7 fL 80-94 [facility] Work Phone: Hematocrit Auto (Bld) [Volum e fraction]on 08-23-2021 Hematocrit (Bld) [Volume fraction] 43.7 % 40-54 [facility] Work Phone: Laboratory - Chemistry and C hemistry - challengeon 08-23-2021 ALP [Catalytic activity/Vol] 77 U/L 45-117 [facility] Work Phone: ALT [Catalytic activity/Vol] 43 U/L 16-61 [facility] Work Phone: CO2 [Moles/Vol] 24.0 mmol/L 21.0-32.0 [facility] Work Phone: Globulin (S) [Mass/Vol] 3.4 g/dL 2.2-4.2 [facility] Work Phone: Urea nitrogen/Creatinine [Mass ratio] 16.6 mg/mg 10-20 [facility] Work Phone: Laboratory - Hematology and Cell countson 08-23-2021 Erythrocyte distribution width (RBC) [Entitic vol] 38.8 fL 35.1-43.9 [facility] Work Phone: Erythrocyte distribution width (RBC) [Ratio] 12.5 % 11.6-14.6 [facility] Work Phone: Immature granulocytes/100 WBC (Bld) 0.700 % 0.0-0.9 [facility] Work Phone: Comment on above: IG% - Immature Granu locytes (promyelocytes, myelocytes and metamyelocytes) > 1% indicates that a LEFT SHIFT is Present. MCH (RBC) [Entitic mass] 30.2 pg 27.0-32.0 [facility] Work Phone: Nucleated RBC/100 WBC (Bld) [Ratio] 0 % 0-5 [facility] Work Phone: MCHC Auto (RBC) [Mass/Vol]on 08-23-2021 MCHC (RBC) [Mass/Vol] 35.2 g/dL 32-36 [facility] Work Phone: No Panel Informationon 08-23 Estimated GFR (MDRD) Amer 103 mL/min >60 [facility] Work Phone: Comment on above: GFR Calc Estimated GFR (MDRD) Non-Af Amer 85 mL/min >60 [facility] Work Phone: Comment on above: Non- GFR Calc Platelets bldon 08-23-2021 Platelets (Bld) [#/Vol] 215 10*3/uL 150-450 [facility] Work Phone: Serum or plasma IgA measurem ent (mass/volume)on 08-23-2021 IgA [Mass/Vol] 273 mg/dL [facility] Work Phone: Serum or plasma IgG measurem ent (mass/volume)on 08-23-2021 IgG [Mass/Vol] 906 mg/dL [facility] Work Phone: Serum or plasma IgM measurem ent (mass/volume)on 08-23-2021 IgM [Mass/Vol] 34 mg/dL [facility] Work Phone: Comment on above: Performed at: [address] [id number] Director: Ben Wray PhD, Phone: [phone] Serum or plasma albumin segundo urement (mass/volume)on 08-23-2021 Albumin [Mass/Vol] 4.4 g/dL 3.2-5.0 [facility] Work Phone: Serum or plasma albumin/glob ulin mass ratioon 08-23-2021 Albumin/Globulin [Mass ratio] 1.3 {ratio} 0.9-2.4 [facility] Work Phone: Serum or plasma calcium segundo urement (mass/volume)on 08-23-2021 Calcium [Mass/Vol] 9.4 mg/dL 8.5-10.1 [facility] Work Phone: Serum or plasma creatinine m easurement (mass/volume)on 08-23-2021 Creatinine [Mass/Vol] 0.96 mg/dL 0.70-1.30 [facility] Work Phone: Comment on above: The validity of the calculated GFR & GFRAA in patients over 70 years has not been determined. Clinical correlation is essential. Serum or plasma urea nitroge n measurement (mass/volume)on 08-23-2021 Urea nitrogen [Mass/Vol] 16 mg/dL 7-18 [facility] Work Phone: Thin prep Papanicolaou smear with manual screeningon 08-23-2021 Thin prep Papanicolaou smear with manual screening 21 U/L 15-37 [facility] Work Phone: Thin prep Papanicolaou smear with manual screening 7 5-15 [facility] Work Phone: Vital Signs Date Time Vital Sign Value Performing Clinician Homar varela 10-26-2024 19:18-0400 Body temperature 97.5 [degF] Mihir Kodyorrow SALES [employer]OCK ASSOC[employer]ATE[employer] Work Phone: [facility] 10-26-2024 19:18-0400 Diastolic blood pressure 78 mm[Hg] [facility] Work Phone: [facility] 10-26-2024 19:18-0400 Heart rate 58 /min [facility] Work Phone: [facility] 10-26-2024 19:18-0400 Respiratory rate 18 /min Mihir [facility] SALES STOCK ASSOCIATE-C Work Phone: [facility] 10-26-2024 19:18-0400 SaO2% (BldA) [Mass fraction] 93 % Mihir [facility] SALES STOCK ASSOCIATE-C Work Phone: [facility] 10-26-2024 19:18-0400 Systolic blood pressure 148 mm[Hg] Mihir [facility] SALES STOCK ASSOCIATE-C Work Phone: [facility] 10-26-2024 18:22-0400 Body height 185.42 cm [facility] Work Phone: [facility] 10-26-2024 18:22-0400 Body mass index (BMI) [Ratio] 26.2 kg/m2 [facility]OC[facility]-C Work Phone: [facility] 10-26-2024 18:22-0400 Body weight 89.94 kg Mihir [facility] SALES STOCK ASSOCIATE-C Work Phone: [facility] Encounters Encounter Date Encounter Type Care Provider Facility Start: 12-30-2024 End: 12-30-2024 [facility] FILIBERTO RUIZ Facility:[facility] Start: 10-26-2024 End: 10-26-2024 Emergency department patient visit Mihir indico SAL[employer]OCK ASSOCIATE[employer]C Work Phone: -Emergency Department Work Phone: Start: 10-06-2024 End: 10-06-2024 ambulatory Mihir Bib [employer]OCK ASSOCIATE-C Work Phone: [facility] Work Phone: Start: 10-06-2024 End: 10-06-2024 Patient encounter procedure FILIBERTO RUIZ SALES STOCK ASSOCIATE-C -Laboratory [facility] Start: 10-06-2024 End: 10-06-2024 ambulatory FILIBERTO EVANSK Facility:[facility] Start: 09-05-2024 End: 09-05-2024 ambulatory Mihir Sonali SALES STOCK ASSOCIATE-C Work Phone: [facility] Work Phone: Start: 09-05-2024 End: 09-05-2024 Patient encounter procedure Mihir Lyon SALES STOCK ASSOCIATE-C -Laboratory, [facility] Start: 09-05-2024 End: 09-05-2024 ambulatory Mihir Sonali SALES STOCK ASSOCIATE Facility:[facility] Start: 03-03-2024 End: 03-03-2024 [facility] Start: 02-19-2024 End: 02-19-[facility] Start: 04-19-2023 End: 04-19-2023 ambulatory [facility] Work Phone: Start: 04-19-2023 End: 04-19-2023 [facility] Start: 01-09-2023 End: 01-09-2023 ambulatory [facility] Work Phone: Start: 01-09-2023 End: 01-09-2023 Patient encounter procedure [facility]-Laboratory Work Phone: Start: 12-25-2022 End: 12-25-2022 ambulatory [facility] Work Phone: Start: 12-25-2022 End: 12-25-2022 Patient encounter procedure [facility]-Cat Scan, [facility] Work Phone: Start: 12-26-2021 End: 12-26-2021 ambulatory [facility] Work Phone: Start: 12-26-2021 End: 12-26-2021 Patient encounter procedure [facility]-Laboratory, [facility] Start: 08-23-2021 End: 08-23-2021 Patient encounter procedure [facility]-Laboratory, [facility] Procedures Date Procedure Procedure Detail Performing Clinician Start: 09-05-2024 Prostate specific an tigen measurement Mihir Kodyorrow SAL[employer] ASSOCIATE[employer] Work Phone: Comment on above: This test [...] Date Care Activity Detail Author Start: 10-26-2024 [facility] Start: 12-26-2021 Serum immunofixation [facility] Work Phone: Calculus analysis [facility] IgA [Mass/volume] in Serum or Plasma [facility] Work Phone: IgD [Mass/volume] in Serum [facility] Work Phone: IgG [Mass/volume] in Serum or Plasma [facility] Work Phone: IgM [Mass/volume] in Serum or Plasma [facility] Work Phone: Measurement of weigh t of calculus [facility] Origin of Stone [facility] Patient Education ED Laceration Extremity [facility] Work Phone: Specimen color determination [facility] Payers Date Payer Category Payer Self-pay [id number] 2024 Unknown [id number] Self-pay [id number] Unknown [id number] Unknown [id number] Unknown [id number] Unknown [id number] Unknown [id number] Unknown [id number] Unknown [id number] Social History Date Type Detail Facility Start: 02-02-2018 End: 02-02-2018 Tobacco smoking status NHIS Unknown if ever smoked [facility] Start: 09-22-2020 Occasional [facility] Start: 09-22-2020 Non-smoker [facility] Start: 1960 Sex Assigned At Male [facility] Start: 02-02-2018 End: 10-26-2024 Tobacco smoking status NHIS Never smoked tobacco (finding) [facility] Evaluation note Note Date & Type Note Facility Evaluation note No assessment information availa ble [facility] Work Phone: Hospital Discharge instructions Note Date & Type Note Facility Hospital Discharge instructions Additional Instructions Clean with soap and water and pat dry. Stitches need removed in 7 days. Please be seen immediately if you develop signs of infection like significant redness, swelling, pus, increased pain or fever. [facility] Work Phone: Reason for referral (narrative) Note Date & Type Note Facility Reason for referral (narrative) No reason for referral information available [facility] Work Phone: Advance Directives No Advanced Directives Records Found Advance Directive Response Recorded Date/ Time Living Will No February 02 8 7:45am Power of Hourly Caregiver No February 02 7:45am Advance Directive Response Recorded Date/ Time Living Will No February 02 6:45am Power of Hourly Caregiver No February 02 6:45am Advance Directive Response Recorded Date/ Time Do you have a Healthcare Power of Hourly Caregiver? Yes October 26, 2024 6:43pm Chief Complaint [...] Rajput MD Family Provider Active Mihir Lyon SALES STOCK ASSOCIATE, SALES STOCK ASSOCIATE-C Primary Care Provider Active Team Status: Inactive Member Role Status Dates Mihir Lyon SALES STOCK ASSOCIATE, SALES STOCK ASSOCIATE-C Primary Care Provider Active Start: September 05, 2024 End: September 05, 2024 Mihir Lyon SALES STOCK ASSOCIATE, SALES STOCK ASSOCIATE-C Attending Provider Active Start: September 05, 2024 End: September 05, 2024 Mihir Lyon SALES STOCK ASSOCIATE, SALES STOCK ASSOCIATE-C Referring Provider Active Start: September 05, 2024 End: September 05, 2024 Team Status: Inactive Member Role Status Dates Mihir Lyon SALES STOCK ASSOCIATE, SALES STOCK ASSOCIATE-C Primary Care Provider Active Start: October 06, 2024 End: October 06, 2024 FILIBERTO RUIZ SALES STOCK ASSOCIATE-C Attending Provider Active Sta rt: October 06, 2024 End: October 06, 2024 Team Status: Active Member Role/Relationship Status Dates Mihir Lyon SALES STOCK ASSOCIATE, SALES STOCK ASSOCIATE-C Primary Care Provider Active Team Status: Inactive Member Role/Relationship Status Dates Mihir Lyon SALES STOCK ASSOCIATE, SALES STOCK ASSOCIATE-C Primary Care Provider Active Start: September 05, 2024 End: September 05, 2024 Mihir Lyon SALES STOCK ASSOCIATE, SALES STOCK ASSOCIATE-C Attending Provider Active Start: September 05, 2024 End: September 05, 2024 Mihir Lyon SALES STOCK ASSOCIATE, SALES STOCK ASSOCIATE-C Referring Provider Active Start: September 05, 2024 End: September 05, 2024 Team Status: Inactive Member Role/Relationship Status Dates Mihir Lyon SALES STOCK ASSOCIATE, SALES STOCK ASSOCIATE-C Primary Care Provider Active Start: October 06, 2024 End: October 06, 2024 FILIBERTO RUIZ SALES STOCK ASSOCIATE-C Attending Provider Active Sta rt: October 06, 2024 End: October 06, 2024 Team Status: Inactive Member Role/Relationship Status Dates Mihir Lyon SALES STOCK ASSOCIATE, SALES STOCK ASSOCIATE-C Primary Care Provider Active Start: October 26, 2024 End: October 26, 2024 Dr. Leonides Dominguez , DO Emergency Provider Active Start: October 26, 2024 End: October 26, 2024 (unrecognized sect ion and content) No Status Records Found INFORMATION SOURCE (unrecogn ized section and content) DATE CREATED AUTHOR 01/17/2025 [facility] FOR RECORDS PERTAINING TO PATIENTS WHO [...] BE BASED ON THE PRIMARY CLINICAL RECORDS. [employer] provides no warranty or guarantee of the accuracy or completeness of information in this document.
--- NOTE | 2025-01-17 22:43 | ECHOD_ITS ---
Reason For Study Reason For Study: TIA/CVA Procedure This was a 2D Doppler, Color Flow transthoracic echocardiogram. Exam performed portable in patient room. Left Ventricle Normal LV size. Left ventricular systolic function is normal. Stage 1 diastolic dysfunction. No regional wall motion abnormalities noted. Right Ventricle Normal RV size. Normal systolic function. Atria Normal left atrium. Normal right atrium. Bubble contrast study negative for right to left interatrial shunt. Mitral Valve Normal mitral valve. Tricuspid Valve Normal tricuspid valve. Aortic Valve Trisinus/trileaflet aortic valve. Pulmonic Valve Normal pulmonic valve. Great Vessels Normal aortic root. The pulmonary artery is normal size. Normal inferior vena cava. Pericardium/Pleural No pericardial effusion. Medication Performed a rapid injection of agitated mix of 9 cc saline and 1cc air to assess for atrial septal defect. MMode/2D Measurements & Calculations LVIDd: 5.4 cm IVSd: 1.7 cm Ao root diam: 3.4 cm LVIDs: 4.0 cm LVPWd: 1.0 cm FS: 27.0 % LAV(MOD-bp): 61.1 ml LVAd ap4: 36.1 cm2 SV(MOD-sp4): 82.6 ml LAV(MOD-bp) Indexed: 26.3 ml/m2 LVLd ap4: 10.0 cm SI(MOD-sp4): 35.6 ml/m2 LAV(MOD-sp2): 53.0 ml EDV(MOD-sp4): 117.2 ml LAV(MOD-sp4): 57.0 ml EDV(sp4-el): 110.1 ml LVAs ap4: 16.4 cm2 LVLs ap4: 7.2 cm ESV(MOD-sp4): 34.5 ml ESV(sp4-el): 31.7 ml EF(MOD-sp4): 70.5 % EF(sp4-el): 71.2 % SV(sp4-el): 78.4 ml LA A4 area: 20.3 cm2 LA dimension(2D): 4.1 cm RA A4 area: 20.3 cm2 Time Measurements MV dec time: 0.21 sec Doppler Measurements & Calculations MV E max kwasi: 53.7 cm/sec Lat Peak E' Kwasi: 8.8 cm/sec Med Peak E' Kwasi: 6.3 cm/sec MV A max kwasi: 64.1 cm/sec E/E' lat: 6.1 E/E' med: 8.5 MV E/A: 0.84 MV V2 max: 58.1 cm/sec MV dec slope: 261.8 cm/sec2 Ao V2 max: 143.3 cm/sec MV max P.4 mmHg Ao max P.2 mmHg MV V2 mean: 29.9 cm/sec Ao V2 mean: 97.3 cm/sec MV mean P.46 mmHg Ao mean P.4 mmHg MV V2 VTI: 29.9 cm Ao V2 VTI: 32.0 cm AV (velocity ratio): 0.74 LV V1 max: 120.3 cm/sec PA V2 max: 96.6 cm/sec LV V1 max P.8 mmHg PA V2 mean: 65.3 cm/sec LV V1 mean P.6 mmHg LV V1 mean: 74.6 cm/sec LV V1 VTI: 23.6 cm ECHO/Echo Complete Interpretation Summary Normal LV size. Left ventricular systolic function is normal. Stage 1 diastolic dysfunction. Bubble contrast study negative for right to left interatrial shunt. Ordering Physician: Mckenzie Pond Referring Physician: MEGHAN NAIK Performed By: Petra Reich RCS
[2025-01-17 23:00] LABS: Magnesium 2.1 mg/dL (1.5-2.2)
[2025-01-18] VITALS (8 sets, daily range): BP systolic 130–164; BP diastolic 70–83; PULSE 46–53; RESP 14–18; TEMP 36.4–36.6; O2SAT 91–99; BMI 29.5
[2025-01-18 00:23] LABS: Troponin T High Sens 4 HR 8 ng/L (<=22)
[2025-01-18 06:40] LABS: Hematocrit 40.3 % (40-54); Hemoglobin 14.2 g/dL (13.0-16.5); Immature Granulocytes Count 0.030 X10^3/uL (0.0-0.0); Mean Corp Hgb Conc 35.2 g/dL (32-36); Mean Corpuscular Volume 88.2 fL (80-94); Mean Platelet Vol. 9.7 fl (6.2-12.0); NRBC Flagged by Analyzer 0 % (0-5); Platelet Count 210 K/mm3 (150-450); RBC Distribution Width CV 12.1 % (11.6-14.6); RBC Distribution Width SD 38.6 fl (35.1-43.9); Red Blood Count 4.57 M/mm3 (4.6-6.2); White Blood Count 7.7 K/mm3 (4.4-11.0)
[2025-01-18 07:14] LABS: AST(SGOT) 18 U/L (<=37); Alanine Aminotransfer ALT/SGPT 20 U/L (<=46); Albumin, Serum 4.4 g/dL (3.4-4.8); Alkaline Phosphatase 59 U/L (40-129); Anion Gap 12 (5-15); BUN 16 mg/dL (4-19); BUN/Creat Ratio 17.0 RATIO (10-20); Calcium,Total 9.3 mg/dL (7.6-11.0); Carbon Dioxide 26.8 mmol/L (21.0-32.0); Chloride 101 mmol/L (98-108); Cholesterol 182 mg/dL (<=200); Estimated Creatinine Clearance 103.18 ml/min (50-250); Globulin 2.2 g/dL (2.2-4.2); Glucose 99 mg/dL (70-99); Low Density Lipoprotein Calc. 102 mg/dL; Potassium 3.8 mmol/L (3.3-5.1); Triglycerides 171 mg/dL; Very Low Density Lipoprotein 34 mg/dL (5-40); cholesterol:hdl ratio screen 3.95
--- NOTE | 2025-01-18 13:33 | PCM.PN.HOSP ---
Subjective Subjective Speech issues have resolved and his NIH is 0 Objective Data Objective Data Vital Signs: Vital Signs Temp Pulse Resp BP Pulse Ox O2 Del Method FiO2 97.7 F L 50 L 18 164/83 H 96 Room Air 21 01/18/25 11:44 01/18/25 11:44 01/18/25 11:44 01/18/25 11:44 01/18/25 11:44 01/18/25 11:44 01/18/25 00:33 Oxygen Delivery Method Room Air Weight: 223 lb 15.834 oz Body Mass Index (BMI) 29.5 Lab / Micro Data 01/18/25 05:36 01/18/25 05:36 Labs: Laboratory Results - last 24 hr 01/17/25 18:00: WBC 7.8, RBC 4.61, Hgb 14.6, Hct 40.6, MCV 88.1, MCH 31.7, MCHC 36.0, RDW Std Deviation 38.7, RDW Coeff of Alexandro 12.0, Plt Count 226, MPV 9.8, Immature Gran % (Auto) 0.800, Neut % (Auto) 65.1, Lymph % (Auto) 23.3, [place] % (Auto) 7.7, Eos % (Auto) 2.1, Baso % (Auto) 1.0, Absolute Neuts (auto) 5.1, Absolute Lymphs (auto) 1.82, Nucleated RBC % 0, PT 13.6, INR 1.0, APTT 22.8 L, Sodium 137, Potassium 4.2, Chloride 98, Carbon Dioxide 25.9, Anion Gap 13, BUN 20 H, Creatinine 1.06, Estim Creat Clear Calc 93.39, Est GFR (MDRD) Non-Af 79, BUN/Creatinine Ratio 18.5, Glucose 145 H, Calcium 9.3, Troponin T High Sens 9 01/17/25 20:22: Magnesium 2.1, Troponin T Hi Sens 2 Hr 9 01/17/25 23:47: Troponin T Hi Sens 4Hr 8 01/18/25 05:36: WBC 7.7, RBC 4.57 L, Hgb 14.2, Hct 40.3, MCV 88.2, MCH 31.1, MCHC 35.2, RDW Std Deviation 38.6, RDW Coeff of Alexandro 12.1, Plt Count 210, MPV 9.7, Immature Gran % (Auto) 0.400, Neut % (Auto) 62.4, Lymph % (Auto) 27.2, [place] % (Auto) 7.3, Eos % (Auto) 1.9, Baso % (Auto) 0.8, Absolute Neuts (auto) 4.8, Absolute Lymphs (auto) 2.10, Nucleated RBC % 0, Sodium 139, Potassium 3.8, Chloride 101, Carbon Dioxide 26.8, Anion Gap 12, BUN 16, Creatinine 0.93, Estim Creat Clear Calc 103.18, Est GFR (MDRD) Non-Af 93, BUN/Creatinine Ratio 17.0, Glucose 99, Hemoglobin A1c 5.5, Calcium 9.3, Total Bilirubin 0.80, AST 18, ALT 20, Alkaline Phosphatase 59, Total Protein 6.6, Albumin 4.4, Globulin 2.2, Albumin/Globulin Ratio 2.1, Triglycerides 171, Cholesterol 182, LDL Cholesterol, Calc 102, VLDL Cholesterol 34, HDL Cholesterol 46, Cholesterol/HDL Ratio 3.95, TSH 2.550 Radiography Diagnostic Testing: Radiology Impression Brain CT 01/17/25 18:18 IMPRESSION: 1. No evidence of acute intracranial pathology. 2. Widely patent intracranial and cervical arterial vasculature. 3. Small patchy foci of hypoattenuation in the supratentorial periventricular white matter, related to known history of multiple sclerosis, better seen on prior MRI. Reading Location: [facility] Head/Neck CTA 01/17/25 18:19 IMPRESSION: 1. No evidence of acute intracranial pathology. 2. Widely patent intracranial and cervical arterial vasculature. 3. Small patchy foci of hypoattenuation in the supratentorial periventricular white matter, related to known history of multiple sclerosis, better seen on prior MRI. Reading Location: [facility] Physical Exam Narrative General: Alert, Oriented x3, Cooperative, No apparent distress HEENT: Atraumatic, PERRLA, EOMI, Normocephalic Oral: Moist Mucosa Neck: Supple, No JVD Lungs: Diminished, Normal air movement, No rhonchi, No wheeze, No rales Cardiovascular: Regular rate, Regular Rhythm, Normal S1, Normal S2, No murmurs Abdomen: Soft, Non Tender, Non-Distended, No Hepato-splenomegaly Extremities: No edema, Capillary Refill Less than 3 Seconds Skin: No rashes, No breakdown Musculoskeletal: No Tenderness to Palpation of Joints or Extremities Neurological: No focal neurological deficits, Motor Exam 5/5 strength throughout, Sensory exam intact to light touch and pain, speech is normal, NIH of 0 Psych/Mental Status: Normal Affect, Appropriate Assessment & Plan Assessment/Plan (1) TIA (transient ischemic attack): PLAN: Plan 1. Dysarthria concerning for possible TIA ? Symptoms have completely resolved ? He does have a history of MS so it could be a flare though unclear as to the etiology as to why ? MRI with and without contrast is pending tomorrow as it is an echocardiogram 2. Essential HTN ? Blood pressures are stable ? He does have as needed coverage with hydralazine and labetalol ? Can resume his home blood pressure medications tomorrow 3. Anxiety/depression ? Stable ? Continue with citalopram DVT: Lovenox Charges/Coding Visit Charges Inpatient E&M: 66878 Subs Hosp L2 NIHSS NIHSS Nursing Documentation NIHSS Nursing Documentation: NIHSS: Ischemic Stroke/TIA Start: 01/17/25 22:43 Text: For PCU Patients: NIH and Neuro Check every 4 Status: Active hours, PRN and with change in RN caregiver. Freq: [id number] Protocol: Activity Type Activity Date Activity User E-sign Co-sign Detail Recorded Client Recorded Date Recorded By Document 01/18/25 11:43 GILBERT 0 01/18/25 11:43 Jenny 01/18/25 11:43 NIH Stroke Scale [NIHSS] A score of 0 is normal or asymptomatic . Total possible score is 42. Inpatient: RN or Physician to activate a stroke alert for onset of new stroke symptoms or with NIHSS increase >/= 3 points. Following change in neurological status, NIHSS will be performed per physician order or more frequently PRN. -1a. Level of Consciousness 0 - Alert; keenly responsive -1b. LOC Questions 0 - Answers BOTH questions correctly -1c. LOC Commands 0 - Performs BOTH tasks correctly -2. Best Gaze 0 - Normal -3. Visual 0 - No visual loss -4. Facial Palsy 0 - Normal symmetrical movements -5a. Left Arm 0 - No drift; arm holds 90 ( or 45) degrees for full 10 seconds -5b. Right Arm 0 - No drift; arm holds 90 ( or 45) degrees for full 10 seconds -6a. Left Leg 0 - No drift; leg holds 30- degree position for full 5 seconds -6b. Right Leg 0 - No drift; leg holds 30- degree position for full 5 seconds -7. Limb Ataxia 0 - Absent -8. Sensory 0 - Normal; no sensory loss -9. Best Language 0 - No aphasia; normal -10. Dysarthria 0 - Normal -11. Extinction and Inattention 0 - No abnormality -Total 0 Query Text:A score of 0 is normal or asymptomatic. Total possible score is 42 . ED: Notify Physician for NIHSS increase by > / = 3 points. Inpatient: RN or Physician to activate a stroke alert for NIHSS increase of > / = 3 points. Coma Scale [Assess] -Eye Opening Spontaneous -Motor Obeys Commands -Verbal Oriented [Total] -Coma Scale Total 15
--- NOTE | 2025-01-18 17:34 | NEURO.CONS ---
Assessment and Plan: Neuro Assessment/Plan Telestroke Attending Consult Note 64 y/o man with h/o former smoker, DM, CKD stage II (patient is not aware of), Obesity, HTN, HLD, multiple sclerosis p/w feeling high or 'stoned' while having dinner followed by difficulty with word finding and also not walking right. He reports of developing numbness in b/l hand and feet about 2 weeks ago and was started on steroids. CT Head- small patchy foci of hypoattenuation in the supratentorial periventricular white matter related to known history of multiple sclerosis that are seen on prior MRI, CTA of the head and neck with widely patent intracranial and cervical arterial vasculature. A1c-5.5. LDL-102. Today, he reports feeling back to normal with NIHSS-0. Diagnosis: Possible TIA Plan: ASA and statin. Follow up MRI Brain w/ justina and TTE. 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 control of vascular risk factors. I personally attended this patient and spent a total time of 70 minutes evaluating this patient including clinical assessment, review of chart, medical history imaging, and determining appropriate treatment and workup. HPI Consult Data Date of Consult: 01/18/25 HPI Narrative HPI Narrative: 64 y/o man with h/o former smoker, CKD stage II (patient is not aware of), Obesity, HTN, HLD, multiple sclerosis p/w feeling high or 'stoned' while having dinner followed by difficulty with word finding and also not walking right. He reports of developing numbness in b/l hand and feet about 2 weeks ago and was started on steroids. CT Head- small patchy foci of hypoattenuation in the supratentorial periventricular white matter related to known history of multiple sclerosis that are seen on prior MRI, CTA of the head and neck with widely patent intracranial and cervical arterial vasculature. A1c-5.5. LDL-102. Today, he reports feeling back to normal with NIHSS-0. [facility] Medical History (Updated 01/17/25 @ 23:13 by Ramona Valerio) Kidney stones BPH (benign prostatic hyperplasia) Former tobacco use Obesity CKD (chronic kidney disease), stage II Hyperlipemia HTN (hypertension) Multiple sclerosis Esophageal reflux Home Medications ?Medication ?Instructions ?Recorded ?Last Taken ?Type citalopram 10 mg tablet 10 mg PO DAILY 02/02/18 Unknown History metformin 500 mg 24 hr 500 mg PO DAILY PRN diabetes 02/02/18 Unknown History tablet,extended release (gastric retention) cholecalciferol (vitamin D3) 50 4,000 unit PO DAILY 01/17/25 Unknown History mcg (2,000 unit) capsule (Vitamin D3) green tea extract 375 mg capsule mg PO DAILY supplement 01/17/25 Unknown History losartan 100 1 tab PO DAILY 01/17/25 Unknown History mg-hydrochlorothiazide 12.5 mg tablet ocrelizumab 30 mg/mL intravenous mg IV PRN MS 01/17/25 Unknown History solution (Ocrevus) omega 4-opt-age-fish oil 900 cap PO DAILY supplemen 01/17/25 Unknown History mg-1,400 mg capsule,delayed release (Fish Oil) vitamin B complex (Complex B-100 1 tab PO DAILY 01/17/25 Unknown History tablet,extended release) zinc 50 mg capsule 50 mg PO DAILY 01/17/25 Unknown History Allergy/AdvReac Type Severity Reaction Status Date / Time Penicillins Allergy Rash Verified 01/17/25 17:59 Family History Mother Thyroid disorder Hypertension Father Thyroid disorder Surgical History History of surgery on lower extremity S/P urethral surgery Social History household members: none housing: house Smoking Status: Former smoker how long ago did patient quit smoking: Quit ~ 11 yrs prior, smoked 1/2 ppd until quit. alcohol intake: current alcohol intake frequency: holidays/special occasions only substance use type: does not use Vital Signs Vital Signs Vital Signs: 01/17/25 17:57 01/17/25 18:00 01/17/25 18:48 Temperature 98 F Temperature Source Oral Pulse Rate 66 76 Pulse Strength Respiratory Rate 16 19 H Respiratory Effort Normal Non-Labored Respiratory Depth Respiratory Pattern Normal Blood Pressure 179/87 H 168/80 H Blood Pressure Mean 117 109 Blood Pressure Source Blood Pressure Position Blood Pressure Location Pulse Ox 98 98 Oxygen Delivery Method Room Air Fraction of Inspired Oxygen (FIO2) 01/17/25 19:18 01/17/25 19:30 01/17/25 20:00 Temperature Temperature Source Pulse Rate 80 77 88 Pulse Strength Respiratory Rate 16 16 Respiratory Effort Respiratory Depth Respiratory Pattern Blood Pressure 159/82 H 152/80 H 156/70 H Blood Pressure Mean 107 104 98 Blood Pressure Source Blood Pressure Position Blood Pressure Location Pulse Ox 98 98 100 Oxygen Delivery Method Fraction of Inspired Oxygen (FIO2) 01/17/25 21:00 01/17/25 22:10 01/17/25 22:10 Temperature 98.6 F Temperature Source Pulse Rate 90 90 Pulse Strength Respiratory Rate 16 Respiratory Effort Respiratory Depth Respiratory Pattern Blood Pressure 156/79 H 156/79 H Blood Pressure Mean 104 104 Blood Pressure Source Blood Pressure Position Blood Pressure Location Pulse Ox 100 100 100 Oxygen Delivery Method Room Air Fraction of Inspired Oxygen (FIO2) 01/17/25 23:15 01/17/25 23:30 01/18/25 00:33 Temperature 98.7 F Temperature Source Temporal Pulse Rate 58 L 50 L Pulse Strength Respiratory Rate 18 16 Respiratory Effort Normal Non-Labored Respiratory Depth Normal Respiratory Pattern Normal Normal Blood Pressure 160/90 H Blood Pressure Mean 113 Blood Pressure Source Blood Pressure Position Blood Pressure Location Pulse Ox 95 94 Oxygen Delivery Method Room Air Room Air Fraction of Inspired Oxygen (FIO2) 01/18/25 00:33 01/18/25 03:50 01/18/25 07:25 Temperature 97.8 F Temperature Source Temporal Pulse Rate 46 L Pulse Strength Respiratory Rate 16 Respiratory Effort Respiratory Depth Respiratory Pattern Blood Pressure 138/80 H Blood Pressure Mean 99 Blood Pressure Source Blood Pressure Position Blood Pressure Location Pulse Ox 94 96 93 Oxygen Delivery Method Room Air CPAP Room Air Fraction of Inspired Oxygen (FIO2) 01/18/25 07:43 01/18/25 07:45 01/18/25 10:00 Temperature 97.7 F L Temperature Source Oral Pulse Rate 50 L Pulse Strength Normal (2+) Respiratory Rate 14 Respiratory Effort Normal Non-Labored Respiratory Depth Normal Respiratory Pattern Normal Blood Pressure 138/79 H Blood Pressure Mean 98 Blood Pressure Source Monitor Blood Pressure Position Semi-Fowlers Blood Pressure Location Left Arm Pulse Ox 91 Oxygen Delivery Method Room Air Room Air Fraction of Inspired Oxygen (FIO2) 01/18/25 11:44 01/18/25 14:17 01/18/25 15:43 Temperature 97.7 F L 97.6 F L Temperature Source Oral Oral Pulse Rate 50 L 53 L Pulse Strength Respiratory Rate 18 16 Respiratory Effort Normal Non-Labored Respiratory Depth Normal Respiratory Pattern Normal Blood Pressure 164/83 H 146/77 H Blood Pressure Mean 110 100 Blood Pressure Source Monitor Monitor Blood Pressure Position Semi-Fowlers Semi-Fowlers Blood Pressure Location Left Arm Left Arm Pulse Ox 96 99 Oxygen Delivery Method Room Air Room Air Room Air Fraction of Inspired Oxygen (FIO2) Weight Weight: 101.6 kg Body Mass Index (BMI) 29.5 EEG Results Procedure Details EEG Procedure Details: ART WRIGHT is a 64 year old M with a past medical history of , who presents for evaluation of Electroencephalogram on DATE at TIME Physical Exam Narrative General: The patient appears nutritionally appropriate, well-groomed, and appears comfortable in no acute distress. Mental Status:? The patient?s mental status was normal including orientation.? Language was intact.? Cranial nerves:? Visual carrizales full, and extra-ocular motion was intact. Symmetric face. Motor: Normal strength in all extremities. Sensation: Intact to touch in all extremities.? Coordination:? Bilateral finger to nose was normal.? There was no dysmetria. Gait:? deferred. Lab / Micro Data 01/18/25 05:36 01/18/25 05:36 Labs: Laboratory Results - last 24 hr 01/17/25 18:00: WBC 7.8, RBC 4.61, Hgb 14.6, Hct 40.6, MCV 88.1, MCH 31.7, MCHC 36.0, RDW Std Deviation 38.7, RDW Coeff of Alexandro 12.0, Plt Count 226, MPV 9.8, Immature Gran % (Auto) 0.800, Neut % (Auto) 65.1, Lymph % (Auto) 23.3, Oliver % (Auto) 7.7, Eos % (Auto) 2.1, Baso % (Auto) 1.0, Absolute Neuts (auto) 5.1, Absolute Lymphs (auto) 1.82, Nucleated RBC % 0, PT 13.6, INR 1.0, APTT 22.8 L, Sodium 137, Potassium 4.2, Chloride 98, Carbon Dioxide 25.9, Anion Gap 13, BUN 20 H, Creatinine 1.06, Estim Creat Clear Calc 93.39, Est GFR (MDRD) Non-Af 79, BUN/Creatinine Ratio 18.5, Glucose 145 H, Calcium 9.3, Troponin T High Sens 9 01/17/25 20:22: Magnesium 2.1, Troponin T Hi Sens 2 Hr 9 01/17/25 23:47: Troponin T Hi Sens 4Hr 8 01/18/25 05:36: WBC 7.7, RBC 4.57 L, Hgb 14.2, Hct 40.3, MCV 88.2, MCH 31.1, MCHC 35.2, RDW Std Deviation 38.6, RDW Coeff of Alexandro 12.1, Plt Count 210, MPV 9.7, Immature Gran % (Auto) 0.400, Neut % (Auto) 62.4, Lymph % (Auto) 27.2, Oliver % (Auto) 7.3, Eos % (Auto) 1.9, Baso % (Auto) 0.8, Absolute Neuts (auto) 4.8, Absolute Lymphs (auto) 2.10, Nucleated RBC % 0, Sodium 139, Potassium 3.8, Chloride 101, Carbon Dioxide 26.8, Anion Gap 12, BUN 16, Creatinine 0.93, Estim Creat Clear Calc 103.18, Est GFR (MDRD) Non-Af 93, BUN/Creatinine Ratio 17.0, Glucose 99, Hemoglobin A1c 5.5, Calcium 9.3, Total Bilirubin 0.80, AST 18, ALT 20, Alkaline Phosphatase 59, Total Protein 6.6, Albumin 4.4, Globulin 2.2, Albumin/Globulin Ratio 2.1, Triglycerides 171, Cholesterol 182, LDL Cholesterol, Calc 102, VLDL Cholesterol 34, HDL Cholesterol 46, Cholesterol/HDL Ratio 3.95, TSH 2.550 Imaging Radiology Impression Brain CT 01/17/25 18:18 IMPRESSION: 1. No evidence of acute intracranial pathology. 2. Widely patent intracranial and cervical arterial vasculature. 3. Small patchy foci of hypoattenuation in the supratentorial periventricular white matter, related to known history of multiple sclerosis, better seen on prior MRI. Reading Location: [facility] Head/Neck CTA 01/17/25 18:19 IMPRESSION: 1. No evidence of acute intracranial pathology. 2. Widely patent intracranial and cervical arterial vasculature. 3. Small patchy foci of hypoattenuation in the supratentorial periventricular white matter, related to known history of multiple sclerosis, better seen on prior MRI. Reading Location: [facility] Active Medications Active Medications Active Medications: Current Medications Generic Name Dose Route Start Last Admin Trade Name Freq PRN Reason Stop Dose Admin Acetaminophen 650 mg 01/17/25 22:43 Acetaminophen 325 Mg Tablet PO Q4H PRN PRN Fever, pain 1-10 Al Hydroxide/Mg Hydroxide 30 ml 01/17/25 22:43 Mag Hydrox/Al Hydrox/Simeth 30 Ml Udc PO Q6H PRN PRN Gastric Burning Albuterol Sulfate 2.5 mg 01/17/25 22:43 Albuterol 2.5 Mg/3 Ml Vial.Neb. INHALATION Q2H PRN PRN Dyspnea, wheezing Aspirin 81 mg 01/18/25 08:00 01/18/25 09:18 Aspirin 81 Mg Tab.Chew PO 81 mg BREAKFAST ANTHONY Administration Atorvastatin Calcium 80 mg 01/18/25 22:00 Atorvastatin Calcium 80 Mg Tablet PO QHS ANTHONY Citalopram Hydrobromide 10 mg 01/18/25 10:00 01/18/25 09:18 Citalopram 10 Mg Tablet PO 10 mg DAILY ANTHONY Administration Enoxaparin Sodium 40 mg 01/18/25 10:00 01/18/25 09:18 Enoxaparin 40 Mg/0.4 Ml Syringe SC Not Given DAILY ANTHONY Guaifenesin 20 ml 01/17/25 22:43 Guaifenesin 10 Ml Udc (200mg/10ml) PO Q4H PRN PRN COUGH Hydralazine HCl 5 mg 01/17/25 22:43 Hydralazine 20 Mg/Ml Vial IV 01/18/25 22:44 Q30M PRN maintain BP parameters with HR <60 Sodium Chloride 250 mls @ 15 mls/hr 01/17/25 22:53 IV .[id number] PRN Saline Flush Sodium Chloride 250 mls @ 15 mls/hr 01/17/25 22:53 IV .[id number] PRN Additional IVPB Infusion Labetalol HCl 10 - 20 mg 01/17/25 22:43 Labetalol 20 Mg/4 Ml Vial IV 01/18/25 22:44 Q10M PRN PRN maintain BP parameters with HR >/=60 Lorazepam 1 mg 01/18/25 12:02 Lorazepam 1 Mg Tablet PO X1 PRN anxiety with mri Melatonin 3 mg 01/17/25 22:43 Melatonin 3 Mg Tablet PO QHS PRN PRN INSOMNIA Ondansetron HCl 4 mg 01/17/25 22:43 Ondansetron 4 Mg/2 Ml Vial IV Q8H PRN PRN NAUSEA/VOMITING Senna/Docusate Sodium 2 tablet 01/17/25 22:43 Senna/Docusate Sodium 1 Tablet PO BID PRN PRN Constipation Sodium Chloride 10 - 40 ml 01/17/25 22:53 0.9% Saline Lock 10 Ml Syringe IV UD PRN SALINE FLUSH NIHSS NIHSS Nursing Documentation NIHSS Nursing Documentation: NIHSS: Ischemic Stroke/TIA Start: 01/17/25 22:43 Text: For PCU Patients: NIH and Neuro Check every 4 Status: Active hours, PRN and with change in RN caregiver. Freq: [id number] Protocol: Activity Type Activity Date Activity User E-sign Co-sign Detail Recorded Client Recorded Date Recorded By Document 01/18/25 15:43 JMN 0 01/18/25 15:44 JMN 01/18/25 15:43 NIH Stroke Scale [NIHSS] A score of 0 is normal or asymptomatic . Total possible score is 42. Inpatient: RN or Physician to activate a stroke alert for onset of new stroke symptoms or with NIHSS increase >/= 3 points. Following change in neurological status, NIHSS will be performed per physician order or more frequently PRN. -1a. Level of Consciousness 0 - Alert; keenly responsive -1b. LOC Questions 0 - Answers BOTH questions correctly -1c. LOC Commands 0 - Performs BOTH tasks correctly -2. Best Gaze 0 - Normal -3. Visual 0 - No visual loss -4. Facial Palsy 0 - Normal symmetrical movements -5a. Left Arm 0 - No drift; arm holds 90 ( or 45) degrees for full 10 seconds -5b. Right Arm 0 - No drift; arm holds 90 ( or 45) degrees for full 10 seconds -6a. Left Leg 0 - No drift; leg holds 30- degree position for full 5 seconds -6b. Right Leg 0 - No drift; leg holds 30- degree position for full 5 seconds -7. Limb Ataxia 0 - Absent -8. Sensory 0 - Normal; no sensory loss -9. Best Language 0 - No aphasia; normal -10. Dysarthria 0 - Normal -11. Extinction and Inattention 0 - No abnormality -Total 0 Query Text:A score of 0 is normal or asymptomatic. Total possible score is 42 . ED: Notify Physician for NIHSS increase by > / = 3 points. Inpatient: RN or Physician to activate a stroke alert for NIHSS increase of > / = 3 points. Coma Scale [Assess] -Eye Opening Spontaneous -Motor Obeys Commands -Verbal Oriented [Total] -Coma Scale Total 15 NIHSS 1a. Level of Consciousness: 0 - Alert; keenly responsive 1b. LOC Questions: 0 - Answers BOTH questions correctly 1c. LOC Commands: 0 - Performs BOTH tasks correctly 2. Best Gaze: 0 - Normal 3. Visual: 0 - No visual loss 4. Facial Palsy: 0 - Normal symmetrical movements 5a. Left Arm: 0 - No drift; arm holds 90 (or 45) degrees for full 10 seconds 5b. Right Arm: 0 - No drift; arm holds 90 (or 45) degrees for full 10 seconds 6a. Left Le - No drift; leg holds 30-degree position for full 5 seconds 6b. Right Le - No drift; leg holds 30-degree position for full 5 seconds 7. Limb Ataxia: 0 - Absent 8. Sensory: 0 - Normal; no sensory loss 9. Best Language: 0 - No aphasia; normal 10. Dysarthria: 0 - Normal 11. Extinction and Inattention: 0 - No abnormality Total: 0
[2025-01-19 00:30] VITALS: BP 148/80; PULSE 52; RESP 18; TEMP 36.6; O2SAT 99
[2025-01-19 04:45] VITALS: BP 138/80; PULSE 58; RESP 18; TEMP 36.4; O2SAT 98
[2025-01-19 05:07] VITALS: BMI 28.3
[2025-01-19 05:45] LABS: Hematocrit 44.2 % (40-54); Hemoglobin 15.2 g/dL (13.0-16.5); Immature Granulocytes Count 0.030 X10^3/uL (0.0-0.0); Mean Corp Hgb Conc 34.4 g/dL (32-36); Mean Corpuscular Volume 89.1 fL (80-94); Mean Platelet Vol. 9.7 fl (6.2-12.0); NRBC Flagged by Analyzer 0 % (0-5); Platelet Count 207 K/mm3 (150-450); RBC Distribution Width CV 12.2 % (11.6-14.6); RBC Distribution Width SD 39.7 fl (35.1-43.9); Red Blood Count 4.96 M/mm3 (4.6-6.2); White Blood Count 6.7 K/mm3 (4.4-11.0)
--- NOTE | 2025-01-19 06:00 | MRI_ITS ---
PROCEDURE: BRAIN W/WO CONTRAST 01/19/2025 REASON FOR EXAM: TIA, MS TECHNIQUE: Procedure Code: [id number] Modality: MR Procedure: BRAIN W/WO CONTRAST Multiplanar and multisequence images were obtained. CONTRAST: Clariscan VOLUME: 20 mL COMPARISON: MRI brain 12/09/2020 FINDINGS: Brain: No significant change in size and number of hyperintense signal on T2 and FLAIR in the subcortical and periventricular white matter including three prominent right periventricular lesions of Duran's fingers appearance. No restricted diffusion. No hemorrhage. No abnormal enhancement. No mass-effect or midline shift. The orbits are unremarkable. Diffusion: No restricted diffusion. Ventricles: No ventriculomegaly. Major Intracranial Vessels: Patent. Sinuses: Clear. Mastoids: Clear. MRI/Brain W/WO Contrast IMPRESSION: No acute bony abnormalities. No infarction. Compared to MRI 12/09/2020, no significant change in size and number of hyperin tense signal on T2 and FLAIR in the subcortical and periventricular white matter including three prominent right periventricul ar lesions of Duran's fingers appearance consistent with multiple sclerosis. Reading Location: [facility]
[2025-01-19 06:12] LABS: Anion Gap 11 (5-15); BUN 15 mg/dL (4-19); BUN/Creat Ratio 14.8 RATIO (10-20); Calcium,Total 9.6 mg/dL (7.6-11.0); Carbon Dioxide 27.5 mmol/L (21.0-32.0); Chloride 100 mmol/L (98-108); Estimated Creatinine Clearance 95.18 ml/min (50-250); Glucose 95 mg/dL (70-99); Potassium 4.4 mmol/L (3.3-5.1)
[2025-01-19 08:20] VITALS: BP 152/90; PULSE 48; RESP 18; TEMP 36.3; O2SAT 97
[2025-01-19 12:15] VITALS: BP 143/78; PULSE 44; RESP 18; TEMP 36.1; O2SAT 99
--- NOTE | 2025-01-19 14:06 | PCM.DC ---
Discharge Instructions DC O2, CPAP, BIPAP needs Home O2 Discharge instructions: No Dressing / Incision Discharge Activity: Return to Normal Activity Dressing / Incision Call your doctor if you observe: Fever of 101 or Higher, Shortness of breath, Dizziness, Fainting spells, Swelling in the ankles, Chest pain and Increased palpitations (irregular heartbeat) Follow Up Care Test Results: Test results from this visit will be discussed in further detail at your follow-up appointment, if applicable. Discharge Plan Admission Admit Date/Time: 01/17/25 22:19 Attending Provider: Sin Lynch Primary Care Provider: Mihir Lyon NP Consulting Providers: Rico Doe; Heber Grigsby; Lyric Morales; Belkys Pleitez; Nirmala Eason; Aakash Ovalle; Dayanna Li; Turner Zapata; Darnell Foley; Tyrel Bauer; Alma Rosa Mclaughlin; Perla Mota; Chema Wilson; Shawanda Gasca; Alesha Ibarra; Da Arizmendi; Jose Hein; Keagan Franks; Zia Lassiter; Charmaine Jimenes; Shaina Walker; Mckenzie Pond Discharge Orders/Prescriptions Prescriptions: New atorvastatin 80 mg Tablet 80 mg PO QHS 30 Days Qty: 30 0RF aspirin 81 mg Tablet,Chewable 81 mg PO BREAKFAST 30 Days Qty: 30 0RF Continued citalopram 10 MG tablet 10 mg PO DAILY Patient Comments: TK 1 T PO QD metformin 500 MG tablet,ER delon.retention 24 hr 500 mg PO DAILY PRN (Reason: diabetes ) losartan-hydrochlorothiazide 100-12.5 mg tablet 1 tab PO DAILY Ocrevus 30 mg/mL solution IV PRN (Reason: MS ) Rx Instructions: Take twice a year, First week of April and Last week of September cholecalciferol (vitamin D3) [Vitamin D3] 50 mcg (2,000 unit) capsule 4,000 unit PO DAILY green tea extract 375 mg capsule PO DAILY Fish Oil 900-1,400 mg capsule,delayed release(DR/EC) PO DAILY zinc 50 mg capsule 50 mg PO DAILY Complex B-100 Tablet Extended Release 1 tab PO DAILY Referrals / Follow Up: Randolph Gary DO [Med Staff - Shift Supervisor [employer], [facility]] - Within 1 Week Disposition Disposition (needs filled in before D/C Order can be placed): Home, Self Care
--- NOTE | 2025-01-19 14:38 | CASEMGMT ---
Social Work SW spoke with the patient and completed a PHQ 9. The patient scored a 0.
--- NOTE | 2025-01-19 14:50 | PCM.DC.SUM ---
Providers Date of Admission: 01/17/25 Primary Care Physician: MARCUS Niño Consultations 01/17/25 22:43 Consult: Tele-Neurology Routine Consulting Provider: [facility] Reason for Consult: Acute Ischemic Stroke/TIA EMERGENT Consult: No MD Notified: Yes Date Notified: 01/17/25 Time Notified: 23:27 Method of Notification: Answering Service Nursing Unit Staff Notify [facility] of Tele-Neurology Consult: Yes Reason For Visit: TIA Diagnosis Discharge Diagnosis (1) TIA (transient ischemic attack): Status: Acute Code(s): G45.9 - Transient cerebral ischemic attack, unspecified Medications at Discharge Home Medications citalopram 10 mg tablet 10 mg PO DAILY mental health 02/02/18 metformin 500 mg 24 hr tablet,extended release (gastric retention) 500 mg PO DAILY PRN diabetes 02/02/18 cholecalciferol (vitamin D3) 50 mcg (2,000 unit) capsule (Vitamin D3) 4,000 unit PO DAILY vitamin 01/17/25 green tea extract 375 mg capsule mg PO DAILY supplement 01/17/25 losartan 100 mg-hydrochlorothiazide 12.5 mg tablet 1 tab PO DAILY blood pressure 01/17/25 ocrelizumab 30 mg/mL intravenous solution (Ocrevus) mg IV PRN MS 01/17/25 omega 3-iqu-wdj-fish oil 900 mg-1,400 mg capsule,delayed release (Fish Oil) cap PO DAILY supplemen 01/17/25 vitamin B complex (Complex B-100 tablet,extended release) 1 tab PO DAILY vitamin 01/17/25 zinc 50 mg capsule 50 mg PO DAILY vitamin 01/17/25 aspirin 81 mg chewable tablet 81 mg PO BREAKFAST 30 days #30 tabs 01/19/25 atorvastatin 80 mg tablet 80 mg PO QHS 30 days #30 tabs 01/19/25 Hospital Course Operations None Procedures 2-D Echocardiogram Summary of Care Provided Minutes Spent on Discharge: 32 Hospital Course: Per HPI: The patient is a 64 y/o M w/ PMHx: Former tobacco use, CKD stage II, Obesity, HTN, HLD, Multiple sclerosis who presents to [facility] ED on 01/17/2025 with history of difficulty speaking lasting approximately 1 hour noted to be intermittent but sudden onset on day of presentation worsened by any oral intake attempts specifically liquids reporting that normally was the speech altered but it was slowed and slurred but did report that he was able to get his thoughts out and he was understanding what was said to him which occurred while he was having dinner with his friend. Workup in the ED included T98, heart rate 66, BP 179/87, respiratory rate 16, 98% on room air with most recent repeat vitals heart rate 90, BP 156/79, respiratory rate 16, 100% on room air, CBC with WC 7.8, Hgb 14.6, platelet 226 without marked shift, unremarkable coags besides PT 22.8, BMP with BUN/creatinine 20/1.06, GFR 79, glucose 145, troponin initial 9 with repeat delta 9, CT of the brain with no acute and cranial findings with a small patchy foci of hypoattenuation in the supratentorial periventricular white matter related to known history of multiple sclerosis that are seen on prior MRI, CTA of the head and neck with widely patent intracranial and cervical arterial vasculature, EKG with sinus rhythm with QT 410 with no acute evidence of ischemia. Hospital Course: 1. TIA?64-year-old male with a history of MS presents to the hospital with dysarthria concerning for TIA. During his last MS flare he was having left-sided paresthesias so this was a different presentation. MRI was obtained with and without contrast which is still pending read though on my evaluation I do not see a sign of an acute stroke. His symptoms have completely resolved and he has been an NIH of 0 for over 48 hours and I discussed with him the possibility of waiting for the MRI later this evening to be read or going home and following up with his neurologist and he would prefer to go home. He expressed understanding of the risks and benefits of going home and would still like to go home today. Will continue with aspirin and Lipitor for his TIA. 2. Multiple sclerosis, essential hypertension, anxiety, depression are chronic medical conditions which complicate his care. His home medications were continued where appropriate. Weight / BMI Weight Weight: 215 lb 2.738 oz Body Mass Index (BMI) 28.3 ABG / Lab / Microbiology Data 01/19/25 04:52 01/19/25 04:52 Laboratory: Laboratory Results - last 24 hr 01/17/25 17:56: POC Glucose 145 H 01/19/25 04:52: WBC 6.7, RBC 4.96, Hgb 15.2, Hct 44.2, MCV 89.1, MCH 30.6, MCHC 34.4, RDW Std Deviation 39.7, RDW Coeff of Alexandro 12.2, Plt Count 207, MPV 9.7, Immature Gran % (Auto) 0.400, Neut % (Auto) 52.3, Lymph % (Auto) 34.0, Sweet Grass % (Auto) 8.2, Eos % (Auto) 3.9, Baso % (Auto) 1.2 H, Absolute Neuts (auto) 3.5, Absolute Lymphs (auto) 2.28, Nucleated RBC % 0, Sodium 139, Potassium 4.4, Chloride 100, Carbon Dioxide 27.5, Anion Gap 11, BUN 15, Creatinine 0.99, Estim Creat Clear Calc 95.18, Est GFR (MDRD) Non-Af 86, BUN/Creatinine Ratio 14.8, Glucose 95, Calcium 9.6 Radiography Diagnostic Testing: Radiology Impression Echocardiogram 01/17/25 22:43 Interpretation Summary Normal LV size. Left ventricular systolic function is normal. Stage 1 diastolic dysfunction. Bubble contrast study negative for right to left interatrial shunt. Ordering Physician: Mckenzie Pond Referring Physician: MIHIR LYON Performed By: Petra Reich RCS D/C Instructions Call your doctor if you observe: Fever of 101 or Higher, Shortness of breath, Dizziness, Fainting spells, Swelling in the ankles, Chest pain and Increased palpitations (irregular heartbeat) DC O2, CPAP, BIPAP Needs Home O2 Discharge instructions: No Meaningful Use Info Meaningful Use Meaningful Use Diagnoses (Choose all that apply): None applicable Discharge Plan Admission Admit Date/Time: 01/17/25 22:19 Attending Provider: Sin Lynch Primary Care Provider: Mihir Lyon NP Consulting Providers: Rico Doe; Heber Grigsby; Lyric Morales; Belkys Pleitez; Nirmala Eason; Aakash Ovalle; Dayanna Li; Turner Zapata; Darnell Foley; Tyrel Bauer; Alma Rosa Mclaughlin; Perla Mota; Chema Wilson; Shawanda Gasca; Alesha Ibarra; Da Arizmendi; Jose Hein; Keagan Franks; Zia Lassiter; Charmaine Jimenes; Shaina Walker; Mckenzie Pond Discharge Orders/Prescriptions Prescriptions: New atorvastatin 80 mg Tablet 80 mg PO QHS 30 Days Qty: 30 0RF aspirin 81 mg Tablet,Chewable 81 mg PO BREAKFAST 30 Days Qty: 30 0RF Continued citalopram 10 MG tablet 10 mg PO DAILY Patient Comments: TK 1 T PO QD metformin 500 MG tablet,ER delon.retention 24 hr 500 mg PO DAILY PRN (Reason: diabetes ) losartan-hydrochlorothiazide 100-12.5 mg tablet 1 tab PO DAILY Ocrevus 30 mg/mL solution IV PRN (Reason: MS ) Rx Instructions: Take twice a year, First week of April and Last week of September cholecalciferol (vitamin D3) [Vitamin D3] 50 mcg (2,000 unit) capsule 4,000 unit PO DAILY green tea extract 375 mg capsule PO DAILY Fish Oil 900-1,400 mg capsule,delayed release(DR/EC) PO DAILY zinc 50 mg capsule 50 mg PO DAILY Complex B-100 Tablet Extended Release 1 tab PO DAILY Referrals / Follow Up: Randolph Gary DO [[facility] - [facility]] - Within 1 Week Disposition Disposition (needs filled in before D/C Order can be placed): Home, Self Care Charges/Coding Visit Charges Inpatient E&M: 69815 Disch Hosp >30min
[2025-01-19 14:53] VITALS: BMI 28.3
--- NOTE | 2025-01-19 15:08 | CASEMGMT ---
Patient has order for discharge. RN CM in to discuss needs at discharge. Patient denies needs or help at discharge. Patient had no further questions or concerns.
--- NOTE | 2025-01-19 15:17 | PHA.DC.MC.R ---
Pharmacy [facility] Counseling Pharmacy Service has performed discharge medication reconciliation and counseling for this patient. 1. AZITHROMYCIN 500MG PO DAILY X 3 DAYS 2. PREDNISONE 50MG PO DAILY X 5 DAYS The patient's discharge medication list was reviewed for discrepancies and discrepancies were resolved. The patient was counseled on the following discharge medications and changes in medications for homegoing were reviewed. The Reason for Use, instructions for use, and potential side effects were reviewed for all new medications. The patient's questions regarding all of their medications were answered. The patient was able to verbally demonstrate an understanding of their discharge medications. Medications at Discharge Home Medications citalopram 10 mg tablet 10 mg PO DAILY mental health 02/02/18 metformin 500 mg 24 hr tablet,extended release (gastric retention) 500 mg PO DAILY PRN diabetes 02/02/18 cholecalciferol (vitamin D3) 50 mcg (2,000 unit) capsule (Vitamin D3) 4,000 unit PO DAILY vitamin 01/17/25 green tea extract 375 mg capsule mg PO DAILY supplement 01/17/25 losartan 100 mg-hydrochlorothiazide 12.5 mg tablet 1 tab PO DAILY blood pressure 01/17/25 ocrelizumab 30 mg/mL intravenous solution (Ocrevus) mg IV PRN MS 01/17/25 omega 8-rqs-lin-fish oil 900 mg-1,400 mg capsule,delayed release (Fish Oil) cap PO DAILY supplemen 01/17/25 vitamin B complex (Complex B-100 tablet,extended release) 1 tab PO DAILY vitamin 01/17/25 zinc 50 mg capsule 50 mg PO DAILY vitamin 01/17/25 aspirin 81 mg chewable tablet 81 mg PO BREAKFAST 30 days #30 tabs 01/19/25 atorvastatin 80 mg tablet 80 mg PO QHS 30 days #30 tabs 01/19/25
== END 2025-01-19 15:27 | disposition home or self-care (01) ==
LOC: ED 18:53 → PCU 22:37
PROVIDERS: Admitting Provider Family Medicine; Emergency Provider Emergency Medicine; Visit Provider Family Medicine
DX: G45.9 Transient cerebral ischemic attack, unspecified (principal); G35 Multiple sclerosis; E11.22 Type 2 diabetes mellitus with diabetic chronic kidney disease; E11.65 Type 2 diabetes mellitus with hyperglycemia; E66.9 Obesity, unspecified; R29.700 NIHSS score 0; I12.9 Hypertensive chronic kidney disease with stage 1 through stage 4 chronic kidney disease, or unspecified chronic kidney disease; E78.5 Hyperlipidemia, unspecified; F41.9 Anxiety disorder, unspecified; Z79.899 Other long term (current) drug therapy; R47.1 Dysarthria and anarthria; R47.81 Slurred speech; Z79.84 Long term (current) use of oral hypoglycemic drugs; N18.2 Chronic kidney disease, stage 2 (mild); Z68.31 Body mass index [BMI] 31.0-31.9, adult; Z87.891 Personal history of nicotine dependence; F32.A Depression, unspecified; N40.1 Benign prostatic hyperplasia with lower urinary tract symptoms; N13.8 Other obstructive and reflux uropathy
CPT/HCPCS: 36415; 70450; 70496; 70498; 70553; 80048; 80053; 80061; 82962; 83036; 83735; 84443; 84484; 85025; 85610; 85730; 93005; 93306; 94660; 94668; 94762; 97161; 97165; 97802; 99221; 99284; A9575; Q9967; A4216; G0378

== ENCOUNTER → 2025-01-30 | Outpatient (CLI) | payer OTHER, SELFPAY ==
[2025-01-30 15:03] LABS: Hematocrit 41.3 % (40-54); Hemoglobin 14.3 g/dL (13.0-16.5); Immature Granulocytes Count 0.030 X10^3/uL (0.0-0.0); Mean Corp Hgb Conc 34.6 g/dL (32-36); Mean Corpuscular Volume 88.2 fL (80-94); Mean Platelet Vol. 10.7 fl (6.2-12.0); NRBC Flagged by Analyzer 0 % (0-5); Platelet Count 178 K/mm3 (150-450); RBC Distribution Width CV 12.2 % (11.6-14.6); RBC Distribution Width SD 39.0 fl (35.1-43.9); Red Blood Count 4.68 M/mm3 (4.6-6.2); White Blood Count 6.1 K/mm3 (4.4-11.0)
[2025-01-30 15:35] LABS: AST(SGOT) 28 U/L (<=37); Alanine Aminotransfer ALT/SGPT 25 U/L (<=46); Albumin, Serum 4.6 g/dL (3.4-4.8); Alkaline Phosphatase 59 U/L (40-129); Anion Gap 10 (5-15); BUN 13 mg/dL (4-19); BUN/Creat Ratio 15.1 RATIO (10-20); Calcium,Total 9.2 mg/dL (7.6-11.0); Carbon Dioxide 24.6 mmol/L (21.0-32.0); Chloride 103 mmol/L (98-108); Globulin 2.1 g/dL (2.2-4.2); Glucose 97 mg/dL (70-99); Potassium 4.6 mmol/L (3.3-5.1)
[2025-02-01 09:08] LABS: Immunoglobulin G 688 mg/dL (603-1613)
== END | disposition home or self-care (01) ==
LOC: MFPLAB 12:09
PROVIDERS: Visit Provider Nurse Practitioner Gerontology
DX: G35.D Multiple sclerosis, unspecified (principal); Z79.899 Other long term (current) drug therapy
CPT/HCPCS: 36415; 80053; 82784; 85025